=== PATIENT | male | born 1980 | race Caucasian/White ===

== ENCOUNTER → 2017-03-20 | Emergency (ER) | payer OTHER ==
[~2017-03-20] VITALS: Ht 193 cm; Wt 106.6 kg
[~2017-03-20] MED LIST: AMOXICILLIN500 MG PO; BACTRIM DS TAB1 EACH PO; CYCLOBENZAPRINE10 MG PO; DIABETA2.5 MG PO; FLEXERIL10 MG PO; GLYBURIDE2.5 MG PO; IBUPROFEN800 MG PO; KEFLEX500 MG PO; LANTUS100 UNITS/ SUB-Q; LISINOPRIL40 MG PO; LOVASTATIN20 MG PO; METFORMIN HCL1000 MG PO; METHOCARBAMOL500 MG PO; MOBIC7.5 MG PO; NAPROXEN500 M1 PO; NORCO 10-325 T1 EACH PO; NORCO 5-325 TA1 EACH PO; NORCO 7.5-3251 EACH PO; NOVOLIN 70100 UNITS/ SUB-Q; NOVOLOG100 UNIT/2 SUB-Q; PENICILLIN V P500 MG PO; PERCOCET 10-321 EACH PO; TRAMADOL HCL50 MG PO; ULTRAM50 MG PO; ZOFRAN ODT4 MG PO
== END ==
LOC: ED 10:52
PROC: 0H9FXZZ Drainage of Right Hand Skin, External Approach (ICD-10-PCS; principal; 2017-03-20)
DX: L02.512 Cutaneous abscess of left hand (principal); E11.65 Type 2 diabetes mellitus with hyperglycemia; I10 Essential (primary) hypertension; E78.00 Pure hypercholesterolemia, unspecified; F17.200 Nicotine dependence, unspecified, uncomplicated; Z79.899 Other long term (current) drug therapy; Z79.84 Long term (current) use of oral hypoglycemic drugs
CPT/HCPCS: 10060; 99283

== ENCOUNTER 2020-12-12 22:27 | Emergency (ER) | payer OTHER ==
[~2020-12-12] VITALS: Ht 193 cm; Wt 106.6 kg
--- OUTSIDE RECORDS SUMMARY | 2020-12-12 22:34 | XMS ---
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 Zia has no Care Guidelines for this patient. [place] VISIT COUNT (12 MO.) 1 MILI Joya TOTAL 1 NOTE: Visits indicate total known visits. ED/C VISIT TRACKING (12 MO.) 12/12/2020 22:28 MILI Morales [place] TYPE: Emergency COMPLAINT: - LT THUMB AND SKIN PROBLEM INPATIENT VISIT TRACKING (12 MO.) No inpatient visits to display in this time frame [email or web address]
[2020-12-13] MEDS ORDERED: CYMBALTA60 MG PO (00:10)
[2020-12-13] MEDS ORDERED: AMITRIPTYLINE100 MG PO (00:10)
[2020-12-13] MEDS ORDERED: DOXYCYCLINE HY100 MG PO (00:34)
== END 2020-12-13 00:54 | disposition home or self-care (01) ==
LOC: ED 22:27
DX: S60.322A Blister (nonthermal) of left thumb, initial encounter (principal); L08.9 Local infection of the skin and subcutaneous tissue, unspecified; X58.XXXA Exposure to other specified factors, initial encounter; E11.9 Type 2 diabetes mellitus without complications; I10 Essential (primary) hypertension; E78.00 Pure hypercholesterolemia, unspecified; F17.200 Nicotine dependence, unspecified, uncomplicated; Z79.4 Long term (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; Z79.899 Other long term (current) drug therapy
CPT/HCPCS: 99282

== ENCOUNTER 2021-05-04 15:19 | Emergency (ER) | payer OTHER ==
[~2021-05-04] VITALS: Ht 193 cm; Wt 106.6 kg
[~2021-05-04 15:19] MED LIST changes: +AMITRIPTYLINE100 MG PO; +CYMBALTA60 MG PO; +DOXYCYCLINE HY100 MG PO
--- OUTSIDE RECORDS SUMMARY | 2021-05-04 15:22 | XMS ---
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 Zia has no Care Guidelines for this patient. [place] VISIT COUNT (12 MO.) 2 MILI Joya TOTAL 2 NOTE: Visits indicate total known visits. 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 - Type 2 diabetes mellitus without complications - Nicotine dependence, unspecified, uncomplicated - Exposure to other specified factors, initial encounter - Pure hypercholesterolemia, unspecified - Blister (nonthermal) of left thumb, initial encounter - Blister (nonthermal) of left thumb, initial encounter - Local infection of the skin and subcutaneous tissue, unspecified - Rash and other nonspecific skin eruption - Essential (primary) hypertension - [facility] (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 INPATIENT VISIT TRACKING (12 MO.) No inpatient visits to display in this time frame [id number]
== END 2021-05-04 17:53 | disposition home or self-care (01) ==
LOC: ED 15:19
DX: K62.89 Other specified diseases of anus and rectum (principal); E11.9 Type 2 diabetes mellitus without complications; I10 Essential (primary) hypertension; F17.200 Nicotine dependence, unspecified, uncomplicated; Z79.4 Long term (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; Z79.899 Other long term (current) drug therapy
CPT/HCPCS: 72192; 99284-25; A9270

== ENCOUNTER 2021-06-17 18:14 | Inpatient (IN) | payer OTHER ==
[~2021-06-17] VITALS: Ht 193 cm; Wt 103.2 kg
[2021-06-17] MEDS ORDERED: LANTUS100 UNITS/ SUB-Q (19:34)
--- NOTE | 2021-06-17 21:04 | EKG ---
[facility] [address] [place] [address] Signed Sinus tachycardia Rightward axis Low voltage QRS Borderline ECG No previous ECGs available Confirmed by DIANDRA CORDOBA DO ([id number]) on 06/17/2021 9:04:30 PM Electronically Signed By: DIANDRA CORDOBA DO 06/17/212103 PATIENT NAME: JASMINA SANON Electrocardiogram DATE OF : 76 PHYSICIAN: DIANDRA CORDOBA DO REPORT #: [id number] REPORT IS CONFIDENTIAL AND NOT TO BE RELEASED WITHOUT AUTHORIZATION
--- NOTE | 2021-06-18 00:35 | NUR ---
PT ARRIVED TO UNIT WITH GIRLFRIEND, PT MOVED FROM ED STRETCHER TO CCU BED, ASSESSMENT COMPLETED, SECOND IV STARTED, MEDS REVIEWED AND GIVEN PER JUL, DURING HISTORY AND ASSESSMENT PT WAS VERY QUIET AND HARD TO HEAR, KEPT FALLING ASLEEP, UNABLE TO HOLD CONVERSATION, GIRLFRIEND STATES THIS IS NORMAL FOR PT WHEN HES TIRED, VITAL SIGNS OBTAINED, ORDERS REVIEWED, LABS REVIEWED, IN CCU FOR HOUSE CONVIENCE, TREATING MED/SURG STATUS
--- OUTSIDE RECORDS SUMMARY | 2021-06-18 02:56 | XMS ---
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 EJena VISIT COUNT (12 MO.) 3 MILI Joya TOTAL 3 NOTE: Visits indicate total known visits. 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
--- NOTE | 2021-06-18 07:30 | NUR ---
REPORT RECIEVED, CARE OF PATIENT ASSUMED AT THIS TIME. ABX AND IV FLUIDS INFUSING (SEE EMAR). PT ASLEEP, BREATHING EVEN AND UNLABORED. PT DENIES NEEDS AT THIS TIME.
--- NOTE | 2021-06-18 07:55 | NUR ---
DR MERRITT IN TO DRESS FOOT WOUND AT THIS TIME. PT GAVE VERBAL CONSENT GIVEN TO PHOTOGRAPH WOUND. PLAN FOR PT TO GO TO MRI AT 1300 TODAY.
--- NOTE | 2021-06-18 08:10 | NUR ---
Attempted to see pt, he is sleeping soundly and does not awaken. Per RN he slept through a dressing change with the Dr. Will return later.
--- NOTE | 2021-06-18 09:19 | NUR ---
ASSESSMENT COMPLETED. PT EXTREMELY DROWSY, AWAKENS TO TOUCH AND ANSWERS QUESTIONS APPROPRAITELY BUT FALLS BACK ASLEEP DURING ASSESSMENT. LUNGS SOUND CLEAR, PT DENIES PAIN AT THIS TIME. IV FLUIDS INFUSING. PLAN OF CARE FOR DAY ESTABLILSHED. CALL LIGHT WITHIN REACH WILL CONTINUE TO MONITOR.
--- NOTE | 2021-06-18 09:50 | NUR ---
PT WOKE TO TAKE ORAL MEDICATIONS. ATTEMPT TO STAND TO VOID, UNABLE TO PUT PRESSURE ON LEFT LEG. PT ALSO UNALBE TO VOID. NOW BACK IN BED, ASSISTED WITH REPOSITIONING IN BED. CALL LIGHT WITHIN REACH. IV FLUIDS INFUSING. WILL CONTINUE TO MONITOR.
--- NOTE | 2021-06-18 11:13 | NUR ---
PT SLEEPING, DID NOT WAKE TO MY VOICE. WILL CHECK BACK AGAIN
--- NOTE | 2021-06-18 11:15 | NUR ---
THIS FILBERT GROWER IN ROOM TO ASSIST PATIENT WITH VOID FOR URINE SAMPLE. PATIENT RESTING VERY SOUNDLY WITH BLANKET OVER HIS HEAD. OPENS EYES BRIEFLY AND IS BACK TO SLEEP BEFORE HE CAN ANSWER.
--- NOTE | 2021-06-18 11:38 | NUR ---
REPORT GIVEN TO ROBE ON THE MEDICAL FLOOR. PTS TRANSFERED TO THE FLOOR VIA BED, ALL BELONGINGS TRANSPORTED WITH PT.
--- NOTE | 2021-06-18 11:50 | NUR ---
PT ARRIVED TO FLOOR AT THIS TIME. PT VERY DROWSY BUT DOES AROUSE TO TOUCH AND VOICE.
--- NOTE | 2021-06-18 12:50 | NUR ---
THIS RN TO GIVE MEDS. PT DENIES PAIN. ABLE TO WAKE UP AND TAKE PILLS WNL. LLE ELEVATED ON PILLOW. PT STILL DROWSY WITH NO CHANGE
--- NOTE | 2021-06-18 14:10 | NUR ---
PT APPEARS TO BE RESTING BUT ABLE TO WAKE AND SIGN HIS MRI PAPER
--- NOTE | 2021-06-18 14:42 | NUR ---
VS AND I&O'S TAKEN AND DOCUMENTED. PT SLEEPING PRETTY HARD, DIDN'T WANT TO BE WOKEN UP FOR VITALS. PT STATES HE HAS NOT VOIDED AND DOESN'T FEEL LIKE HE HAS TO GO AT THIS TIME. INFORMED PT TO CALL SOON HE FEELS THE URGE TO VOID. PT UNDERSTANDS. CALL LIGHT IN REACH.
--- NOTE | 2021-06-18 15:04 | NUR ---
1500-PATIENT TO MRI VIA WHEELCHAIR. BEDDING CHANGED.
--- NOTE | 2021-06-18 16:10 | NUR ---
PT BACK FROM MRI. PT STILL VERY DROWSY BUT ABLE TO WAKE TO ANSWER QUESTIONS. PT ABLE TO VOID AT THIS TIME. UA SENT TO LAB
--- NOTE | 2021-06-18 17:30 | NUR ---
THIS RN IN PTS ROOM WITH . OPENED UP 5 SMALL INCISIONS ON PTS LEFT FOOT AND ABLE TO MOVE WHITE PURULENT DRAINAGE OUT
--- NOTE | 2021-06-18 19:15 | NUR ---
report from lyudmila pt eyes closed, resp rate regular - call light in reach.
--- NOTE | 2021-06-18 22:59 | NUR ---
VS AND I&O'S COMPLETE. pt YET TO VOID, URINAL AT BEDSIDE. pt AGREES TO TRY AND VOID, HR TACHY-107 AND TEMP RESULT OF 99.7. PRIMARY RN KENDRA AWARE OF VS AND NEED TO VOID.
--- NOTE | 2021-06-19 00:20 | NUR ---
in pt room for IV alarm - pt resp rate even with audible snoring. IV fusing abx. call light in reach.
--- NOTE | 2021-06-19 02:44 | NUR ---
PT WOKEN UP BY RN AND ASKED TO USE URINAL. VOID 750 YELLOW CLEAR URINE.
--- NOTE | 2021-06-19 05:35 | NUR ---
RN AND LAB IN FOR VITALS AND BLOOD DRAW.
--- NOTE | 2021-06-19 06:00 | NUR ---
DR MERRITT IN WITH THIS RN FOR DRESG CHANGE OF LEFT FOOT, JESUS. DR AWARE OF DUSKY SECOND TO GREAT TOE, AND NOW GREAT TOE WELL. DRESSING REMOVED BY AND FLUSHED OPEN AREAS WITH TEA COLORED DILUTED IODINE WATER - OPEN AREAS PACKED WITH SMALL GAUZE AFTER BLUNT END OF QTIP USED TO OPEN AREA AND DRAIN OUT FLUIDS. FLUSHING THE WOUNDS WITH SYRINGE OF DILUTED AREA FIRST. WRAPPED WITH ABD KERLEX THEN COBAN. PT TOLLERATED WELL- SLEEPY BUT AWAKENS AND REPOSITIONS WITH DIRECTION.
--- NOTE | 2021-06-19 10:55 | NUR ---
Patient resting in bed, eyes closed, respirations even and non labored. Patient has no distress. LLE elevated, dressing is CDI. IV site patent, fluids infusing per provider order.
--- NOTE | 2021-06-19 12:30 | NUR ---
Attempted to see pt x 3. I was not successful getting pt to stay awake to ask questions. Pt snoring loudly and falls asleep immediately.
--- NOTE | 2021-06-19 14:25 | NUR ---
Patient resting in bed, eyes closed, respirations even and non labored. Patient has no distress. LLE elevated. Patient has no needs. Personal supplies and call light within reach.
[2021-06-19] MEDS ORDERED: DOXYCYCLINE MO100 M1 PO (15:01)
[2021-06-19] MEDS ORDERED: AMITRIPTYLINE150 MG PO (15:02)
[2021-06-19] MEDS ORDERED: GABAPENTIN300 MG PO (15:02)
[2021-06-19] MEDS ORDERED: HUMALOG KW200 UNIT/1 SUB-Q (15:03)
--- NOTE | 2021-06-19 15:05 | NUR ---
MED REC COMPLETE
--- NOTE | 2021-06-19 16:01 | NUR ---
EVERTIME I GO IN AND CHECK ON PATIENT OR DO HIS VITALS. PATIENT IS SLEEPING.
--- NOTE | 2021-06-19 17:13 | NUR ---
LEFT FOOT DRESSING CHANGED PER PROVIDER ORDER. WOUND AREA TO LEFT FOOT CLEANED WITH BETADINE DILUTE SOLUTION, EXPRESSED PURULENT DRAINAGE FROM I&D LOACATIONS. INJECTED DILUTE BETADINE INTO I&D LOCATIONS WELL, ALLOWED FOR DRAINAGE TO CLEAR. MOIST PACKING PLACED TO I&D SITES X2. 4X4 GAUZE, KERLIX, ABD THEN COBAN PLACED. PATIENT TOLERATED DRESSING CHANGE VERY WELL. NOTABLE DUSKY SECOND AND GREAT TOE-PROVIDER AWARE PER REPORT.
--- NOTE | 2021-06-19 21:30 | NUR ---
VS, I&Os, GLUC CHECK (SEE EMAR) COMPLETE, ICE WATER FILLED
--- NOTE | 2021-06-20 01:21 | NUR ---
RESTING, NO C/O ADVERSE REACTION TO IV ABX, L FOOT ELEVATED IN PILLOWS, DRESSING IN PLACE, CALL LIGHT AND FLUDIS AT HANDS REACH
--- NOTE | 2021-06-20 02:42 | NUR ---
resting, eyes closed, no distress, coop with assessment. dressing to L foot intact, encouraged to elevate as much as possible. laying on his stomach, leg in dependent position, stated ok, denies c/o pain at this time. calm, coop. unable to assess degree of understanding as he just nods and states "mmmmm" cont to reinforce poc and care of L foot dressing
--- NOTE | 2021-06-20 06:15 | NUR ---
Pt on room air, has slept all this shift, awakens easily with light touch or verbal cue. IVF infusing w/o problems, no c/o adverse reaction to IV abx. Decreaed redness and edema L foot, dressing in place, toes spale, edematoues, discolored. elevated in pillows. Was medicated with Tylenol, effective. CIWA restults 4 and 2. cont to assess for s/sx meth withdrawal. Tolerating liquids well, no emesis this shift. Voiding large amounts of urine. unable to assess degree of understandingn when teaching as he only answers "mmmmmm". cont to reinforce teaching, s/sx hypo/hyperglycemia, L foot dressing care. L foot elevated
--- NOTE | 2021-06-20 09:05 | NUR ---
INTO PATIENT ROOM, MITALI HAMILTON AND STUDENT AT BEDSIDE. PATIENT IN BED, APPEARS TO BE ATTEMPTING TO OPEN EYES AND WAKE UP. ATTEMPTED TO COMPLETE CASE MANAGEMENT ASSESSMENT. PATIENT ONLY ABLE TO ANSWER A FEW QUESTIONS BEFORE RETURNING TO SLEEP. PER MITALI HAMILTON PATIENT HAS REQUIRED STERNAL RUB TO WAKE. PATIENT STATES HE IS CURRENTLY HOMELESS AND COUCH SURFING. DWAINE CONFIRMS THAT HE HAS NO MAILING ADDRESS. CONFIRMED [facility] [phone] TO BE A GOOD CONTACT. AT THIS TIME PATIENT FALLS BACK TO SLEEP DISPITE THIS RN ASKING QUESTIONS AND OTHER STAFF TALKING AT THE BEDSIDE. THIS RN AND MITALI HAMILTON OUT OF ROOM TO DISCUSS CONCERNS REGARDING SUSPICIONS OF ONGOING DRUG USE WHILE INPATIENT. MITALI HAMILTON TO DISCUSS CONCERNS WITH ASSISTANT PRESS OPERATOR.
--- NOTE | 2021-06-20 09:10 | NUR ---
MED REC COMPLETE
--- NOTE | 2021-06-20 10:20 | NUR ---
Patient resting with eyes closed, wakes to verbal stimuli but then shorly after returns back to sleep. Patient is alert to all accept date, notably drowsy. Speech is clear, pt answering questions when asked. Patient reports he is legally blind so he wears sunglasses frequently. Patient reports he is tired today but overall feels a bit better as compared to yesterday. Patient's vital signs are stable. IV site patent. Patient consumed 75% of breakfast. Dr. Moulton in with patient this morning for left foot dressing change. Left foot is elevated on a pillow. Dressing remains CDI to left foot.
--- NOTE | 2021-06-20 11:05 | NUR ---
PT ASLEEP, WILL CHECK BACK
--- NOTE | 2021-06-20 11:42 | NUR ---
Patient voided 900ml clear yellow urine. Patient reports he would like to go home today. Encouraged patient to speak with Dr. Tan when he comes to see him today regarding plan of care for hospital stay. Explained to patient that Dr. Moulton stated this morning that pt is in need of iv antibiotics for several days for his infection. Will monitor for plan of care updates from provider.
--- NOTE | 2021-06-20 16:06 | NUR ---
Patient resting in bed, respirations even and non labored. Patient has no distress. IV sites are patent. LLE elevated. Personal supplies and call light within reach.
--- NOTE | 2021-06-20 17:32 | NUR ---
Held dinner insulin for blood sugar of 71. Patient awake eating dinner at this time.
--- NOTE | 2021-06-20 17:35 | NUR ---
1700 insulin held due to blood sugar of 75. Patient awake eating dinner.
--- NOTE | 2021-06-21 02:36 | NUR ---
RESTING, EYES CLOSED, NO DISTRESS, ON CONTACT ISOLATION PRECAUTIONS. L FOOT ELEVATED IN PILLOWS, DRESSING CDI
--- NOTE | 2021-06-21 06:15 | NUR ---
Pt on MRSA Contact Isolation Precautions. On room air, more alert and oriented than yesterday, receptive to teaching r/t care of L foot. L foot dressing changed last night. decreased erythema and edema of L foot. has kept it elevated with pillows. Was medicated with Tylenol and Oxycodone prior to dressing changes. effective. tolerating fluids and diet. CBG was 222 received 5 units ss insulin and scheduled Semglee Insulin. Cooperative with procedures.
--- NOTE | 2021-06-21 08:30 | NUR ---
Dr. Moulton in for left foot dressing change.
--- NOTE | 2021-06-21 08:56 | NUR ---
Oxycodone 10mg po and tylenol 650mg po admin for left foot dressing change.
--- NOTE | 2021-06-21 11:06 | NUR ---
Patient more alert today, no distress. LLE elevated at this time. Decreased arythema to left leg/foot. Left foot dressing is CDI. No current needs. Personal supplies and call light within reach.
--- NOTE | 2021-06-21 14:00 | NUR ---
REPORT RECEIVED FROM RN AND PT CARE RESUMED. PT. IS DROWSY BUT AROUSES EASILY AND ORIENTED TO ALL. RAC IV IS LEAKING AND CATH ALMOST COMPLETELY REMOVED. REMOVED BY THIS RN WITH CATH INTACT. PT. DENIES PAIN. LT. FOOT DRESSING IS CDI AND REDDNESS WITHIN OUTLINE MARGINS. DISCUSSED SAFETY, POC, AND IV CARE. LEFT RESTING WITH CALL LIGHT IN REACH.
--- NOTE | 2021-06-21 19:35 | NUR ---
REPORT RECEIVED FROM DAY SHIFT RN. PT LYING IN BED RESTING WITH EYES CLOSED. RESPIRATIONS EVEN. WHITE BOARD UPDATED. CALL LIGHT IN REACH.
--- NOTE | 2021-06-21 21:10 | NUR ---
PT ALERT AND ORIENTED SITTING UP IN BED VISITING WITH FAMILY IN ROOM. PRN FOR PAIN ADMINISTERED IN ANTICIPATION OF DRESSING CHANGE. NO FURTHER NEEDS AT THIS TIME. CALL LIGHT IN REACH.
--- NOTE | 2021-06-21 22:15 | NUR ---
EVENING ASSESSMENT COMPLETE. SCHEDULED MEDS ADMINSITERED PER EMAR. DRESSING CHANGE TO LEFT FOOT DONE PER MD ORDER. MODERATE AMOUNT PURULENT DRAINAGE EXPRESSED. PT CHOLO WELL. LLE ELVATED ON PILLOW. PT REPORTS PAIN IS TOLERABLE. DENIES NAUSEA. IV ABX INFUSING WNL. PT DENIES PAIN WITH INFUSION. DENIES QUESTIONS OR CONCERNS. CALL LIGHT IN REACH.
--- NOTE | 2021-06-22 00:48 | NUR ---
PT RESTING IN BED. EYES CLOSED. RESPIRATIONS EVEN. IV ABX INFUSING WNL.
--- NOTE | 2021-06-22 02:34 | NUR ---
IV PUMP ALARMING. IV ABX COMPLETE. PT RESTING ON RIGHT SIDE. AWAKENS EASILY. DENIES NEEDS. CALL LIGHT IN REACH.
--- NOTE | 2021-06-22 05:21 | NUR ---
PT RESTING IN BED. EYES CLOSED. RESPIRATIONS EVEN. CALL LIGHT IN REACH.
--- NOTE | 2021-06-22 06:40 | NUR ---
DR. MERRITT AT BEDSIDE TO CHANGE DRESSING TO LEFT FOOT. PT CHOLO WELL. PRN FOR PAIN ADMINISTERED PER EMAR. VS AND I&O COMPLETE. PT DENIES FURTHER NEEDS.
--- NOTE | 2021-06-22 09:00 | NUR ---
REPORT RECEIVED FROM NIGHT RN AND PT. CARE RESUMED. PT. IS DROWSY BUT EASILY AWAKENS AND ORIENTED TO ALL. HE AMBULATED TO THE CHAIR WITH SBA AND BROUGHT A WALKER PER REQUEST. IV WNL AND FLUSHES WELL. LEFT FOOT DRESSING C.D.I. AND +1 EDEMA PRESENT AND REDDNESS WITHIN MARGINS. DISCUSSED POC, MEDS AND ENCOURAGED AMBULATION. LEFT RESTING WITH CALL LIGHT IN REACH.
--- NOTE | 2021-06-22 10:37 | NUR ---
IV VANCO INFUSING. PT. EDUCATED ON S/SX OF INFILTRATION.
--- NOTE | 2021-06-22 11:15 | NUR ---
ROUNDING ON PT. IV SITE WNL AND NO SIGNS OF INFILTRATION. VANCO INFUSING.
--- NOTE | 2021-06-22 14:38 | NUR ---
ROUNDING ON PT. HE IS UP IN THE CHAIR SLEEPING WITH EYES CLOSED. RESPIRATIONS EVEN AND UNLABORED.
--- NOTE | 2021-06-22 16:18 | NUR ---
HELPED PATIENT WALK TO THE CHAIR WHILE USING WALKER. CHANGED BED LINENS. HE BRUSHED HIS TEETH AND WASHED HIS FACE.
--- NOTE | 2021-06-22 19:40 | NUR ---
REPORT RECEIVED FROM DAY SHIFT RN. PT LYING IN BED RESTING WITH EYES CLOSED. WHITE BOARD UPDATED. CALL LIGHT IN REACH.
--- NOTE | 2021-06-22 21:45 | NUR ---
EVENING ASSESSMENT COMPLETE. SCHEDULED MEDS ADMINISTERED PER EMAR. PRN FOR PAIN ADMINISTERED IN ANTICIPATION OF LLE DRESSING CHANGE. LLE CELLULITIS OUTLINE. REDNESS RECEDING. LLE ELEVATED ON PILLOWS. PT DENIES NAUSEA. VOID QS. FRESH WATER PROVIDED. TEMP NOTED TO BE ELEVATED. PT C/O BEING HOT. THERMOSTAT TURNED DOWN.
--- NOTE | 2021-06-22 23:15 | NUR ---
DRESSING CHANGE TO LLE COMPLETE PER MD ORDERS. MODERATE AMOUNT BLOODY PURULENT DRAINAGE EXPRESSED FROM WOUND. PT CHOLO WELL. IV ABX INFUSING WNL. LOW SUGAR SNACK PROVIDED PER REQUEST. NO FURTHER NEEDS AT THIS TIME. CALL LIGHT IN REACH.
--- NOTE | 2021-06-23 01:37 | NUR ---
PT RESTING IN BED. EYES CLOSED. RESPIRATIONS EVEN. LLE ELEVATED ON PILLOWS.
--- NOTE | 2021-06-23 05:42 | NUR ---
VS AND I&O COMPLETE. PRN FOR PAIN ADMINISTERED PRIOR TO LLE DRESSING CHANGE BY MD. LLE ELEVATED ON PILLOW. NO FURTHER NEEDS AT THIS TIME. CALL LIGHT IN REACH.
--- NOTE | 2021-06-23 06:46 | NUR ---
DR. MERRITT TO ROOM FOR MORNING DRESSING CHANGE AND DISCUSS PLAN OF CARE. PT CHOLO WELL.
--- NOTE | 2021-06-23 07:30 | NUR ---
PATIENT AWOKE WHEN DOING SHIFT REPORT ROUNDS. PATIENT SAYS HIS PAIN IS ,"OK". PATIENT REQUIRED NO OTHER CARE NEEDS AT THIS TIME AND CALL LIGHT IS IN REACH.
--- NOTE | 2021-06-23 09:17 | NUR ---
PATIENT ATE 100% OF HIS BREAKFAST AND IS HAVING 7/10 PAIN IN HIS LEFT FOOT. 10MG PO OXYCODONE GIVEN AND PATIENT DENIES ANY OTHER CARE NEEDS. CALL LIGHT IS IN REACH.
--- NOTE | 2021-06-23 09:47 | NUR ---
PT ASLEEP IN BED WITH EYES CLOSED. CALL LIGHT WITHIN REACH. NO FURTHER NEEDS AT THIS TIME.
--- NOTE | 2021-06-23 10:08 | NUR ---
IV VANCO INFUSING FOR 2 HOURS. PATIENT IS SLEEPING SOUNDLY.
--- NOTE | 2021-06-23 11:21 | NUR ---
WENT TO CHECK ON PATIENT'S PAIN AND PATIENT IS RESTING QUIETLY SUPINE, EYES ARE CLOSED, RESPIRATIONS ARE REGULAR AND EVEN, AND CALL LIGHT IS IN REACH. PATIENT HAS NO NOTED CARE NEEDS AT THIS TIME.
--- NOTE | 2021-06-23 12:14 | NUR ---
THIS RN IN TO SEE PATIENT. PATIENT DENIES ANY PAIN AT THIS TIME. FSBS WAS COVERED. LUNCH TRAY DELIVERED AND PATIENT SITTING UP TO EAT. PATIENT DENIES ANY OTHER CARE NEEDS AT THIS TIME. CALL LIGHT IS IN REACH.
--- NOTE | 2021-06-23 12:54 | NUR ---
THIS RN REFILLED PATIENT'S ICE WATER AND TOOK AWAY HIS LUNCH TRAY. PATIENT ATE 90% OF LUNCH. URINAL EMPTIED AND PATIENT DENIES PAIN AND ANY OTHER CARE NEEDS AT THIS TIME CALL LIGHT IS IN REACH.
--- NOTE | 2021-06-23 14:28 | NUR ---
PATIENT IN BED RESTING AT THIS TIME. VITALS AND I&O'S CHARTED. CALL LIGHT IN REACH. NO FURTHER NEEDS AT THIS TIME. PATIENT WANTS TO GET UP AND WALK AROUND WHEN VISITOR GETS HERE.
--- NOTE | 2021-06-23 15:10 | NUR ---
PATIENT JUST FINISHED WORKING WITH PT AND LEFT FOOT PAIN 02/16. SCHEDULED AND PRN PO PAIN MEDS GIVEN. PATIENT ALSO SUPPLIED WITH 1 DIABETIC JELLO AND SOME CRACKERS HE ASKED FOR. PATIENT DENIED ANY OTHER PAIN MEDS AT THIS TIME AND CALL LIGHT IS IN REACH. PATIENT HAS CAP REFILL ,3 SEANDS ON ALL LEFT TOES AND PATIENT CAN WIGGLE HIS TOES, BUT HAS NO FEELING IN HIS BIG AND 2ND TOE AT THIS TIME.
--- NOTE | 2021-06-23 17:13 | NUR ---
PATIENT'S GCHZ=[id number]. DISCUSSED THIS WITH AND SHE GAVE ME A VERBAL ORDER TO HOLD THE 5UNIT INSULIN DOSE WITH MEALS. INFORMED THE PATIENT THAT WE WERE NOT GIVING ANY INSULIN WITH DINNER AND HE AGREED WITH THIS DECISION. PATIENT IS AT HIS COMFORT LEVEL AT THIS TIME AND DID NOT NEED ANYMORE PAIN MEDICATION AT THIS TIME. DINNER SET UP FOR PATIENT AND PATIENT HAS A FRIEND IN THE ROOM VISITING. PATIENT HAS NO OTHER CARE NEEDS AT THIS TIME AND CALL LIGHT IS IN REACH.
--- NOTE | 2021-06-23 18:37 | NUR ---
PATIENT IN BED RESTING AT THIS TIME. VITALS AND I&O'S CHARTED. VISITOR IN ROOM. CALL LIGHT IN REACH. NO FURTHER NEEDS AT THIS TIME.
--- NOTE | 2021-06-23 19:39 | NUR ---
REPORT RECEIVED FROM DAY SHIFT RN. PT LYING IN BED WITH EYES CLOSED. RESPIRATIONS EVEN. WHITE BOARD UPDATED. CALL LIGHT IN REACH.
--- NOTE | 2021-06-23 21:45 | NUR ---
EVENING ASSESSMENT COMPLETE. SCHEDULED MEDS ADMINISTERED PER EMAR. PRN FOR PAIN GIVEN PRIOR TO LLE DRESSING CHANGE. PT DENIES NAUSEA. LLE CELLULITIS OUTLINED. REDNESS RECEDING. LLE ELEVATED ON PILLOW WITH RED DRAINAGE ON DRESSING. EVENING SNACK PROVIDED. PT DENIES FURTHER NEEDS AT THIS TIME. CALL LIGHT IN REACH.
--- NOTE | 2021-06-23 23:30 | NUR ---
IV IN RIGHT FOREARM DC'D WNL DUE TO REDNESS AT SITE. TIP INTACT. NEW IV STARTED IN RIGHT AC BY RN SAW STRAIGHTENER. IV ABX INFUSING WNL. PT DENIES PAIN WITH INFUSION. LINENS CHANGED.
--- NOTE | 2021-06-23 23:52 | NUR ---
HELPED PRIMARY RN ROMERO CHANGED BED LINEN.
--- NOTE | 2021-06-24 05:20 | NUR ---
VS AND I&O COMPLETE. PRN FOR PAIN ADMINISTERED BEFORE DRESSING CHANGE THIS AM BY MD. PT DENIES NEEDS.
--- NOTE | 2021-06-24 06:26 | NUR ---
MD IN ROOM FOR LLE DRESSING CHANGE AND UPDATE PLAN OF CARE. PT RECEPTIVE. VERBAL ORDERS RECEIVED FOR LLE POST OP BOOT.
--- NOTE | 2021-06-24 07:30 | NUR ---
PATIENT RESTING QUIETLY IN BED. RRESPIRATIONS ARE REGULAR AND EVEN AND EYES ARE CLOSED. PATIENT HAS NO CURRENT CARE NEEDS. CALL LIGHT IS IN REACH.
--- NOTE | 2021-06-24 08:19 | NUR ---
PT RESTING IN BED WITH EYES CLOSED. PT IS SLOW TO RESPOND AND FALLING ASLEEP FREQUENTLY DURING BLOOD SUGAR CHECK. WHITE BOARD UDPATED. CALL LIGHT WITHIN REACH. GIRLFRIEND AT BEDSIDE. NO FURTHER NEEDS AT THIS TIME.
[2021-06-24] MEDS ORDERED: LINEZOLID600 MG PO (09:06)
--- NOTE | 2021-06-24 10:15 | NUR ---
IN TO SEE PATIENT AND PATIENT HAVING 6/10 LEFT FOOT PAIN. PO OXYCODONE GIVEN. PATIENT ALSWO GETTING HIS FLU SHOT PRIOR TO DC. PATIENT IS WILLING AND READY TO GO HOME AND HIS RIDE IS PRESENT IN THE ROOM. AWAITING PHARMACIST TO TALK WITH PATIENT.
--- NOTE | 2021-06-24 10:30 | NUR ---
Notified, pt is wanting to dc and needs a walker. Texted Behzad from [facility], [place] and he is in town today and has a walker with him. Faxed face sheet, Rx, note, and dc summary to [facility].
--- NOTE | 2021-06-24 11:09 | NUR ---
PATIENT GIVEN HIS FLU VACCINE AND INFO SHEET. ALL DISCHARGE AND F/U INSTRUCTIONS GIVEN PATIENT ASKED ABOUT PAIN MEDS AND WAS CALLED AND HE SAID OTC MEDS FOR NOW AND WILL DISCUSS WITH PATIENT IN THE OFFICE TOMORROW. PATIENT IS READY FOR DC.
--- NOTE | 2021-06-24 11:30 | NUR ---
THIS RN PLACED A SOCK OVER PATIENT'S TOES AND PUT HIS SURGERY SHOE ON HIS LEFT FOOT. CAP REFILL TO ALL LEFT TOES <3 SECONDS AND PATIENT CAN MOVE ALL HIS TOES. IV DC'D INTACT. VS DU=961, RESPS=18, B/P=94/67, 985 O2 SAT ON RA. INFORMED OF THESE VS BY THIS RN AND APPROVED PATIENT'S DC. PATIENT TAKEN OUT TO PRIVATE CAR BY SHEET METAL SUPERINTENDENT AND STUDENT NURSE.
--- NOTE | 2021-06-24 14:00 | NUR ---
Received a call from Liset at [facility]. States she cannot accept gait instability for payment for a walker. UPdated pt has a diabetic wound and she states this is a code they can use. Code given and they will auth walker.
== END 2021-06-24 11:30 | disposition home or self-care (01) | DRG 853 ==
LOC: ED 18:14 → CCU 22:22 → MS 06-18 11:50
PROVIDERS: ADMIT Student in an Organized Health Care Education/Training Program; ATTEND Student in an Organized Health Care Education/Training Program
PROC: 3E03329 Introduction of Other Anti-infective into Peripheral Vein, Percutaneous Approach (ICD-10-PCS; 2021-06-17)
PROC: 0L9W0ZZ Drainage of Left Foot Tendon, Open Approach (ICD-10-PCS; principal; 2021-06-18)
DX: A41.02 Sepsis due to Methicillin resistant Staphylococcus aureus (principal); G93.41 Metabolic encephalopathy; L03.116 Cellulitis of left lower limb; I10 Essential (primary) hypertension; E11.621 Type 2 diabetes mellitus with foot ulcer; L97.529 Non-pressure chronic ulcer of other part of left foot with unspecified severity; Z20.822 Contact with and (suspected) exposure to COVID-19; E03.9 Hypothyroidism, unspecified; F17.200 Nicotine dependence, unspecified, uncomplicated; Z98.890 Other specified postprocedural states; Z79.4 Long term (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; Z79.899 Other long term (current) drug therapy; F39 Unspecified mood [affective] disorder
CPT/HCPCS: 36415; 71045; 73630; 73723; 80048; 80053; 80202; 81001; 82803; 83605; 83735; 85025; 85651; 86140; 87040; 90686; 93005; 93010; 93971; 96374; 96375; 97162; 99285-25; A9270; A9577; C9803; J0692; J1650; J1815; J3370; J7030; J7060; J7121; U0003

== ENCOUNTER 2021-09-01 16:32 | Emergency (ER) | payer OTHER ==
[~2021-09-01] VITALS: Ht 195.6 cm; Wt 103.0 kg
[~2021-09-01 16:32] MED LIST changes: +AMITRIPTYLINE150 MG PO; +DOXYCYCLINE MO100 M1 PO; +GABAPENTIN300 MG PO; +HUMALOG KW200 UNIT/1 SUB-Q; +LINEZOLID600 MG PO
[2021-09-01] MEDS ORDERED: BACTRIM DS TAB1 EACH PO (17:03)
[2021-09-01] MEDS ORDERED: CYCLOBENZAPRINE10 MG PO (18:36)
[2021-09-01] MEDS ORDERED: MOBIC15 MG PO (18:36)
== END 2021-09-01 18:55 | disposition home or self-care (01) ==
LOC: ED 16:32
DX: M51.36 Other intervertebral disc degeneration, lumbar region (principal); E11.9 Type 2 diabetes mellitus without complications; I10 Essential (primary) hypertension; E78.00 Pure hypercholesterolemia, unspecified; E03.9 Hypothyroidism, unspecified; F17.200 Nicotine dependence, unspecified, uncomplicated; Z79.899 Other long term (current) drug therapy; Z79.4 Long term (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
CPT/HCPCS: 72100; 96372; 99283-25; J1885

== ENCOUNTER 2021-09-19 17:20 | Emergency (ER) | payer OTHER ==
[~2021-09-19] VITALS: Ht 195.6 cm; Wt 99.8 kg
[~2021-09-19 17:20] MED LIST changes: +MOBIC15 MG PO
--- OUTSIDE RECORDS SUMMARY | 2021-09-19 17:22 | XMS ---
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 Waste Hand Events No recent Security Events currently on file CRITERIA MET - [facility] - 2 Visits in 30 Days CARE PROVIDERS [facility] 05/06/2021-Current PHONE: [phone] Zia has no Care Guidelines for this patient. [place] VISIT COUNT (12 MO.) 6 [facility] TOTAL 6 NOTE: Visits indicate total known visits. ED/C VISIT TRACKING (12 MO.) 09/19/2021 17:21 [facility] [place] TYPE: Emergency COMPLAINT: - BACK PAIN 09/19/2021 12:45 [facility] [place] TYPE: Emergency COMPLAINT: - BACK PAIN 09/01/2021 16:32 [facility] [place] TYPE: Emergency COMPLAINT: - BACK PAIN DIAGNOSES: - Hypothyroidism, unspecified - vermin 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 (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 - Essential (primary) hypertension - Nicotine dependence, unspecified, uncomplicated - Low back pain, unspecified - Other long distance operator (current) drug therapy - Other intervertebral disc degeneration, lumbar region - Pure hypercholesterolemia, unspecified - Type 2 diabetes mellitus without complications 06/17/2021 18:14 [facility] [place] TYPE: Emergency COMPLAINT: - LT LEG SWELLING/NON INJURY 05/04/2021 15:20 [facility] [place] TYPE: Emergency COMPLAINT: - FORGIN BODY DIAGNOSES: - vermin 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 (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 - Essential (primary) hypertension - Other usp (current) drug therapy - Type 2 diabetes mellitus without complications - Other specified diseases of anus and rectum - Nicotine dependence, unspecified, uncomplicated 12/12/2020 22:28 [facility] [place] TYPE: Emergency COMPLAINT: - LT THUMB AND SKIN PROBLEM DIAGNOSES: - Other usp (current) drug therapy - Type 2 diabetes [...] skin eruption - Essential (primary) hypertension - vermin 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 (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 INPATIENT VISIT TRACKING (12 MO.) 06/17/2021 22:[address] [facility] [place] TYPE: Medical Surgical COMPLAINT: - LEFT FOOT ULCER, CELLULITIS DIAGNOSES: - Other usp (current) drug therapy - Essential (primary) hypertension - Other specified postprocedural states - Unspecified mood [affective] disorder - Type 2 diabetes mellitus with foot ulcer - Cellulitis of left lower limb - Sepsis due to Methicillin resistant Staphylococcus aureus - Cellulitis of left lower limb - Sepsis due to Methicillin resistant Staphylococcus aureus - Sepsis, unspecified organism - Essential (primary) hypertension - Nicotine dependence, unspecified, uncomplicated - Metabolic encephalopathy - Type 2 diabetes mellitus with foot ulcer - Non-pressure chronic ulcer of other part of left foot with unspecified severity - Hypothyroidism, unspecified - Metabolic encephalopathy - assisted (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 - Nicotine dependence, unspecified, uncomplicated - Other long distance operator (current) drug therapy - Other specified postprocedural states - Hypothyroidism, unspecified - Non-pressure chronic ulcer of other part of left foot with unspecified severity - vermin 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 (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 - Unspecified mood [affective] disorder [email or web address]
[2021-09-19] MEDS ORDERED: SULFAMETHOXAZO1 EAC1 PO (18:39)
[2021-09-19] MEDS ORDERED: CYCLOBENZAPRINE10 MG PO (22:37)
== END 2021-09-19 23:03 | disposition home or self-care (01) ==
LOC: ED 17:20
DX: M54.50 Low back pain, unspecified (principal); E11.65 Type 2 diabetes mellitus with hyperglycemia; E11.621 Type 2 diabetes mellitus with foot ulcer; L97.529 Non-pressure chronic ulcer of other part of left foot with unspecified severity; E11.9 Type 2 diabetes mellitus without complications; I10 Essential (primary) hypertension; E78.00 Pure hypercholesterolemia, unspecified; E03.9 Hypothyroidism, unspecified; F17.200 Nicotine dependence, unspecified, uncomplicated; Z79.4 Long term (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; Z79.899 Other long term (current) drug therapy
CPT/HCPCS: 80053; 81001; 82010; 82800; 85025; 96361; 96374; 99285-25; A9270; J1815; J7030

== ENCOUNTER 2022-07-21 15:03 | Emergency (ER) | payer OTHER ==
[~2022-07-21] VITALS: Ht 195.6 cm; Wt 90.7 kg
[~2022-07-21 15:03] MED LIST changes: +SULFAMETHOXAZO1 EAC1 PO
--- OUTSIDE RECORDS SUMMARY | 2022-07-21 15:07 | XMS ---
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 Precision Lens Polisher Events 1 event(s) in the past 18 months Most recent security events: Elopement at [facility] 09/19/2021 12:45 - Patient eloped before treatment completed. - Patient with suicidal and/or homicidal ideations eloped. - Patient eloped with IV in place. Details: PATIENT LWBS CRITERIA MET - [facility] - Has Care Guidelines CARE PROVIDERS -, Chris- Dentist: Vessel Scrapper Helper [facility] PHONE: [phone] -, Kassy- Dentist: Vessel Scrapper Helper [facility] PHONE: [phone] BRAYDON VILLATORO [facility] 05/06/2021-Current PHONE: [phone] Dell Estevez Plow And Boring Machine Tender/Environmental Research Scientist 07/07/2022-Current PHONE: [phone] Guidelines Source: [facility] Guidelines Date: 03/17/2022 Care Recommendation: PATIENT RECENTLY DISCHARGED FROM [facility]- DIFFICULT PLACEMENT. PATIENT WAS NOT COOPERATIVE WITH DISCHARGE PLANS. CAN GO TO [facility] IF NEEDED FOR HOUSING RESOURCE CHW CAN PROVIDE A SLEEPING BAG AND A TENT IF NEEDED PATIENT NEEDS TO FOLLOW UP WITH PCP FROM [facility] WILL BE CONTACTED FOR HOUSING NEEDS IF PATIENT DOES NOT MEET ADMISSION CRITERIA PLEASE HAVE PATIENT CONTACT [facility] AND OR IF PATIENT IS WILLING TO ACCEPT A\T\amp;D SERVICES PLEASE REFER TO COPES. [place] VISIT COUNT (12 MO.) 1 [facility] 1 [facility] 1 [facility] 5 [facility] TOTAL 8 NOTE: Visits indicate total known visits. ED/UCC VISIT TRACKING (12 MO.) 07/21/2022 15:04 [facility] [place] TYPE: Emergency COMPLAINT: - RT HIP PAIN 03/29/2022 20:[facility] DIAGNOSES: - Urinary tract infection, site not specified - Non-pressure chronic ulcer of other part of right foot limited to breakdown of skin - Non-pressure chronic ulcer of other part of left foot with unspecified severity - Blister (nonthermal), right lower leg, initial encounter - Type 2 diabetes mellitus with hyperglycemia - Infection and inflammatory reaction due to indwelling urethral catheter, initial encounter - Hematuria - Blood in urine poss inf bilateral feet - Paraplegia, unspecified - Chest Pressure 03/19/2022 02:32 [facility] [place] TYPE: Emergency DIAGNOSES: - Gross hematuria - Neuromuscular dysfunction of bladder, unspecified - Paraplegia, unspecified - infection 10/05/2021 12:12 [facility] TYPE: Emergency DIAGNOSES: 36230. inability to walk, weakness 21754. Numbness 10/04/2021 23:32 [facility] [place] TYPE: Emergency COMPLAINT: - LEG PAIN DIAGNOSES: - Essential (primary) hypertension - Nicotine dependence, unspecified, uncomplicated - Other extermination supervisor (current) drug therapy - Type 2 diabetes mellitus with hyperglycemia - Osteomyelitis, unspecified - MCC (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 - Hyperglycemia, unspecified - Acute kidney failure, unspecified - Type 2 diabetes mellitus without complications - Paraplegia, unspecified - Contact with and (suspected) exposure to COVID-19 - Hypothyroidism, unspecified - Pure hypercholesterolemia, unspecified 09/19/2021 17:21 [facility] [place] TYPE: Emergency COMPLAINT: - BACK PAIN/NO INJ DIAGNOSES: - Other extermination supervisor (current) drug therapy - Pure hypercholesterolemia, unspecified - Hypothyroidism, unspecified - Type 2 diabetes mellitus with hyperglycemia - Essential (primary) hypertension - Type 2 diabetes mellitus without complications - Non-pressure chronic ulcer of other part of left foot with unspecified severity - Low back pain, unspecified - Nicotine dependence, unspecified, uncomplicated - Type 2 diabetes mellitus with foot ulcer - MCC (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 09/19/2021 12:[address] [facility] [place] TYPE: Emergency COMPLAINT: - BACK PAIN 09/01/2021 16:32 [facility] [place] TYPE: Emergency COMPLAINT: - BACK PAIN DIAGNOSES: - Low back pain, unspecified - Essential (primary) hypertension - Hypothyroidism, unspecified - Pure hypercholesterolemia, unspecified - Other extermination supervisor (current) drug therapy - Nicotine dependence, unspecified, uncomplicated - joint terminal attack controller (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 - Type 2 diabetes mellitus without complications - Other intervertebral disc degeneration, lumbar region INPATIENT VISIT TRACKING (12 MO.) 10/05/2021 12:12 [facility] TYPE: Internal Medicine DIAGNOSES: 83097. Numbness 93164. Extradural and subdural abscess, unspecified 35998. Paraplegia, unspecified 48534. Osteomyelitis of vertebra, lumbar region 00399. Acute kidney failure, unspecified 55790. Neuromuscular dysfunction of bladder, unspecified 77046. Osteomyelitis, unspecified [email or web address]
[2022-07-21] MEDS ORDERED: NAPROSYN500 MG PO (18:01)
[2022-07-21] MEDS ORDERED: LIDODERM1 EACH TOP (18:01)
== END 2022-07-21 18:34 | disposition home or self-care (01) ==
LOC: ED 15:03
DX: S70.01XA Contusion of right hip, initial encounter (principal); W05.0XXA Fall from non-moving wheelchair, initial encounter; E11.9 Type 2 diabetes mellitus without complications; I10 Essential (primary) hypertension; E03.9 Hypothyroidism, unspecified; F17.200 Nicotine dependence, unspecified, uncomplicated; Z79.899 Other long term (current) drug therapy; Z79.4 Long term (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
CPT/HCPCS: 73502; 96372; 99283-25; A9270-GY; J1885

== ENCOUNTER 2022-08-02 20:37 | Emergency (ER) | payer OTHER ==
[~2022-08-02] VITALS: Ht 195.6 cm; Wt 95.7 kg
[~2022-08-02 20:37] MED LIST changes: +LIDODERM1 EACH TOP; +NAPROSYN500 MG PO
--- OUTSIDE RECORDS SUMMARY | 2022-08-02 20:40 | XMS ---
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 Tape Sewing Machine Operator Events 1 event(s) in the past 18 months Most recent security events: Elopement at [facility] 09/19/2021 12:45 - Patient eloped before treatment completed. - Patient with suicidal and/or homicidal ideations eloped. - Patient eloped with IV in place. Details: PATIENT LWBS CRITERIA MET - [facility] - 2 Visits in 30 Days - [facility] - Has Care Guidelines - [facility] CARE PROVIDERS -Chris- Dentist: [employer] [facility] PHONE: [phone] -Kassy- Dentist: [employer] [facility] PHONE: [phone] BRAYDON VILLATORO [facility] 05/06/2021-Current PHONE: [phone] Dell Estevez Film Critic/Network Security Administrator 07/07/2022-Current PHONE: [phone] Guidelines Source: [facility] Guidelines Date: 03/17/2022 Care Recommendation: PATIENT RECENTLY DISCHARGED FROM [facility]- DIFFICULT PLACEMENT. PATIENT WAS [...] COPES. [place] VISIT COUNT (12 MO.) 1 [facility] 1 [facility] [address] [facility] TOTAL 9 NOTE: Visits indicate total known visits. ED/UCC VISIT TRACKING (12 MO.) 08/02/2022 20:38 [facility] TYPE: Emergency COMPLAINT: - FALL 07/21/2022 15:04 [facility] TYPE: Emergency COMPLAINT: - RT HIP PAIN DIAGNOSES: - Nicotine dependence, unspecified, uncomplicated - Other chcf (current) drug therapy - Contusion of right hip, initial encounter - Essential (primary) hypertension - Type 2 diabetes mellitus without complications - half-way (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 - Hypothyroidism, unspecified - Fall from non-moving wheelchair, initial encounter 03/29/2022 20:[address] [facility] TYPE: Emergency DIAGNOSES: - Blood in urine poss inf bilateral feet - Paraplegia, unspecified - Chest Pressure - Urinary tract infection, site not specified [...] indwelling urethral catheter, initial encounter - Hematuria 03/19/2022 02:32 [facility] [place] TYPE: Emergency DIAGNOSES: - infection - Gross hematuria - Neuromuscular dysfunction of bladder, unspecified - Paraplegia, unspecified 10/05/2021 12:12 [facility] TYPE: Emergency DIAGNOSES: 44256. inability to walk, weakness 93816. Numbness 10/04/2021 23:32 [facility] [place] TYPE: Emergency COMPLAINT: - LEG PAIN DIAGNOSES: - Paraplegia, unspecified - Contact with and (suspected) exposure to COVID-19 - Hypothyroidism, unspecified - Pure hypercholesterolemia, unspecified - Essential (primary) hypertension - Nicotine dependence, unspecified, uncomplicated - Other oil heaterman (current) drug therapy - Type 2 diabetes mellitus with hyperglycemia - Osteomyelitis, unspecified - half-way (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 - Hyperglycemia, unspecified - Acute kidney failure, unspecified - Type 2 diabetes mellitus without complications 09/19/2021 17:21 [facility] [place] TYPE: Emergency COMPLAINT: - BACK PAIN/NO INJ DIAGNOSES: - Low back pain, unspecified - Nicotine dependence, unspecified, uncomplicated - Type 2 diabetes mellitus with foot ulcer - half-way (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 - Other chcf (current) drug therapy - Pure hypercholesterolemia, unspecified - Hypothyroidism, unspecified - Type 2 diabetes mellitus with hyperglycemia - Essential (primary) hypertension - Type 2 diabetes mellitus without complications - Non-pressure chronic ulcer of other part of left foot with unspecified severity 09/19/2021 12:45 [facility] [place] TYPE: Emergency COMPLAINT: - BACK PAIN 09/01/2021 16:32 [facility] [place] TYPE: Emergency COMPLAINT: - BACK PAIN DIAGNOSES: - half-way (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 - Type 2 diabetes mellitus without complications - Other intervertebral disc degeneration, lumbar region - Low back pain, unspecified - Essential (primary) hypertension - Hypothyroidism, unspecified - Pure hypercholesterolemia, unspecified - Other chcf (current) drug therapy - Nicotine dependence, unspecified, uncomplicated INPATIENT VISIT TRACKING (12 MO.) 10/05/2021 12:12 [facility] TYPE: Internal Medicine DIAGNOSES: 20599. Numbness 23097. Osteomyelitis, unspecified 55454. Extradural and subdural abscess, unspecified 74315. Paraplegia, unspecified 43509. Osteomyelitis of vertebra, lumbar region 10550. Acute kidney failure, unspecified 16323. Neuromuscular dysfunction of bladder, unspecified [email or web address]
[2022-08-02] MEDS ORDERED: QUETIAPINE FUMA50 MG PO (20:50)
[2022-08-02] MEDS ORDERED: LEVOTHYROXINE175 MCG PO (20:51)
[2022-08-02] MEDS ORDERED: FERRETTS325 MG (20:51)
[2022-08-02] MEDS ORDERED: HYDROXYZINE HCL25 MG PO (20:51)
[2022-08-02] MEDS ORDERED: ELIQUIS5 MG PO (20:51)
[2022-08-02] MEDS ORDERED: LOVASTATIN40 MG PO (20:52)
[2022-08-02] MEDS ORDERED: METFORMIN HCL1000 MG PO (20:52)
[2022-08-02] MEDS ORDERED: DULOXETINE HCL30 MG PO (20:52)
== END 2022-08-02 23:11 | disposition home or self-care (01) ==
LOC: ED 20:37
DX: S90.32XA Contusion of left foot, initial encounter (principal); M79.651 Pain in right thigh; M79.652 Pain in left thigh; M25.551 Pain in right hip; M25.552 Pain in left hip; E11.9 Type 2 diabetes mellitus without complications; I10 Essential (primary) hypertension; E03.9 Hypothyroidism, unspecified; F17.200 Nicotine dependence, unspecified, uncomplicated; Z79.899 Other long term (current) drug therapy; Z79.4 Long term (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; W05.0XXA Fall from non-moving wheelchair, initial encounter
CPT/HCPCS: 36415; 73522; 73552; 73630; 80053; 85025; 96374; 99284-25; J1885; J7121

== ENCOUNTER 2022-09-26 22:24 | Emergency (ER) | payer OTHER ==
[~2022-09-26] VITALS: Ht 195.6 cm; Wt 95.7 kg
[~2022-09-26 22:24] MED LIST changes: +DULOXETINE HCL30 MG PO; +ELIQUIS5 MG PO; +FERRETTS325 MG; +HYDROXYZINE HCL25 MG PO; +LEVOTHYROXINE175 MCG PO; +LOVASTATIN40 MG PO; +QUETIAPINE FUMA50 MG PO
--- OUTSIDE RECORDS SUMMARY | 2022-09-26 22:26 | XMS ---
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 Route Sales Associate Events 1 event(s) in the past 18 months Most recent security events: Elopement at [facility] 09/19/2021 12:45 - Patient eloped before treatment completed. - Patient with suicidal and/or homicidal ideations eloped. - Patient eloped with IV in place. Details: PATIENT LWBS CRITERIA MET - [facility] - Has Care Guidelines CARE PROVIDERS -, Chris- Dentist: Desizing Machine Offbearer [facility] PHONE: [phone] -, Kassy- Dentist: Desizing Machine Offbearer [facility] PHONE: [phone] BRAYDON VILLATORO [facility] 05/06/2021-Current PHONE: [phone] Darleen Goins Desk Director/Piercing Artist 07/08/2022-Current PHONE: [phone] Guidelines Source: [facility] Guidelines Date: 03/17/2022 Care Recommendation: PATIENT RECENTLY DISCHARGED FROM [facility]- DIFFICULT PLACEMENT. PATIENT WAS NOT COOPERATIVE WITH [...] COPES. [facility] ([facility] MO.) [facility] 1 [facility] and [facility] 2 [facility] 4 [facility] TOTAL 8 NOTE: Visits indicate total known visits. ED/UCC VISIT TRACKING (12 MO.) 09/26/2022 22:25 [facility] TYPE: Emergency COMPLAINT: - SWELLING, POSS UTI 08/15/2022 02:43 [facility] TYPE: Emergency DIAGNOSES: - Infection and inflammatory reaction due to indwelling urethral catheter, initial encounter - Periapical abscess without sinus - Urinary tract infection, site not specified - poss absess 08/02/2022 20:38 [facility] TYPE: Emergency COMPLAINT: - FALL DIAGNOSES: - Contusion of left foot, initial encounter - Encounter for examination and observation following other accident - Essential (primary) hypertension - Fall from non-moving wheelchair, initial encounter - Hypothyroidism, unspecified - group home (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 - Nicotine dependence, unspecified, uncomplicated - Other half-way (current) drug therapy - Pain in left hip - Pain in left thigh - Pain in right hip - Pain in right thigh - Type 2 diabetes mellitus without complications 07/21/2022 15:04 [facility] TYPE: Emergency COMPLAINT: - RT HIP PAIN DIAGNOSES: - Contusion of right hip, initial encounter - Essential (primary) hypertension - Fall from non-moving wheelchair, initial encounter - Hypothyroidism, unspecified - long term (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 - Nicotine dependence, unspecified, uncomplicated - Other half-way (current) drug therapy - Type 2 diabetes mellitus without complications [facility]29[facility]2022 [facility] DIAGNOSES: - Blister (nonthermal), right lower leg, initial encounter - Infection and inflammatory reaction due to indwelling urethral catheter, initial encounter - Non-pressure chronic ulcer of other part of left foot with unspecified severity - Non-pressure chronic ulcer of other part of right foot limited to breakdown of skin - Paraplegia, unspecified - Type 2 diabetes mellitus with hyperglycemia - Urinary tract infection, site not specified - Blood in urine poss inf bilateral feet - Chest Pressure - Hematuria 03/19/2022 02:32 [facility] [place] TYPE: Emergency DIAGNOSES: - Gross hematuria - Neuromuscular dysfunction of bladder, unspecified - Paraplegia, unspecified - infection 10/05/2021 12:12 [facility] TYPE: Emergency DIAGNOSES: 22571. inability to walk, weakness 57041. Numbness 10/04/2021 23:32 [facility] [place] TYPE: Emergency COMPLAINT: - LEG PAIN DIAGNOSES: - Acute kidney failure, unspecified - Contact with and (suspected) exposure to COVID-19 - Essential (primary) hypertension - Hyperglycemia, unspecified - Hypothyroidism, unspecified - group home (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 - Nicotine dependence, unspecified, uncomplicated - Osteomyelitis, unspecified - Other intermodal owner operator truck driver (current) drug therapy - Paraplegia, unspecified - Pure hypercholesterolemia, unspecified - Type 2 diabetes mellitus with hyperglycemia - Type 2 diabetes mellitus without complications INPATIENT VISIT TRACKING (12 MO.) 10/05/2021 12:12 [facility] TYPE: Internal Medicine DIAGNOSES: 40868. Numbness 34965. Acute kidney failure, unspecified 74680. Extradural and subdural abscess, unspecified 13521. Neuromuscular dysfunction of bladder, unspecified 05767. Osteomyelitis of vertebra, lumbar region 78308. Osteomyelitis, unspecified 72266. Paraplegia, unspecified [email or web address]
[2022-09-27] MEDS ORDERED: BACLOFEN10 MG PO (00:24)
[2022-09-27] MEDS ORDERED: NYSTATIN15 GM TOP (01:50)
[2022-09-27] MEDS ORDERED: CEPHALEXIN500 M1 PO (01:50)
[2022-09-27 02:28] VITALS: BP 150/101
== END 2022-09-27 02:28 | disposition home or self-care (01) ==
LOC: ED 22:24
DX: N39.0 Urinary tract infection, site not specified (principal); B37.2 Candidiasis of skin and nail; B37.49 Other urogenital candidiasis; L89.159 Pressure ulcer of sacral region, unspecified stage; N31.9 Neuromuscular dysfunction of bladder, unspecified; G82.20 Paraplegia, unspecified; E11.9 Type 2 diabetes mellitus without complications; I10 Essential (primary) hypertension; F17.200 Nicotine dependence, unspecified, uncomplicated; Z79.899 Other long term (current) drug therapy; Z79.890 Hormone replacement therapy; Z79.4 Long term (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
CPT/HCPCS: 36415; 51702; 80053; 81001; 85025; 99283-25; A9270

== ENCOUNTER 2022-10-08 12:41 | Emergency (ER) | payer OTHER ==
[~2022-10-08] VITALS: Ht 195.6 cm; Wt 95.7 kg
[~2022-10-08 12:41] MED LIST changes: +BACLOFEN10 MG PO; +CEPHALEXIN500 M1 PO; +NYSTATIN15 GM TOP
--- OUTSIDE RECORDS SUMMARY | 2022-10-08 12:44 | XMS ---
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 Supervisor Cigarette Making Department Events 1 event(s) in the past 18 months Most recent security events: Elopement at [facility] 09/19/2021 12:45 - Patient eloped before treatment completed. - Patient with suicidal and/or homicidal ideations eloped. - Patient eloped with IV in place. Details: PATIENT LWBS CRITERIA MET - 6 ED Visits in 6 Months - [facility] - 2 Visits in 30 Days - [facility] - Has Care Guidelines CARE PROVIDERS -Chris- Dentist: Home Health Clinical Liaison [facility] PHONE: [phone] -Kassy- Dentist: Home Health Clinical Liaison [facility] PHONE: [phone] BRAYDON VILLATORO [facility] 05/06/2021-Current PHONE: [phone] Darleen Gions Flat Breakdown Processor/Stair Builder 07/08/2022-Current PHONE: [phone] Guidelines Source: [facility] Guidelines Date: 03/17/2022 Care Recommendation: PATIENT RECENTLY DISCHARGED FROM [facility]- DIFFICULT PLACEMENT. PATIENT WAS NOT [...] COPES. Corea VISIT COUNT (12 MO.) 1 [facility] 2 [facility] 5 [facility] TOTAL 8 NOTE: Visits indicate total known visits. ED/UCC VISIT TRACKING (12 MO.) 10/08/2022 12:41 [facility] [place] TYPE: Emergency COMPLAINT: - CATHETER LEAKING, WOUND CARE 10/02/2022 06:28 [facility] [place] TYPE: Emergency COMPLAINT: - CATHETER PROBLEM 09/26/2022 22:25 [facility] [place] TYPE: Emergency COMPLAINT: - SWELLING, POSS UTI DIAGNOSES: - Candidiasis of skin and nail - Essential (primary) hypertension - Hormone replacement therapy - USP (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 - Neuromuscular dysfunction of bladder, unspecified - Nicotine dependence, unspecified, uncomplicated - Other termite control representative (current) drug therapy - Other urogenital candidiasis - Paraplegia, unspecified - Pressure ulcer of sacral region, unspecified stage - Type 2 diabetes mellitus without complications - Unspecified urinary incontinence - Urinary tract infection, site not specified [facility]22 [facility] DIAGNOSES: - Infection and [...] encounter - Hypothyroidism, unspecified - long term care pharmacist (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 - Nicotine dependence, unspecified, uncomplicated - Other longterm (current) drug therapy - Pain in left hip - Pain in left thigh - Pain in right hip - Pain in right thigh - Type 2 diabetes mellitus without complications 07/21/2022 15:04 [facility] [place] TYPE: Emergency COMPLAINT: - RT HIP PAIN DIAGNOSES: - Contusion of right hip, initial encounter - Essential (primary) hypertension - Fall from non-moving wheelchair, initial encounter - Hypothyroidism, unspecified - USP (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 - Nicotine dependence, unspecified, uncomplicated - Other termite control representative (current) drug therapy - Type 2 diabetes mellitus without complications 03/29/2022 20:21 [facility] DIAGNOSES: - Blister (nonthermal), [...] - Chest Pressure - Hematuria 03/19/2022 02:32 [facility] [place] TYPE: Emergency DIAGNOSES: - Gross hematuria - Neuromuscular dysfunction of bladder, unspecified - Paraplegia, unspecified - infection INPATIENT VISIT TRACKING (12 MO.) No inpatient visits to display in this time frame [email or web address]
[2022-10-08 15:23] VITALS: BP 152/108
== END 2022-10-08 15:24 | disposition home or self-care (01) ==
LOC: ED 12:41
DX: L89.319 Pressure ulcer of right buttock, unspecified stage (principal); L89.329 Pressure ulcer of left buttock, unspecified stage; E11.9 Type 2 diabetes mellitus without complications; I10 Essential (primary) hypertension; F17.200 Nicotine dependence, unspecified, uncomplicated; Z79.899 Other long term (current) drug therapy; Z79.890 Hormone replacement therapy; Z79.4 Long term (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
CPT/HCPCS: 99283

== ENCOUNTER 2023-01-29 22:05 | Emergency (ER) | payer OTHER ==
[~2023-01-29] VITALS: Ht 195.6 cm; Wt 95.3 kg
[~2023-01-29 22:05] MED LIST changes: +AMOX TR-K CLV1 EAC1 PO; +ATORVASTATIN CA10 MG PO; +BACLOFEN5 MG PO; +CEFTRIAXONE2 G1 IV; +CETIRIZINE HCL10 MG PO; +DIFLUCAN200 MG PO; +DULOXETINE HCL60 MG PO; +ENOXAPARIN40 MG/0.4 SUB-Q; +FLUCONAZOLE100 MG PO; +HYDROCODON-ACE1 EAC8 PO; +HYSEPT TOP; +IBUPROFEN400 MG PO; +INSULIN GL100 UNIT/2 SUB-Q; +INSULIN LI100 UNIT/2 SUB-Q; +LEVOFLOXACIN750 MG PO; +LEVOTHYROXINE200 MCG PO; +METRONIDAZ500 MG/100 IV; +OXYCODONE HCL5 MG PO; +PERIOGARD473 ML MM; +PREGABALIN200 MG PO; +QUETIAPINE FUMA50 M1 PO; +SULFAMETHOXAZO1 EACH PO
--- OUTSIDE RECORDS SUMMARY | 2023-01-29 22:09 | XMS ---
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 Special Education Director Events 1 event(s) in the past 18 months Most recent security events: Elopement at [facility] 09/19/2021 12:45 - Patient eloped before treatment completed. - Patient with suicidal and/or homicidal ideations eloped. - Patient eloped with IV in place. Details: PATIENT LWBS CRITERIA MET - 6 ED Visits in 6 Months - [facility] - 2 Visits in 30 Days - [facility] - Has Care Guidelines CARE PROVIDERS Darleen Goins Technology Applications Engineer/Law Enforcement Instructor 01/08/2023-Current PHONE: [phone] -Chris- Dentist: Cellars Supervisor [facility] Dental [facility] PHONE: [phone] -Kassy- Dentist: Cellars Supervisor [facility] Dental [facility] PHONE: [phone] BRAYDON VILLATORO [facility] Current PHONE: [phone] Guidelines Source: [facility] Guidelines Date: 03/17/2022 Care Recommendation: PATIENT RECENTLY DISCHARGED FROM [facility]- DIFFICULT PLACEMENT. PATIENT WAS NOT [...] TO COPES. Corea VISIT COUNT (12 MO.) 9 [facility] 2 [facility] Violet Ortez (Cristin mAaral) 1 [facility] TOTAL 12 NOTE: Visits indicate total known visits. ED/UCC VISIT TRACKING (12 MO.) 01/29/2023 22:06 [facility] [place] TYPE: Emergency COMPLAINT: - CATH ISSUE 01/27/2023 19:09 [facility]II[facility] [place] TYPE: Emergency COMPLAINT: - WOUND CHECK 10/29/2022 13:49 MILI [place] [place] TYPE: Emergency COMPLAINT: - WOUND CARE 10/16/2022 16:33 [facility] [place] TYPE: Emergency COMPLAINT: - DENTAL PAIN DIAGNOSES: - Essential (primary) hypertension - Hormone replacement therapy - Hypothyroidism, unspecified - Jaw pain - MCFP (current) use of anticoagulants - roasterman (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 - Nicotine dependence, unspecified, uncomplicated - Other longterm (current) drug therapy - Periapical abscess without sinus - Type 2 diabetes mellitus without complications 10/08/2022 12:41 [facility] [place] TYPE: Emergency COMPLAINT: - CATHETER LEAKING, WOUND CARE DIAGNOSES: - Essential (primary) hypertension - Hormone replacement therapy - MCFP (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 - Nicotine dependence, unspecified, uncomplicated - Other longterm (current) drug therapy - Pressure ulcer of left buttock, unspecified stage - Pressure ulcer of right buttock, unspecified stage - Type 2 diabetes mellitus without complications 10/02/2022 06:28 [facility] [place] TYPE: Emergency COMPLAINT: - CATHETER PROBLEM 09/26/2022 22:25 MILI [facility] [place] TYPE: Emergency COMPLAINT: - SWELLING, POSS UTI DIAGNOSES: - Candidiasis of skin and nail - Essential (primary) hypertension - Hormone replacement therapy - roasterman (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 - Neuromuscular dysfunction of bladder, unspecified - Nicotine dependence, unspecified, uncomplicated - Other roasterman (current) drug therapy - Other urogenital candidiasis - Paraplegia, unspecified - Pressure ulcer of sacral region, unspecified stage - Type 2 diabetes mellitus without complications - Unspecified urinary incontinence - Urinary tract infection, site not specified 08/15/2022 02:43 [facility] TYPE: Emergency DIAGNOSES: - Infection and inflammatory reaction due to indwelling urethral catheter, initial encounter - Periapical abscess without sinus - Urinary tract infection, site not specified - poss absess 08/02/2022 20:38 [facility] [place] TYPE: Emergency COMPLAINT: - FALL DIAGNOSES: - Contusion of left foot, initial encounter - Encounter for examination and observation following other accident - Essential (primary) hypertension - Fall from non-moving wheelchair, initial encounter - Hypothyroidism, unspecified - MCFP (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 - Nicotine dependence, unspecified, uncomplicated - Other longterm (current) drug therapy - Pain in left hip - Pain in left thigh - Pain in right hip - Pain in right thigh - Type 2 diabetes mellitus without complications 07/21/2022 15:04 [facility] [place] TYPE: Emergency COMPLAINT: - RT HIP PAIN DIAGNOSES: - Contusion of right hip, initial encounter - Essential (primary) hypertension - Fall from non-moving wheelchair, initial encounter - Hypothyroidism, unspecified - MCFP (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 - Nicotine dependence, unspecified, uncomplicated - Other roasterman (current) drug therapy - Type 2 diabetes mellitus without complications 03/29/2022 20:21 [facility] Cristin HILLIARD (Cristin Amaral) TYPE: Emergency DIAGNOSES: - Blister (nonthermal), right [...] - Chest Pressure - Hematuria 03/19/2022 02:32 [facility] [place] TYPE: Emergency DIAGNOSES: - Gross hematuria - Neuromuscular dysfunction of bladder, unspecified - Paraplegia, unspecified - infection INPATIENT VISIT TRACKING (12 MO.) 01/27/2023 19:10 [facility]I [facility] [place] TYPE: Observation COMPLAINT: - HYPERGLYCEMIA 11/03/2022 15:56 Alex uGzman [place] TYPE: Medical Surgical DIAGNOSES: - Encounter for attention to colostomy - Neuromuscular dysfunction of bladder, unspecified - Paraplegia, unspecified - Pressure ulcer of sacral region, stage 4 - Decubiti buttock,low back 10/29/2022 18:18 [facility] [place] TYPE: Medical Surgical COMPLAINT: - STAGE IV DECUBITUS ULCER W/ INFECTION/CELLULITIS DIAGNOSES: - Acquired absence of other left toe(s) - Acquired absence of other left toe(s) - Acute kidney failure, unspecified - Acute kidney failure, unspecified - Anemia, unspecified - Anemia, unspecified - Body mass index [BMI] 26.0-26.9, adult - Body mass index [BMI] 26.0-26.9, adult - Cannabis use, unspecified, uncomplicated - Cannabis use, unspecified, uncomplicated - Cellulitis of back [any part except buttock] - Cellulitis of back [any part except buttock] - Cutaneous abscess of perineum - Cutaneous abscess of perineum - Dependence on wheelchair - Dependence on wheelchair - Enthesopathy, unspecified - Enthesopathy, unspecified - Essential (primary) hypertension - Essential (primary) hypertension - Hormone replacement therapy - Hormone replacement therapy - Hypothyroidism, unspecified - Hypothyroidism, unspecified - Interstitial emphysema - Interstitial emphysema - Klebsiella pneumoniae [K. pneumoniae] as the cause of diseases classified elsewhere - Klebsiella pneumoniae [K. pneumoniae] as the cause of diseases classified elsewhere - roasterman (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 - roasterman (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 - Nicotine dependence, cigarettes, uncomplicated - Nicotine dependence, cigarettes, uncomplicated - Other chronic osteomyelitis, left ankle and foot - Other chronic osteomyelitis, left ankle and foot - Other constipation - Other constipation - Other disorders of plasma-protein metabolism, not elsewhere classified - Other disorders of plasma-protein metabolism, not elsewhere classified - Other roasterman (current) drug therapy - Other roasterman (current) drug therapy - Other nonrheumatic aortic valve disorders - Other nonrheumatic aortic valve disorders - Other specified postprocedural states - Other specified postprocedural states - Other stimulant use, unspecified, uncomplicated - Other stimulant use, unspecified, uncomplicated - Other streptococcus as the cause of diseases classified elsewhere - Other streptococcus as the cause of diseases classified elsewhere - Paraplegia, incomplete - Paraplegia, unspecified - Paraplegia, unspecified - Personal history of (healed) traumatic fracture - Personal history of (healed) traumatic fracture - Personal history of Methicillin resistant Staphylococcus aureus infection - Personal history of Methicillin resistant Staphylococcus aureus infection - Pressure ulcer of other site, unspecified stage - Pressure ulcer of other site, unspecified stage - Pressure ulcer of sacral region, stage 4 - Pressure ulcer of sacral region, stage 4 - Pressure ulcer of unspecified part of back, stage 4 - Pure hypercholesterolemia, unspecified - Pure hypercholesterolemia, unspecified - Type 2 diabetes mellitus with other specified complication - Type 2 diabetes mellitus with other specified complication - Type 2 diabetes mellitus without complications - Unspecified Escherichia coli [E. coli] as the cause of diseases classified elsewhere - Unspecified Escherichia coli [E. coli] as the cause of diseases classified elsewhere - Unspecified protein-calorie malnutrition - Unspecified severe protein-calorie malnutrition - Unspecified severe protein-calorie malnutrition - Unspecified visual loss - Unspecified visual loss - Urinary tract infection, site not specified - Urinary tract infection, site not specified [id number]
[2023-01-29 22:52] VITALS: BP 169/98
== END 2023-01-29 22:53 | disposition home or self-care (01) ==
LOC: ED 22:05
DX: E86.0 Dehydration (principal); G82.20 Paraplegia, unspecified; E11.9 Type 2 diabetes mellitus without complications; I10 Essential (primary) hypertension; F17.200 Nicotine dependence, unspecified, uncomplicated; Z79.4 Long term (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; Z79.899 Other long term (current) drug therapy; Z79.890 Hormone replacement therapy
CPT/HCPCS: 51798; 99283-25

== ENCOUNTER 2024-01-20 10:42 | Emergency (ER) | payer OTHER ==
[~2024-01-20] VITALS: Ht 195.6 cm; Wt 91.7 kg
[~2024-01-20 10:42] MED LIST changes: +AMITRIPTYLINE H50 MG PO; +ATORVASTATIN CA20 MG PO; +GABAPENTIN600 MG PO; +LEVOTHYROXINE125 MCG PO; +LEVOTHYROXINE50 MCG PO; +QUETIAPINE FUM100 MG PO; +VICTOZA 2-0.6 MG/0.1 SUB-Q
--- OUTSIDE RECORDS SUMMARY | 2024-01-20 10:49 | XMS ---
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 Head Chopper Events No recent Security Events currently on file CRITERIA MET - [facility] - 2 Visits in 30 Days CARE PROVIDERS Darleen Goins Hospitality Director/Train Starter 01/09/2024-Current PHONE: [phone] Franc Wood Community Health Worker 06/08/2023-Current PHONE: [phone] -Emiliano Dental+ Dentist: Technical Producer [facility] PHONE: [phone] -Chris- Dentist: Technical Producer [facility] Dental [facility] PHONE: [phone] -, Kassy- Dentist: Technical Producer [facility] Dental [facility] PHONE: [phone] [facility] Current PHONE: [phone] [facility] Clinic/Center: [facility] Current \F\ [facility]ILY [facility] PHONE: [phone] Guidelines Source: [facility] Guidelines Date: 03/17/2022 Care Recommendation: PATIENT RECENTLY DISCHARGED FROM [facility]- DIFFICULT PLACEMENT. PATIENT WAS NOT COOPERATIVE WITH [...] TO COPES. Corea VISIT COUNT (12 MO.) 7 MILI [place] [id number] Alex Schneider TOTAL 13 NOTE: Visits indicate total known visits. ED/UCC VISIT TRACKING (12 MO.) 01/20/2024 10:43 [facility] [place] TYPE: Emergency COMPLAINT: - HIGH BLOOD SUGAR 01/17/2024 12:11 [facility] [place] TYPE: Emergency DIAGNOSES: - Unspecified dislocation of right acromioclavicular joint, initial encounter - Unspecified sprain of right shoulder joint, initial encounter - r shoulder injury fall 10/28/2023 13:16 [facility] [place] TYPE: Emergency COMPLAINT: - URINE PROBLEM 10/17/2023 11:49 [facility] [place] TYPE: Emergency COMPLAINT: - CATHETER BAG DAMAGE 08/01/2023 08:21 [facility] [place] TYPE: Emergency COMPLAINT: - HEAD PAIN DIAGNOSES: - Acquired absence of other right toe(s) - Colostomy status - Erythematous condition, unspecified - Essential (primary) hypertension - Exposure to other specified factors, initial encounter - Homelessness unspecified - Hypothyroidism, unspecified - Impacted cerumen, right ear - retirement (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 - Nicotine dependence, unspecified, uncomplicated - Other half-way (current) drug therapy - Patient's other noncompliance with medication regimen for other reason - Pressure ulcer of sacral region, unspecified stage - Pure hypercholesterolemia, unspecified - Tachycardia, unspecified - Type 2 diabetes mellitus with hyperglycemia - Type 2 diabetes mellitus with other skin ulcer - Unspecified open wound, right foot, initial encounter - Weakness 07/08/2023 09:[address] [facility] [place] TYPE: Emergency COMPLAINT: - ABD PAIN DIAGNOSES: - Essential (primary) hypertension - Hypothyroidism, unspecified - retirement (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 - Nicotine dependence, unspecified, uncomplicated - Osteomyelitis of vertebra, lumbar region - Osteomyelitis, unspecified - Other half-way (current) drug therapy - Other psychoactive substance abuse, uncomplicated - Pressure ulcer of sacral region, stage 4 - Pressure ulcer of sacral region, stage 4 - Type 2 diabetes mellitus without complications 06/04/2023 12:55 [facility] [place] TYPE: Emergency DIAGNOSES: - Unspecified sprain of right foot, initial encounter - RIGHT FOOT INJURY 05/21/2023 14:38 [facility] [employer] [place] TYPE: Emergency DIAGNOSES: - Other psychoactive substance abuse, uncomplicated - Type 2 diabetes mellitus with hyperglycemia - POSS SEPSIS 05/10/2023 14:17 [employer] [place] TYPE: Emergency COMPLAINT: - CATHETER ISSUE DIAGNOSES: - CATHETER ISSUE 03/06/2023 03:02 Alex Guzman [place] TYPE: Emergency DIAGNOSES: - Foreign body in urethra, initial encounter - FOREIGN OBJECT IN PENIS 03/05/2023 21:46 [employer] [place] TYPE: Emergency DIAGNOSES: - Foreign body in urethra, initial encounter - Blockage 01/29/2023 22:06 [facility] [place] TYPE: Emergency COMPLAINT: - CATH ISSUE DIAGNOSES: - Dehydration - Essential (primary) hypertension - Feeling of incomplete bladder emptying - Hormone replacement therapy - terminal press operator (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 - Nicotine dependence, unspecified, uncomplicated - Other half-way (current) drug therapy - Paraplegia, unspecified - Type 2 diabetes mellitus without complications 01/27/2023 19:09 [facility] [place] TYPE: Emergency COMPLAINT: - WOUND CHECK INPATIENT VISIT TRACKING (12 MO.) 10/28/2023 13:17 [facility] [place] TYPE: Observation COMPLAINT: - HYPERGLYCEMIA DIAGNOSES: - Bacteremia - Elevated white blood cell count, unspecified - Essential (primary) hypertension - Hyperglycemia, unspecified - Hypo-osmolality and hyponatremia - Hypothyroidism, unspecified - terminal press operator (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 - Obesity, unspecified - Other terminal press operator (current) drug therapy - Pure hypercholesterolemia, unspecified - Tubulo-interstitial nephritis, not specified as acute or chronic - Type 2 diabetes mellitus with hyperglycemia 01/27/2023 19:[address] [facility] [place] TYPE: Observation COMPLAINT: - HYPERGLYCEMIA DIAGNOSES: - Anxiety disorder, unspecified - Contact with and (suspected) exposure to COVID-19 - Essential (primary) hypertension - Hormone replacement therapy - Hypothyroidism, unspecified - terminal press operator (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 - Nicotine dependence, cigarettes, uncomplicated - Other half-way (current) drug therapy - Other psychoactive substance abuse, uncomplicated - Pressure ulcer of sacral region, stage 4 - Type 2 diabetes mellitus without complications [email or web address]
[2024-01-20] MEDS ORDERED: TRULICITY1.5 MG/0.5 SUB-Q (11:02)
[2024-01-20] MEDS ORDERED: CETIRIZINE HCL10 MG PO (11:02)
[2024-01-20] MEDS ORDERED: DOXYCYCLINE HY100 M3 PO (11:02)
[2024-01-20 11:15] LABS: BASOPHILS 1.2 % (0-2); EOSINOPHILS 2.8 % (0-6); HEMATOCRIT 42.3 % (35.0-50.0); HEMOGLOBIN 14.1 g/dL (12.0-18.0); LYMPHOCYTES 19.2 % (24-44); MCH 27.7 (27-36); MCHC 33.3 g/dl (30-36); MCV 83.2 fl (81-99); MONOCYTES 6.7 % (0-12); NEUTROPHILS 70.1 % (39-80); PLATELET COUNT 298 K/uL (140-440); RBC 5.08 M/ul (4.3-5.7)
[2024-01-20] MEDS ORDERED: SODIUM CHLORIDE 0.9% 1,000 ML IV ONE (11:15)
[2024-01-20] MEDS ORDERED: INSULIN GLARGINE-YFGN 100 UNIT/ML ML SUB-Q ONE (11:15)
[2024-01-20] MEDS ORDERED: Insulin Regular, Human 100 UNIT/ML ML SUB-Q ONE ×2 (11:15→12:45)
[2024-01-20 14:00] VITALS: BP 151/115
== END 2024-01-20 14:00 | disposition home or self-care (01) ==
LOC: ED 10:42
PROVIDERS: Emergency Medicine
DX: E11.65 Type 2 diabetes mellitus with hyperglycemia (principal); I10 Essential (primary) hypertension; E78.00 Pure hypercholesterolemia, unspecified; E03.9 Hypothyroidism, unspecified; F17.200 Nicotine dependence, unspecified, uncomplicated; Z79.84 Long term (current) use of oral hypoglycemic drugs; Z79.4 Long term (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
CPT/HCPCS: 36415; 85025; 96360; 99283-25; A9270; J1815; J7030

== ENCOUNTER 2024-04-20 00:39 | Emergency (ER) | payer OTHER ==
[~2024-04-20] VITALS: Ht 195.6 cm; Wt 91.6 kg
[~2024-04-20 00:39] MED LIST changes: +DOXYCYCLINE HY100 M3 PO; +TRULICITY1.5 MG/0.5 SUB-Q
--- OUTSIDE RECORDS SUMMARY | 2024-04-20 00:46 | XMS ---
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 Charge Entry Clerk Events No recent Security Events currently on file CRITERIA MET - 6 ED Visits in 6 Months - [facility] - 2 Visits in 30 Days CARE PROVIDERS Darleen Goins Volunteer Firefighter/Rn Recovery 02/08/2024-Current PHONE: [phone] Franc Wood Community Health Worker 06/08/2023-Current PHONE: [phone] -, Emiliano Dental+ Dentist: Bank Accountant [facility] PHONE: [phone] -Chris- Dentist: Bank Accountant Current [facility] Dental [facility] PHONE: [phone] -Kassy- Dentist: Bank Accountant [facility] PHONE: [phone] RODNEY KIM Oil Field Tester Current PHONE: [phone] [facility]: [facility] FAMILY PHONE: [phone] BRAYDON VILLATORO [facility] Current PHONE: [phone] Guidelines Source: [facility] Guidelines Date: 03/17/2022 Care Recommendation: PATIENT RECENTLY DISCHARGED FROM [facility]- DIFFICULT PLACEMENT. PATIENT WAS [...] TO COPES. Corea VISIT COUNT (12 MO.) 8 [facility] TOTAL 13 NOTE: Visits indicate total known visits. ED/UCC VISIT TRACKING (12 MO.) 04/20/2024 00:40 [facility] [place] TYPE: Emergency COMPLAINT: - GENITAL PROBLEM 04/11/2024 05:42 [facility] [place] TYPE: Emergency COMPLAINT: - CATHETER PROBLEM 04/03/2024 13:42 [facility] [place] TYPE: Emergency COMPLAINT: - CATHETER PROBLEM 02/28/2024 12:28 [facility] [place] TYPE: Emergency DIAGNOSES: - Other injury of unspecified body region, initial encounter - WOUND CHECK 01/20/2024 10:43 MILI [facility] [place] TYPE: Emergency COMPLAINT: - HIGH BLOOD SUGAR DIAGNOSES: - Essential (primary) hypertension - Hypothyroidism, unspecified - detention (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 - parts counterman (current) use of oral hypoglycemic drugs - Nicotine dependence, unspecified, uncomplicated - Pure hypercholesterolemia, unspecified - Type 2 diabetes mellitus with hyperglycemia 01/17/2024 12:11 [facility] [place] TYPE: Emergency DIAGNOSES: - Unspecified dislocation [...] unspecified - Impacted cerumen, right ear - parts counterman (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 - Nicotine dependence, unspecified, uncomplicated - Other shelter (current) drug therapy - Patient's other noncompliance with medication regimen for other reason - Pressure ulcer of sacral region, unspecified stage - Pure hypercholesterolemia, unspecified - Tachycardia, unspecified - Type 2 diabetes mellitus with hyperglycemia - Type 2 diabetes mellitus with other skin ulcer - Unspecified open wound, right foot, initial encounter - Weakness 07/08/2023 09:33 [facility] [place] TYPE: Emergency COMPLAINT: - ABD PAIN DIAGNOSES: - Essential (primary) hypertension - Hypothyroidism, unspecified - detention (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 - Nicotine dependence, unspecified, uncomplicated - Osteomyelitis of vertebra, lumbar region - Osteomyelitis, unspecified - Other oysterman (current) drug therapy - Other psychoactive substance abuse, uncomplicated - Pressure ulcer of sacral region, stage 4 - Pressure ulcer of sacral region, stage 4 - Type 2 diabetes mellitus without complications 06/04/2023 12:55 [facility] [place] TYPE: Emergency DIAGNOSES: - Unspecified sprain of right foot, initial encounter - RIGHT FOOT INJURY 05/21/2023 14:38 [facility] [place] TYPE: Emergency DIAGNOSES: - Other psychoactive substance abuse, uncomplicated - Type 2 diabetes mellitus with hyperglycemia - POSS SEPSIS 05/10/2023 14:17 [facility] [place] TYPE: Emergency COMPLAINT: - CATHETER ISSUE DIAGNOSES: - CATHETER ISSUE INPATIENT VISIT TRACKING (12 MO.) 10/28/2023 13:17 [facility] [place] TYPE: Observation COMPLAINT: - HYPERGLYCEMIA DIAGNOSES: - Bacteremia - Elevated white blood cell count, unspecified - Essential (primary) hypertension - Hyperglycemia, unspecified - Hypo-osmolality and hyponatremia - Hypothyroidism, unspecified - detention (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 - Obesity, unspecified - Other oysterman (current) drug therapy - Pure hypercholesterolemia, unspecified - Tubulo-interstitial nephritis, 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
[2024-04-20] MEDS ORDERED: CETIRIZINE HCL10 MG (00:49)
[2024-04-20 00:55] LABS: BASOPHILS 0.9 % (0-2); EOSINOPHILS 0.7 % (0-6); HEMATOCRIT 35.8 % (35.0-50.0); HEMOGLOBIN 12.3 g/dL (12.0-18.0); LYMPHOCYTES 3.8 % (24-44); MCH 28.4 (27-36); MCHC 34.4 g/dl (30-36); MCV 82.6 fl (81-99); MONOCYTES 2.5 % (0-12); NEUTROPHILS 92.1 % (39-80); PLATELET COUNT 263 K/uL (140-440); RBC 4.34 M/ul (4.3-5.7); RDW 14.5 (10.5-15.0)
[2024-04-20] MEDS ORDERED: LORazepam 2 MG/ML VIAL IV ONE (01:00)
[2024-04-20] MEDS ORDERED: MORPHINE SULFATE 4 MG/ML VIAL IV ONE (01:00)
[2024-04-20 01:04] LABS: BILIRUBIN, URINE NEGATIVE (negative); BLOOD/HGB, URINE LARGE (Negative); KETONE, URINE NEGATIVE (Negative); LEUK ESTERASE, URINE NEGATIVE (negative); NITRITE, URINE POSITIVE (negative); PH, URINE 5.5 (5-7)
[2024-04-20 01:10] LABS: ALBUMIN 2.2 g/dL (3.4-5.0); ALBUMIN/GLOBULIN RATIO 0.48 (1.1-2.4); ANION GAP 9.2 (7-21); BILIRUBIN, TOTAL 0.3 ng/dL (0.2-1.0); BUN/CREATININE RATIO 12.58 (6.0-28.6); CALCIUM 8.3 mg/dL (8.5-10.1); CREATININE, SERUM 1.51 mg/dL (0.70-1.30); MAGNESIUM 1.3 mg/dL (1.8-2.4); POTASSIUM 4.2 mmol/L (3.5-5.1); PROTEIN, TOTAL 6.8 g/dL (6.4-8.2)
[2024-04-20 01:16] LABS: RED BLOOD CELLS, URINE >50 /hpf (0-5)
[2024-04-20 01:17] LABS: BACTERIA, URINE 2+ /hpf (negative); CASTS, URINE NONE SEEN \\lpf; COLLECTION TYPE, URINE CLEAN CATCH; CRYSTALS, URINE NONE SEEN (0-1+); EPITHELIAL CELLS, URINE SQUAMOUS 1+ /lpf (0-1+); REFLEX CULTURE, URINE Yes (No)
[2024-04-20 01:26] LABS: AMPHETAMINES, URINE POSITIVE (NEGATIVE); BARBITURATES, URINE NEGATIVE (NEGATIVE); BENZODIAZEPINE, URINE NEGATIVE (NEGATIVE); BUPRENORPHINE, URINE NEGATIVE (NEGATIVE); CANNABINOID, URINE POSITIVE (NEGATIVE); COCAINE, URINE NEGATIVE (NEGATIVE); ECSTASY, URINE POSITIVE (NEGATIVE); FENTANYL, URINE NEGATIVE (NEGATIVE); METHADONE, URINE NEGATIVE (NEGATIVE); OPIATES, URINE NEGATIVE (NEGATIVE); OXYCODONE, URINE NEGATIVE (NEGATIVE); PHENCYCLIDINE, URINE NEGATIVE (NEGATIVE)
[2024-04-20] MEDS ORDERED: MAGNESIUM SULFATE 50 ML IV ONE (01:26)
[2024-04-20 01:29] LABS: PH, VENOUS 7.454 (7.31-7.41)
[2024-04-20] MEDS ORDERED: SODIUM CHLORIDE 0.9% 500 ML IV PRN (01:30)
[2024-04-20] MEDS ORDERED: MAGNESIUM SULFATE 2 GM/50 ML BAG IV ONE (01:30)
[2024-04-20] MEDS ORDERED: Insulin Regular, Human 100 UNIT/ML ML IV ONE (01:30)
[2024-04-20] MEDS ORDERED: IBUPROFEN 600 MG TAB PO ONE (01:45)
[2024-04-20] MEDS ORDERED: CEFTRIAXONE/SODIUM CHLORIDE 2 GM/100 ML PIGGYBACK IV ONE (01:45)
[2024-04-20] MEDS ORDERED: ACETAMINOPHEN 500 MG TAB PO ONE (01:45)
[2024-04-20 01:54] LABS: INR 0.86 (0.80-1.30)
[2024-04-20 02:38] LABS: INFLUENZA B NAA NEGATIVE (NEGATIVE); RESPIRATORY SYNCYTIAL VIR NAA NEGATIVE (NEGATIVE)
[2024-04-20] MEDS ORDERED: SODIUM CHLORIDE 0.9% 1,000 ML IV SCH (04:30)
[2024-04-20] MEDS ORDERED: MORPHINE SULFATE 4 MG/ML VIAL IV PRN (04:30)
[2024-04-20] MEDS ORDERED: ACETAMINOPHEN 325 MG TAB PO PRN (04:30)
[2024-04-20] MEDS ORDERED: ondansetron HCL 4 MG/2 ML VIAL IV PRN (04:30)
[2024-04-20] MEDS ORDERED: AZITHROMYCIN/DEXTROSE 500 MG/250 ML PIGGYBACK IV ONE (04:30)
[2024-04-20] MEDS ORDERED: HYDROmorphone HCL 1 MG/ML SYR IV PRN (04:30)
[2024-04-20] MEDS ORDERED: NALOXONE HCL 0.4 MG SYR ONE (04:52)
[2024-04-20] MEDS ORDERED: NALOXONE HCL 0.4 MG SYR IV ONE ×2 (05:15)
[2024-04-20] MEDS ORDERED: NOREPINEPHRINE BITARTRATE 250 ML IV ONE (05:27)
[2024-04-20 05:39] LABS: PH, VENOUS 7.396 (7.31-7.41)
[2024-04-20] MEDS ORDERED: NOREPINEPHRINE BITARTRATE 250 ML IV SCH (05:45)
[2024-04-20] MEDS ORDERED: NALOXONE HCL 2 MG/2 ML SYR IV ONE (06:00)
[2024-04-20] MEDS ORDERED: ALBUTEROL SULFATE 0.083% 3 ML VIAL INH PRN (06:15)
[2024-04-20] MEDS ORDERED: propofoL 100 ML IV ONE (06:23)
[2024-04-20] MEDS ORDERED: ROCURONIUM BROMIDE 50 MG/5 ML SYR IV ONE (06:30)
[2024-04-20] MEDS ORDERED: ETOMIDATE 40 MG/20 ML VIAL IV ONE (06:30)
[2024-04-20] MEDS ORDERED: propofoL 100 ML IV SCH (06:30)
[2024-04-20] MEDS ORDERED: Insulin Regular, Human 100 UNIT/ML ML SUB-Q SCH (07:00)
[2024-04-20 07:38] LABS: BASE EXCESS, BLOOD GAS 1.7 mmol/L (-2-2); HCO3, BLOOD GAS 25.4 mmol/L (22-26); O2 SATURATION, BLOOD GAS 92.9 % (95.0-100.0); PCO2, BLOOD GAS 35.1 mmHg (35-45); PH, BLOOD GAS 7.47 (7.35-7.45); PO2, BLOOD GAS 60 mmHg (80-100); TOTAL CO2, BLOOD GAS 26.5
[2024-04-20 07:39] LABS: OXYGEN RECEIVED, BLOOD GAS 28%
[2024-04-20] MEDS ORDERED: ALBUTEROL/IPRATROPIUM 3 ML NEB INH SCH (08:00)
[2024-04-20] MEDS ORDERED: BUDESONIDE 0.5 MG/2 ML VIAL INH SCH (08:00)
[2024-04-20] MEDS ORDERED: DEXTROSE 50% 50 ML SYR IV PRN ×2 (08:30)
[2024-04-20] MEDS ORDERED: GLUCAGON,HUMAN RECOMBINANT 1 MG/ML VIAL SUB-Q PRN (08:30)
[2024-04-20] MEDS ORDERED: IBLOOD GLUCOSE TEST STRIP 1 EA TEST XX PRN (08:30)
[2024-04-20] MEDS ORDERED: DEXTROSE 5% 1,000 ML IV PRN (08:30)
[2024-04-20] MEDS ORDERED: AZITHROMYCIN 500 MG in DEXTROSE 5% 250 ML IV SCH (09:00)
[2024-04-20] MEDS ORDERED: CEFTRIAXONE/SODIUM CHLORIDE 2 GM/100 ML PIGGYBACK IV SCH (09:00)
[2024-04-20 10:36] VITALS: BP 107/81
--- OUTSIDE RECORDS SUMMARY | 2024-04-20 10:52 | XMS ---
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 Knapsack Sprayer Events No recent Security Events currently on file CRITERIA MET - [facility] - 2 Visits in 30 Days CARE PROVIDERS Darleen Goins Network Systems Administrator/Hotel Dining Room Cashier 02/08/2024-Current PHONE: [phone] Franc Wood Community Health Worker 06/08/2023-Current PHONE: [phone] -Emil[facility] Dental+ Dentist: Nurseryperson [facility] PHONE: [phone] -Alexsandra- Dentist: Nurseryperson [facility] PHONE: [phone] -, Kassy- Dentist: Nurseryperson [facility] PHONE: [phone] RODNEY KIM Physician Specialty Manufacturing Supervisor Current PHONE: [phone] [facility]: [facility] FAMILY PHONE: [phone] [facility] Current PHONE: [phone] Guidelines Source: [facility] Guidelines Date: 03/17/2022 Care Recommendation: PATIENT RECENTLY DISCHARGED FROM [facility]- DIFFICULT PLACEMENT. PATIENT WAS NOT COOPERATIVE WITH [...] VISIT COUNT (12 MO.) 8 MILI Lei [facility] TOTAL 13 NOTE: Visits indicate total known visits. ED/UCC VISIT TRACKING (12 MO.) 04/20/2024 00:40 [facility] [place] TYPE: Emergency COMPLAINT: - SEPSIS,PYELONEPHRITIS,PNEUMONIA,UNCONTROLLED DIABE 04/11/2024 05:42 [facility] [place] TYPE: Emergency COMPLAINT: - CATHETER PROBLEM 04/03/2024 13:42 [facility] [place] TYPE: Emergency COMPLAINT: - CATHETER PROBLEM 02/28/2024 12:28 [facility] [place] TYPE: Emergency DIAGNOSES: - Other injury of unspecified body region, initial encounter - WOUND CHECK 01/20/2024 10:43 [facility] [place] [place] TYPE: Emergency COMPLAINT: - HIGH BLOOD SUGAR DIAGNOSES: - Essential (primary) hypertension - Hypothyroidism, unspecified - senior care (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 - superintendent marine oil terminal (current) use of oral hypoglycemic drugs - Nicotine dependence, unspecified, uncomplicated - Pure hypercholesterolemia, unspecified - Type 2 diabetes mellitus with hyperglycemia 01/17/2024 12:11 [facility] [place] TYPE: Emergency DIAGNOSES: - Unspecified dislocation of right acromioclavicular joint, initial encounter - Unspecified sprain of right shoulder joint, initial encounter - r shoulder injury fall 10/28/2023 13:16 [facility] [place] TYPE: Emergency COMPLAINT: - URINE PROBLEM 10/17/2023 11:49 [facility] [place] TYPE: Emergency COMPLAINT: - CATHETER BAG DAMAGE 08/01/2023 08:21 [facility] [place] TYPE: Emergency COMPLAINT: - HEAD PAIN DIAGNOSES: - Acquired absence of other right toe(s) - Colostomy status - Erythematous condition, unspecified - Essential (primary) hypertension - Exposure to other specified factors, initial encounter - Homelessness unspecified - Hypothyroidism, unspecified - Impacted cerumen, right ear - superintendent marine oil terminal (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 - Nicotine dependence, unspecified, uncomplicated - Other jail (current) drug therapy - Patient's other noncompliance with medication regimen for other reason - Pressure ulcer of sacral region, unspecified stage - Pure hypercholesterolemia, unspecified - Tachycardia, unspecified - Type 2 diabetes mellitus with hyperglycemia - Type 2 diabetes mellitus with other skin ulcer - Unspecified open wound, right foot, initial encounter - Weakness 07/08/2023 09:[address] [facility] [place] TYPE: Emergency COMPLAINT: - ABD PAIN DIAGNOSES: - Essential (primary) hypertension - Hypothyroidism, unspecified - superintendent marine oil terminal (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 - Nicotine dependence, unspecified, uncomplicated - Osteomyelitis of vertebra, lumbar region - Osteomyelitis, unspecified - Other long term care pharmacist (current) drug therapy - Other psychoactive substance abuse, uncomplicated - Pressure ulcer of sacral region, stage 4 - Pressure ulcer of sacral region, stage 4 - Type 2 diabetes mellitus without complications 06/04/2023 12:55 [facility] [place] TYPE: Emergency DIAGNOSES: - Unspecified sprain of right foot, initial encounter - RIGHT FOOT INJURY 05/21/2023 14:38 [facility] [place] TYPE: Emergency DIAGNOSES: - Other psychoactive substance abuse, uncomplicated - Type 2 diabetes mellitus with hyperglycemia - POSS SEPSIS 05/10/2023 14:17 [facility] TYPE: Emergency COMPLAINT: - CATHETER ISSUE DIAGNOSES: - CATHETER ISSUE INPATIENT VISIT TRACKING (12 MO.) 04/20/2024 04:23 [facility] [place] TYPE: Critical Care COMPLAINT: - SEPSIS,PYELONEPHRITIS,PNEUMONIA,UNCONTROLLED DIABE 10/28/2023 13:[address] 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
--- NOTE | 2024-04-21 15:30 | EKG ---
[facility] [address] [place] [address] Signed Sinus tachycardia Rightward axis Inferior infarct , age undetermined Abnormal ECG When compared with ECG of 29-OCT-2023 23:55, Inferior infarct is now present Nonspecific T wave abnormality now evident in Inferior leads Confirmed by Stephanie Jerez MD () on 04/21/2024 3:30:11 PM Electronically Signed By: STEPHANIE JEREZ MD 04/21/24 1530 PATIENT NAME: JASMINA SANON Electrocardiogram DATE OF : 76 PHYSICIAN: STEPHANIE JEREZ MD REPORT #: [id number] REPORT IS CONFIDENTIAL AND NOT TO BE RELEASED WITHOUT AUTHORIZATION
== END 2024-04-20 10:38 | disposition short-term general hospital (02) ==
LOC: ED 00:39 → CCU 04:23 → ED 10:38
PROVIDERS: Family Medicine
DX: A41.9 Sepsis, unspecified organism (principal); J18.9 Pneumonia, unspecified organism; N17.9 Acute kidney failure, unspecified; L89.159 Pressure ulcer of sacral region, unspecified stage; E83.42 Hypomagnesemia; G82.22 Paraplegia, incomplete; N12 Tubulo-interstitial nephritis, not specified as acute or chronic; M62.82 Rhabdomyolysis; E11.65 Type 2 diabetes mellitus with hyperglycemia; I10 Essential (primary) hypertension; E03.9 Hypothyroidism, unspecified; F17.200 Nicotine dependence, unspecified, uncomplicated; Z88.8 Allergy status to other drugs, medicaments and biological substances; Z79.4 Long term (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; Z79.84 Long term (current) use of oral hypoglycemic drugs; Z79.890 Hormone replacement therapy; Z79.899 Other long term (current) drug therapy
CPT/HCPCS: 31500; 36415; 36556; 36600; 51702; 70450; 71045; 74177; 76870; 80053; 80307; 81001; 82553; 82803; 83605; 83735; 83880; 85025; 85610; 87040; 87077; 87088; 87186; 87502; 93005; 93010; 96368; 99285-25; A9270; J0456; J0696; J1815; J2060; J2270; J2310; J2704; J3475; J3490; J7030; J7040; Q9967; U0002

== ENCOUNTER 2024-05-05 08:23 | Emergency (ER) | payer OTHER ==
[~2024-05-05] VITALS: Ht 195.6 cm
[~2024-05-05 08:23] MED LIST changes: +CETIRIZINE HCL10 MG
--- OUTSIDE RECORDS SUMMARY | 2024-05-05 08:26 | XMS ---
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 Medical Delivery Driver Events No recent Security Events currently on file CRITERIA MET - 6 ED Visits in 6 Months - [facility] - 2 Visits in 30 Days CARE PROVIDERS Darleen Goins Parking Lot Supervisor/Silk Printer 02/08/2024-Current PHONE: [phone] Franc Wood Community Health Worker 06/08/2023-Current PHONE: [phone] -, Em[facility] Dental+ Dentist: Deputy Sheriff Generalist/Bailiff [facility] PHONE: [phone] -Chris- Dentist: Deputy Sheriff Generalist/Bailiff [facility] PHONE: [phone] -Kassy- Dentist: Deputy Sheriff Generalist/Bailiff [facility] PHONE: [phone] RODNEY KIM Pipe Fitter Apprentice Current PHONE: [phone] [facility]/Center: [facility] FAMILY PHONE: [phone] BRAYDON VILLATORO [facility] Current PHONE: [phone] Guidelines Source: [facility] Guidelines Date: 03/17/2022 Care Recommendation: PATIENT RECENTLY DISCHARGED FROM [facility]- DIFFICULT PLACEMENT. PATIENT WAS NOT COOPERATIVE WITH [...] COPES. [facility] VISIT COUNT (12 MO.) 9 MILI Lei [facility] TOTAL 14 NOTE: Visits indicate total known visits. ED/UCC VISIT TRACKING (12 MO.) 05/05/2024 08:23 [facility] [place] TYPE: Emergency COMPLAINT: - CATHETER ISSUE 04/20/2024 00:40 [facility] [place] TYPE: Emergency COMPLAINT: - SEPSIS,PYELONEPHRITIS,PNEUMONIA,UNCONTROLLED DIABE DIAGNOSES: - Acute kidney failure, unspecified - Allergy status to other drugs, medicaments and biological substances - Essential (primary) hypertension - Hormone replacement therapy - Hypomagnesemia - Hypothyroidism, unspecified - [facility] (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 - superintendent terminal (current) use of oral hypoglycemic drugs - Lower abdominal pain, unspecified - Nicotine dependence, unspecified, uncomplicated - Other longterm (current) drug therapy - Paraplegia, incomplete - Pneumonia, unspecified organism - Pressure ulcer of sacral region, unspecified stage - Rhabdomyolysis - Sepsis, unspecified organism - Tubulo-interstitial nephritis, not specified as acute or chronic - Type 2 diabetes mellitus with hyperglycemia 04/11/2024 05:42 [facility] [place] TYPE: Emergency COMPLAINT: - CATHETER PROBLEM 04/03/2024 13:42 [facility] [place] TYPE: Emergency COMPLAINT: - CATHETER PROBLEM 02/28/2024 12:28 [facility] [place] TYPE: Emergency DIAGNOSES: - Other injury of unspecified body region, initial encounter - WOUND CHECK 01/20/2024 10:43 [facility]I [place] [place] TYPE: Emergency COMPLAINT: - HIGH BLOOD SUGAR DIAGNOSES: - Essential (primary) hypertension - Hypothyroidism, unspecified - [facility] (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 - superintendent terminal (current) use of oral hypoglycemic drugs - Nicotine dependence, unspecified, uncomplicated - Pure hypercholesterolemia, unspecified - Type 2 diabetes mellitus with hyperglycemia 01/17/2024 12:11 [facility] [place] TYPE: Emergency DIAGNOSES: - [...] unspecified - Impacted cerumen, right ear - [facility]FP (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 - Nicotine dependence, unspecified, uncomplicated - Other door attendant (current) drug therapy - Patient's other noncompliance with medication regimen for other reason - Pressure ulcer of sacral region, unspecified stage - Pure hypercholesterolemia, unspecified - Tachycardia, unspecified - Type 2 diabetes mellitus with hyperglycemia - Type 2 diabetes mellitus with other skin ulcer - Unspecified open wound, right foot, initial encounter - Weakness 07/08/2023 09:33 [facility] [place] TYPE: Emergency COMPLAINT: - ABD PAIN DIAGNOSES: - Essential (primary) hypertension - Hypothyroidism, unspecified - [facility]FP (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 - Nicotine dependence, unspecified, uncomplicated - Osteomyelitis of vertebra, lumbar region - Osteomyelitis, unspecified - Other door attendant (current) drug therapy - Other psychoactive substance abuse, uncomplicated - Pressure ulcer of sacral region, stage 4 - Pressure ulcer of sacral region, stage 4 - Type 2 diabetes mellitus without complications 06/04/2023 12:55 [facility] [place] TYPE: Emergency DIAGNOSES: - Unspecified sprain of right foot, initial encounter - RIGHT FOOT INJURY 05/21/2023 14:38 [facility] [place] TYPE: Emergency DIAGNOSES: - Other psychoactive substance abuse, uncomplicated - Type 2 diabetes mellitus with hyperglycemia - POSS SEPSIS 05/10/2023 14:17 [facility] [place] TYPE: Emergency COMPLAINT: - CATHETER ISSUE DIAGNOSES: - CATHETER ISSUE INPATIENT VISIT TRACKING (12 MO.) 04/20/2024 11:54 [facility] TYPE: Internal Medicine DIAGNOSES: - Acute kidney failure, unspecified - Acute respiratory failure with hypoxia - Adjustment disorder with mixed anxiety and depressed mood - Artificial opening status, unspecified - Bacteremia - Cellulitis of right lower limb - Local infection of the skin and subcutaneous tissue, unspecified - Neuromuscular dysfunction of bladder, unspecified - Non-pressure chronic ulcer of other part of right foot with unspecified severity - Other psychoactive substance use, unspecified, in remission - Paraplegia, unspecified - Personal history of nicotine dependence - Personal history of other diseases of the musculoskeletal system and connective tissue - Presence of other specified devices - Pressure ulcer of sacral region, stage 4 - Pressure ulcer of unspecified site, stage 4 - Pressure ulcer of unspecified site, unspecified stage - Sepsis, unspecified organism - Severe sepsis with septic shock - Type 2 diabetes mellitus with foot ulcer - Septic Shock 04/20/2024 04:23 [facility] [place] TYPE: Critical Care COMPLAINT: - SEPSIS,PYELONEPHRITIS,PNEUMONIA,UNCONTROLLED DIABE 10/28/2023 13:17 [facility] [place] TYPE: Observation COMPLAINT: - HYPERGLYCEMIA DIAGNOSES: - Bacteremia - Elevated white blood cell count, unspecified - Essential (primary) hypertension - Hyperglycemia, unspecified - Hypo-osmolality and hyponatremia - Hypothyroidism, unspecified - [facility]FP (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 - Obesity, unspecified - Other door attendant (current) drug therapy - Pure hypercholesterolemia, unspecified - Tubulo-interstitial nephritis, not specified as acute or chronic - Type 2 diabetes mellitus with hyperglycemia [id number]
[2024-05-05] MEDS ORDERED: LIDOCAINE 2% VISCOUS 6 ML SYR TOP ONE (08:30)
[2024-05-05 09:57] VITALS: BP 150/78
[2024-05-05] MEDS ORDERED: DULOXETINE HCL30 MG PO (10:11)
[2024-05-05] MEDS ORDERED: LEVOTHYROXINE125 MCG PO (10:11)
[2024-05-05] MEDS ORDERED: TRULICITY3 MG/0.5 M SQ (10:11)
== END 2024-05-05 09:50 | disposition home or self-care (01) ==
LOC: ED 08:23
DX: T83.091A Other mechanical complication of indwelling urethral catheter, initial encounter (principal); R10.2 Pelvic and perineal pain; E11.9 Type 2 diabetes mellitus without complications; I10 Essential (primary) hypertension; E78.00 Pure hypercholesterolemia, unspecified; E03.9 Hypothyroidism, unspecified; H54.7 Unspecified visual loss; F17.200 Nicotine dependence, unspecified, uncomplicated; Z88.8 Allergy status to other drugs, medicaments and biological substances; Z79.4 Long term (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; Z79.899 Other long term (current) drug therapy
CPT/HCPCS: 51702; 99284-25

== ENCOUNTER 2024-05-14 14:51 | Emergency (ER) | payer OTHER ==
[~2024-05-14] VITALS: Ht 195.6 cm; Wt 86.6 kg
[~2024-05-14 14:51] MED LIST changes: +TRULICITY3 MG/0.5 M SQ
--- OUTSIDE RECORDS SUMMARY | 2024-05-14 14:57 | XMS ---
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 Colors Custodian Events No recent Security Events currently on file CRITERIA MET - 6 ED Visits in 6 Months - [facility] - 2 Visits in 30 Days CARE PROVIDERS Darleen Goins Retail Buyer/Product Test Engineer 02/08/2024-Current PHONE: [phone] Franc Wood Community Health Worker 06/08/2023-Current PHONE: [phone] -, [facility]+ Dentist: Chocolate Temperer [facility] PHONE: [phone] -Chris- Dentist: Chocolate Temperer Current [facility] PHONE: [phone] -Kassy- Dentist: Chocolate Temperer [facility] PHONE: [phone] RODNEY KIM Leader Writer Current PHONE: [phone] [facility]/Center: [facility] FAMILY PHONE: [phone] BRAYDON VILLATORO [facility] Current PHONE: [phone] Guidelines Source: [facility] Guidelines Date: 03/17/2022 Care Recommendation: PATIENT RECENTLY DISCHARGED FROM [facility]- DIFFICULT PLACEMENT. PATIENT WAS NOT COOPERATIVE [...] TO COPES. [facility] VISIT COUNT (12 MO.) 10 MILI Murillo [facility] TOTAL 14 NOTE: Visits indicate total known visits. ED/UCC VISIT TRACKING (12 MO.) 05/14/2024 14:51 [facility]I [facility] [place] TYPE: Emergency COMPLAINT: - CATH PROBLEM 05/05/2024 08:23 [facility] [place] TYPE: Emergency COMPLAINT: - CATHETER ISSUE DIAGNOSES: - Allergy status to other drugs, medicaments and biological substances - Essential (primary) hypertension - Hypothyroidism, unspecified - group home (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 - Nicotine dependence, unspecified, uncomplicated - Other alf (current) drug therapy - Other mechanical complication of indwelling urethral catheter, initial encounter - Pelvic and perineal pain - Pure hypercholesterolemia, unspecified - Type 2 diabetes mellitus without complications - Unspecified visual loss 04/20/2024 00:[address] [facility] [place] TYPE: Emergency COMPLAINT: - SEPSIS,PYELONEPHRITIS,PNEUMONIA,UNCONTROLLED DIABE DIAGNOSES: - Acute kidney failure, unspecified - Allergy status to other drugs, medicaments and biological substances - Essential (primary) hypertension - Hormone replacement therapy - Hypomagnesemia - Hypothyroidism, unspecified - parts counterman (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 - parts counterman (current) use of oral hypoglycemic drugs - Lower abdominal pain, unspecified - Nicotine dependence, unspecified, uncomplicated - Other alf (current) drug therapy - Paraplegia, incomplete - [...] Emergency COMPLAINT: - CATHETER PROBLEM 02/28/2024 12:28 [facility] [place] TYPE: Emergency DIAGNOSES: - Other injury of unspecified body region, initial encounter - WOUND CHECK 01/20/2024 10:43 MILI Morales [place] TYPE: Emergency COMPLAINT: - HIGH BLOOD SUGAR DIAGNOSES: - Essential (primary) hypertension - Hypothyroidism, unspecified - group home (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 - group home (current) use of oral hypoglycemic drugs - Nicotine dependence, unspecified, uncomplicated - Pure hypercholesterolemia, unspecified - Type 2 diabetes mellitus with hyperglycemia 01/17/2024 12:11 [facility] [place] TYPE: Emergency DIAGNOSES: - [...] - Nicotine dependence, unspecified, uncomplicated - Other alf (current) drug therapy - Patient's other noncompliance [...] Essential (primary) hypertension - Hypothyroidism, unspecified - parts counterman (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 - Nicotine dependence, unspecified, uncomplicated - Osteomyelitis of vertebra, lumbar region - Osteomyelitis, unspecified - Other alf (current) drug therapy - Other psychoactive substance abuse, uncomplicated - Pressure ulcer of sacral region, stage 4 - Pressure ulcer of sacral region, stage 4 - Type 2 diabetes mellitus without complications 06/04/2023 12:55 [facility] [place] TYPE: Emergency DIAGNOSES: - Unspecified sprain of right foot, initial encounter - RIGHT FOOT INJURY 05/21/2023 14:38 [facility] [place] TYPE: Emergency DIAGNOSES: - Other psychoactive substance abuse, uncomplicated - Type 2 diabetes mellitus with hyperglycemia - POSS SEPSIS INPATIENT VISIT TRACKING (12 MO.) 04/20/2024 11:54 [facility] TYPE: Internal Medicine DIAGNOSES: - Acute kidney [...] Hypo-osmolality and hyponatremia - Hypothyroidism, unspecified - group home (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 - Obesity, unspecified - Other equipment operator intermodal yard (current) drug therapy - Pure hypercholesterolemia, unspecified - Tubulo-interstitial nephritis, not specified as acute or chronic - Type 2 diabetes mellitus with hyperglycemia [email or web address]
[2024-05-14] MEDS ORDERED: LIDOCAINE 2% VISCOUS 6 ML SYR TOP ONE (15:30)
[2024-05-14 16:54] VITALS: BP 144/104
== END 2024-05-14 16:57 | disposition home or self-care (01) ==
LOC: ED 14:51
DX: T83.021A Displacement of indwelling urethral catheter, initial encounter (principal); E11.9 Type 2 diabetes mellitus without complications; I10 Essential (primary) hypertension; F17.200 Nicotine dependence, unspecified, uncomplicated; Z88.8 Allergy status to other drugs, medicaments and biological substances; Z79.84 Long term (current) use of oral hypoglycemic drugs; Z79.890 Hormone replacement therapy; Z79.4 Long term (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; Z79.899 Other long term (current) drug therapy; Y73.8 Miscellaneous gastroenterology and urology devices associated with adverse incidents, not elsewhere classified
CPT/HCPCS: 51702; 99283-25

== ENCOUNTER 2024-05-22 21:33 | Emergency (ER) | payer OTHER ==
[~2024-05-22] VITALS: Ht 195.6 cm; Wt 104.8 kg
--- OUTSIDE RECORDS SUMMARY | 2024-05-22 21:35 | XMS ---
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 Shoe Treer Events No recent Security Events currently on file CRITERIA MET - 6 ED Visits in 6 Months - [facility] - 2 Visits in 30 Days CARE PROVIDERS Darleen Goins Roll Winder/Grocery Bagger 05/10/2024-Current PHONE: [phone] Franc Wood Community Health Worker 06/08/2023-Current PHONE: [phone] -, [facility]+ Dentist: Operations Advisor [facility] PHONE: [phone] -Chris- Dentist: Operations Advisor Current [facility] PHONE: [phone] -Kassy- Dentist: Operations Advisor [facility] PHONE: [phone] RODNEY KIM Refining Equipment Operator Current PHONE: [phone] [facility]/Center: [facility] FAMILY PHONE: [phone] BRAYDON VILLATORO [facility] Current PHONE: [phone] Guidelines Source: [facility] Guidelines Date: 03/17/2022 Care Recommendation: PATIENT RECENTLY DISCHARGED FROM [facility]- DIFFICULT PLACEMENT. PATIENT WAS NOT COOPERATIVE WITH [...] TO COPES. [facility] VISIT COUNT (12 MO.) 11 MILI Murillo [facility] TOTAL 15 NOTE: Visits indicate total known visits. ED/UCC VISIT TRACKING (12 MO.) 05/22/2024 21:33 [facility] [place] TYPE: Emergency COMPLAINT: - CATH ISSUE 05/15/2024 02:13 [facility] [place] TYPE: Emergency DIAGNOSES: - Breakdown (mechanical) of indwelling urethral catheter, initial encounter - Hyperglycemia, unspecified - Other stimulant abuse, uncomplicated - Unspecified open wound, unspecified lower leg, subsequent encounter - BOWEL OBSTRUCTION 05/14/2024 14:51 [facility]I [facility] [place] TYPE: Emergency COMPLAINT: - CATH PROBLEM DIAGNOSES: - Allergy status to other drugs, medicaments and biological substances - Displacement of indwelling urethral catheter, initial encounter - Essential (primary) hypertension - Hormone replacement therapy - Leakage of indwelling urethral catheter, initial encounter - ferry terminal agent (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 - FPC (current) use of oral hypoglycemic drugs - Miscellaneous gastroenterology and urology devices associated with adverse incidents, not elsewhere classified - Nicotine dependence, unspecified, uncomplicated - Other long-term (current) drug therapy - Type 2 diabetes mellitus without complications 05/05/2024 08:23 [facility] [place] TYPE: Emergency COMPLAINT: - CATHETER ISSUE DIAGNOSES: - Allergy status to other drugs, medicaments and biological substances - Essential (primary) hypertension - Hypothyroidism, unspecified - FPC (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 - Nicotine dependence, unspecified, uncomplicated - Other manager long term care (current) drug therapy - Other mechanical complication of indwelling urethral catheter, initial encounter - Pelvic and perineal pain - Pure hypercholesterolemia, unspecified - Type 2 diabetes mellitus without complications - Unspecified visual loss 04/20/2024 00:40 [facility] [place] TYPE: Emergency COMPLAINT: - SEPSIS,PYELONEPHRITIS,PNEUMONIA,UNCONTROLLED DIABE DIAGNOSES: - Acute kidney failure, unspecified - Allergy status to other drugs, medicaments and biological substances - Essential (primary) hypertension - Hormone replacement therapy - Hypomagnesemia - Hypothyroidism, unspecified - FPC (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 - FPC (current) use of oral hypoglycemic drugs - Lower abdominal pain, unspecified - Nicotine dependence, unspecified, uncomplicated - Other long-term (current) drug therapy - Paraplegia, incomplete - [...] Emergency COMPLAINT: - CATHETER PROBLEM 02/28/2024 12:28 [facility] [place] TYPE: Emergency DIAGNOSES: - Other injury of unspecified body region, initial encounter - WOUND CHECK 01/20/2024 10:43 MILI [facility]ales [place] TYPE: Emergency COMPLAINT: - HIGH BLOOD SUGAR DIAGNOSES: - Essential (primary) hypertension - Hypothyroidism, unspecified - FPC (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 - FPC (current) use of oral hypoglycemic drugs - Nicotine dependence, unspecified, uncomplicated - Pure hypercholesterolemia, unspecified - Type 2 diabetes mellitus with hyperglycemia 01/17/2024 12:11 [facility] [place] TYPE: Emergency DIAGNOSES: - Unspecified dislocation [...] unspecified - Impacted cerumen, right ear - ferry terminal agent (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 - Nicotine dependence, unspecified, uncomplicated - Other manager long term care (current) drug therapy - Patient's other noncompliance [...] Essential (primary) hypertension - Hypothyroidism, unspecified - FPC (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 - Nicotine dependence, unspecified, uncomplicated - Osteomyelitis of vertebra, lumbar region - Osteomyelitis, unspecified - Other long-term (current) drug therapy - Other psychoactive substance abuse, uncomplicated - Pressure ulcer of sacral region, stage 4 - Pressure ulcer of sacral region, stage 4 - Type 2 diabetes mellitus without complications 06/04/2023 12:55 [facility] [place] TYPE: Emergency DIAGNOSES: - Unspecified sprain of right foot, initial encounter - RIGHT FOOT INJURY INPATIENT VISIT TRACKING (12 MO.) 04/20/2024 11:54 [facility] TYPE: Internal Medicine DIAGNOSES: - Acute kidney [...] Hypo-osmolality and hyponatremia - Hypothyroidism, unspecified - FPC (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 - Obesity, unspecified - Other long-term (current) drug therapy - Pure hypercholesterolemia, unspecified - Tubulo-interstitial nephritis, not specified as acute or chronic - Type 2 diabetes mellitus with hyperglycemia [email or web address]
[2024-05-22 22:15] VITALS: BP 143/105
== END 2024-05-22 22:15 | disposition home or self-care (01) ==
LOC: ED 21:33
DX: T83.091A Other mechanical complication of indwelling urethral catheter, initial encounter (principal); E11.9 Type 2 diabetes mellitus without complications; I10 Essential (primary) hypertension; E78.00 Pure hypercholesterolemia, unspecified; E03.9 Hypothyroidism, unspecified; H54.7 Unspecified visual loss; F17.200 Nicotine dependence, unspecified, uncomplicated; Z88.8 Allergy status to other drugs, medicaments and biological substances; Z79.84 Long term (current) use of oral hypoglycemic drugs; Z79.4 Long term (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; Z79.890 Hormone replacement therapy; Z79.899 Other long term (current) drug therapy
CPT/HCPCS: 51798; 99283-25

== ENCOUNTER 2024-05-23 06:51 | Emergency (ER) | payer OTHER ==
[~2024-05-23] VITALS: Ht 195.6 cm; Wt 104.8 kg
--- OUTSIDE RECORDS SUMMARY | 2024-05-23 06:57 | XMS ---
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 Market Stall Vendor Events No recent Security Events currently on file CRITERIA MET - 6 ED Visits in 6 Months - [facility] - 2 Visits in 30 Days CARE PROVIDERS Darleen Goins Terrazzo Tile Setter/Machine Pecan Gatherer 05/10/2024-Current PHONE: [phone] Franc Wood Community Health Worker 06/08/2023-Current PHONE: [phone] -, [facility] Dentist: Bundle Packer [facility] PHONE: [phone] -Chris- Dentist: Bundle Packer Current [facility] Dental [facility] PHONE: [phone] -Kassy- Dentist: Bundle Packer [facility] PHONE: [phone] RODNEY KIM Inhalation Therapy Teacher Current PHONE: [phone] [facility]/Center: [facility] FAMILY PHONE: [phone] BRAYDON VILLATORO [facility] Current PHONE: [phone] Guidelines Source: [facility] Guidelines Date: 03/17/2022 Care Recommendation: PATIENT RECENTLY DISCHARGED FROM [facility]- DIFFICULT PLACEMENT. PATIENT WAS NOT COOPERATIVE WITH [...] TO COPES. [facility] VISIT COUNT (12 MO.) 12 MIL[facility] Mur[facility] TOTAL 16 NOTE: Visits indicate total known visits. ED/UCC VISIT TRACKING (12 MO.) 05/23/2024 06:51 [facility] [place] TYPE: Emergency COMPLAINT: - CATHETER PROBLEM 05/22/2024 21:33 [facility] [place] TYPE: Emergency COMPLAINT: - CATH ISSUE 05/15/2024 02:13 [facility] [place] TYPE: Emergency DIAGNOSES: - Breakdown [...] of indwelling urethral catheter, initial encounter - CHCF (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 - CHCF (current) use of oral hypoglycemic drugs - Miscellaneous gastroenterology and urology devices associated with adverse incidents, not elsewhere classified - Nicotine dependence, unspecified, uncomplicated - Other custodial (current) drug therapy - Type 2 diabetes mellitus without complications 05/05/2024 08:23 [facility] [place] TYPE: Emergency COMPLAINT: - CATHETER ISSUE DIAGNOSES: - Allergy status to other drugs, medicaments and biological substances - Essential (primary) hypertension - Hypothyroidism, unspecified - CHCF (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 - Nicotine dependence, unspecified, uncomplicated - Other terminal manager (current) drug therapy - Other mechanical complication [...] therapy - Hypomagnesemia - Hypothyroidism, unspecified - oysterman (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 - oysterman (current) use of oral hypoglycemic drugs - Lower abdominal pain, unspecified - Nicotine dependence, unspecified, uncomplicated - Other custodial (current) drug therapy - Paraplegia, incomplete - [...] Emergency COMPLAINT: - CATHETER PROBLEM 02/28/2024 12:28 [facility] [place] TYPE: Emergency DIAGNOSES: - Other injury of unspecified body region, initial encounter - WOUND CHECK 01/20/2024 10:43 [facility] [place] TYPE: Emergency COMPLAINT: - HIGH BLOOD SUGAR DIAGNOSES: - Essential (primary) hypertension - Hypothyroidism, unspecified - oysterman (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 - CHCF (current) use of oral hypoglycemic drugs - Nicotine dependence, unspecified, uncomplicated - Pure hypercholesterolemia, unspecified - Type 2 diabetes mellitus with hyperglycemia 01/17/2024 12:11 [facility] [place] TYPE: Emergency DIAGNOSES: - Unspecified [...] unspecified - Impacted cerumen, right ear - CHCF (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 - Nicotine dependence, unspecified, uncomplicated - Other custodial (current) drug therapy - Patient's other noncompliance [...] Essential (primary) hypertension - Hypothyroidism, unspecified - oysterman (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 - Nicotine dependence, unspecified, uncomplicated - Osteomyelitis of vertebra, lumbar region - Osteomyelitis, unspecified - Other custodial (current) drug therapy - Other psychoactive substance abuse, uncomplicated - Pressure ulcer of sacral region, stage 4 - Pressure ulcer of sacral region, stage 4 - Type 2 diabetes mellitus without complications 06/04/2023 12:55 [facility] [place] TYPE: Emergency DIAGNOSES: - Unspecified sprain of right foot, initial encounter - RIGHT FOOT INJURY INPATIENT VISIT TRACKING (12 MO.) 04/20/2024 11:54 [facility] TYPE: Internal Medicine DIAGNOSES: - [...] Hypo-osmolality and hyponatremia - Hypothyroidism, unspecified - oysterman (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 - Obesity, unspecified - Other custodial (current) drug therapy - Pure hypercholesterolemia, unspecified - Tubulo-interstitial nephritis, not specified as acute or chronic - Type 2 diabetes mellitus with hyperglycemia [email or web address]
[2024-05-23] MEDS ORDERED: LIDOCAINE 2% VISCOUS 6 ML SYR TOP ONE (07:30)
[2024-05-23 07:48] VITALS: BP 134/93
== END 2024-05-23 08:05 | disposition home or self-care (01) ==
LOC: ED 06:51
DX: T83.091A Other mechanical complication of indwelling urethral catheter, initial encounter (principal); Y84.6 Urinary catheterization as the cause of abnormal reaction of the patient, or of later complication, without mention of misadventure at the time of the procedure; E11.9 Type 2 diabetes mellitus without complications; I10 Essential (primary) hypertension; E03.9 Hypothyroidism, unspecified; F17.200 Nicotine dependence, unspecified, uncomplicated; Z88.8 Allergy status to other drugs, medicaments and biological substances; Z79.4 Long term (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; Z79.84 Long term (current) use of oral hypoglycemic drugs; Z79.890 Hormone replacement therapy; Z79.899 Other long term (current) drug therapy
CPT/HCPCS: 51702; 99283-25

== ENCOUNTER 2024-07-18 09:13 | Inpatient (IN) | payer OTHER ==
[~2024-07-18] VITALS: Ht 195.6 cm; Wt 97.8 kg
[~2024-07-18 09:13] MED LIST changes: -TRULICITY3 MG/0.5 M SQ; +TRULICITY3 MG/0.5 M SUB-Q
--- OUTSIDE RECORDS SUMMARY | 2024-07-18 09:20 | XMS ---
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 Mate Events No recent Security Events currently on file CRITERIA MET - 6 ED Visits in 6 Months - [facility] - 2 Visits in 30 Days - [facility] - 3 Facilities in 90 Days CARE PROVIDERS Darleen Goins De Icer Element Winder/Supervisor [employer]ty [employer] Caluking 05/10/2024-Current PHONE: [phone] Franc Wood Community Health Worker 06/08/2023-Current PHONE: [phone] -, [facility] Dentist: Clinical Data Assistant Guido Perez PHONE: [phone] -Chris- Dentist: Clinical Data Assistant Current [facility] PHONE: [phone] -, Kassy- Dentist: Clinical Data Assistant [facility] PHONE: [phone] RODNEY KIM Physician Log Skidder Current PHONE: [phone] [facility]/Center: [facility] FAMILY PHONE: [phone] BRAYDON VILLATORO [facility] Current PHONE: [phone] Guidelines Source: [facility] Guidelines Date: [...] TO COPES. [place] VISIT COUNT (12 MO.) 13 [facility] [address] (Cristin Amaral) TOTAL 17 NOTE: Visits indicate total known visits. ED/UCC VISIT TRACKING (12 MO.) 07/18/2024 09:14 [facility] [place] TYPE: Emergency COMPLAINT: - WOUND CHECK [facility] DIAGNOSES: - Unspecified complication of genitourinary prosthetic device, implant and graft, initial encounter - cath issues - Urinary Catheter Check 2024 11:32 [facility] [place] TYPE: Emergency COMPLAINT: - URINE PROBLEM 05/23/2024 06:51 [facility] TYPE: Emergency COMPLAINT: - CATHETER PROBLEM DIAGNOSES: - Allergy status to other drugs, medicaments and biological substances - Essential (primary) hypertension - Hormone replacement therapy - Hypothyroidism, unspecified - longterm (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 - longterm (current) use of oral hypoglycemic drugs - Nicotine dependence, unspecified, uncomplicated - Other long-term (current) drug therapy - Other mechanical complication of indwelling urethral catheter, initial encounter - Type 2 diabetes mellitus without complications - Urinary catheterization as the cause of abnormal reaction of the patient, or of later complication, without mention of misadventure at the time of the procedure 05/22/2024 21:33 [facility] [place] TYPE: Emergency COMPLAINT: - CATH ISSUE DIAGNOSES: - Allergy status to other drugs, medicaments and biological substances - Essential (primary) hypertension - Hormone replacement therapy - Hypothyroidism, unspecified - longterm (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 - longterm (current) use of oral hypoglycemic drugs - Nicotine dependence, unspecified, uncomplicated - Other long-term (current) drug therapy - Other mechanical complication of indwelling urethral catheter, initial encounter - Pure hypercholesterolemia, unspecified - Type 2 diabetes mellitus without complications - Unspecified visual loss 05/15/2024 02:13 [facility] [place] TYPE: Emergency DIAGNOSES: - Breakdown [...] of indwelling urethral catheter, initial encounter - longterm (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 - terminal supervisor (current) use of oral hypoglycemic drugs - [...] Essential (primary) hypertension - Hypothyroidism, unspecified - terminal supervisor (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 - Nicotine dependence, unspecified, uncomplicated - Other long-term (current) drug therapy - Other mechanical complication [...] therapy - Hypomagnesemia - Hypothyroidism, unspecified - terminal supervisor (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 - longterm (current) use of oral hypoglycemic drugs - Lower abdominal pain, unspecified - Nicotine dependence, unspecified, uncomplicated - Other long chain beamer (current) drug therapy - Paraplegia, incomplete - [...] Emergency COMPLAINT: - CATHETER PROBLEM 02/28/2024 12:28 [facility] [place] TYPE: Emergency DIAGNOSES: - Other injury of unspecified body region, initial encounter - WOUND CHECK 01/20/2024 10:43 [facility] [place] TYPE: Emergency COMPLAINT: - HIGH BLOOD SUGAR DIAGNOSES: - Essential (primary) hypertension - Hypothyroidism, unspecified - longterm (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 - terminal supervisor (current) use of oral hypoglycemic drugs - Nicotine dependence, unspecified, uncomplicated - Pure hypercholesterolemia, unspecified - Type 2 diabetes mellitus with hyperglycemia 01/17/2024 12:11 [facility] [place] TYPE: Emergency DIAGNOSES: - Unspecified [...] unspecified - Impacted cerumen, right ear - longterm (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 - Nicotine dependence, unspecified, uncomplicated - Other long-term (current) drug therapy - Patient's other noncompliance with medication regimen for other reason - Pressure ulcer of sacral region, unspecified stage - Pure hypercholesterolemia, unspecified - Tachycardia, unspecified - Type 2 diabetes mellitus with hyperglycemia - Type 2 diabetes mellitus with other skin ulcer - Unspecified open wound, right foot, initial encounter - Weakness INPATIENT VISIT TRACKING (12 MO.) 04/20/2024 11:54 [facility] TYPE: Internal Medicine DIAGNOSES: - Acute [...] Hypo-osmolality and hyponatremia - Hypothyroidism, unspecified - longterm (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 - Obesity, unspecified - Other long-term (current) drug therapy - Pure hypercholesterolemia, unspecified - Tubulo-interstitial nephritis, not specified as acute or chronic - Type 2 diabetes mellitus with hyperglycemia [email or web address]
[2024-07-18 11:15] LABS: BASOPHILS 1.5 % (0-2); EOSINOPHILS 1.9 % (0-6); HEMATOCRIT 40.8 % (35.0-50.0); HEMOGLOBIN 13.8 g/dL (12.0-18.0); LYMPHOCYTES 12.3 % (24-44); MCH 27.9 (27-36); MCHC 33.8 g/dl (30-36); MCV 82.6 fl (81-99); NEUTROPHILS 81.3 % (39-80); PLATELET COUNT 323 K/uL (140-440); RBC 4.94 M/ul (4.3-5.7)
[2024-07-18 11:35] LABS: ALBUMIN 2.3 g/dL (3.4-5.0); ALBUMIN/GLOBULIN RATIO 0.43 (1.1-2.4); BILIRUBIN, TOTAL 0.2 mg/dL (0.2-1.0); BUN/CREATININE RATIO 17.64 (6.0-28.6); CREATININE, SERUM 1.36 mg/dL (0.70-1.30); PROTEIN, TOTAL 7.6 g/dL (6.4-8.2)
[2024-07-18] MEDS ORDERED: SODIUM CHLORIDE 0.9% 1,000 ML IV PRN (12:00)
[2024-07-18] MEDS ORDERED: Insulin Regular, Human 100 UNIT/ML ML IV ONE ×2 (12:00→14:15)
[2024-07-18 12:08] LABS: LACTIC ACID, BLOOD 0.9 mmol/L (0.4-2.0)
[2024-07-18] MEDS ORDERED: VANCOMYCIN HCL 2,500 MG in DEXTROSE 5% 500 ML IV ONE (12:30)
[2024-07-18] MEDS ORDERED: CEFAZOLIN SODIUM 2 GM/20 ML SYR IV ONE (12:30)
[2024-07-18] MEDS ORDERED: HYDROCODONE/APAP 10/325 1 TAB PO ONE (14:15)
[2024-07-18] MEDS ORDERED: IBLOOD GLUCOSE TEST STRIP 1 EA TEST XX PRN (16:15)
[2024-07-18] MEDS ORDERED: SODIUM CHLORIDE 0.9% 1,000 ML IV SCH (16:15)
[2024-07-18] MEDS ORDERED: ACETAMINOPHEN 325 MG TAB PO PRN (16:15)
[2024-07-18] MEDS ORDERED: ondansetron HCL 4 MG/2 ML VIAL IV PRN (16:15)
[2024-07-18] MEDS ORDERED: DEXTROSE 5% 1,000 ML IV PRN (16:15)
[2024-07-18] MEDS ORDERED: DEXTROSE 50% 50 ML SYR IV PRN ×2 (16:15)
[2024-07-18] MEDS ORDERED: GLUCAGON,HUMAN RECOMBINANT 1 MG/ML VIAL SUB-Q PRN (16:15)
[2024-07-18] MEDS ORDERED: IBLOOD GLUCOSE TEST STRIP 1 EA TEST VI SCH (17:00)
[2024-07-18] MEDS ORDERED: INSULIN LISPRO 100 UNIT/ML ML SUB-Q SCH (17:00)
[2024-07-18 17:46] VITALS: BP 123/91
[2024-07-18 18:00] VITALS: BP 129/96
[2024-07-18] MEDS ORDERED: NICOTINE 14 MG/24 HR 1 EA TDSY TD SCH (18:14)
[2024-07-18] MEDS ORDERED: LIDOCAINE 2% VISCOUS 6 ML SYR TOP ONE (18:45)
--- NOTE | 2024-07-18 20:03 | NUR ---
PATIENT ADMITTED TO CCU AROUND 1730 FOR HYPERGLYCEMIA AND WOUNDS ON LOWER LEGS. PT VERY HUNGRY ON ADMISSION AND CBG 328- GIVEN 9 UNITS. PATIENT LABILE WITH HIS EMOTIONS. LOWER LEGS HAVE VARIOUS STAGES OF WOUNDS. OSMAN CATH UPON ADMISSION HAS SEDIMENT AND GOOD AMOUNT OF URINE OUTPUT. THE ER HAD PLACED A LEG BAG IN LIEU OF HIS LEAKING OSMAN BAG THAT HE ARRIVED TO ER WITH. PER DR. JEREZ, NEW OSMAN TO BE PLACED AND UA TO BE OBTAINED. THIS WAS DONE WITH A 14FR CATHETER. PURUELENT DRAINAGE NOTED FROM END OF OLD OSMAN CATH. AWAITING WOUND CONSULT. PT HAS WOUNDS ON BOTH LEGS. PICTURES ARE IN CHART FROM ER BUT MORE PICTURES TO BE TAKEN. OSTOMY APPLIANCE COVERING PREEXISTING OSTOMY FROM UNKNOWN AMOUTN OF TIME. RECORDS OBTAINED FROM [place]. PT ORIENTED TO ROOM. REPORT GIVEN TO PROCESS MAINTENANCE TECHNICIAN RNs.
--- NOTE | 2024-07-18 20:04 | NUR ---
RECEIVED REPORT FROM DAY SHIFT RN. PATIENT IS RESTING IN BED. PATIENT DENIES ANY NEEDS. CALL LIGHT IN REACH.
[2024-07-18] MEDS ORDERED: THIAMINE HCL 100 MG,FOLIC ACID 1 MG,MULTIVITAMINS 10 ML in SODIUM CHLORIDE 0.9% 1,000 ML IV ONE (20:45)
[2024-07-18] MEDS ORDERED: LORazepam 1 MG TAB PO PRN (20:45)
[2024-07-18] MEDS ORDERED: LORazepam 2 MG/ML VIAL IV/IM PRN (20:45)
[2024-07-18] MEDS ORDERED: INSULIN GLARGINE-YFGN 100 UNIT/ML ML SUB-Q SCH (21:00)
[2024-07-18] MEDS ORDERED: CEFEPIME HCL 2 GM in DEXTROSE 5% 100 ML IV SCH (21:00)
[2024-07-18] MEDS ORDERED: NICOTINE 21 MG/24 HR 1 EA TDSY TD SCH (21:00)
--- NOTE | 2024-07-18 21:00 | NUR ---
PATIENT IS RESTING IN BED. PATIENTS BS CHECKED AND BS WNL AND NO SS GIVEN PER ORDER. PATIENT EDUCATED ON WOUND CARE. PATIENT SIGNED PHOTO CONSENT. PATIENT IS CRYING AND REPORTS "I AM JUST WORRIED ABOUT MY KIDS". PATIENT REASSURED HE IS SAFE AND HE NEEDS TO FOCUS ON GETTING BETTER. PATIENT DENIES ANY FURTHER NEEDS. CALL LIGHT IN REACH.
[2024-07-18] MEDS ORDERED: MORPHINE SULFATE 4 MG/ML VIAL IV PRN (21:30)
[2024-07-18] MEDS ORDERED: FOLIC ACID 1 MG/0.2 ML ML ONE (21:41)
--- NOTE | 2024-07-18 21:49 | NUR ---
PATIENT IS THRASHING ASOUND IN BED. PATIENT IS HOLLERING AND CRYING. PATIENT IS HOLLERING "MY KIDS". PATIENT APPEARS TO BE HALLUCINATING. CIWA NOTED TO BE 21, PRN MEDICATION GIVEN PER ORDER. BED ALARM PLACED ON FOR SAFETY. IV INFUSING PER ORDER.
[2024-07-18 22:00] VITALS: BP 121/54
[2024-07-18] MEDS ORDERED: metroNIDAZOLE/SODIUM CHLORIDE 500 MG/100 ML PIGGYBACK IV SCH (22:00)
--- NOTE | 2024-07-18 22:10 | NUR ---
UA SENT PER ORDER FROM NEW CATHETER PLACEMENT.
--- NOTE | 2024-07-18 22:24 | NUR ---
PATIENT APPEARS TO BE SETTLING IN BED. PATIENTS IV INFUSING PER ORDER. PATIENT DENIES ANY NEEDS. UA SENT PER ORDER. NAD NOTED. CALL LIGHT IN REACH. BED ALARM ON FOR SAFETY.
[2024-07-18 22:26] LABS: BILIRUBIN, URINE NEGATIVE (negative); BLOOD/HGB, URINE MODERATE (Negative); KETONE, URINE NEGATIVE (Negative); LEUK ESTERASE, URINE NEGATIVE (negative); NITRITE, URINE NEGATIVE (negative)
--- NOTE | 2024-07-18 22:30 | NUR ---
PATIENT PREMEDICATION FOR PAIN BEFORE WOUND CARE COMPLETED.
[2024-07-18 22:54] LABS: RED BLOOD CELLS, URINE 0-1 /hpf (0-5); WHITE BLOOD CELLS, URINE >50 /HPF (0-5)
[2024-07-18 22:55] LABS: BACTERIA, URINE RARE /hpf (negative); CASTS, URINE NONE SEEN \\lpf; COLLECTION TYPE, URINE CLEAN CATCH; CRYSTALS, URINE NONE SEEN (0-1+); EPITHELIAL CELLS, URINE SQUAMOUS 1+ /lpf (0-1+); REFLEX CULTURE, URINE Yes (No)
[2024-07-19] VITALS (11 sets, daily range): BP systolic 91–117; BP diastolic 56–89
--- NOTE | 2024-07-19 00:30 | NUR ---
BACK/BUTTOCKS #1 SUPERIOR SACRUM 7CM FISTULA TOWARDS 6 OCLOCK. NO EXUDATE, UNABLE TO VISUALIZE INSIDE, RED PERIWOUND. CLEANED WITH WOUND CLEANSER AND SACRUM FOAM COVERING APPLIED. #2 INFERIOR SACRUM FISTULA 3.9CM TOWARDS 12 OCLOCK. THIS WOUND CONNECTS TO #1. NO EXUDATE, UNABLE TO VISUALIZE INSIDE. WHITE, MACERATED PERIWOUND. CLEANED WITH WOUND CLEANSER AND SACRUM FOAM COVERING APPLIED. #3 RIGHT BUTTOCKS ULCER 1.4CM X 1.4CM. SMALL, SS DRAINAGE, FIRMLY ADHERED YELLOW SLOUGH. PREIWOUND RED WITH VIABLE EDGES. CLEANED WITH WOUND CLEANSER, COVERED WITH ALLGENATE AG AND PINK FOAM DRESSING. RIGHT LOWER EXTREMITY #1 RLE LATERAL, 1CM X 1CM ULCER. NO EXUDATE, FIRMLY ADHERED YELLOW SLOUGH. EDGES RED AND VIABLE. CLEANED WITH WOUND CLEANSER, APPLIED IODOSORB PASTE AND COVERED WITH PINK FOAM DRESSING. #2 RLE LATERAL 1CM X 0.5CM ULCER. SMALL, PURULENT DRAINAGE. GRANULATING BASE WITH MACERARED EDGES. PERIWOUND RED. CLEANED WITH WOUND CLEANSER, APPLIED IODOSORB PASTE AND COVERED WITH PINK FOAM DRESSING. #3 RLE LATERAL ULCER 0.5CM X 0.5CM. SCANT SEROUS DRAINAGE, BASE HAS STABLE ESCHAR, PERIWOUND RED. CLEANED WITH WOUND CLEANSER, APPLIED IODOSORB PASTE AND COVERED WITH PINK FOAM DRESSING. #4 RLE LATERAL ULCER. SCANT SEROUS DRAINAGE, FIRMLY ADHERED YELLOW ESCHAR ON BASE, PERWOUND RED. CLEANED WITH WOUND CLEANSER, APPLIED IODOSORB PASTE AND COVERED WITH PINK FOAM DRESSING. #5 RLE LATERAL ANKLE 2.9CM X3CM ULCER. SMALL SS DRIANAGE, BASE IS STABLE ESCHAR. EDGES INDURATED AND RED. CLEANED WITH WOUND CLEANSER, APPLIED IODOSORB PASTE AND COVERED WITH PINK FOAM DRESSING. #6 RLE LATERAL FOOT 1.2CM X 1.2CM DEEP TISSUE INJURY, NO EXUDATE, BLANCHABLE, DARK PURPLE. RED PERIWOUND. CLEANED WITH WOUND CLEANSER, COVERED WITH PINK FOAM DRESSING. #7 RIGHT DORSAL FOOT 0.9CM X 0.9CM ULCER THAT HAS A FISTULA RUNNING FROM 7 OCLOCK TO A 1.2CM X 0.2CM ULCER WITH SMALL, PURULENT DRAINAGE. BASE IS SMOOTH AND RED, EDGES ARE WHITE AND MACERATED. CLEANED WITH WOUND CLEANSER, ALLGENATE AG APPLIED, CAVILON AND COVERED WITH PINK FOAM DRESSING. #8 RIGHT LATER/PLANTAR AREA HAS AN UNSTAGEABLE ULCER. NO EXUDATE, STABLE ESCHAR. RED PERIWOUND. CLEANED WITH WOUND CLEANSER, APPLIED IODOSORB PASTE AND COVERED WITH PINK FOAM DRESSING. #9 DISTAL/PLANTAR RIGHT FOOT 5TH DIGIT 0.9CM X 1.2CM X 0.9CM ULCER AND FISSURE. SMALL SS DISCHARGE. STABLE ESCHAR IN THE MIDDLE WITH RED BASE ON PLANTAR SIDE. PERIWOUND RED. CLEANED WITH WOUND CLEANSER, APPLIED IODOSORB PASTE AND COVERED WITH PINK FOAM DRESSING. #10 RIGHT ANTERIOR LEG ULCER 14.2CM X 6.5CM . MOERATE PURULENT DRAINAGE. RED COBBLESTONE GRANULATION WITH FIRMLY ADHERED YELLOW SLOUGH AT 9 OCLOCK TO 3 OCLOCK AND 5 OCLOCK TO 6 OCLOCK. ALEXA WOUND RED, MACERATED. CLEANED WITH WOUND CLEANSER, CAVILON, ALLGENATE AG AND COVERED WITH PINK FOAM DRESSING. #11 RIGHT ANTERIOR LEG 1CM X 0.9CM ULCER. NO EXUDATE, RED BASE AND RED PERIWOUND. CLEANED WITH WOUND CLEANSER, APPLIED IODOSORB PASTE AND COVERED WITH PINK FOAM DRESSING. #12 RIGHT ANTERIOR KNEE 0.8CM X 1CM ULCER WITH NO EXUDATE, STABLE ESCHAR, PERIWOUND RED. OPEN TO AIR. #13 RIGHT ANTERIOR LEG 1.4CM X 1.4CM ULCER. NO EXUDATE, BASE IS RED AND HEALING, PERIWOUND RED. OPEN TO AIR. LEFT LOWER LEG #1 LEFT SUPERIOR LOWER LEG ULCER. 0.4CM X 1CM. NO EXUDATE. BASE IS PINK, STABLE ESCHAR AT THE 6 OCLOCK TO 9 OCLOCK REGION. OPEN TO AIR. #2 INFERIOR LOWER LEG ULCER. 2.8CM X 1.4CM WITH NO EXUDATE, FIRMLY ADHERED YELLOW SLOUGH ON BASE, PERIWOUND RED. CLEANED WITH WOUND CLEANSER, APPLIED IODOSORB PASTE AND COVERED WITH PINK FOAM DRESSING. #3 LEFT LOWER LATERAL LEG ULCER 0.8CM X 0.8CM . NO EXUDATE, BASE IS PINK, HEALING, PERIWOUND RED. OPEN TO AIR. #4 LEFT MEDIAL ANKLE ULCER. 5.0CM X3.5CM WITH SMALL, PURULENT DRAINAGE, DARK RED BASE. INDURATED EDGES, RED, MACERATED. CLEANED WITH WOUND CLEANSER, ALLGENATE AG, CAVILON AND COVERED WITH PINK FOAM DRESSING. #5 LEFT MEDIAL FOOT 1.4CM X 0.9CM LACERATION. SMALL SS DRAINAGE. RED BASE, RED PERIWOUND. CLEANED WITH WOUND CLEANSER, COVERED WITH PINK FOAM DRESSING. #6 LEFT FOOT 5TH DIGIT 0.8CM X 0.8CM ULCER. NO EXUDATE, BASE IS STABLE ESCHAR, EDGES ARE PALE. CLEANED WITH WOUND CLEANSER, APPLIED IODOSORB PASTE AND COVERED WITH PINK FOAM DRESSING. #7 LEFT DORSAL FOOT FISSURE 2.1CM X 0.4CM X 0.4CM. SMALL SSS DRAINAGE. BASE RED, PERIWOUND RED. CLEANED WITH WOUND CLEANSER, APPLIED IODOSORB PASTE AND COVERED WITH PINK FOAM DRESSING. RIGHT LOWER LEG AND LEFT FOOT WRAPPED WITH KERLIX AND GUICHO WRAP TO SECURE BANDAGES. KEEP WOUNDS CLEAN AND DRY. CHANGE DRESSING PRN OR EVERY 3 DAYS. USE PILLOWS AND POSITION CHANGES TO RELIEVE PRESSURE ON WOUNDS PRN.
--- NOTE | 2024-07-19 00:32 | NUR ---
THIS RN AND RESEARCH QUALITY ASSURANCE SPECIALIST COMPLETED 3HRS OF WOUND CARE CLEANING, WOUND STAGING, PICS TAKEN AND WOUND CARE DRESSINGS APPLIED-SEE WOUND CARE ASSESMENT. PATIENTS OSTOMY APPEARS TO BE PROLAPSED, RED AND IRRITATED. PATIENTS OSTOMY CLEANED AND NEW APPLIANCES PUT INTO USE. BED BATH COMPLETED FROM HEAD TO TOE. ATTEND PLACED ON PATIENT. OSMAN CARE COMPLETED. OSMAN EMPTIED. PATIENT TOLERATED ACTIVTY WELL. WARM BLANKET PROVIDED. PATIENT DENIES ANY FURTHER NEEDS. CALL LIGHT IV INFUSING PER ORDER. BED ALARM ON FOR SAFETY.
[2024-07-19] MEDS ORDERED: CEFEPIME HCL 2 GM VIAL ONE (00:37)
[2024-07-19] MEDS ORDERED: CEFEPIME HCL 2 GM in DEXTROSE 5% 100 ML IV SCH (01:00)
--- NOTE | 2024-07-19 02:41 | NUR ---
PATIENT IS RESTING IN BED ON RIGHT SIDE WITH EYES CLOSED, RR 18. NAD NOTED. IV INFUSING PER ORDER. CALL LIGHT IN REACH. BED ALARM ON FOR SAFETY.
--- NOTE | 2024-07-19 04:57 | NUR ---
PATIENT REPOSITIONED IN BED. PATIENTS OSMAN EMPTIED. INTAKE AND OUTPUT RECORDED. PATIENT DENIES ANY PAIN. PATIENT DENIES ANY NEEDS. CALL LIGHT IN REACH. IV INFUSING PER ORDER. BED ALARM ON FOR SAFETY.
--- NOTE | 2024-07-19 05:17 | NUR ---
LAB IN ROOM. PATIENT DROWSY. LAB ASSISTED WITH BLOOD DRAW. NO NEEDS NOTED. CALL LIGHT IN REACH. BED ALARM ON FOR SAFETY. IV INFUSING PER ORDER.
[2024-07-19 05:28] LABS: BASOPHILS 1.7 % (0-2); EOSINOPHILS 4.8 % (0-6); HEMATOCRIT 35.6 % (35.0-50.0); HEMOGLOBIN 12.1 g/dL (12.0-18.0); LYMPHOCYTES 32.6 % (24-44); MCH 27.3 (27-36); MCHC 34.1 g/dl (30-36); MCV 80.2 fl (81-99); NEUTROPHILS 51.9 % (39-80); PLATELET COUNT 312 K/uL (140-440); RBC 4.44 M/ul (4.3-5.7); RDW 14.8 (10.5-15.0)
[2024-07-19 05:49] LABS: ALBUMIN 1.9 g/dL (3.4-5.0); ALBUMIN/GLOBULIN RATIO 0.42 (1.1-2.4); ANION GAP 11.8 (7-21); BILIRUBIN, TOTAL 0.2 mg/dL (0.2-1.0); BUN/CREATININE RATIO 15.92 (6.0-28.6); CALCIUM 8.2 mg/dL (8.5-10.1); CREATININE, SERUM 1.13 mg/dL (0.70-1.30); MAGNESIUM 1.6 mg/dL (1.8-2.4); POTASSIUM 3.8 mmol/L (3.5-5.1); PROTEIN, TOTAL 6.4 g/dL (6.4-8.2)
[2024-07-19 05:51] LABS: TSH, 3RD GENERATION 195.289 uIU/mL (0.358-3.740)
--- NOTE | 2024-07-19 06:05 | NUR ---
PATIENT IS RESTING IN BED WITH EYES CLOSED, RR16. NAD NOTED. IV ABX INFUSING PER ORDER. CALL LIGHT IN REACH. BED ALARM ON FOR SAFETY.
--- NOTE | 2024-07-19 06:17 | NUR ---
CULTURE OF RIGHT DORSAL FOOT WOUND #7 SENT TO LAB.
--- NOTE | 2024-07-19 06:48 | NUR ---
PATIENT ASSISTED TO REPOSITION IN BED. NO NEEDS NOTED. CALL LIGHT IN REACH. IV INFUSING PER ORDER. BED ALARM ON FOR SAFETY.
--- NOTE | 2024-07-19 07:45 | NUR ---
assumed care from manufacturing shift supervisor, dr miles here in dept. aware of vitals, pt eyes closed on right side resting in bed, hr 88. room air sats 97%. call light in reach.
[2024-07-19] MEDS ORDERED: CEFEPIME HCL 1 GM in SODIUM CHLORIDE 0.9% 100 ML IV SCH (08:00)
[2024-07-19] MEDS ORDERED: CEFEPIME HCL 1 GM VIAL ONE ×5 (08:03→20:34)
--- NOTE | 2024-07-19 08:35 | NUR ---
CORRECT MEDICATION CHECKED AT BEDSIDE WITH MAR AND 2ND RN YINA LIU. PT AWAKE FOR MEAL - DECLINES SILVERWARE EATING WITH HIS HANDS, VERY MESSY - RESTLESS, CO BACK PAIN WITH HOB UP FOR ASPIRATION RISK. BS 98 WNL. PT MOANS AND GROANS - KNOWS HE IS AT [facility], UNKNOWN THE DAY. STATES 2000. EDUCATED ON IV AND IMPORTANCE OF NOT PULLING IT OUT. IV ABX FUSING. STATES WE CAN LET HIS BROTHER KNOW HE IS HERE. ELIZABETH SANON . PT STATES HE DOES NOT WALK USES HIS WHEEL CHAIR. BED ALARM ON. CALL LIGHT IN REACH - LED WOUNDS AND LEFT ARM WOUNDS (TOTAL 23+) ARE COVERED TO ALYVEN AND CDI.
--- NOTE | 2024-07-19 08:47 | NUR ---
ostomy site is protruding out into bag- color is red and viable looking, with dark green liquid stool in bag. 4-5 inches of stoma protruding into bag - see picture in chart.
[2024-07-19] MEDS ORDERED: DAPTOmycin 500 MG/10 ML VIAL IV SCH (09:00)
[2024-07-19] MEDS ORDERED: ENOXAPARIN SODIUM 40 MG/0.4 ML SYR SUB-Q SCH (09:00)
--- NOTE | 2024-07-19 10:59 | NUR ---
UR CLINICAL REVIEW: [place] [facility] [place] DM AND WOUND MANAGEMENT GRG ODS [facility] INPT 07/18/24 ORDER MATCHES REG CLINICALS FAXED TO [facility] FOR REVIEW DISCHARGE DISPO PENDING FURTHER EVAL AND TREATMENT 07/21/24
--- NOTE | 2024-07-19 11:15 | NUR ---
VISITED DURING SPIRITUAL CARE ROUNDS. PT APPEARED TO BE SLEEPING. DID NOT DISTURB. PROVIDED PRAYER.
--- NOTE | 2024-07-19 11:35 | NUR ---
pt restless and not following commands, pulls off gown and pulled off ekg lines. re directed pt and removed gown for pt safety. bed alarm on and call light in reach.
[2024-07-19] MEDS ORDERED: PHARMACY RENAL DOSE ADJUSTMENT 1 DOSE MISC PO SCH (12:00)
--- NOTE | 2024-07-19 12:29 | NUR ---
MED REC COMPLETE
[2024-07-19] MEDS ORDERED: LEVOTHYROXINE SODIUM 125 MCG TAB PO SCH (13:00)
[2024-07-19] MEDS ORDERED: MAGNESIUM SULFATE 2 GM/50 ML BAG IV ONE ×2 (14:45→20:15)
--- NOTE | 2024-07-19 15:00 | NUR ---
Attempted to see pt x 2. He refuses to take the blankets off of his head. Will attempt to see pt tomorrow.
--- NOTE | 2024-07-19 15:43 | NUR ---
opened the colostomy to exit air, sm amt of liq. stool noted. 2nd iv placed, pt restless and uncooperative with cares, declines eating - took oral po med with water after much encouragement, covers up head with blanket and trys to get away from stimuli, says leave me alone. when asked if he wants to eat he says no leave me alone, bed alarm on and visible to rn.
--- NOTE | 2024-07-19 17:15 | NUR ---
dr chawla and dr miles here to plan care, pt is not cooperative, pulls blankets over his head and does not participate. pt tollerated wound assessment by dr chawla with no participation. bs 158 does not want to wake up for meal offer, dc data recovery planner mara here to see pt and drs at this time as well.
--- NOTE | 2024-07-19 18:20 | NUR ---
cassandra galvan girlfriend was here to sign papers she said. she noted that he is homeless and can not live with him due to his crimminal record. pt does not want to wake up and talk to her he awakens looks and pulls his covers over his head, branch to gravity, call light in reach. declines offer again for food or drink.
--- NOTE | 2024-07-19 19:30 | NUR ---
SHIFT REPORT RECEIVED. PATIENT RESTING IN BED. EYES CLOSED. VS STABLE. CALL LIGHT IN REACH.
--- NOTE | 2024-07-19 20:30 | NUR ---
PATIENT CALLING OUT TO STAFF IN HALLWAY. PATIENT REQUEST FOOD. SANDWICH BOX X2 PROVIDED. PATIENT'S SPEECH IS UNCLEAR AND SOMEWHAT SLURRED. PATIENT IS RESTLESS IN THE BED. ASSISTED TO REPOSITION AND UNTANGLE LINES.
--- NOTE | 2024-07-19 21:15 | NUR ---
PATIENT ATE BOTH SANDWICHES. PATIENT MORE ALERT NOT BUT ANXIOUS AND REPORTS A SEVERE HEADACHE AND BACK PAIN. PRN ATIVAN AND MORPHINE PROVIDED. PATIENT VS STABLE. IV SITES WNL X2. IV ABX AND FLUIDS INFUSING PER ORDER. PATIENT HAS MANY WOUNDS WHICH ARE COVERED WITH DRESSINGS. OSMAN IN PLACE; OSMAN CARE DONE. COLOSTOMY NOTED; STOMA IS SWOLLEN AND RED/PINK. PATIENT ASSISTED TO POSITION FOR COMFORT. WARM BLANKET PROVIDED. LIGHTS DIMMED. CALL LIGHT IN REACH.
--- NOTE | 2024-07-19 22:12 | NUR ---
PATIENT APPEARS RESTFUL. EYES CLOSED. VS STABLE. IV ABX AND MAG FINISHED. IV SL; WITE WNL.
[2024-07-20] VITALS: BP 121/85
--- NOTE | 2024-07-20 00:15 | NUR ---
PATIENT RESTFUL IN BED; EYES CLOSED. VS STABLE. TOLERATING ROOM AIR. SPOTCHECK Sp02; PATIENT CONTINUES TO REMOVE FINGER PROBE WHILE SLEEPING. LUNG SOUNDS ARE CLEAR. OUTPUT QS; OSMAN DRAINING FREELY. IV FLUIDS PER ORDER; SITE WNL. VS STABLE. ALLOWED PATIENT TO REST. CALL LIGHT IN REACH.
[2024-07-20] MEDS ORDERED: CEFEPIME HCL 1 GM VIAL ONE ×4 (02:36→21:16)
[2024-07-20 04:00] VITALS: BP 101/74
--- NOTE | 2024-07-20 04:27 | NUR ---
PATIENT CALLING OUT FOR STAFF. REPORTS SEVERE PAIN IN HIS FEET. PRN PAIN MEDS PROVIDED. PATIENT ASSISTED TO REPOSITION. PILLOWS USED TO PAD THE BEDRAILS; PATIENT LIKES TO LAY HIS KNEES AGAINST THEM. PATIENT IS ALERT BUT DOES NOT FOLLOW COMMANDS EASILY. UNSURE IF THIS IS DUE TO ILLNESS OR BEHAVIOR REASONS. PATIENT COVERS HIS HEAD WITH BLANKETS AND CONTINUES TO REST IN BED. REMINDED PATIENT TO USE CALL LIGHT. BED ALARM ACTIVE.
--- NOTE | 2024-07-20 05:30 | NUR ---
MORNING LABS DRAWN. PATIENT ALERTS EASILY BUT REMAINS EYES CLOSED; WITH HEAD COVERED WITH BLANKET. PATIENT IS IRRITABLE AND DEMANDING FOOD. DISCUSSED DIET ORDER AND ASSURED PATIENT BREAKFAST WOULD BE HERE AROUND 8AM. PATIENT DENIED OFFER OF DIET APPROPRIATE SNACKS FROM THE NUTRITION ROOM.
[2024-07-20 05:35] LABS: BASOPHILS 0.4 % (0-2); EOSINOPHILS 3.6 % (0-6); HEMATOCRIT 35.3 % (35.0-50.0); HEMOGLOBIN 11.9 g/dL (12.0-18.0); LYMPHOCYTES 33.7 % (24-44); MCH 27.3 (27-36); MCHC 33.8 g/dl (30-36); MCV 80.9 fl (81-99); MONOCYTES 7.4 % (0-12); NEUTROPHILS 54.9 % (39-80); PLATELET COUNT 276 K/uL (140-440); RBC 4.36 M/ul (4.3-5.7); RDW 15.3 (10.5-15.0)
[2024-07-20 05:50] LABS: ALBUMIN 1.6 g/dL (3.4-5.0); ALBUMIN/GLOBULIN RATIO 0.4 (1.1-2.4); ANION GAP 9.6 (7-21); BILIRUBIN, TOTAL 0.2 mg/dL (0.2-1.0); BUN/CREATININE RATIO 15.88 (6.0-28.6); CALCIUM 7.6 mg/dL (8.5-10.1); CREATININE, SERUM 1.07 mg/dL (0.70-1.30); MAGNESIUM 2.1 mg/dL (1.8-2.4); POTASSIUM 3.6 mmol/L (3.5-5.1); PROTEIN, TOTAL 5.6 g/dL (6.4-8.2)
--- NOTE | 2024-07-20 06:00 | NUR ---
PATIENT YELLING OUT AND IS AGITATED BECAUSE HE CANNOT HAVE BREAKFAST AT THIS TIME. DISCUSSED KITCHEN HOURS AND MEAL TIMES WITH PATIENT; PATIENT REMAINS UPSET. PRN ATIVAN PROVIDED FOR CIWA >8
--- NOTE | 2024-07-20 08:11 | NUR ---
assumed care, pt in bed, eyes closed, restless pulling his monitor lines off. attempted to redirect, call light in reach.
[2024-07-20 08:15] VITALS: BP 111/82
--- NOTE | 2024-07-20 09:07 | NUR ---
PT ATE 100% OF MEAL THEN GIVEN A PROTEIN MAX ENSURE. PT DRANK ALL. PT RESTLESS, DIATICIAN DARVIN HERE. PT NOW NON PARTICIPATING AND PULLS BLANKET OVER HEAD. WHEN ASKED HOW HE FEELS TODAY HE SAYS "LIKE TRASH, MENTALLY AND PHYSICALLY." PO TYLENOL GIVEN FOR DISCOMFORT OF LEGS. WOUNDS COVERED, OSMAN TO GRAVITY AND OSTOMY WNL WITH EXCEPTION OF STOMA THAT IS RED IN COLOR AND PROTURDING INTO OSTOMY BAG 4-[address] JOHNSON TO CONSULT. PHOTO IN CHART. PT DENIES OTHER NEEDS, RESTLESS, ROLLS AROUND IN BED MUMBLING, SWEATING, AND PULLING FOOD FROM TRAY AND EATING WITH HANDS. ATTEMPTED TO CLEAN PT AND HE STATES "LEAVE ME ALONE". BED ALARM ON AND CALL LIGHT IN REACH. PT PULLS OFF SAT MONITOR HR 89.
[2024-07-20] MEDS ORDERED: THIAMINE HCL 100 MG,FOLIC ACID 1 MG,MULTIVITAMINS 10 ML in SODIUM CHLORIDE 0.9% 1,000 ML IV ONE (10:00)
[2024-07-20 12:12] VITALS: BP 114/89
--- NOTE | 2024-07-20 14:59 | NUR ---
OSTOMY BURPED OF LG AMT OF AIR, NO STOOL NOTED, PT ENC. TO WAKE AND EAT, DENIES, AND PULLS COVERS OVER HEAD, IV ABX FUSING VIA PUMP. SITE WNL. CALL LIGHT IN REACH AND BED ALARM ON. WATER AT BEDSIDE, PT SNORES AND RESP REGULAR. OCCASIONALLY RESTLESS IN BED.
--- NOTE | 2024-07-20 15:00 | NUR ---
Attempted to speak with Art for the second day in a row. Pt does not open eyes and does not respond to most questions. He does ask I call his girlfriend, Chloe. 1600 I was able to reach Chloe. She states he was staying in the [facility], but was evicted for noncompliance. Pt cannot stay with her as he has a felony conviction. He's been living on [address]. She states he has continued to see the wound clinic in [facility] Wednesday through Jun. He missed his appt on the . He uses [email or web address] transport through [facility] to get to his wound appts. She states he would like to go to an [facility] for his drug use. He also does not have a phone. I will contact [facility] tomorrow to check if there are any medical/rehab programs he would qualify for. Chloe also would like him to go to placement. We discussed in the past he has left AMA, this may make it hard for placement. Chloe will be in to visit him later today.
--- NOTE | 2024-07-20 15:02 | NUR ---
ORAL CARE DONE, REMOVED OPA AND CLEANED MOUTH - MOISTENED AND REPLACED OPA - PT HAD ANXIETY AND WIDE EYES WHEN OPA WAS OUT - TOUNGE SUCKING BACK IN MOUTH AND LIP IN NOISEY AND PT PANICY - RE ASSURED AND REPLACED.
--- NOTE | 2024-07-20 15:08 | NUR ---
PT CRYING, MUMBLING UNABLE TO UNDERSTAND. RESTLESS AND ROLLING AROUND IN BED. UNABLE TO CALM AND FOLLOW DIRECTIONS. PO ATIVAN GIVEN.
--- NOTE | 2024-07-20 16:22 | NUR ---
Received diabetes education consult. Discussed with nursing who recommended [facility] diabetes education at this time due to patient's current state. Will attempt to complete consult next week.
[2024-07-20 16:43] VITALS: BP 111/81
--- NOTE | 2024-07-20 16:51 | NUR ---
pt restless, linen changed, attends changed- steven care, pt bs 200 3 units insulin then given 30 g protein suleman. ensure and turkey sand and apple sauce. pt agreeable to go to rehab after talking about his brother calling, also confused. thinks bety mcnamara is president, says its 2020 year, knows he is in hospital, states he would live with brother if he had to. reports he has lived with his siter niall in [place].
--- NOTE | 2024-07-20 16:59 | NUR ---
Called Leslye at [facility]. 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
--- NOTE | 2024-07-20 17:49 | NUR ---
pt resting in bed with covers over his head, cassandra his girlfriend is here and goes in to speak to him to encourage ipr and snf. pt is quiet and non cooperative at first then starts to talk.
--- NOTE | 2024-07-20 19:03 | NUR ---
RN IN TO ROOM TO AGAIN ASK PT IF HE WOULD LIKE TO EAT HIS FOOD, AND HE WIGGLES AROUND IN BED AND PULLS COVER OVER HEAD. IV ABX COMPLETE AND IV FLUIDS AT 125 VIA PUMP. OSMAN TO GRAVITY AND CALL LIGHT IN REACH.
--- NOTE | 2024-07-20 19:04 | NUR ---
DR MORRIS HERE IN DEPT AWARE OF VITALS AND PT STATUS, NO CHANGES. AWARE OF WAIT FOR SX CONSULT OF OSTOMY.
[2024-07-20 20:11] LABS: THYROXINE 0.68 ug/dL (4.50-11.70)
[2024-07-20 20:27] LABS: TRIIODOTHYRONINE,FREE FREE T3 <0.4 pg/mL (2.5-4.3)
--- NOTE | 2024-07-20 22:10 | NUR ---
PATIENT RESTING IN BED. BODY WRAPPED IN BLANKET. PATIENT IS IRRITABLE WHEN STAFF ATTEMPTS TO PROVIDE CARE. DOES ALLOW BLOOD SUGAR CHECK AND INSULIN AFTER SIGNIFICANT ENCOURAGEMENT. REFUSES TO UNCOVER FOR FULL ASSESSMENT AND VITAL SIGNS. ATIVAN GIVEN FOR CIWA >8.
[2024-07-20 22:52] VITALS: BP 102/74
--- NOTE | 2024-07-20 22:53 | NUR ---
2 staff assist to uncover patient. straighten branch out and do branch care. partial assessment. vs obtained. patient agitated and fighting staff in all cares. cries and yells; "i just want to sleep". patient ripped IV tubing apart; which was replaced and site re-enforced with extra tape. patient then provided warm blanket and covered again per request. lights dimmed in room.
[2024-07-21] MEDS ORDERED: CEFEPIME HCL 1 GM VIAL ONE ×4 (03:36→21:07)
--- NOTE | 2024-07-21 03:51 | NUR ---
PATIENT ASSISTED TO REPOSITION. PATIENT PROVIDED A SNACK PER REQUEST. PATIENT MORE APPROPRIATE AND FOLLOWS INSTRUCTIONS.
[2024-07-21 05:30] LABS: BASOPHILS 0.2 % (0-2); EOSINOPHILS 4.8 % (0-6); HEMATOCRIT 34.6 % (35.0-50.0); HEMOGLOBIN 11.5 g/dL (12.0-18.0); LYMPHOCYTES 31.7 % (24-44); MCH 27.4 (27-36); MCHC 33.3 g/dl (30-36); MCV 82.2 fl (81-99); MONOCYTES 7.7 % (0-12); NEUTROPHILS 55.6 % (39-80); PLATELET COUNT 243 K/uL (140-440); RBC 4.21 M/ul (4.3-5.7); RDW 15.5 (10.5-15.0)
[2024-07-21 05:49] LABS: ALBUMIN 1.6 g/dL (3.4-5.0); ALBUMIN/GLOBULIN RATIO 0.39 (1.1-2.4); ANION GAP 11.6 (7-21); BILIRUBIN, TOTAL 0.2 mg/dL (0.2-1.0); BUN/CREATININE RATIO 16.66 (6.0-28.6); CALCIUM 7.8 mg/dL (8.5-10.1); CREATININE, SERUM 0.96 mg/dL (0.70-1.30); POTASSIUM 3.6 mmol/L (3.5-5.1); PROTEIN, TOTAL 5.7 g/dL (6.4-8.2)
[2024-07-21 06:48] VITALS: BP 111/81
--- NOTE | 2024-07-21 06:52 | NUR ---
PATIENT PULLED IV SITE. DIFFICULT TO CLEAN PATIENT AND APPLY DRESSING DUE TO PATIENT'S REFUSAL AND FAILURE TO FOLLOW DIRECTIONS. PATIENT REFUSES TO PARTAKE IN ALL CARES; INCLUDING FIGHTING NURSES TO EVEN TAKE BP. VS WERE OBTAINED WITH GREAT DIFFICULTY AND ARE STABLE. PATIENT DOES NOT ANSWER QUESTIONS. LAYS IN POSITION AND STRONGLY REFUSES TO ALLOW THE BLANKET TO BE REMOVED OR HIS ARMS TO BE MOVED. PATIENT IS IRRITABLE.
[2024-07-21 07:59] VITALS: BP 108/79
--- NOTE | 2024-07-21 09:00 | NUR ---
PT SO FAR THIS MORNING HAS NOT BEEN VERY COOPERATIVE WITH SHIFT ASSESSMENT. CIWA CURRENTLY 0. ALL LOBES ARE CLEAR. ABD SOUNDS PRESENT BUT STILL NO OUTPUT NOTED. THERE IS ABOUT 10CM OF INTENSTINE HANGING IN THE BAG. COLON IS PINK IN COLOR. PT IS EATTING AND DRINKING FINE. URINE OUTPUT WDL. PT IS ABLE TO MOVE HIS LEGS SOME. MANY DRESSINGS IN PLACE. V/S WDL SO FAR TODAY. PT HOWEVER STATED THAT HE IS IN A BAD MOOD TODAY.
--- NOTE | 2024-07-21 10:50 | NUR ---
UR CONCURRENT/CLINICAL REVIEW: [facility] [place] FOR DM AND WOUND MANAGEMENT GRG, VARIANCE FOR GL DAY 3 FOR DIABETES AND STAGE 3 FOR WOUND ENTERED. PATIENT REMAINS WITH NEED FOR IV FLUIDS AND ANTIBIOTICS. SURGICAL CONSULT PENDING POTENTIAL FURTHER INTERVENTIONS NEEDED FOR WOUND AND OSTOMY. [facility] INPT 07/18/24 ORDER MATCHES REG AUTH THRU 07/20/24. CLINICALS SENT FOR EXTENDED AUTH DISCHARGE DISPO PENDING FURTHER EVAL AND TREATMENT 07/24/24
--- NOTE | 2024-07-21 11:00 | NUR ---
PT IN BED SLEEPING. RESPIRATIONS OBSERVED. PT ATE ALL HIS BREAKFAST. EARLIER PT PULLED TAIL OF HIS IV. NO BLEEDING NOTED FROM IT. MINIMAL AMOUNT OF IV FLUIDS GOT ON LINNENS. IV ITSELF HAD TO BE ADJUSTED TO MAKE IT PATENT AGAIN. EARLIER HIS COLON POTRUDED ABOUT 10CM IN TO HIS COLOSTMY BACK. ABOUT 15MIN LATER, IT WAS ABOUT 4CM OUT. STILL NO OUTPUT HOWEVER. PT DENIES ABD PAIN.
--- NOTE | 2024-07-21 11:52 | NUR ---
VISITED DURING SPIRITUAL CARE ROUNDS. PT APPEARED TO BE SLEEPING. DID NOT DISTURB. PROVIDED PRAYER.
--- NOTE | 2024-07-21 12:12 | NUR ---
PT REMAINES SLEEPING THUS FAR AND NOT VERY COOPERATIVE WHEN ASKED TO DO ANYTHING. X-RAY TECH CALLED FOR KUB.
[2024-07-21 13:00] VITALS: BP 122/85
--- NOTE | 2024-07-21 13:10 | NUR ---
Attempted to speak with Art. He does not open his eyes. Updated I spoke with Chloe LAZAR last night. She would like him to go to [facility] for wound care. He will consider this. He declines any type of drug rehab or treatment. I will contact [facility] to check if the cont. to have their mens unit in [place] and if he could see the [place] wound clinic if he was there.
--- NOTE | 2024-07-21 14:00 | NUR ---
PT ATE 90% OF HIS LUNCH AND THEN WENT BACK TO SLEEP. PT STILL UNCOOPERATIVE OVERALL. DIFFICULTY TAKING V/S.
--- NOTE | 2024-07-21 15:00 | NUR ---
Called and spoke with [facility]oun[facility] ackerman. She states they only take 65 and older. I called Kamryn she asks for his chart. She would need to get approval as they usually don't take pts under 55. I will fax his chart.
--- NOTE | 2024-07-21 15:27 | NUR ---
PT JUST HAD A VERY LARGE FORMED/SOFT BOWEL MOVEMENT. PT DID RECEIVED A BATH AND A LINNEN CHANGE WAS DONE WELL. PT WAS SOMEWHAT COOPERATIVE WITH ALL OF IT. NO NEW CONCERNS NOTED AT THIS TIME.
--- NOTE | 2024-07-21 16:00 | NUR ---
PT IS BACK TO SLEEPING AT THIS TIME. NO NEW CONCERNS NOTED.
[2024-07-21] MEDS ORDERED: DULOXETINE HCL 60 MG CAP PO SCH (16:52)
[2024-07-21 17:48] VITALS: BP 104/74
--- NOTE | 2024-07-21 18:00 | NUR ---
PT DID EAT SOME OF HIS DINNER. PT DID NOT LIKE THE RICE. KITCHEN TO BRING SOME FRIES. OVERALL URINE OUTPUT IS EXCELLENT. PT STILL FOR THE MOST PART DOES NOT WANT TO INTERACT AND WANTS TO BE LEFT ALONE. V/S WDL THIS SHIFT. PT ENCOURAGED TO INCREASE PO LIQUIDS. OSTOMOY KEEPS PUTTING OUT STOOL NOW. THERE IS STILL ABOUT 4CM OF INTESTINE THAT IS HANGING IN TO THE BACK. MD RIGGINS TO SEE PT IN REGARDS TO THAT AND ABOUT SOME OF THE WOUNDS. WOUND DRESSING CHANGE WILL BE DONE AFTER ALEX IS SEEING PT.
--- NOTE | 2024-07-21 19:35 | NUR ---
REPORT RECEIVED FROM ALFONSO CESAR. PATIENT HAD BEEN MEDICATED WITH ATIVAN. RESTING IN BED WITH EYES CLOSED AT THIS TIME. RESPIRATIONS APPEAR EVEN AND UNLABORED. CALL LIGHT IN REACH.
[2024-07-21 19:54] VITALS: BP 104/83
--- NOTE | 2024-07-21 20:28 | NUR ---
PATIENT IS EMOTIONALLY LABILE. VERY TEARFUL AND STATING "I AM NOT A BAD PERSON". OSTOMY BAG FULL OF LOOSE STOOL. APPLIANCE NOTED TO HAVE DRIED STOOL ON THE OUTSIDE, NO LEAK NOTED BUT APPLIANCE CHANGED. TOLERATED WELL. STOMA IS BEEFY RED, HOWEVER, STOMA PROTRUDES OUT APPROXIMATELY 10CM. PATIENT HAS PULLED ANOTHER IV. PILAR RN IN ROOM ATTEMPTING TO START NEW US IV. FRIEND MONSE IN ROOM VISITING.
[2024-07-21] MEDS ORDERED: GABAPENTIN 300 MG CAP PO SCH (21:00)
--- NOTE | 2024-07-21 21:13 | NUR ---
DR. JOHNSON IN TO SEE PATIENT TO ASSESS WOUNDS AND STOMA. MONSE, WHO ENDORSES THAT SHE IS THE PATIENT'S SIGNIFICANT OTHER, ASKS QUESTIONS AND ANSWERED BY DR. JOHNSON. PATIENT ENDORSES ANXIETY. WILL CONTINUE TO ASSESS CIWA AND MEDICATED WITH PRN ATIVAN NEEDED. THIS RN NOTIFIED PATIENT THAT I WILL BE BACK TO DRESS HIS WOUNDS.
--- NOTE | 2024-07-21 23:11 | NUR ---
DRESSING CHANGES COMPLETED PER WOUND CARE ORDERS. PATIENT ANXIOUS, RESTLESS AND UNABLE TO LIE STILL. MEDICATED WITH IV ATIVAN AND PATIENT WAS ABLE TO REST DURING DRESSING CHANGE. OVERALL TOLERATED WELL ONCE ABLE TO SETTLE. PATIENT DEMANDS SNACK BOX AND ONE GIVEN. EDUCATION PROVIDED ON PARTICIPATING IN CARES; NEEDS CONTINUED REINFORCEMENT. IV ABX INFUSING. CALL LIGHT IN REACH.
[2024-07-22] VITALS (8 sets, daily range): BP systolic 107–122; BP diastolic 60–84
--- NOTE | 2024-07-22 00:07 | NUR ---
LOLITA USED TO MOVE PATIENT FOR LINEN CHANGE. COMPLETE LINEN CHANGE DONE. PATIENT TOLERATED WELL. IV ABX INFUSING WITHOUT DIFFICULTY. PATIENT RESTING WITH EYES CLOSED.
--- NOTE | 2024-07-22 01:30 | NUR ---
PATIENT RESTING WITH EYES CLOSED. RESPIRATIONS APPEAR EVEN AND UNLABORED. CALL LIGHT IN REACH.
[2024-07-22] MEDS ORDERED: CEFEPIME HCL 1 GM VIAL ONE ×2 (01:52→08:08)
--- NOTE | 2024-07-22 02:18 | NUR ---
PATIENT ALLOWS FOR VITAL SIGNS BUT DOES NOT ALLOW FOR ASSESSMENT. THIS RN ABLE TO FLUSH IV TO LEFT FA BUT PATIENT NOT DOES ALLOW FOR IV ASSESSMENT ON LEFT FA. WHEN ASKED TO PARTICIPATE IN CARES, PATIENT STATES "YOU'RE A MOTHER FUCKER". HE THEN CLOSED HIS EYES AND CROSSED ARMS OVER HIS CHEST. IV ABX HUNG BUT ALARMED MULTIPLE TIMES FOR OCCLUSION ON PATIENT SIDE. IV FLUSHED AGAIN WITH + BLOOD RETURN. HOWEVER, PATIENT WAS FOUND TWICE TO BE GRIPPING THE IV TUBING. AGAIN ASKED PATIENT TO PARTICIPATE IN CARES AND RELEASE THE IV TUBING. PATIENT STATED " YOU'RE MEAN". EDUCATION PROVIDED ON PLAN OF CARE AND THE NURSING ROLE. EXPLAINED TO PATIENT THAT I AM ATTEMPTING TO CARE FOR HIM. AGAIN ATTEMPTED TO RE-ASSESS PATIENT AND COMPLETE A CIWA ASSESSMENT. PATIENT STATED "LEAVE ME ALONE".
--- NOTE | 2024-07-22 02:48 | NUR ---
PATIENT CONTINUES TO CROSS ARMS AND PINCH IV TUBING. FLUSHED IV, DURING THIS TIME PATIENT PULLED AWAY. THIS RN REQUESTED THAT HE STOP AND HOLD STILL. PATIENT STATED "YOU STOP". HOWEVER, I WAS ABLE TO FLUSH AND BLOOD RETURN NOTED. REPOSITIONED TUBING AGAIN AND REQUESTED PATIENT ATTEMPT TO LEAVE TUBING ALONE. IV ABX INFUSING ALBIET WITH MULTIPLE INTERUPTIONS FROM OCCLUSIONS FROM PATIENT SIDE FOR BEHAVIORS NOTED ABOVE.
--- NOTE | 2024-07-22 04:03 | NUR ---
PATIENT RESTING QUIETLY WITH EYES CLOSED AT THIS TIME. CALL LIGHT IN REACH.
--- NOTE | 2024-07-22 05:17 | NUR ---
PATIENT WAKES TO NAME WHEN LAB IN ROOM. PATIENT YELLED AT PHLEBOTIMIST STATING "YOU'RE A LIAR. YOU AREN'T HERE TO DRAW MY BLOOD." THIS RN EXPLAINED TO PATIENT THAT THE DOCTOR ORDERED LAB TESTS FOR THIS MORNING. PATIENT THEN CALLED THIS RN A LIAR. HE DID HOWEVER ALLOW FOR BLOOD TO BE DRAWN, THEN WHEN BACK TO RESTING WITH EYES CLOSED.
[2024-07-22 05:26] LABS: BASOPHILS 1.8 % (0-2); EOSINOPHILS 4.3 % (0-6); HEMATOCRIT 33.6 % (35.0-50.0); HEMOGLOBIN 11.3 g/dL (12.0-18.0); LYMPHOCYTES 22.8 % (24-44); MCH 27.3 (27-36); MCHC 33.5 g/dl (30-36); MCV 81.6 fl (81-99); MONOCYTES 7.7 % (0-12); NEUTROPHILS 63.4 % (39-80); PLATELET COUNT 212 K/uL (140-440); RBC 4.12 M/ul (4.3-5.7); RDW 15.6 (10.5-15.0)
[2024-07-22 05:39] LABS: MAGNESIUM 1.7 mg/dL (1.8-2.4); PHOSPHORUS, INORGANIC 2.9 mg/dL (2.5-4.9)
[2024-07-22 05:41] LABS: ALBUMIN 1.7 g/dL (3.4-5.0); ALBUMIN/GLOBULIN RATIO 0.4 (1.1-2.4); ANION GAP 12.1 (7-21); BILIRUBIN, TOTAL 0.1 mg/dL (0.2-1.0); BUN/CREATININE RATIO 21.97 (6.0-28.6); CREATININE, SERUM 0.91 mg/dL (0.70-1.30); POTASSIUM 4.1 mmol/L (3.5-5.1); PROTEIN, TOTAL 5.9 g/dL (6.4-8.2)
--- NOTE | 2024-07-22 06:16 | NUR ---
PATIENT ALLOWS FOR VITAL SIGNS BUT WILL NOT OPEN EYES, ANSWER QUESTIONS OR PARTICIPATE IN RE-ASSESSMENT INCLUDING CIWA; ONLY GROANS AND PULLS ARM AWAY THIS RN REMOVED BP CUFF. IV TO LEFT FOREARM NOTED TO BE PULLED OUT. FRESH WATER PROVIDED. IV FLAGYL HUNG AND INFUSING. CALL LIGHT IN REACH.
[2024-07-22] MEDS ORDERED: MAGNESIUM OXIDE 400 MG TABLET PO ONE (07:45)
--- NOTE | 2024-07-22 08:31 | NUR ---
IN PATIENT'S ROOM FOR AM ASSESSMENT, VITALS, BREAKFAST AND GLUCOSE AND SYRUP WEIGHER. PT IS WITHDRAWN AND NOT VERY TALKATIVE, HAVING TO ASK QUESTIONS MULTIPLE TIMES TO GET AN ANSWER FROM HIM. PT ASKING FOR CURTAINS TO BE CLOSED. AGREED TO CLOSE THEM FOR PART OF THE DAY. PATIENT GIVEN PO PILLS BUT PATIENT IS REFUSING IV ANTIBIOTICS AT THIS TIME. PT BECOMES HOSTILE AND POINTS FINGER AT THIS RN AND STATES, "I SAID NO! DON'T YOU DARE GIVE ME ANTIBIOTICS. THEY NEVER WORK. EVERY TIME I TAKE THEM I DEVELOP RESISTANCE." EXPLAINED TO PATIENT THAT HE HAS BEEN RECEIVING THESE ANTIBIOTICS FOR SEVERAL DAYS NOW, BUT IF HE WOULD LIKE TO REFUSE THEM, THAT IS OF COURSE HIS CHOICE. WILL UPDATE MD ON PT'S REFUSAL OF ANTIBIOTICS. DR. MORRIS IN TO SEE PATIENT BRIEFLY BEFORE THIS INTERACTION. PATIENT C/O "PINCHED NERVE IN UPPER BACK" AND STATES HE DOUBTS HE WILL BE ABLE TO FALL BACK ASLEEP BECAUSE OF IT. OFFERED TO PROVIDE LIDOCAINE PATCH FOR THAT AREA IF MD APPROVES. PT AGREEABLE. WARM BLANKET PROVIDED AND CALL LIGHT WITHIN REACH.
[2024-07-22] MEDS ORDERED: LIDOCAINE HCL 4% 1 EACH PATCH TD SCH (11:00)
--- NOTE | 2024-07-22 11:04 | NUR ---
CHECKED ON PATIENT AND NOTED STOOL ON BLANKETS AND ON PATIENT'S ARMS. PT'S COLOSTOMY BAG HAD DETACHED AND STOOL WAS SCATTERED ON PATIENT AND ON LINEN. PT DENIED REALIZING THIS HAD OCCURED. WARM SOAPY WASH CLOTH USED TO CLEAN PATIENT UP. NEW DRAW SHEET PLACED UNDER PATIENT AFTER NEW COLOSTOMY BAG WAS APPLIED. PT TOLERATED FAIR AND DID ROLL FROM SIDE TO SIDE WHEN ASKED, BUT OVERALL REMAINS WITHDRAWN AND NOT VERY CONVERSIVE. PT STILL REFUSING ANY ANTIBIOTICS AT THIS TIME. LIDOCAINE PATCH PLACED BETWEEN SHOULDERS PER PATIENT'S C/O PAIN FROM A "PINCHED NERVE" AREA. WILL CONTINUE TO MONITOR.
--- NOTE | 2024-07-22 11:56 | NUR ---
CBG 223 AND 3 UNITS OF SS INSULIN GIVEN PER EMAR. PT REMAINS DROWSY, LAYING ON LEFT SIDE AT THIS TIME. LUNCH TRAY PROVIDED. PT DENIES FURTHER NEEDS BUT OVERALL WITHDRAWN AND NOT CONVERSIVE WITH STAFF.
--- NOTE | 2024-07-22 13:22 | NUR ---
PATIENT TRANSFERRED TO ROOM 122 ON MED/SURG. BEDSIDE REPORT GIVEN TO ALFONSO HE. DR. JOHNSON IN TO SEE PATIENT AND ASSESS STOMA. STOMA IS LESS PROTRUDING OUT TODAY THAN IT WAS YESTERDAY PER DR. JOHNSON AND NO FURTHER INTERVENTIONS ORDERED AT THIS TIME. ALL PERSONAL BELONGINGS TAKEN WITH PATIENT TO NEW ROOM EXCEPT HIS ELECTRIC WHEELCHAIR WHICH IS LOW ON BATTERY AND INOPERABLE AT THIS TIME. WORKING TO TRY AND SEE HOW TO MOVE WHEELCHAIR SAFELY TO NEW ROOM.
--- NOTE | 2024-07-22 13:33 | NUR ---
REPORT RECEIVED FROM [facility]. PATIENT TRANSFERED TO MED SURG UNIT ROOM 122 VIA BED. PATIENT DISENGAGED WITH THIS RN AND NOT COMMUNICATING AT THIS TIME. OSMAN CATHERTER IN PLACE DRAINING YELLOW URINE. PATIENT RESTING IN BED WITH CALL LIGHT WITHIN REACH.
--- NOTE | 2024-07-22 14:28 | NUR ---
PATIENT RESTING IN BED LAYING ON RIGHT SIDE. DOES NOT COMMUNICTAE WITH NURSE WHEN ASKING IF HE HAS ANY NEEDS. PATIENT DOES NOT APPEAR TO BE IN ANY DISTRESS. CALL LIGHT WITHIN REACH.
--- NOTE | 2024-07-22 15:26 | NUR ---
SCHEDULED MEDICATIONS ADMINSTERED. PATIENT DENEIS ANY PAIN OR DISCOMFORT AT THIS TIME. OSMAN DRAINING YELLOW URINE. COLOSTOMY BAG REMAINS INTACT. PATIENT WITH NO FURTHER NEEDS. CALL LIGHT WITHIN REACH.
[2024-07-22] MEDS ORDERED: ondansetron HCL 4 MG/2 ML VIAL ONE (16:41)
[2024-07-22] MEDS ORDERED: DEXAMETHASONE SOD PHOS 4 MG/ML VIAL ONE (16:41)
[2024-07-22] MEDS ORDERED: MIDAZOLAM HCL 2 MG/2 ML VIAL ONE (16:41)
[2024-07-22] MEDS ORDERED: SUGAMMADEX SODIUM 200 MG/2 ML ML ONE (16:41)
[2024-07-22] MEDS ORDERED: FAMOTIDINE 20 MG/ 2 ML VIAL ONE (16:41)
[2024-07-22] MEDS ORDERED: ROCURONIUM BROMIDE 50 MG/5 ML SYR ONE (16:41)
[2024-07-22] MEDS ORDERED: LACTATED RINGER'S 0 ML IV ONE (16:41)
[2024-07-22] MEDS ORDERED: METOCLOPRAMIDE HCL 10 MG/2 ML SDV ONE (16:41)
[2024-07-22] MEDS ORDERED: SUCCINYLCHOLINE IN 0.9% NACL 200 MG/10 ML SYRINGE ONE (16:41)
[2024-07-22] MEDS ORDERED: KETOROLAC TROMETHAMINE 30 MG/ML VIAL ONE (16:41)
[2024-07-22] MEDS ORDERED: LIDOCAINE HCL 4% 5 ML AMP ONE (16:41)
[2024-07-22] MEDS ORDERED: propofoL 200 MG/20 ML VIAL ONE (16:41)
[2024-07-22] MEDS ORDERED: fentaNYL citrate 100 MCG/2 ML VIAL ONE (16:41)
--- NOTE | 2024-07-22 17:33 | NUR ---
PATIENT REPORTS HAVING A HEADACHE, AND SEEING " THINGS" IN HIS ROOM. CIWA >8 PRN ADMINSTERED PER ORDERS. PATIENT EATING DINNER IN BED AT THIS TIME. CALL LIGHT WITHN REACH BED ALARM ON.
--- NOTE | 2024-07-22 18:21 | NUR ---
PATIENT IN BED AT THIS TIME. REAL ESTATE LISTING CONSULTANT CHARTED VITALS AND I&O'S. CALL LIGHT WITHIN REACH, NO FURTHER NEEDS AT THIS TIME.
--- NOTE | 2024-07-22 19:40 | NUR ---
RECIEVED REPORT. PT IN BED EATING CEREAL. REPORTS FEELING "LIKE CRAP", WHEN ASKED TO ELABORATE HE REPORTS FEELING MILDLY NAUSEATED. ASKS FOR A SNACK OR A SANDWICH. STATES HE DRINKS 2 ENSURES A DAY, AND HAS NOT SINCE HIS HOSPITAL ADMISSION. CALL LIGHT IN REACH
--- NOTE | 2024-07-22 20:45 | NUR ---
ASSESSMENT AND EVENING MEDS PERFORMED. GAVE PATIENT SUGAR FREE JELLO AND STRING CHEESE IN LIEU OF REQUESTED SANDWICH GIVEN CARB RESTRICTION AND CURRENT BG OF 227, PT AGREES WITH PLAN. CIWA PERFORMED, SCORING 2 CURRENTLY WITH MILD ANXIETY. CALL LIGHT IN REACH
[2024-07-22] MEDS ORDERED: LIDOCAINE PATCH REMOVAL 1 EA TD SCH (21:00)
[2024-07-22] MEDS ORDERED: LINEZOLID 600 MG TAB PO SCH (21:00)
[2024-07-22] MEDS ORDERED: INSULIN GLARGINE-YFGN 100 UNIT/ML ML SUB-Q SCH (21:00)
--- NOTE | 2024-07-22 22:08 | NUR ---
Pt resting, call light in reach
[2024-07-23] VITALS (9 sets, daily range): BP systolic 101–112; BP diastolic 69–80
--- NOTE | 2024-07-23 00:03 | NUR ---
Pt resting with eyes closed, rise and fall of chest observed. Call light in reach, bed alarm active
--- NOTE | 2024-07-23 01:03 | NUR ---
Responded to call light, pt reports feeling restless and sweaty with inablity to sleep. Performed CIWA again, scoring 10. Also c/o soreness of legs and scrotum. Given Ativan and Tylenol. Repositioned and given warm blankets. Call light in reach, bed alarm active.
--- NOTE | 2024-07-23 03:40 | NUR ---
PT RESTING IN BED WITH EYES CLOSED, RISE AND FALL OF CHEST OBSERVED, CALL LIGHT IN REACH
--- NOTE | 2024-07-23 04:46 | NUR ---
Pt resting with eyes closed, rise and fall of chest observed. call lgt in reach
[2024-07-23 05:15] LABS: BASOPHILS 0.6 % (0-2); HEMATOCRIT 31.6 % (35.0-50.0); HEMOGLOBIN 10.8 g/dL (12.0-18.0); LYMPHOCYTES 33.3 % (24-44); MCH 28.1 (27-36); MCHC 34.2 g/dl (30-36); MONOCYTES 8.6 % (0-12); NEUTROPHILS 53.5 % (39-80); PLATELET COUNT 214 K/uL (140-440); RBC 3.85 M/ul (4.3-5.7); RDW 15.4 (10.5-15.0)
[2024-07-23 05:41] LABS: ALBUMIN 1.7 g/dL (3.4-5.0); ALBUMIN/GLOBULIN RATIO 0.4 (1.1-2.4); ANION GAP 8.5 (7-21); BILIRUBIN, TOTAL 0.1 mg/dL (0.2-1.0); BUN/CREATININE RATIO 15.74 (6.0-28.6); CALCIUM 7.9 mg/dL (8.5-10.1); CREATININE, SERUM 1.27 mg/dL (0.70-1.30); POTASSIUM 4.5 mmol/L (3.5-5.1); PROTEIN, TOTAL 5.9 g/dL (6.4-8.2)
[2024-07-23] MEDS ORDERED: levoFLOXacin 750 MG TAB PO SCH (06:00)
--- NOTE | 2024-07-23 06:12 | NUR ---
VITALS AND MORNING MEDS. HELPED PT READJUST IN BED. CALL LIGHT IN REACH
--- NOTE | 2024-07-23 07:15 | NUR ---
REPORT RECEIVED FROM PSYCHIC READER RN. PATIENT RESTING IN BED WITH EYES CLOSED. RESPIRATIONS EVEN AND UNLABORED. COLOSTOMY REMAINS INTACT, OSMAN CATHERTER DRAINING YELLOW URINE. CALL LIGHT WITHIN REACH.
--- NOTE | 2024-07-23 08:35 | NUR ---
IN TO ROUND ON PATIENT. DENEIS ANY NEEDS AT THIS TIME. CALL LIGHT WITHIN REACH.
[2024-07-23] MEDS ORDERED: CIPROFLOXACIN 500 MG TAB PO SCH (09:00)
--- NOTE | 2024-07-23 09:15 | NUR ---
PATIENT LAYING IN BED ON HIS LEFT SIDE. PATIENT WITH A FLAT AFFECT. HE COMMUNICATES WELL WHEN ASKED DIRECT QUESTIONS. DENIES ANY HEADACHES, NAUSEA, OR ANXIETY AT THIS TIME. AM MEDICATIONS ADMINSTERED. IV SITE REMAINS PATENT WNL. DRESSINGS TO BLLE CDI. COLOSTOMY REMAINS INTACT. OSMAN CATHERTER DRAINAING YELLOW URINE. RN OFFERED TO ASSIST PATIENT REPOSITION IN BED. PATIENT STATED, " NO I AM COMFORTABLE RIGHT NOW." VITALS OBTAINED. EN SET UP BREAKFAST FOR PATIENT. NO FURTHER NEEDS AT THIS TIME. CALL LIGHT WITHIN REACH.
--- NOTE | 2024-07-23 10:32 | NUR ---
PATIENT IN BED RESTING WITH EYES CLOSED AT THIS TIME. I&O'S DONE AND CHARTED. CALL LIGHT IN REACH. NO FURTHER NEEDS AT THIS TIME.
--- NOTE | 2024-07-23 11:40 | NUR ---
ROUNDING ON PATIENT. DENIES ANY NEEDS. CALL LIGHT WITHIN REACH.
[2024-07-23] MEDS ORDERED: INSULIN LISPRO 100 UNIT/ML ML SUB-Q SCH (12:00)
--- NOTE | 2024-07-23 12:40 | NUR ---
PATIENT SITTING UP IN BED EATING LUNCH. PATIENT MORE INTERACTIVE WITH STAFF AT THIS TIME. INSULIN ADMINSTERED. DISCUSSED HOLDING SCHEDUELD INSULIN WITH MEAL DUE TO SS INSULIN AMOUNT AND PATIENT NOT CONSUMING ENTIRE MEAL. PATIENT WITH NO FURTHER NEEDS AT THIS TIME. CALL LIGHT WITHIN REACH.
--- NOTE | 2024-07-23 13:12 | NUR ---
PATIENT REPOSITIONED IN BED. BED LINNENS CHANGED. ALL DRESSINGS REMAINS CDI. OSMAN CATHERTER CARE PROVIDED. PATIENT WITH NO FURTHER NEEDS. CALL LIGHT WITHIN REACH.
--- NOTE | 2024-07-23 15:22 | NUR ---
REPORT RECEIVED FROM PRIMARY RN. PT RESTING IN BED SOBBING STATES HE'S AFRAID AND THAT THE DOCTOR ASKED IF HE WAS OKAY WITH A FOOT AMPUTATION. LISTENED TO PT FOR QUITE SOMETIME. DISCUSSED MRI TOMORROW TO GET A BETTER LOOK AT EXTREMITY. COLOSTOMY EMPTIED PT GIVEN A SNACK PER REQUEST. WEEPING HAS STOPPED, PT ENCOURAGED TO CALL FOR ANY NEEDS
--- NOTE | 2024-07-23 16:30 | NUR ---
PT RESTING EYES CLOSED
--- NOTE | 2024-07-23 19:29 | NUR ---
Received report. Pt resting in bed, withdrawn affect. No needs at this time, call light in reach
--- NOTE | 2024-07-23 20:04 | NUR ---
NURSE CALLED. PT WAS REQUESTING PASTORAL CARE. PT WAS TOLD HE MIGHT NEED TO HAVE FOOT APUTATED. PT WAS WATCHING TV WHEN I CAME IN THE ROOM. PT VOICED HACING SUICIDAL THOUGHTS. PT SHARED BEING SCARED AND ASWHAMED ABOUT CURRENT LIVING SITUATION, DRUG USE. PT TALKED ABOUT HIS PAST AND CURRENT SITUATION. TALKED WITH PT UNTIL PT EXPRESSED FEELING CALMER. PRAYED WITH PT.
--- NOTE | 2024-07-23 20:45 | NUR ---
ASSESSMENT AND EVENING MEDS. PT EXPRESSES FEELING HOPELESS AND DEPRESSED. STATES HE "WANTS TO LAY DOWN AND PULL THE TRIGGER. I HAVE SO MUCH PAIN AND IT KEEPS PILING ON. THEY WANT TO CHOP MY LEG OFF" REFERRING TO THE POTENTIAL NEED FOR AMPUTATION OF HIS R LEG. ASKED FURTHER ABOUT FEELINGS OF SUICIDALITY, PT CONFIRMS HE HAS SUICIDAL IDEATION, BUT HE "KNOWS IT IS WRONG, SO [HE'S] NOT GONNA DO IT." AFFIRMED PT'S FEELINGS ABOUT HIS LOSS OF INDEPENDENCE AND POTENTIAL CHANGE IN MOBILITY. ASKED PT WHAT HE LOOKS FORWARD TO. HE REPORTS "IT'S MY SON'S BIRTHDAY TODAY. I JUST WANT TO BE A DAD." HE SHARES FURTHER ABOUT HIS 3 CHILDREN. ASKED HOW HE MANAGES DEPRESSION IN THE PAST, PT STATES "DO YOU HAVE ANY PICKLED EGGS? I USUALLY EAT SOME WHEN I'M FEELING DOWN AND IT HELPS". VALIDATED PT'S FEELINGS OF GRIEF FOR HIS LOSS OF INDEPENDENCE AND LIFE CHANGES. ENCOURAGED PT TO LOOK TOWARDS HIS NEXT CALL WITH HIS CHILDREN. PT AGREES HE IS LOOKING FORWARD TO SPEAKING WITH THEM IN A FEW DAYS. CALL LIGHT IN REACH, BED ALARM ACTIVE
--- NOTE | 2024-07-23 21:02 | NUR ---
PATIENT PROVIDED WARM BLANKET PER REQUEST.
--- NOTE | 2024-07-23 21:47 | NUR ---
PT OSTOMY BAG DETACHED. CLEANED PT AND CHANGED LINENS WITH 2 NURSE ASSIST. PT WEEPY, REPORTS FEELING LOSS OF CONTROL AND MOURNS INDEPENDENCE. REPOSITIONED PT WITH PILLOW UNDER L HIP, CALL LIGHT IN REACH
[2024-07-23] MEDS ORDERED: MELATONIN 3 MG TAB PO PRN (23:00)
[2024-07-23] MEDS ORDERED: TRAZODONE HCL 50 MG TAB PO PRN (23:00)
--- NOTE | 2024-07-23 23:19 | NUR ---
PT REQUEST MELATONIN FOR SLEEP. CONTACTED [facility] FOR MELATONIN 3MG AND TRAZADONE 50MG PRN INSOMNIA. CALL LIGHT IN REACH
--- NOTE | 2024-07-23 23:50 | NUR ---
BROUGHT MELATONIN TO PT AFTER APPROVED BY PHARMACY. PT APPEARS ASLEEP, DOES NOT RESPOND TO NAME CALLED. OBSERVED RISE AND FALL OF CHEST, CALL LIGHT IN REACH
[2024-07-24] VITALS (7 sets, daily range): BP systolic 69–123; BP diastolic 63–90
--- NOTE | 2024-07-24 01:23 | NUR ---
PT RESTING WITH EYES CLOSED, RISE ADN FALL OF CHEST NOTED, CALL LIGHT IN REACH
--- NOTE | 2024-07-24 04:36 | NUR ---
PT C/O 11/16 PAIN AND INSOMNIA. ALSO C/O AUDITORY HALLUCINATIONS AND NAUSEA, CIWA 9. GIVEN TYLENOL, ATIVAN, AND APPLIED HEAT TO PAIN ON BACK. RE-DRESSED L BUTTOCK WOUND, PREVIOUS DRESSING FELL OFF. REPOSITIONED WITH PILLOWS. CALL LIGHT IN REACH
[2024-07-24 05:27] LABS: BASOPHILS 1.5 % (0-2); EOSINOPHILS 4.2 % (0-6); HEMATOCRIT 32.1 % (35.0-50.0); HEMOGLOBIN 10.7 g/dL (12.0-18.0); LYMPHOCYTES 32.6 % (24-44); MCH 27.7 (27-36); MCHC 33.2 g/dl (30-36); MCV 83.5 fl (81-99); MONOCYTES 7.9 % (0-12); NEUTROPHILS 53.8 % (39-80); PLATELET COUNT 245 K/uL (140-440); RBC 3.85 M/ul (4.3-5.7); RDW 15.6 (10.5-15.0)
[2024-07-24 05:41] LABS: ANION GAP 7.5 (7-21); BUN/CREATININE RATIO 21.55 (6.0-28.6); CALCIUM 8.1 mg/dL (8.5-10.1); CREATININE, SERUM 1.16 mg/dL (0.70-1.30); POTASSIUM 4.5 mmol/L (3.5-5.1)
--- NOTE | 2024-07-24 07:21 | NUR ---
VERBAL REPORT RECEIVED FROM ALFONSO PRIETO. PT RESTS IN BED WITH EYES CLOSED, RESP EVEN AND UNLABORED.
--- NOTE | 2024-07-24 10:00 | NUR ---
PT RESTS IN BED, EATS 100% OF BREAKFAST, TOLERATES THIS WELL. RECEPTIVE TO ALL CARES AND MEDICATION THIS AM. PT WORKS WITH PHYSICAL THERAPY, TRANSFERS SELF TO RECLINER WITH ASSIST, TOLERATES THIS WELL. OSMAN IN PLACE DRAINS CLEAR YELLOW URINE TO GRAVITY, COLOSTOMY BACK INTACT, STOMA PRODUCES STOOL. VARIOUS DRESSINGS TO BLE AND OVER SACRUM INTACT. CALL LIGHT IN REACH, NO REQUESTS AT THIS TIME.
--- NOTE | 2024-07-24 11:10 | NUR ---
Linens have been changed, Patient sitting in recliner, no request at this time
--- NOTE | 2024-07-24 12:01 | NUR ---
PT RETURNS FROM IMAGING [facility]IA [employer], TRANSFERS SELF BACK TO BED. CALL LIGHT IN REACH, RAILS UP X4. NO REQUESTS AT THIS TIME.
--- NOTE | 2024-07-24 13:45 | NUR ---
Spoke with Art, he is more opening to a discussion today. He states he is open to placement in or near [place] where he could see the wound clinic more frequently. I will check with the [facility] and [facility] to see if anyone will have a bed open. Pts so, Chloe, called. She suggested I call his sister as he has been able to stay with her in the past. The brother has also said he could stay with him, but no drugs are allowed. Art refuses to stop taking meth at this point.
--- NOTE | 2024-07-24 15:37 | NUR ---
Rounding on patient. Patient is still sleeping. He has not eaten any lunch, he has been prompted a few times for dinner, and declines. No request from patient. Call light has been placed within reach
--- NOTE | 2024-07-24 16:04 | NUR ---
Called [facility] as chart was faxed last week on Wed. Spoke with Annette and she did not receive the chart. Chart faxed again. Called and spoke with Sarah at [facility] in [place]. She requests the chart to be sent. They have to get special auth for someone under a certain age limit, but she states they do take pts in their 40s. I also called [facility] and they do not have any beds open. I called pts sister as Chloe had stated there was a possibility he could move in with her. Alesia states Art did drugs in her home and he cannot move in with her again. I will cont. to check for placement in facilities.
--- NOTE | 2024-07-24 19:13 | NUR ---
REPORT RECEIVED, PT ALERT IN ROOM. PT STATES HIS DINNER TRAY WAS TAKEN AWAY BEFORE HE WAS ABLE TO EAT IT. AGREES FOR A SANDWICH AND SNACKS FROM FLOOR KITCHEN. NO OTHER NEEDS ID'D, CALL LIGHT IN REACH
--- NOTE | 2024-07-24 19:55 | NUR ---
PT REQUESTED MEAL BOX. FLORAL CLERK CHECKED CBG AND GAVE PT THE BOX PLUS A DIET SPRITE.
--- NOTE | 2024-07-24 22:45 | NUR ---
ASSESSMENT, EVENING MEDS GIVEN SLIGHTLY LATE D/T NURSE AVAILABLITY. ALSO GIVEN SLEEPING MEDS ON REQUEST. TYLENOL AND HEAT GIVEN FOR BACK PAIN TO GOOD EFFECT. ASSISTED WITH REPOSITION, CALL LIGHT IN REACH
--- NOTE | 2024-07-24 23:47 | NUR ---
PT RESTING IN BED WITH EYES CLOSED. RISE AND FALL OF CHEST NOTED. CALL LIGHT IN REACH
--- NOTE | 2024-07-25 02:14 | NUR ---
PT RESTING IN BED WITH EYES CLOSED, OBSERVED RISE AND FALL OF CHEST. CALL LIGHT IN REACH
--- NOTE | 2024-07-25 03:45 | NUR ---
PT RESTING WITH EYES CLOSED, RISE AND FALL OF CHEST NOTED, CALL LIGHT IN REACH
[2024-07-25 05:19] VITALS: BP 100/61
[2024-07-25 05:27] LABS: BASOPHILS 1.1 % (0-2); EOSINOPHILS 4.9 % (0-6); HEMATOCRIT 34.7 % (35.0-50.0); HEMOGLOBIN 11.6 g/dL (12.0-18.0); MCH 27.6 (27-36); MCHC 33.5 g/dl (30-36); MCV 82.5 fl (81-99); MONOCYTES 10.1 % (0-12); NEUTROPHILS 44.9 % (39-80); PLATELET COUNT 241 K/uL (140-440); RBC 4.21 M/ul (4.3-5.7); RDW 15.6 (10.5-15.0)
[2024-07-25 05:56] LABS: ALBUMIN 1.8 g/dL (3.4-5.0); ALBUMIN/GLOBULIN RATIO 0.41 (1.1-2.4); ALT (SGPT) 87 U/L (14-59); ANION GAP 8.6 (7-21); AST (SGOT) 319 U/L (15-37); BILIRUBIN, TOTAL 0.2 mg/dL (0.2-1.0); BUN/CREATININE RATIO 26.73 (6.0-28.6); CALCIUM 8.5 mg/dL (8.5-10.1); CARBON DIOXIDE 31 mmol/L (21-32); CHLORIDE 102 mmol/L (98-107); CREATININE, SERUM 1.01 mg/dL (0.70-1.30); GLOMERULAR FILTRATION RATE,EST 93 mL/min (>60); MAGNESIUM 1.6 mg/dL (1.8-2.4); PHOSPHORUS, INORGANIC 3.7 mg/dL (2.5-4.9); POTASSIUM 4.6 mmol/L (3.5-5.1); PROTEIN, TOTAL 6.2 g/dL (6.4-8.2); UREA NITROGEN 27 mg/dL (7-18)
[2024-07-25 05:58] LABS: ALKALINE PHOSPHATASE > 1000 U/L (46-116)
--- NOTE | 2024-07-25 06:50 | NUR ---
ENTERED ROOM TO GIVE AM LEVOTHYROXINE. PT ROUSED WITH GENTLE SHAKING THOUGH EYES REMAIN CLOSED. PT REPLIES "NOT RIGHT NOW" WHEN OFFERED MORNING MEDS. CALL LIGHT IN REACH ON BED
--- NOTE | 2024-07-25 07:03 | NUR ---
VERBAL REPORT RECEIVED FROM ALFONSO PRIETO. PT RESTS IN BED WITH EYES CLOSED, RESP EVEN AND UNLABORED.
[2024-07-25] MEDS ORDERED: MAGNESIUM OXIDE 400 MG TABLET PO ONE (08:00)
--- NOTE | 2024-07-25 08:20 | NUR ---
Hourly rounding patient appears to be really tired. No request at this time. Call light has been placed within reach
[2024-07-25 09:33] VITALS: BP 111/83
[2024-07-25] MEDS ORDERED: levoFLOXacin 500 MG TAB PO SCH (10:00)
--- NOTE | 2024-07-25 11:01 | NUR ---
Attempted to see Art. He is sleeping iwth his head covered and does not respond to questions. I called [facility] and they will not accept this pt as she looked him up on the internet and he at some point was on the most wanted list. She states they cannot accept him as he also has a felony in his past. Left a message for Sarah at [facility] to check if she can accept this pt.
--- NOTE | 2024-07-25 11:23 | NUR ---
VISITED DURING SPIRITUAL CARE. PT APPEARED TO BE SLEEPING. DID NOT DISTURB. PROVIDED PRAYER.
--- NOTE | 2024-07-25 12:57 | NUR ---
Hourly rounding. Patient is sleeping in the bed. Patient appears to be tired. Patient has to be prompted for all meals. No request from patient at this time. Call light has been placed within reach.
[2024-07-25 13:00] VITALS: BP 113/83
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
--- NOTE | 2024-07-25 13:42 | NUR ---
ATTEMPT TO CALL DAVE AT [facility], MESSAGE LEFT REQUESTING A CALLBACK REGARDING REFERRAL FOR PLACEMENT.
--- NOTE | 2024-07-25 14:48 | NUR ---
HOURLY ROUNDING. PATIENT FINISHED HIS LUNCH TRAY. LUNCH TRAY HAS BEEN PUT AWAY. NO REQUEST FROM PATIENT.PATIENT APPEARS EMOTION D/T PLACEMENT BEING IN [place]. NURSE HAS BEEN NOTIFIED. NO REQUEST FROM PATIENT AT THIS TIME
--- NOTE | 2024-07-25 15:05 | NUR ---
Spoke with Ghislaine from [facility] that does admission for our SNF and one in [place]. She states they do not take pts with any felonies. She recommends I call [facility] in [place] as they do accept these pts at times. Message left at [facility] admissions asking for a return call. .
--- NOTE | 2024-07-25 15:11 | NUR ---
Called Leticia Call from [facility] and left a message asking if they have any suggestions to send Art. Stated my concern he will have to be discharged to the street. Asked for a return call.
[2024-07-25 15:57] LABS: AMPHETAMINES, URINE NEGATIVE (NEGATIVE); BARBITURATES, URINE NEGATIVE (NEGATIVE); BENZODIAZEPINE, URINE NEGATIVE (NEGATIVE); BUPRENORPHINE, URINE NEGATIVE (NEGATIVE); CANNABINOID, URINE POSITIVE (NEGATIVE); COCAINE, URINE NEGATIVE (NEGATIVE); ECSTASY, URINE NEGATIVE (NEGATIVE); FENTANYL, URINE NEGATIVE (NEGATIVE); METHADONE, URINE NEGATIVE (NEGATIVE); OPIATES, URINE POSITIVE (NEGATIVE); OXYCODONE, URINE NEGATIVE (NEGATIVE); PHENCYCLIDINE, URINE NEGATIVE (NEGATIVE)
--- NOTE | 2024-07-25 17:36 | NUR ---
PATIENT GIVEN 5UNITS OF SCHEDULED MEALTIME INSULIN AFTER EATING 100% OF DINNER.
[2024-07-25 17:48] VITALS: BP 114/85
--- NOTE | 2024-07-25 17:51 | NUR ---
PATIENT IN BED AT THIS TIME. INCOME TAX ADJUSTER CHARTED VITALS AND I&O'S. CALL LIGHT WITHIN REACH, NO FURTHER NEEDS AT THIS TIME.
--- NOTE | 2024-07-25 18:01 | NUR ---
PT RESTS IN BED WITH BLANKETS OVER HIS HEAD. RESP EVEN AND UNLABORED.
--- NOTE | 2024-07-25 19:36 | NUR ---
RECEIVED REPORT FROM ALFONSO CISSE. PT RESTING ON LEFT SIDE. DENIES NEEDS OR CONCERNS.
[2024-07-25 21:29] VITALS: BP 114/78
--- NOTE | 2024-07-25 21:30 | NUR ---
V/S AND I&O'S COMPLETED. PATIENT GIVEN WASH CLOTH TO WASH HIS FACE AND HANDS. BED LINEN CHANGED. OSMAN AND OSTOMY CARE COMPLETED. GARBAGE AND USED BLANKET PULP MAKER AND PUT TO LAUNDRY AND GARBAGE BIN. BED RAIL WIPE USING SANICLOTH. NIGHT SNACK PROVIDED.
--- NOTE | 2024-07-25 22:11 | NUR ---
PT AWAKE, PLEASANT AND COOPERATIVE. REPORTS CHRONIC LOWER BACK PAIN 5/10-PT HAS LIDOCAINE PATCH IN PLACE. PT IS UMKEMPT AND DIRTY, BEDDING SOILED. HYGIENE PROVIDED BY RN & AIR CONDITIONING UNIT TESTER[place] [facility] [place]. LEFT ABD COLOSTOMY IN PLACE-OSTOMY SITE RED AND SWOLLEN, PROTRUDING. COLOSTOMY BURPED AND FORMED BM EMPTIED. PT IS IMCOMPLETE PARA-NO SENSATION BELOW HIPS AND VERY MINIMAL MOVEMENT. OSMAN IN PLACE-UO CLEAR AND YELLOW. PT HAS MULTIPLE SCABS TO BODY. BLE W/ MULTIPLE FOAM DRSGS CDI AND LOWER LEGS WRAPPED W/ GUICHO WRAPS. BG REQUIRED SLIDING SCALE AND ROUTINE LANTUS. SNACK AND COFFEE PROVIDED.
--- NOTE | 2024-07-25 23:00 | NUR ---
PT SLEEPING SOUNDLY. APPEARS COMFORTABLE.
[2024-07-26] VITALS (10 sets, daily range): BP systolic 104–118; BP diastolic 70–80
--- NOTE | 2024-07-26 00:41 | NUR ---
PT SLEEPING SOUNDLY-APPEARS COMFORTABLE.
--- NOTE | 2024-07-26 03:20 | NUR ---
PT SLEEPING SOUNDLY. APPEARS COMFORTABLE.
[2024-07-26 05:43] LABS: BASOPHILS 0.2 % (0-2); EOSINOPHILS 6.3 % (0-6); HEMATOCRIT 36.7 % (35.0-50.0); HEMOGLOBIN 12.3 g/dL (12.0-18.0); LYMPHOCYTES 35.8 % (24-44); MCH 27.9 (27-36); MCHC 33.5 g/dl (30-36); MCV 83.3 fl (81-99); MONOCYTES 7.7 % (0-12); PLATELET COUNT 258 K/uL (140-440); RBC 4.41 M/ul (4.3-5.7); RDW 15.7 (10.5-15.0)
[2024-07-26 06:02] LABS: ALBUMIN 1.9 g/dL (3.4-5.0); ALBUMIN/GLOBULIN RATIO 0.42 (1.1-2.4); ANION GAP 10.1 (7-21); BILIRUBIN, TOTAL 0.2 mg/dL (0.2-1.0); BUN/CREATININE RATIO 23.52 (6.0-28.6); CALCIUM 8.6 mg/dL (8.5-10.1); CREATININE, SERUM 1.19 mg/dL (0.70-1.30); MAGNESIUM 1.6 mg/dL (1.8-2.4); POTASSIUM 5.1 mmol/L (3.5-5.1); PROTEIN, TOTAL 6.4 g/dL (6.4-8.2)
--- NOTE | 2024-07-26 06:17 | NUR ---
SLEEPING SOUNDLY ON RIGHT SIDE. DRSGS TO COCCYX, BUTTOCKS AND BLE CDI.
--- NOTE | 2024-07-26 07:22 | NUR ---
MORNING REPORT RECIEVED FROM ALFONSO STAHL. PT LAYING IN BED WITH EYES CLOSED CHEST RISE EQUAL BILAT. PT HAS SLEPT WELL ALL NIGHT AND HAS CALL LIGHT IN REACH.
--- NOTE | 2024-07-26 09:06 | NUR ---
PATIENT DOES NOT HAVE CHARGING CORD TO MOTORIZED WHEELCHAIR. ATTEMPTED TO CALL SIGNIFICANT OTHER (MONSE) NO ANSWER AND PATIENT SAID SHE WON'T WAKE UP TO ANSWER THE PHONE. MESSAGE LEFT WITH FACILITIES TO SEE IF WE CAN CHARGE HIS CHAIR BEFORE TOMORROW. INTERNET MARKETING CONSULTANT NOTIFIED.
--- NOTE | 2024-07-26 09:06 | NUR ---
PT LAYING IN BED, PT STATES " HE DID NOT SLEEP WELL LAST NIGHT AND WANTED TO SLEEP MORE THIS MORNING". PT FINISHED 100% OF HIS BREAKFAST AND RECIEVED ADDITIONAL INSULIN (SEE EMAR). PT HAS NO PAIN AT THIS TIME CALL LIGHT IN REACH.
--- NOTE | 2024-07-26 09:59 | NUR ---
SPOKE OVER THE PHONE TO SAQIB CARRERA WITH THE [employer]PT OF [employer]. DEBI ASKED QUESTIONS COCNERNING THE PT CURRENT STATE AND POC. DEBI INFORMED THAT THE PT MAYBE DISCHARGED TOMORROW PENDING HOSPITALIST PLANS. DEBI HAS NO FURTHER QUESTIONS.
--- NOTE | 2024-07-26 10:01 | NUR ---
VISITED DURING SPIRITUAL CARE ROUNDS. PT APPEARED TO BE SLEEPING. DID NOT DISTURB. PROVIDED PRAYER.
--- NOTE | 2024-07-26 10:08 | NUR ---
PATIENT IN BED AT THIS TIME. THIS LAUNDRY TECH CHARTED VITALS AND I&O'S. CALL LIGHT WITHIN REACH, NO FURTHER NEEDS AT THIS TIME.
--- NOTE | 2024-07-26 10:14 | NUR ---
Chart faxed to Claudia Iqbal requesting SNF placement. Updated by weigher and charger, pt electric wc battery is . They have not been able to contact Chloe is SO. Let them know she does not answer the phone or awaken until afternoon. I will call to check if she has the cord to charge the battery after lunch.
--- NOTE | 2024-07-26 10:30 | NUR ---
Called and spoke Makayla Crocker from [facility] as I did not receive a return call from Leticia Vincent from [facility]. Makayla is a transplant case manager. She suggests I send the chart and a request to Leticia for [facility]. They can assist Art to get into an Adult Foster Care that takes pts with felonies and drug use.
--- NOTE | 2024-07-26 10:44 | NUR ---
PT LAYING IN BED WITH EYES CLOSED CHEST RISE EQUAL BILAT. PT HAS CALL LIGHT IN REACH.
[2024-07-26 12:32] LABS: HIV 1,2 COMBO ANTIGEN/ANTIBODY Negative (Negative)
--- NOTE | 2024-07-26 13:11 | NUR ---
PT LAYING IN BED, ALERT AND ORIENTED. PT HAS NO PAIN AT THIS TIME AND ATE 100% OF HIS LUNCH. PT HAS NO CURRENT CONCERNS CALL LIGHT IN REACH.
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
[2024-07-26 13:51] LABS: HEPATITIS A ANTIBODY, IGM Negative (Negative); HEPATITIS B CORE ANTIBODY, IGM Negative (Negative); HEPATITIS B SURFACE ANTIGEN Negative (Negative); HEPATITIS C AB CIA INTERP Negative (Negative); HEPATITIS C ANTIBODY CIA INDEX 0.61 IV (())
[2024-07-26] MEDS ORDERED: MORPHINE SULFATE 4 MG/ML VIAL IV PRN (14:15)
--- NOTE | 2024-07-26 14:54 | NUR ---
LATE ENTRY: UR CONCURRENT REVIW: [facility]-PER [facility] DOES NOTE MEET GL DAY 3 DUE TO DISCHARGE PLACEMENT NEEDS, VIARANCE COMPLETED ODS EOCCO INPT 07/18/24 UPDATED CLINICALS FAXED TO [facility] FOR REVIEW LIKELY DISCHARGE IN 24-48 HRS PENDING LFTS AND PLACMENT 07/28/24
--- NOTE | 2024-07-26 14:55 | NUR ---
PT LAYING IN BED, PT TOLERATED DRESSING CHANGE WELL, PT HAS NO PAIN AT THIS TIME AND HAS FRIEND IN ROOM AT BED SIDE, PT HAS NO CONCERNS AT THIS TIME CALL LIGHT IN REACH.
--- NOTE | 2024-07-26 15:05 | NUR ---
Received a call from [place] at [facility]. They are declining this pt for now and the future.
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
--- NOTE | 2024-07-26 15:52 | NUR ---
PT LAYING IN BED, PT HAS NO PAIN AT THIS TIME. CASE MANAGMENT YONY STATED " [facility] IS COMING TODAY TO SPEAK WITH PT". PT IS AGREEABLE AND HAS NO CONCERNS AT THIS TIME.
--- NOTE | 2024-07-26 16:36 | NUR ---
[facility] CAME IN TO SPEAK WITH PT. PT STATES HE HAS A MEETING AT [facility] TOMORROW ONCE DISCHARGED, YONY WITH CM WAS ALSO IN ROOM AND WILL BE COMMUNICATING THIS WITH THE MD. PT HAS NO CONCERNS AT THIS TIME.
--- NOTE | 2024-07-26 16:44 | NUR ---
Spoke with Art. He plans on visiting [facility] after he spoke with a Peer today. He would like to an IP rehab that provides medical care. This most likely would be in [place]. I called Dr. Fu he plans on dc tomorrow around noon. I called the van and they have an opening at 11:30. I scheduled and gave them the address Betty from [facility] provided [address]
--- NOTE | 2024-07-26 18:22 | NUR ---
PT LAYING IN BED, PT BED CHANGED. PT HAS NO PAIN AT THIS TIME. PT HAS CALL LIGHT IN REACH AND NO FURTHER CONCERNS AT THIS TIME.
--- NOTE | 2024-07-26 19:15 | NUR ---
REPORT RECEIVED FROM JUHI HAMILTON. BOARD UPDATED. pt RESTING IN THE BED. SECOND RN SKIN ASSESSMENT DONE. pt DENIES ANY OTHER NEEDS AT THIS TIME. CALL LIGHT WITHIN REACH.
--- NOTE | 2024-07-26 20:30 | NUR ---
ASSESSMENT AND VITAL SIGNS DONE. pt BANDAGES IN PLACE. NEW ALYVEN PLACED ON pt SACRAL WOUND. WATER REFRESHED. BG CHECKED. WITH A RESULTS OF 276. SS INSULIN AND LONG ACTING INSULIN ADMINISTERD. SCHEDULED AND PRN MEDS ADMINISTERED. pt DENIES ANY OTHER NEEDS AT THIS TIME. CALL LIGHT WITHIN REACH.
--- NOTE | 2024-07-26 23:00 | NUR ---
pt CALLED FOR SOMETHING TO HELP HIM SLEEP. PRN MEDS ADMINISTERED. pt DENIES ANY OTHER NEEDS AT THIS TIME. CALL LIGHT WITHIN REACH.
--- NOTE | 2024-07-27 04:43 | NUR ---
pt RESTING IN THE BED WITH EYES CLOSED. RR EVEN AND UNLABORED. CALL LIGHT WITHIN REACH.
[2024-07-27 05:32] LABS: BASOPHILS 1.9 % (0-2); EOSINOPHILS 6.9 % (0-6); HEMATOCRIT 35.4 % (35.0-50.0); HEMOGLOBIN 11.7 g/dL (12.0-18.0); LYMPHOCYTES 36.7 % (24-44); MCH 27.4 (27-36); MCHC 33.1 g/dl (30-36); MCV 82.9 fl (81-99); MONOCYTES 8.5 % (0-12); PLATELET COUNT 250 K/uL (140-440); RBC 4.28 M/ul (4.3-5.7); RDW 15.7 (10.5-15.0)
[2024-07-27 05:57] LABS: ALBUMIN/GLOBULIN RATIO 0.45 (1.1-2.4); ANION GAP 10.4 (7-21); BILIRUBIN, TOTAL 0.2 mg/dL (0.2-1.0); BUN/CREATININE RATIO 27.58 (6.0-28.6); CALCIUM 8.9 mg/dL (8.5-10.1); CREATININE, SERUM 1.16 mg/dL (0.70-1.30); MAGNESIUM 1.7 mg/dL (1.8-2.4); POTASSIUM 4.4 mmol/L (3.5-5.1); PROTEIN, TOTAL 6.4 g/dL (6.4-8.2)
[2024-07-27 06:22] VITALS: BP 105/71
--- NOTE | 2024-07-27 07:25 | NUR ---
REPORT RECEIVED FROM TRANSPORT AIRCREWMAN RN. PATIENT RESTING IN BED. DRESSING OBSERVED WITH NIGHT NURSE AT THIS TIME. ALL DRESSINGS CDI. PATIENT DENIES ANY NEEDS AT THIS TIME. CALL LIGHT WITHIN REACH.
--- NOTE | 2024-07-27 08:02 | CONS ---
[facility] [address], [place] [address] Signed DATE OF CONSULTATION: 07/21/2024 TIME: 9:30 p.m. CONSULTING PHYSICIAN: Dr. Johnson. PROBLEM: Prolapsing colostomy and multiple wounds bilateral lower extremities. HISTORY: This 44-year-old white man has a complex medical history. Highlights of his issues include paraplegia with bilateral lower extremity various ulcerative wounds, likely most related to pressure ulceration. 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 The patient has had variable interventions and various providers including those in the [facility] (Plastic Surgery), who recommended against elaborate operative treatment of local wound care and evaluation and treatment by Dr. Josh Jc at least two years ago regarding sacral wound debridement. Additionally, has seen Dr. Ofelia Moulton, silver designer for lower extremity wounds in 2023 and most recently consulted in the hospital. Complicating his situation is recent homelessness over the past two months. He has a girlfriend, who attends to him now, but was unable to have him live with her due to him being a prior felon. He presented to the emergency room on July 18, 2024, with hyperglycemia and apparently neglected diabetes. He was at that time considered homeless, wheelchair-bound, and diabetic. His blood sugar at that time was 752. He was considered to have possible infected lower extremity wounds and a chronic sacral wound and was begun on Ancef and vancomycin by the emergency room physician as well as treatment with insulin and IV fluids. At presentation, the patient was indifferent to his caretakers and essentially refused to answer any questions. He was noted to be a two ozyo-evx-wzh smoker and had lapsed in his drinking of alcohol having been drinking alcohol immediately prior to arrival to the emergency room. He was noted to have methamphetamine ingestion six days prior to present evaluation. MEDICATIONS: At the time of admission include gabapentin, duloxetine, cetirizine, metformin, Electronically Signed By: BRITTNEY JOHNSON MD 07/27/24 0802 PATIENT NAME: JASMINA SANON CONSULTATION DATE OF : 76 REPORT #: [id number] PHYSICIAN: BRITTNEY JOHNSON MD PCP: ZULEIMA ROMERO MD REPORT IS CONFIDENTIAL AND NOT TO BE RELEASED WITHOUT AUTHORIZATION [facility] [address], [place] [address] Signed Trulicity, Synthroid, atorvastatin, and insulin. PRESENTATION LABORATORY STUDIES: Showed a low sodium of 124, creatinine of 1.36. Liver enzymes that were normal. C-reactive protein that was only 1.78. White count 10.5, hematocrit 40.8, and platelets of 323,000. Lactic acid was 0.9. Concern was maintained regarding lower extremity wounds as well as elsewhere, most of which are chronic and recurring. He was treated with broad-spectrum antibiotic coverage, which is maintained to this day. Specifically, he is on daptomycin, cefepime, and Flagyl. He is getting nicotine patch and Ativan for possible alcohol withdrawal syndrome and NicoDerm as well. REVIEW OF SYSTEMS: The patient denies actual abdominal or extremity pain at this time. He is more communicative tonight than he generally is according to nurses. He denies shortness of breath or chest pain. He is insensate below the waist, it appears. PHYSICAL EXAMINATION: GENERAL: A cooperative white man with rea with pale skin. He is accompanied by his "girlfriend." CHEST: Shows normal respiratory excursion. HEART: Pulses regular. ABDOMEN: Examined showing no sign of tenderness, but he does have an edematous prolapsed presumed colostomy. Function of the colostomy is noted. EXTREMITIES: Lower extremity bandages were removed showing superficial probable decubiti type lesions, none of which are infected, currently none of which have cellulitis. There was, on the left lower extremity, a probable decubitus rather than stasis ulceration given its location (lateral). Examination of the sacrum shows chronically inflamed and partially open areas, for which digital examination shows a space near the sacrum proper. NEUROLOGIC: Confirms his inability to move lower extremities. ASSESSMENT: 1. The patient has complex problems. Current issues include the prolapsed colostomy. It is edematous and I manipulated, it was some benefit. The prolapsed ostomy is problematic and can be far worse including ulceration, ischemia, and so forth. Right now it is functioning. Methods at reduction include osmotic ones (sugar application), manual manipulation of the mucosa of the ostomy, and other means of reduction. There is no sign of ischemia, necrosis, or dysfunction right now, but that he may ultimately require revision of his ostomy. I am not entirely sure the particulars of its placement, but I suspect it is an end colostomy, there is no dual lumen to suggest a double-barrel (loop) colostomy. 2. Lower extremity wounds. None of them are cellulitic at this time. All of them are Electronically Signed By: BRITTNEY JOHNSON MD 07/27/24 0802 PATIENT NAME: JASMINA SANON CONSULTATION DATE OF : 76 REPORT #: [id number] PHYSICIAN: BRITTNEY JOHNSON MD PCP: ZULEIMA ROMERO MD REPORT IS CONFIDENTIAL AND NOT TO BE RELEASED WITHOUT AUTHORIZATION [facility] [address], [place] [address] Signed due to concentrated neglect of his own health with his underlying paraplegia, homelessness, and ongoing substance abuse including alcohol, cigarettes, and methamphetamine. Local wound care measures have been initiated, which do appear to be beneficial at this time. There is no indication that I see at all for amputation in any way, which has been discussed in the past apparently. 3. Sacral wound. Elaborate closure methods would be unlikely successful. He has chronic plastic-like skin covering right now. There is some note made by his girlfriend that the plan of the plastic surgeon in [facility] was for certain local wound care on a more routine basis than was able to be provided by home health services in [place]. Recent CT scan showed no evidence of osteomyelitis, so he is at increased risk for it. Whether or not the wound could be contracted using a wound VAC device, it is uncertain, but he has essentially no realistic compliance as regard to avoiding pressure on the sacrum or even accommodating methods to do so (pressure cushion for wheelchair, etc.). I will have to consider further options might be available to him; however, his apparent noncompliance in regard to the sacral decubitus is insurmountable in relation to any intervention that might be undertaken. If he has no true inclination to compliance for offloading of pressure on the sacrum and compliance with other general medicines of hygiene. 4. I will review this further with the hospitalist tomorrow. There is nothing acutely needed tonight and we will review further options of management for reduction of his prolapsing ostomy. Brittney Johnson MD JM/MODL /[id number] cc: Dr. Racquel Jc MD DrElena Copies: JOSH JC MD ~ Electronically Signed By: BRITTNEY JOHNSON MD 07/27/24 0802 PATIENT NAME: JASMINA SANON CONSULTATION DATE OF : 76 REPORT #: [id number] PHYSICIAN: BRITTNEY JOHNSON MD PCP: ZULEIMA ROMERO MD REPORT IS CONFIDENTIAL AND NOT TO BE RELEASED WITHOUT AUTHORIZATION
--- NOTE | 2024-07-27 08:16 | NUR ---
PATIENT REQUESTED COFFEE. BLOOD SUGAR CHECKED AND REPORTED TO ALFONSO HE.
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
[2024-07-27] MEDS ORDERED: LEVOFLOXACIN750 MG PO (09:03)
[2024-07-27] MEDS ORDERED: LINEZOLID600 MG PO (09:04)
[2024-07-27] MEDS ORDERED: INSULIN GL100 UNIT/2 SUB-Q (09:08)
[2024-07-27 09:10] VITALS: BP 95/58
[2024-07-27 09:12] VITALS: BP 95/58
[2024-07-27] MEDS ORDERED: LEVOTHYROXINE88 MCG PO (09:13)
--- NOTE | 2024-07-27 09:13 | NUR ---
PATIENT RESTING IN BED LAYING ON HIS LEFT SIDE. INSULIN ADMINSTERED PER ORDERS FOR EATING 50% OF MEAL OR GREATER. VSS. DENIES ANY FURTHER NEEDS. CALL LIGHT WITHIN REACH.
--- NOTE | 2024-07-27 09:30 | NUR ---
Attempted to see Art. He is sleeping and does not awaken to voice.
[2024-07-27 10:56] VITALS: BP 113/72
--- NOTE | 2024-07-27 11:00 | NUR ---
Notified by staff pts clothing is soiled. Went to the ER and obained a sweat shirt, carhart pants, underwear, and socks for Art. Discussed he plan to dc to [facility] today per van. He cont. to be in agreement with this. He also cont. to want to go to a medical IPR for A&D. Reminded him he has appt at the wound clinic next week and transportation set up. Pt is aware.
[2024-07-27 11:12] LABS: VITAMIN D 25 OH 10 ng/mL (30-80)
--- NOTE | 2024-07-27 11:52 | NUR ---
PATIENT DISCHARGED VIA POWER WHEELCHAIR. ALL PERSONAL BELONGINGS REVIEWED. EDUCATION AND DISCHARGE INSTRUCTIONS REVIEWED WITH PATIENT. IV SITE REMOVED WNL. VSS.
--- NOTE | 2024-07-27 13:00 | NUR ---
Received a [facility]. They take pt with drug addiction and felonies. I spoke with the acoustical tile patternmaker and updated the pt has discharged, but I will send the infor onto [facility]. I then received a call from Anjali Vincent from [employer]. She had a meeting with [facility] and Art was discussed. She relayed that this pt has been placed and attempted placement several times with him leaving shortly after placement or leaving AMA before placement could be completed. I let her know I am aware of this. I stated my concern pt is now homeless and has multiple wounds that are not healing. She stated they did discuss if he is in agreement [facility] could send out a balst email for placement throughout [place]. I let her know he has discharged to [facility] and today was in agreement for A&D rehab. I also emailed [facility] the info for [facility] in [place] if he want placement.
[2024-07-27 19:41] LABS: MITOCHONDRIAL (M2) AB,IGG 9.1 Units (0.0-24.9)
[2024-07-28 00:19] LABS: PARATHYROID HORMONE,INTACT 39 pg/mL (15-65)
[2024-07-28 02:11] LABS: THYROXINE FREE 0.3 ng/dL (0.9-1.7)
[2024-07-28 07:49] LABS: MYELOPEROXIDASE (MPO) AB,IGG 0 AU/mL (0-19); SERINE PROTEINASE 3 PR3 AB,IGG 1 AU/mL (0-19)
== END 2024-07-27 11:45 | disposition home or self-care (01) | DRG 603 ==
LOC: ED 09:13 → CCU 16:28 → MS 07-22 13:12
PROVIDERS: Emergency Medicine; Student in an Organized Health Care Education/Training Program; ADMIT Family Medicine; ATTEND Family Medicine
DX: L03.115 Cellulitis of right lower limb (principal); Z59.00 Homelessness unspecified; K94.09 Other complications of colostomy; N39.0 Urinary tract infection, site not specified; M86.9 Osteomyelitis, unspecified; Z66 Do not resuscitate; L03.116 Cellulitis of left lower limb; E11.65 Type 2 diabetes mellitus with hyperglycemia; E03.9 Hypothyroidism, unspecified; E78.00 Pure hypercholesterolemia, unspecified; F17.210 Nicotine dependence, cigarettes, uncomplicated; L89.152 Pressure ulcer of sacral region, stage 2; L89.322 Pressure ulcer of left buttock, stage 2; L89.312 Pressure ulcer of right buttock, stage 2; Z96.0 Presence of urogenital implants; E11.69 Type 2 diabetes mellitus with other specified complication; B96.1 Klebsiella pneumoniae [K. pneumoniae] as the cause of diseases classified elsewhere; B96.5 Pseudomonas (aeruginosa) (mallei) (pseudomallei) as the cause of diseases classified elsewhere; B95.62 Methicillin resistant Staphylococcus aureus infection as the cause of diseases classified elsewhere; F10.10 Alcohol abuse, uncomplicated; F15.10 Other stimulant abuse, uncomplicated; E78.5 Hyperlipidemia, unspecified; R16.0 Hepatomegaly, not elsewhere classified; E83.42 Hypomagnesemia; Z89.022 Acquired absence of left finger(s); Z89.422 Acquired absence of other left toe(s); Z98.890 Other specified postprocedural states; Z88.8 Allergy status to other drugs, medicaments and biological substances; Z79.84 Long term (current) use of oral hypoglycemic drugs; Z87.81 Personal history of (healed) traumatic fracture; Z79.899 Other long term (current) drug therapy; Z79.4 Long term (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; Z99.3 Dependence on wheelchair
CPT/HCPCS: 36415; 72193; 73620; 73721; 74018; 76705; 80048; 80053; 80074; 80307; 81001; 82306; 82947; 82977; 83036; 83605; 83735; 83970; 84100; 84436; 84439; 84443; 84481; 85025; 85651; 86140; 86255; 87070; 87075; 87077; 87088; 87186; 87205; 96366; 97161; 97165; 99284-25; A9270; A9270-GY; J0330; J0690; J0692; J0878; J1100; J1650; J1815; J1885; J2060; J2250; J2270; J2405; J2704; J2765; J3010; J3370; J3411; J3475; J3490; J7030; J7060; J7121; Q9967

== ENCOUNTER 2024-08-01 03:49 | Emergency (ER) | payer OTHER ==
[~2024-08-01] VITALS: Ht 195.6 cm; Wt 96.0 kg
[~2024-08-01 03:49] MED LIST changes: +LEVOTHYROXINE88 MCG PO
--- OUTSIDE RECORDS SUMMARY | 2024-08-01 03:55 | XMS ---
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 Child Support Officer Events No recent Security Events currently on file CRITERIA MET - 6 ED Visits in 6 Months - [facility] - 2 Visits in 30 Days - [facility] - 3 Facilities in 90 Days CARE PROVIDERS Darleen Goins Rubber Flap Tuber Machine Operator/Take Out Waiter/Waitress 05/10/2024-Current PHONE: [phone] Franc Wood Community Health Worker 06/08/2023-Current PHONE: [phone] -, [facility] Dentist: Veneer Taping Machine Offbearer Guido Perez PHONE: [phone] -Chris- Dentist: Veneer Taping Machine Offbearer Current [facility] PHONE: [phone] -, Kassy- Dentist: Veneer Taping Machine Offbearer [facility] PHONE: [phone] RODNEY KIM Physician Electric Train Driver Current PHONE: [phone] [facility]: [facility] FAMILY PHONE: [phone] BRAYDON VILLATORO [facility] Current PHONE: [phone] Guidelines Source: [facility] Guidelines [...] COPES. [facility] VISIT COUNT (12 MO.) 13 [facility] [address] ([place]in Amaral) TOTAL 17 NOTE: Visits indicate total known visits. ED/UCC VISIT TRACKING (12 MO.) 08/01/2024 03:49 [facility] [place] TYPE: Emergency COMPLAINT: - WOUND CHECK 07/18/2024 09:14 [facility] [place] TYPE: Emergency COMPLAINT: - WOUND CHECK [facility] [facility]: Emergency DIAGNOSES: - Unspecified complication of genitourinary prosthetic device, implant and graft, initial encounter - cath issues - Urinary Catheter Check 2024 11:32 [facility] [place] TYPE: Emergency COMPLAINT: - URINE PROBLEM 05/23/2024 06:51 [facility] [place] TYPE: Emergency COMPLAINT: - CATHETER PROBLEM DIAGNOSES: - Allergy status to other drugs, medicaments and biological substances - Essential (primary) hypertension - Hormone replacement therapy - Hypothyroidism, unspecified - termite 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 (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 - termite 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 (current) use of oral hypoglycemic drugs - Nicotine dependence, unspecified, uncomplicated - Other terminal makeup operator (current) drug therapy - Other mechanical complication [...] Hormone replacement therapy - Hypothyroidism, unspecified - termite 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 (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 - termite 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 (current) use of oral hypoglycemic drugs - Nicotine dependence, unspecified, uncomplicated - Other penitentiary (current) drug therapy - Other mechanical complication of indwelling urethral catheter, initial encounter - Pure hypercholesterolemia, unspecified - Type 2 diabetes mellitus without complications - Unspecified visual loss 05/15/2024 02:13 [facility] [place] TYPE: Emergency DIAGNOSES: - Breakdown (mechanical) [...] of indwelling urethral catheter, initial encounter - half-way (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 - termite 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 (current) use of oral hypoglycemic drugs - Miscellaneous gastroenterology and urology devices associated with adverse incidents, not elsewhere classified - Nicotine dependence, unspecified, uncomplicated - Other penitentiary (current) drug therapy - Type 2 diabetes mellitus without complications 05/05/2024 08:23 [facility] [place] TYPE: Emergency COMPLAINT: - CATHETER ISSUE DIAGNOSES: - Allergy status to other drugs, medicaments and biological substances - Essential (primary) hypertension - Hypothyroidism, unspecified - half-way (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 - Nicotine dependence, unspecified, uncomplicated - Other penitentiary (current) drug therapy - Other mechanical complication [...] therapy - Hypomagnesemia - Hypothyroidism, unspecified - termite 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 (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 - termite 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 (current) use of oral hypoglycemic drugs - Lower abdominal pain, unspecified - Nicotine dependence, unspecified, uncomplicated - Other terminal makeup operator (current) drug therapy - Paraplegia, incomplete - [...] Emergency COMPLAINT: - CATHETER PROBLEM 02/28/2024 12:28 [facility] [place] TYPE: Emergency DIAGNOSES: - Other injury of unspecified body region, initial encounter - WOUND CHECK 01/20/2024 10:43 [facility] [place] TYPE: Emergency COMPLAINT: - HIGH BLOOD SUGAR DIAGNOSES: - Essential (primary) hypertension - Hypothyroidism, unspecified - half-way (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 - termite 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 (current) use of oral hypoglycemic drugs - Nicotine dependence, unspecified, uncomplicated - Pure hypercholesterolemia, unspecified - Type 2 diabetes mellitus with hyperglycemia 01/17/2024 12:11 [facility] [place] TYPE: Emergency DIAGNOSES: - Unspecified dislocation of right acromioclavicular joint, initial encounter - Unspecified sprain of right shoulder joint, initial encounter - r shoulder injury fall 10/28/2023 13:16 [facility] [place] TYPE: Emergency COMPLAINT: - URINE PROBLEM 10/17/2023 11:49 [facility] [place] TYPE: Emergency COMPLAINT: - CATHETER BAG DAMAGE INPATIENT VISIT TRACKING (12 MO.) 07/18/2024 16:28 [facility] [place] TYPE: Medical Surgical COMPLAINT: - HYPERGLYCEMIA,CELLULITIS DIAGNOSES: - Acquired absence of left finger(s) - Acquired absence of other left toe(s) - Alcohol abuse, uncomplicated - Allergy status to other drugs, medicaments and biological substances - Cellulitis of left lower limb - Cellulitis of right lower limb - Dependence on wheelchair - Do not resuscitate - Hepatomegaly, not elsewhere classified - Homelessness unspecified - Hyperlipidemia, unspecified - Hypomagnesemia - Hypothyroidism, unspecified - Klebsiella pneumoniae [K. pneumoniae] as the cause of diseases classified elsewhere - termite 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 (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 - termite 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 (current) use of oral hypoglycemic drugs - Methicillin resistant Staphylococcus aureus infection as the cause of diseases classified elsewhere - Nicotine dependence, cigarettes, uncomplicated - Osteomyelitis, unspecified - Other complications of colostomy - Other terminal makeup operator (current) drug therapy - Other specified postprocedural states - Other stimulant abuse, uncomplicated - Personal history of (healed) traumatic fracture - Presence of urogenital implants - Pressure ulcer of left buttock, stage 2 - Pressure ulcer of right buttock, stage 2 - Pressure ulcer of sacral region, stage 2 - Pseudomonas (aeruginosa) (mallei) (pseudomallei) as the cause of diseases classified elsewhere - Pure hypercholesterolemia, unspecified - Type 2 diabetes mellitus with hyperglycemia - Type 2 diabetes mellitus with other specified complication - Urinary tract infection, site not specified 04/20/2024 11:54 [facility] TYPE: Internal Medicine DIAGNOSES: - [...] Hypo-osmolality and hyponatremia - Hypothyroidism, unspecified - termite 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 (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 - Obesity, unspecified - Other penitentiary (current) drug therapy - Pure hypercholesterolemia, unspecified - Tubulo-interstitial nephritis, not specified as acute or chronic - Type 2 diabetes mellitus with hyperglycemia [email or web address]
[2024-08-01 04:29] LABS: BASOPHILS 1.5 % (0-2); EOSINOPHILS 3.2 % (0-6); HEMATOCRIT 37.3 % (35.0-50.0); HEMOGLOBIN 12.2 g/dL (12.0-18.0); LYMPHOCYTES 15.1 % (24-44); MCH 28.1 (27-36); MCHC 32.6 g/dl (30-36); MONOCYTES 6.7 % (0-12); NEUTROPHILS 73.5 % (39-80); PLATELET COUNT 239 K/uL (140-440); RBC 4.34 M/ul (4.3-5.7); RDW 16.1 (10.5-15.0)
[2024-08-01 04:48] LABS: ALBUMIN 2.5 g/dL (3.4-5.0); ALBUMIN/GLOBULIN RATIO 0.51 (1.1-2.4); ANION GAP 15.8 (7-21); BILIRUBIN, TOTAL 0.2 mg/dL (0.2-1.0); BUN/CREATININE RATIO 15.49 (6.0-28.6); CALCIUM 8.7 mg/dL (8.5-10.1); CREATININE, SERUM 1.42 mg/dL (0.70-1.30); POTASSIUM 3.8 mmol/L (3.5-5.1); PROTEIN, TOTAL 7.4 g/dL (6.4-8.2)
[2024-08-01] MEDS ORDERED: Insulin Regular, Human 100 UNIT/ML ML IV ONE (05:00)
[2024-08-01] MEDS ORDERED: SODIUM CHLORIDE 0.9% 1,000 ML IV SCH (05:15)
[2024-08-01] MEDS ORDERED: INSULIN GLARGINE-YFGN 100 UNIT/ML ML SUB-Q ONE (06:00)
[2024-08-01] MEDS ORDERED: LEVOTHYROXINE SODIUM 175 MCG TAB PO SCH (07:25)
[2024-08-01] MEDS ORDERED: ACETAMINOPHEN 500 MG TAB PO PRN (07:30)
[2024-08-01] MEDS ORDERED: TRIMETHOPRIM/SULFAMETHOXAZOLE 1 EA TAB PO SCH (09:00)
[2024-08-01] MEDS ORDERED: metFORMIN HCL 500 MG TAB PO SCH (09:00)
[2024-08-01] MEDS ORDERED: levoFLOXacin 750 MG TAB PO SCH (09:00)
[2024-08-01] MEDS ORDERED: LINEZOLID 600 MG TAB PO SCH (09:00)
[2024-08-01] MEDS ORDERED: GABAPENTIN 300 MG CAP PO SCH (09:00)
[2024-08-01] MEDS ORDERED: Insulin Regular, Human 100 UNIT/ML ML SUB-Q ONE ×2 (10:30→14:00)
[2024-08-01 20:15] VITALS: BP 125/97
== END 2024-08-01 20:30 | disposition home or self-care (01) ==
LOC: ED 03:49
PROVIDERS: Emergency Medicine
DX: E11.65 Type 2 diabetes mellitus with hyperglycemia (principal); I10 Essential (primary) hypertension; E78.00 Pure hypercholesterolemia, unspecified; E03.9 Hypothyroidism, unspecified; F17.200 Nicotine dependence, unspecified, uncomplicated; Z91.199 Patient's noncompliance with other medical treatment and regimen due to unspecified reason; Z79.84 Long term (current) use of oral hypoglycemic drugs; Z79.899 Other long term (current) drug therapy; Z88.8 Allergy status to other drugs, medicaments and biological substances
CPT/HCPCS: 36415; 73630; 80053; 82010; 82800; 84484; 85025; 96374; 99284; A9270; J1815; J7030

== ENCOUNTER 2024-08-03 14:25 | Emergency (ER) | payer OTHER ==
[~2024-08-03] VITALS: Ht 195.6 cm; Wt 97.7 kg
--- OUTSIDE RECORDS SUMMARY | 2024-08-03 14:32 | XMS ---
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 Veterinary Livestock Inspector Events No recent Security Events currently on file CRITERIA MET - 6 ED Visits in 6 Months - [facility] - 2 Visits in 30 Days - [facility] - 3 Facilities in 90 Days CARE PROVIDERS Darleen Goins Getterer/Liquor Inspector 05/10/2024-Current PHONE: [phone] Franc Wood Community Health Worker 06/08/2023-Current PHONE: [phone] -, [facility] Dentist: Senior Solutions Workflow Consultant Guido Perez PHONE: [phone] -Chris- Dentist: Senior Solutions Workflow Consultant Current [facility] PHONE: [phone] -, Kassy- Dentist: Senior Solutions Workflow Consultant [facility] PHONE: [phone] RODNEY KIM Physician Railway Equipment Operator Current PHONE: [phone] [facility]Center: [facility] FAMILY PHONE: [phone] BRAYDON VILLATORO [facility] Current PHONE: [phone] Guidelines Source: [facility] Guidelines Date: 03/17/2022 Care Recommendation: PATIENT RECENTLY [...] TO COPES. [facility] VISIT COUNT (12 MO.) [address] ([place]ristin Amaral) TOTAL 18 NOTE: Visits indicate total known visits. ED/UCC VISIT TRACKING (12 MO.) 08/03/2024 14:26 [facility] [place] TYPE: Emergency COMPLAINT: - ABD PAIN 08/01/2024 03:49 [facility] [place] TYPE: Emergency COMPLAINT: - WOUND CHECK DIAGNOSES: - Allergy status to other drugs, medicaments and biological substances - Essential (primary) hypertension - Hypothyroidism, unspecified - penitentiary (current) use of oral hypoglycemic drugs - Nicotine dependence, unspecified, uncomplicated - Other m[facility]p (current) drug therapy - Pain in left hand - Patient's noncompliance with other medical treatment and regimen due to unspecified reason - Pure hypercholesterolemia, unspecified - Type 2 diabetes mellitus with hyperglycemia 07/18/2024 09:14 [facility] [place] TYPE: Emergency COMPLAINT: - WOUND CHECK 06/23/2024 19:[address] [facility] [place] ([place]ristin Amaral) TYPE: Emergency DIAGNOSES: - [...] Hormone replacement therapy - Hypothyroidism, unspecified - adjunct faculty for medical terminology (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 - adjunct faculty for medical terminology (current) use of oral hypoglycemic drugs - Nicotine dependence, unspecified, uncomplicated - Other m[facility]p (current) drug therapy - Other mechanical complication [...] Hormone replacement therapy - Hypothyroidism, unspecified - penitentiary (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 - penitentiary (current) use of oral hypoglycemic drugs - Nicotine dependence, unspecified, uncomplicated - Other m[facility]p (current) drug therapy - Other mechanical complication of indwelling urethral catheter, initial encounter - Pure hypercholesterolemia, unspecified - Type 2 diabetes mellitus without complications - Unspecified visual loss 05/15/2024 02:13 [facility] [place] TYPE: Emergency DIAGNOSES: - Breakdown (mechanical) [...] of indwelling urethral catheter, initial encounter - adjunct faculty for medical terminology (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 - penitentiary (current) use of oral hypoglycemic drugs - Miscellaneous gastroenterology and urology devices associated with adverse incidents, not elsewhere classified - Nicotine dependence, unspecified, uncomplicated - Other m[facility]p (current) drug therapy - Type 2 diabetes mellitus without complications 05/05/2024 08:23 [facility] [place] TYPE: Emergency COMPLAINT: - CATHETER ISSUE DIAGNOSES: - Allergy status to other drugs, medicaments and biological substances - Essential (primary) hypertension - Hypothyroidism, unspecified - adjunct faculty for medical terminology (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 - Nicotine dependence, unspecified, uncomplicated - Other oysterman (current) drug therapy - Other mechanical complication [...] therapy - Hypomagnesemia - Hypothyroidism, unspecified - adjunct faculty for medical terminology (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 - adjunct faculty for medical terminology (current) use of oral hypoglycemic drugs - Lower abdominal pain, unspecified - Nicotine dependence, unspecified, uncomplicated - Other m[facility]p (current) drug therapy - Paraplegia, incomplete - [...] Emergency COMPLAINT: - CATHETER PROBLEM 02/28/2024 12:28 [facility] DIAGNOSES: - Other injury of unspecified body region, initial encounter - WOUND CHECK 01/20/2024 10:43 [facility] [place] TYPE: Emergency COMPLAINT: - HIGH BLOOD SUGAR DIAGNOSES: - Essential (primary) hypertension - Hypothyroidism, unspecified - adjunct faculty for medical terminology (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 - penitentiary (current) use of oral hypoglycemic drugs - Nicotine dependence, unspecified, uncomplicated - Pure hypercholesterolemia, unspecified - Type 2 diabetes mellitus with hyperglycemia 01/17/2024 12:11 [facility] [place] TYPE: Emergency DIAGNOSES: - Unspecified dislocation [...] the cause of diseases classified elsewhere - penitentiary (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 - penitentiary (current) use of oral hypoglycemic drugs - Methicillin resistant Staphylococcus aureus infection as the cause of diseases classified elsewhere - Nicotine dependence, cigarettes, uncomplicated - Osteomyelitis, unspecified - Other complications of colostomy - Other mcfp (current) drug therapy - Other specified postprocedural [...] tract infection, site not specified 04/20/2024 11:54 [facility] TYPE: Internal Medicine DIAGNOSES: - Acute [...] COMPLAINT: - SEPSIS,PYELONEPHRITIS,PNEUMONIA,UNCONTROLLED DIABE 10/28/2023 13:17 [facility] [place] TYPE: Observation COMPLAINT: - HYPERGLYCEMIA DIAGNOSES: - Bacteremia - Elevated white blood cell count, unspecified - Essential (primary) hypertension - Hyperglycemia, unspecified - Hypo-osmolality and hyponatremia - Hypothyroidism, unspecified - adjunct faculty for medical terminology (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 - Obesity, unspecified - Other mcfp (current) drug therapy - Pure hypercholesterolemia, unspecified - Tubulo-interstitial nephritis, not specified as acute or chronic - Type 2 diabetes mellitus with hyperglycemia [email or web address]
[2024-08-03 18:32] VITALS: BP 135/80
== END 2024-08-03 17:45 | disposition home or self-care (01) ==
LOC: ED 14:25
DX: Z43.3 Encounter for attention to colostomy (principal); G82.20 Paraplegia, unspecified; E11.9 Type 2 diabetes mellitus without complications; I10 Essential (primary) hypertension; E78.00 Pure hypercholesterolemia, unspecified; E03.9 Hypothyroidism, unspecified; H54.7 Unspecified visual loss; F17.200 Nicotine dependence, unspecified, uncomplicated; Z96.0 Presence of urogenital implants; Z59.00 Homelessness unspecified; Z55.6 Problems related to health literacy; Z88.8 Allergy status to other drugs, medicaments and biological substances; Z79.4 Long term (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; Z79.890 Hormone replacement therapy; Z79.899 Other long term (current) drug therapy
CPT/HCPCS: 99283

== ENCOUNTER 2024-08-05 05:33 | Emergency (ER) | payer OTHER ==
[~2024-08-05] VITALS: Ht 195.6 cm; Wt 93.2 kg
--- OUTSIDE RECORDS SUMMARY | 2024-08-05 05:40 | XMS ---
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 Veterinary Bacteriologist Events No recent Security Events currently on file CRITERIA MET - 6 ED Visits in 6 Months - [facility] - 2 Visits in 30 Days - [facility] - 3 Facilities in 90 Days CARE PROVIDERS Darleen Goins Paintings Conservator/Stage Set Designer 05/10/2024-Current PHONE: [phone] Franc Wood Community Health Worker 06/08/2023-Current PHONE: [phone] -, [facility] Dentist: Bench Grinder Guido Perez PHONE: [phone] -Chris- Dentist: Bench Grinder Current [facility] PHONE: [phone] -, Kassy- Dentist: Bench Grinder [facility] PHONE: [phone] RODNEY KIM Physician Clinical Biochemical Geneticist Current PHONE: [phone] [facility]/Center: [facility] FAMILY PHONE: [phone] [address] [facility] Current PHONE: [phone] Guidelines Source: [facility] Guidelines Date: 03/17/2022 Care Recommendation: PATIENT [...] TO COPES. [facility]a VISIT COUNT (12 MO.) 15 [facility] [address] (Cristin Amaral) TOTAL 19 NOTE: Visits indicate total known visits. ED/UCC VISIT TRACKING (12 MO.) 08/05/2024 05:34 [facility] [place] TYPE: Emergency COMPLAINT: - MEDICAL 08/03/2024 14:26 [facility] [place] TYPE: Emergency COMPLAINT: - ABD PAIN 08/01/2024 03:49 [facility] [place] TYPE: Emergency COMPLAINT: - WOUND CHECK DIAGNOSES: - Allergy status to other drugs, medicaments and biological substances - Essential (primary) hypertension - Hypothyroidism, unspecified - detention (current) use of oral hypoglycemic drugs - Nicotine dependence, unspecified, uncomplicated - Other intermediate (current) drug therapy - Pain in left hand - Patient's noncompliance with other medical treatment and regimen due to unspecified reason - Pure hypercholesterolemia, unspecified - Type 2 diabetes mellitus with hyperglycemia 07/18/2024 09:14 [facility] [place] TYPE: Emergency COMPLAINT: - WOUND CHECK 06/23/2024 19:17 [facility] [place] (Cristin Amaral) TYPE: Emergency DIAGNOSES: - Unspecified complication of genitourinary prosthetic device, implant and graft, initial encounter - cath issues - Urinary Catheter Check 2024 11:32 [facility] TYPE: Emergency COMPLAINT: - URINE PROBLEM 05/23/2024 06:51 [facility] [place] TYPE: Emergency COMPLAINT: - CATHETER PROBLEM DIAGNOSES: - Allergy status to other drugs, medicaments and biological substances - Essential (primary) hypertension - Hormone replacement therapy - Hypothyroidism, unspecified - terminal operations supervisor (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 - terminal operations supervisor (current) use of oral hypoglycemic drugs - Nicotine dependence, unspecified, uncomplicated - Other intermediate (current) drug therapy - Other mechanical complication [...] replacement therapy - Hypothyroidism, unspecified - terminal operations supervisor (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 - terminal operations supervisor (current) use of oral hypoglycemic drugs - Nicotine dependence, unspecified, uncomplicated - Other salvage determiner (current) drug therapy - Other mechanical complication of indwelling urethral catheter, initial encounter - Pure hypercholesterolemia, unspecified - Type 2 diabetes mellitus without complications - Unspecified visual loss 05/15/2024 02:13 [facility] [place] TYPE: Emergency DIAGNOSES: - Breakdown [...] of indwelling urethral catheter, initial encounter - terminal operations supervisor (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 - terminal operations supervisor (current) use of oral hypoglycemic drugs - Miscellaneous gastroenterology and urology devices associated with adverse incidents, not elsewhere classified - Nicotine dependence, unspecified, uncomplicated - Other salvage determiner (current) drug therapy - Type 2 diabetes mellitus without complications 05/05/2024 08:23 [facility] [place] TYPE: Emergency COMPLAINT: - CATHETER ISSUE DIAGNOSES: - Allergy status to other drugs, medicaments and biological substances - Essential (primary) hypertension - Hypothyroidism, unspecified - terminal operations supervisor (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 - Nicotine dependence, unspecified, uncomplicated - Other salvage determiner (current) drug therapy - Other mechanical complication [...] - Hypomagnesemia - Hypothyroidism, unspecified - terminal operations supervisor (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 - terminal operations supervisor (current) use of oral hypoglycemic drugs - Lower abdominal pain, unspecified - Nicotine dependence, unspecified, uncomplicated - Other salvage determiner (current) drug therapy - Paraplegia, incomplete - [...] Emergency COMPLAINT: - CATHETER PROBLEM 02/28/2024 12:28 [facility] [place] TYPE: Emergency DIAGNOSES: - Other injury of unspecified body region, initial encounter - WOUND CHECK 01/20/2024 10:43 [facility] [place] TYPE: Emergency COMPLAINT: - HIGH BLOOD SUGAR DIAGNOSES: - Essential (primary) hypertension - Hypothyroidism, unspecified - terminal operations supervisor (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 - detention (current) use of oral hypoglycemic drugs - Nicotine dependence, unspecified, uncomplicated - Pure hypercholesterolemia, unspecified - Type 2 diabetes mellitus with hyperglycemia 01/17/2024 12:11 [facility] [place] TYPE: Emergency DIAGNOSES: - Unspecified [...] the cause of diseases classified elsewhere - detention (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 - terminal operations supervisor (current) use of oral hypoglycemic drugs - Methicillin resistant Staphylococcus aureus infection as the cause of diseases classified elsewhere - Nicotine dependence, cigarettes, uncomplicated - Osteomyelitis, unspecified - Other complications of colostomy - Other salvage determiner (current) drug therapy - Other specified postprocedural [...] tract infection, site not specified 04/20/2024 11:54 [facility] TYPE: Internal Medicine DIAGNOSES: - [...] and hyponatremia - Hypothyroidism, unspecified - terminal operations supervisor (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 - Obesity, unspecified - Other salvage determiner (current) drug therapy - Pure hypercholesterolemia, unspecified - Tubulo-interstitial nephritis, not specified as acute or chronic - Type 2 diabetes mellitus with hyperglycemia [email or web address]
[2024-08-05] MEDS ORDERED: ondansetron HCL 4 MG/2 ML VIAL IV ONE (06:30)
[2024-08-05] MEDS ORDERED: FAMOTIDINE 20 MG/ 2 ML VIAL IV ONE (06:30)
[2024-08-05 07:51] VITALS: BP 111/78
== END 2024-08-05 07:51 | disposition home or self-care (01) ==
LOC: ED 05:33
DX: K94.09 Other complications of colostomy (principal); L89.159 Pressure ulcer of sacral region, unspecified stage; L89.619 Pressure ulcer of right heel, unspecified stage; L89.899 Pressure ulcer of other site, unspecified stage; G82.20 Paraplegia, unspecified; E11.9 Type 2 diabetes mellitus without complications; I10 Essential (primary) hypertension; E78.00 Pure hypercholesterolemia, unspecified; E03.9 Hypothyroidism, unspecified; H54.7 Unspecified visual loss; F17.200 Nicotine dependence, unspecified, uncomplicated; Z88.8 Allergy status to other drugs, medicaments and biological substances; Z59.00 Homelessness unspecified; Z79.4 Long term (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; Z79.890 Hormone replacement therapy; Z79.899 Other long term (current) drug therapy
CPT/HCPCS: 80053; 80307; 83605; 83690; 85025; 87040; 99284; G0480

== ENCOUNTER 2024-08-06 08:49 | Emergency (ER) | payer OTHER ==
[~2024-08-06] VITALS: Ht 195.6 cm; Wt 100.0 kg
--- OUTSIDE RECORDS SUMMARY | 2024-08-06 08:56 | XMS ---
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 Vessel Welder Events No recent Security Events currently on file CRITERIA MET - 6 ED Visits in 6 Months - [facility] - 2 Visits in 30 Days - [facility] - 3 Facilities in 90 Days CARE PROVIDERS Darleen Goins Shredded Filler Cutter Operator/Bow Repairer Custom 05/10/2024-Current PHONE: [phone] Franc Wood Community Health Worker 06/08/2023-Current PHONE: [phone] -, [facility] Dentist: Shift Supervisor Rn Guido Perez PHONE: [phone] -Chris- Dentist: Shift Supervisor Rn Current [facility] PHONE: [phone] -, Kassy- Dentist: Shift Supervisor Rn [facility] PHONE: [phone] RODNEY KIM Physician Rehab Care Assistant Current PHONE: [phone] [facility]: [facility] FAMILY PHONE: [phone] BRAYDON VILLATORO [facility] Current PHONE: [phone] Guidelines Source: [employer] [facility] [employer] [...] TO COPES. Corea VISIT COUNT (12 MO.) 16 [facility] 3 [facility] [address] [facility] (Cristin Amaral) TOTAL 20 NOTE: Visits indicate total known visits. ED/UCC VISIT TRACKING (12 MO.) 08/06/2024 08:[address] [facility] [place] TYPE: Emergency COMPLAINT: - ABD PAIN 08/05/2024 05:34 [facility] [place] TYPE: Emergency COMPLAINT: - MEDICAL 08/03/2024 14:26 [facility] [place] TYPE: Emergency COMPLAINT: - ABD PAIN 08/01/2024 03:49 [facility] [place] TYPE: Emergency COMPLAINT: - WOUND CHECK DIAGNOSES: - Allergy status to other drugs, medicaments and biological substances - Essential (primary) hypertension - Hypothyroidism, unspecified - terminologist (current) use of oral hypoglycemic drugs - Nicotine dependence, unspecified, uncomplicated - Other terminologist (current) drug therapy - Pain in left hand - Patient's noncompliance with other medical treatment and regimen due to unspecified reason - Pure hypercholesterolemia, unspecified - Type 2 diabetes mellitus with hyperglycemia 07/18/2024 09:14 [facility] [place] TYPE: Emergency COMPLAINT: - WOUND CHECK 06/23/2024 19:17 [facility] (Cristin Amaral) TYPE: Emergency DIAGNOSES: [...] Hormone replacement therapy - Hypothyroidism, unspecified - terminologist (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 - residential (current) use of oral hypoglycemic drugs - Nicotine dependence, unspecified, uncomplicated - Other terminologist (current) drug therapy - Other mechanical complication [...] Hormone replacement therapy - Hypothyroidism, unspecified - residential (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 - terminologist (current) use of oral hypoglycemic drugs - Nicotine dependence, unspecified, uncomplicated - Other terminologist (current) drug therapy - Other mechanical complication of indwelling urethral catheter, initial encounter - Pure hypercholesterolemia, unspecified - Type 2 diabetes mellitus without complications - Unspecified visual loss 05/15/2024 02:13 [facility] [place] TYPE: [...] of indwelling urethral catheter, initial encounter - residential (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 - terminologist (current) use of oral hypoglycemic drugs - Miscellaneous gastroenterology and urology devices associated with adverse incidents, not elsewhere classified - Nicotine dependence, unspecified, uncomplicated - Other terminologist (current) drug therapy - Type 2 diabetes mellitus without complications 05/05/2024 08:23 [facility] [place] TYPE: Emergency COMPLAINT: - CATHETER ISSUE DIAGNOSES: - Allergy status to other drugs, medicaments and biological substances - Essential (primary) hypertension - Hypothyroidism, unspecified - residential (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 - Nicotine dependence, unspecified, uncomplicated - Other terminologist (current) drug therapy - Other mechanical complication [...] therapy - Hypomagnesemia - Hypothyroidism, unspecified - terminologist (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 - residential (current) use of oral hypoglycemic drugs - Lower abdominal pain, unspecified - Nicotine dependence, unspecified, uncomplicated - Other detention (current) drug therapy - Paraplegia, incomplete - [...] Emergency COMPLAINT: - CATHETER PROBLEM 02/28/2024 12:28 [facility] [place] TYPE: Emergency DIAGNOSES: - Other injury of unspecified body region, initial encounter - WOUND CHECK 01/20/2024 10:43 [facility] [place] TYPE: Emergency COMPLAINT: - HIGH BLOOD SUGAR DIAGNOSES: - Essential (primary) hypertension - Hypothyroidism, unspecified - residential (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 - residential (current) use of oral hypoglycemic drugs - Nicotine dependence, unspecified, uncomplicated - Pure hypercholesterolemia, unspecified - Type 2 diabetes mellitus with hyperglycemia 01/17/2024 12:11 [facility] [place] TYPE: Emergency DIAGNOSES: - Unspecified dislocation of right acromioclavicular joint, initial encounter - Unspecified sprain of right shoulder joint, initial encounter - r shoulder injury fall 10/28/2023 13:16 [facility] [place] TYPE: Emergency COMPLAINT: - URINE PROBLEM 10/17/2023 11:49 [facility] [place] TYPE: Emergency COMPLAINT: - CATHETER BAG DAMAGE INPATIENT VISIT TRACKING (12 MO.) 07/18/2024 16:[address] [facility] [place] TYPE: Medical Surgical COMPLAINT: - HYPERGLYCEMIA,CELLULITIS [...] the cause of diseases classified elsewhere - terminologist (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 - residential (current) use of oral hypoglycemic drugs - Methicillin resistant Staphylococcus aureus infection as the cause of diseases classified elsewhere - Nicotine dependence, cigarettes, uncomplicated - Osteomyelitis, unspecified - Other complications of colostomy - Other detention (current) drug therapy - Other specified postprocedural [...] tract infection, site not specified 04/20/2024 11:54 [facility] TYPE: Internal Medicine DIAGNOSES: - [...] Hypo-osmolality and hyponatremia - Hypothyroidism, unspecified - terminologist (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 - Obesity, unspecified - Other terminologist (current) drug therapy - Pure hypercholesterolemia, unspecified - Tubulo-interstitial nephritis, not specified as acute or chronic - Type 2 diabetes mellitus with hyperglycemia [id number]
[2024-08-06] MEDS ORDERED: HALOPERIDOL LACTATE 5 MG/ML VIAL ONE (09:13)
[2024-08-06] MEDS ORDERED: diphenhydrAMINE HCL 50 MG/ML VIAL ONE (09:14)
[2024-08-06] MEDS ORDERED: LORazepam 2 MG/ML VIAL ONE (09:14)
[2024-08-06] MEDS ORDERED: CEFTRIAXONE SODIUM 2 GM in SODIUM CHLORIDE 0.9% 100 ML IV ONE (09:45)
[2024-08-06] MEDS ORDERED: MIDAZOLAM HCL 2 MG/2 ML VIAL IM ONE (09:45)
[2024-08-06] MEDS ORDERED: SODIUM CHLORIDE 0.9% 1,000 ML IV PRN (09:45)
[2024-08-06] MEDS ORDERED: LORazepam 2 MG/ML VIAL IM ONE (10:15)
[2024-08-06] MEDS ORDERED: HALOPERIDOL LACTATE 5 MG/ML VIAL IM ONE (10:15)
[2024-08-06] MEDS ORDERED: diphenhydrAMINE HCL 50 MG/ML VIAL IM ONE (10:15)
[2024-08-06] MEDS ORDERED: CEFTRIAXONE SODIUM 2 GM VIAL ONE (10:16)
[2024-08-06 10:31] LABS: BASOPHILS 1.1 % (0-2); LYMPHOCYTES 20.9 % (24-44); MCH 27.1 (27-36); MCHC 33.5 g/dl (30-36); MCV 81.1 fl (81-99); PLATELET COUNT 161 K/uL (140-440); RBC 4.44 M/ul (4.3-5.7); RDW 15.9 (10.5-15.0)
[2024-08-06 10:50] LABS: ALBUMIN 2.5 g/dL (3.4-5.0); ALBUMIN/GLOBULIN RATIO 0.52 (1.1-2.4); ANION GAP 9.7 (7-21); BILIRUBIN, TOTAL 0.4 mg/dL (0.2-1.0); BUN/CREATININE RATIO 26.31 (6.0-28.6); CALCIUM 9.1 mg/dL (8.5-10.1); CREATININE, SERUM 1.14 mg/dL (0.70-1.30); POTASSIUM 3.7 mmol/L (3.5-5.1); PROTEIN, TOTAL 7.3 g/dL (6.4-8.2)
[2024-08-06 11:04] LABS: LACTIC ACID, BLOOD 1.7 mmol/L (0.4-2.0)
[2024-08-06 11:09] LABS: INR 0.93 (0.80-1.30); PARTIAL THROMBOPLASTIN TIME 32.4 Sec (22.9-41.3); PROTIME 12.3 Sec (11.2-14.2)
[2024-08-06 11:52] LABS: BILIRUBIN, URINE NEGATIVE (negative); BLOOD/HGB, URINE LARGE (Negative); KETONE, URINE NEGATIVE (Negative); LEUK ESTERASE, URINE NEGATIVE (negative); NITRITE, URINE NEGATIVE (negative)
[2024-08-06 11:58] LABS: BACTERIA, URINE RARE /hpf (negative); CASTS, URINE NONE SEEN \\lpf; COLLECTION TYPE, URINE CLEAN CATCH; CRYSTALS, URINE NONE SEEN (0-1+); RED BLOOD CELLS, URINE 21-40 /hpf (0-5); REFLEX CULTURE, URINE Yes (No)
[2024-08-06] MEDS ORDERED: Insulin Regular, Human 100 UNIT/ML ML IV ONE ×2 (12:15→15:15)
[2024-08-06 12:22] LABS: CORONAVIRUS COVID-19 AG NEGATIVE (NEGATIVE); INFLUENZA A AG NEGATIVE (NEGATIVE); INFLUENZA B AG NEGATIVE (NEGATIVE)
[2024-08-06 21:31] LABS: ACETAMINOPHEN 0 ug/mL (10-30); ALCOHOL, MEDICAL <3 ng/dL (<3); SALICYLATE 1.2 mg/dL (2.8-20.0)
[2024-08-06 21:56] LABS: AMPHETAMINES, URINE POSITIVE (NEGATIVE); BARBITURATES, URINE NEGATIVE (NEGATIVE); BENZODIAZEPINE, URINE NEGATIVE (NEGATIVE); BUPRENORPHINE, URINE NEGATIVE (NEGATIVE); COCAINE, URINE POSITIVE (NEGATIVE); ECSTASY, URINE POSITIVE (NEGATIVE); FENTANYL, URINE NEGATIVE (NEGATIVE); OPIATES, URINE NEGATIVE (NEGATIVE)
[2024-08-06 21:57] LABS: METHADONE, URINE NEGATIVE (NEGATIVE); OXYCODONE, URINE NEGATIVE (NEGATIVE); PHENCYCLIDINE, URINE NEGATIVE (NEGATIVE)
[2024-08-06 21:58] LABS: CANNABINOID, URINE POSITIVE (NEGATIVE)
[2024-08-07 18:38] VITALS: BP 115/85
== END 2024-08-07 18:40 | disposition home or self-care (01) ==
LOC: ED 08:49
PROVIDERS: Emergency Medicine
DX: T14.91XA Suicide attempt, initial encounter (principal); G82.20 Paraplegia, unspecified; L89.159 Pressure ulcer of sacral region, unspecified stage; L97.921 Non-pressure chronic ulcer of unspecified part of left lower leg limited to breakdown of skin; L97.911 Non-pressure chronic ulcer of unspecified part of right lower leg limited to breakdown of skin; F19.10 Other psychoactive substance abuse, uncomplicated; E11.9 Type 2 diabetes mellitus without complications; I10 Essential (primary) hypertension; E78.00 Pure hypercholesterolemia, unspecified; F17.200 Nicotine dependence, unspecified, uncomplicated; X83.8XXA Intentional self-harm by other specified means, initial encounter; Z93.1 Gastrostomy status; Z96.0 Presence of urogenital implants; Z79.4 Long term (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; Z79.899 Other long term (current) drug therapy; Z88.8 Allergy status to other drugs, medicaments and biological substances
CPT/HCPCS: 36415; 51702; 71045; 80053; 80307; 81001; 82800; 83036; 83605; 85025; 85610; 85730; 87040; 87088; 99285-25; G0480; J0696; J1200; J1630; J1815; J2060; J2250

== ENCOUNTER 2024-08-13 06:50 | Emergency (ER) | payer OTHER ==
[~2024-08-13] VITALS: Ht 195.6 cm; Wt 95.0 kg
--- OUTSIDE RECORDS SUMMARY | 2024-08-13 06:57 | XMS ---
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 Media Relations Intern Events No recent Security Events currently on file CRITERIA MET - 6 ED Visits in 6 Months - [facility] - 2 Visits in 30 Days - [facility] - 3 Facilities in 90 Days CARE PROVIDERS Darleen Goins Supervisor Wet Pour/Mover Helper 05/10/2024-Current PHONE: [phone] Franc Wood Community Health Worker 06/08/2023-Current PHONE: [phone] -, [facility] Dentist: Senior Ui Developer Guido Perez PHONE: [phone] -Chris- Dentist: Senior Ui Developer Current [facility] PHONE: [phone] -, Kassy- Dentist: Senior Ui Developer [facility] PHONE: [phone] RODNEY KIM Physician Lithographic Stripper Current PHONE: [phone] [facility]: [facility] FAMILY PHONE: [phone] BRAYDON VILLATORO [facility] Current PHONE: [phone] Guidelines Source: [facility] Guidelines Date: 03/17/2022 Care Recommendation: PATIENT [...] TO COPES. [place]a VISIT COUNT (12 MO.) [address] 1 [facility] (rCistin Amaral) TOTAL 21 NOTE: Visits indicate total known visits. 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 to breakdown of skin - Non-pressure chronic ulcer of unspecified part of right lower leg limited to breakdown of skin - Other intermediate (current) drug therapy - Other psychoactive substance abuse, uncomplicated - Paraplegia, unspecified - Presence of urogenital implants - Pressure ulcer of sacral region, unspecified stage - Pure hypercholesterolemia, unspecified - Suicidal ideations - Suicide attempt, initial encounter - Type 2 diabetes mellitus without complications 08/05/2024 05:34 [facility] [place] TYPE: Emergency COMPLAINT: - MEDICAL DIAGNOSES: - Allergy status to other drugs, medicaments and biological substances - Essential (primary) hypertension - Homelessness unspecified - Hormone replacement therapy - Hypothyroidism, unspecified - match up person (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 - Nicotine dependence, unspecified, uncomplicated - Other complications of colostomy - Other complications of colostomy - Other intermediate (current) drug therapy - Pain due to other internal prosthetic devices, implants and grafts, initial encounter - Paraplegia, unspecified - Pressure ulcer of other site, unspecified stage - Pressure ulcer of right heel, unspecified stage - Pressure ulcer of sacral region, unspecified stage - Pure hypercholesterolemia, unspecified - Type 2 diabetes mellitus without complications - Unspecified visual loss 08/03/2024 14:26 [facility] [place] TYPE: Emergency COMPLAINT: - ABD PAIN DIAGNOSES: - Allergy status to other drugs, medicaments and biological substances - Encounter for attention to colostomy - Essential (primary) hypertension - Homelessness unspecified - Hormone replacement therapy - Hypothyroidism, unspecified - care home (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 - Nicotine dependence, unspecified, uncomplicated - Other soaking room operator (current) drug therapy - Paraplegia, unspecified - Presence of urogenital implants - Problems related to health literacy - Pure hypercholesterolemia, unspecified - Type 2 diabetes mellitus without complications - Unspecified visual loss 08/01/2024 03:49 [facility] [place] TYPE: Emergency COMPLAINT: - WOUND CHECK DIAGNOSES: - Allergy status to other drugs, medicaments and biological substances - Essential (primary) hypertension - Hypothyroidism, unspecified - care home (current) use of oral hypoglycemic drugs - Nicotine dependence, unspecified, uncomplicated - Other intermediate (current) drug therapy - Pain in left hand - Patient's noncompliance with other medical treatment and regimen due to unspecified reason - Pure hypercholesterolemia, unspecified - Type 2 diabetes mellitus with hyperglycemia 07/18/2024 09:14 [facility] [place] TYPE: Emergency COMPLAINT: - WOUND CHECK 06/23/2024 19:17 [facility] (Cristin Amraal) TYPE: Emergency DIAGNOSES: - Unspecified complication of [...] Hormone replacement therapy - Hypothyroidism, unspecified - match up person (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 - care home (current) use of oral hypoglycemic drugs - Nicotine dependence, unspecified, uncomplicated - Other soaking room operator (current) drug therapy - Other mechanical [...] Hormone replacement therapy - Hypothyroidism, unspecified - match up person (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 - match up person (current) use of oral hypoglycemic drugs - Nicotine dependence, unspecified, uncomplicated - Other soaking room operator (current) drug therapy - Other mechanical complication of indwelling urethral catheter, initial encounter - Pure hypercholesterolemia, unspecified - Type 2 diabetes mellitus without complications - Unspecified visual loss 05/15/2024 02:13 [facility] [place] TYPE: Emergency DIAGNOSES: - Breakdown [...] of indwelling urethral catheter, initial encounter - match up person (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 - match up person (current) use of oral hypoglycemic drugs - Miscellaneous gastroenterology and urology devices associated with adverse incidents, not elsewhere classified - Nicotine dependence, unspecified, uncomplicated - Other soaking room operator (current) drug therapy - Type 2 diabetes mellitus without complications 05/05/2024 08:23 [facility] [place] TYPE: Emergency COMPLAINT: - CATHETER ISSUE DIAGNOSES: - Allergy status to other drugs, medicaments and biological substances - Essential (primary) hypertension - Hypothyroidism, unspecified - care home (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 - Nicotine dependence, unspecified, uncomplicated - Other soaking room operator (current) drug therapy - Other mechanical [...] therapy - Hypomagnesemia - Hypothyroidism, unspecified - care home (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 - care home (current) use of oral hypoglycemic drugs - Lower abdominal pain, unspecified - Nicotine dependence, unspecified, uncomplicated - Other intermediate (current) drug therapy - Paraplegia, incomplete - [...] Emergency COMPLAINT: - CATHETER PROBLEM 02/28/2024 12:28 [facility] [place] TYPE: Emergency DIAGNOSES: - Other injury of unspecified body region, initial encounter - WOUND CHECK 01/20/2024 10:43 [facility] [place] TYPE: Emergency COMPLAINT: - HIGH BLOOD SUGAR DIAGNOSES: - Essential (primary) hypertension - Hypothyroidism, unspecified - match up person (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 - care home (current) use of oral hypoglycemic drugs - Nicotine dependence, unspecified, uncomplicated - Pure hypercholesterolemia, unspecified - Type 2 diabetes mellitus with hyperglycemia 01/17/2024 12:11 [facility] [place] TYPE: Emergency DIAGNOSES: - Unspecified dislocation of right acromioclavicular joint, initial encounter - Unspecified sprain of right shoulder joint, initial encounter - r shoulder injury fall 10/28/2023 13:16 [facility] [place] TYPE: Emergency COMPLAINT: - URINE PROBLEM Plus 1 More Visit INPATIENT VISIT TRACKING (12 MO.) 07/18/2024 16:28 [...] the cause of diseases classified elsewhere - match up person (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 - care home (current) use of oral hypoglycemic drugs - Methicillin resistant Staphylococcus aureus infection as the cause of diseases classified elsewhere - Nicotine dependence, cigarettes, uncomplicated - Osteomyelitis, unspecified - Other complications of colostomy - Other intermediate (current) drug therapy - Other specified postprocedural [...] tract infection, site not specified 04/20/2024 11:54 [facility] TYPE: Internal Medicine DIAGNOSES: - [...] Hypo-osmolality and hyponatremia - Hypothyroidism, unspecified - match up person (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 - Obesity, unspecified - Other intermediate (current) drug therapy - Pure hypercholesterolemia, unspecified - Tubulo-interstitial nephritis, not specified as acute or chronic - Type 2 diabetes mellitus with hyperglycemia [email or web address]
[2024-08-13] MEDS ORDERED: IBLOOD GLUCOSE TEST STRIP 1 EA TEST VI ONE (07:00)
[2024-08-13] MEDS ORDERED: SODIUM CHLORIDE 0.9% 2,000 ML IV PRN (07:15)
[2024-08-13 07:17] LABS: BASOPHILS 0.5 % (0-2); EOSINOPHILS 1.8 % (0-6); HEMATOCRIT 34.8 % (35.0-50.0); HEMOGLOBIN 11.7 g/dL (12.0-18.0); LYMPHOCYTES 29.3 % (24-44); MCH 27.1 (27-36); MCHC 33.7 g/dl (30-36); MCV 80.5 fl (81-99); MONOCYTES 5.3 % (0-12); NEUTROPHILS 63.1 % (39-80); PLATELET COUNT 161 K/uL (140-440); RBC 4.32 M/ul (4.3-5.7); RDW 15.8 (10.5-15.0)
[2024-08-13] MEDS ORDERED: ETOMIDATE 40 MG/20 ML VIAL IV ONE (07:30)
[2024-08-13] MEDS ORDERED: ATROPINE SULFATE 1 MG/10 ML SYR IV ONE (07:30)
[2024-08-13] MEDS ORDERED: ROCURONIUM BROMIDE 50 MG/5 ML SYR IV ONE (07:30)
[2024-08-13 07:40] LABS: ALBUMIN 2.1 g/dL (3.4-5.0); ALBUMIN/GLOBULIN RATIO 0.45 (1.1-2.4); ALCOHOL, MEDICAL <3 ng/dL (<3); ALKALINE PHOSPHATASE 432 U/L (46-116); ALT (SGPT) 50 U/L (14-59); ANION GAP 11.3 (7-21); AST (SGOT) 41 U/L (15-37); BILIRUBIN, TOTAL 0.3 mg/dL (0.2-1.0); BUN/CREATININE RATIO 21.49 (6.0-28.6); CALCIUM 8.7 mg/dL (8.5-10.1); CARBON DIOXIDE 30 mmol/L (21-32); CHLORIDE 98 mmol/L (98-107); CREATININE, SERUM 1.07 mg/dL (0.70-1.30); GLOMERULAR FILTRATION RATE,EST 87 mL/min (>60); POTASSIUM 4.3 mmol/L (3.5-5.1); PROTEIN, TOTAL 6.8 g/dL (6.4-8.2); UREA NITROGEN 23 mg/dL (7-18)
[2024-08-13] MEDS ORDERED: FENTANYL CITRATE-0.9 % NACL/PF 100 ML IV ONE (07:40)
[2024-08-13 07:42] LABS: LACTIC ACID, BLOOD 2.1 mmol/L (0.4-2.0)
[2024-08-13] MEDS ORDERED: CEFEPIME HCL 2 GM in DEXTROSE 5% 100 ML IV ONE (08:00)
[2024-08-13] MEDS ORDERED: FENTANYL CITRATE-0.9 % NACL/PF 100 ML IV SCH (08:00)
[2024-08-13] MEDS ORDERED: SODIUM CHLORIDE 0.9% 1,000 ML IV ONE (08:00)
[2024-08-13 08:03] LABS: PH, VENOUS 7.481 (7.31-7.41)
[2024-08-13 08:39] LABS: BILIRUBIN, URINE NEGATIVE (negative); BLOOD/HGB, URINE MODERATE (Negative); KETONE, URINE TRACE (Negative); LEUK ESTERASE, URINE NEGATIVE (negative); NITRITE, URINE NEGATIVE (negative); PH, URINE 6.5 (5-7)
[2024-08-13 08:58] LABS: EPITHELIAL CELLS, URINE SQUAMOUS 1+ /lpf (0-1+)
[2024-08-13 08:59] LABS: BACTERIA, URINE RARE /hpf (negative); CASTS, URINE NONE SEEN \\lpf; COLLECTION TYPE, URINE CLEAN CATCH; CRYSTALS, URINE NONE SEEN (0-1+); REFLEX CULTURE, URINE Yes (No)
[2024-08-13] MEDS ORDERED: DAPTOmycin 500 MG/10 ML VIAL IV SCH (09:00)
[2024-08-13 09:02] LABS: AMPHETAMINES, URINE POSITIVE (NEGATIVE); BARBITURATES, URINE NEGATIVE (NEGATIVE); BENZODIAZEPINE, URINE NEGATIVE (NEGATIVE); BUPRENORPHINE, URINE NEGATIVE (NEGATIVE); CANNABINOID, URINE POSITIVE (NEGATIVE); COCAINE, URINE NEGATIVE (NEGATIVE); ECSTASY, URINE NEGATIVE (NEGATIVE); FENTANYL, URINE NEGATIVE (NEGATIVE); METHADONE, URINE NEGATIVE (NEGATIVE); OPIATES, URINE NEGATIVE (NEGATIVE); OXYCODONE, URINE NEGATIVE (NEGATIVE); PHENCYCLIDINE, URINE NEGATIVE (NEGATIVE)
[2024-08-13] MEDS ORDERED: propofoL 200 MG/20 ML VIAL IV ONE (10:45)
[2024-08-13] MEDS ORDERED: propofoL 100 ML IV SCH (10:45)
[2024-08-13 12:32] VITALS: BP 100/75
== END 2024-08-13 12:20 | disposition short-term general hospital (02) ==
LOC: ED 06:50
PROVIDERS: Emergency Medicine
DX: T68.XXXA Hypothermia, initial encounter (principal); J18.9 Pneumonia, unspecified organism; E11.9 Type 2 diabetes mellitus without complications; I10 Essential (primary) hypertension; F17.200 Nicotine dependence, unspecified, uncomplicated; Z88.8 Allergy status to other drugs, medicaments and biological substances; Z79.4 Long term (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; Z79.890 Hormone replacement therapy; Z79.899 Other long term (current) drug therapy; Z59.00 Homelessness unspecified; Z99.3 Dependence on wheelchair
CPT/HCPCS: 31500; 36415; 70450; 71045; 80053; 80307; 81001; 82803; 83605; 84443; 84484; 85025; 87040; 87088; 94799; 99291; G0480; J0461; J0692; J0878; J2704; J3010; J3490; J7030

== ENCOUNTER 2024-10-15 09:41 | Emergency (ER) | payer OTHER ==
[~2024-10-15] VITALS: Ht 195.6 cm; Wt 96.9 kg
[~2024-10-15 09:41] MED LIST changes: +HUMALOG100 UNIT/2 SUB-Q; +SEMGLEE (Y100 UNIT/2 SUB-Q; +SENNA8.6 MG PO; +TRAZODONE HCL50 MG PO
--- OUTSIDE RECORDS SUMMARY | 2024-10-15 09:44 | XMS ---
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 Meeting Specialist Events No recent Security Events currently on file CRITERIA MET - 6 ED Visits in 6 Months - [facility] - 2 Visits in 30 Days CARE PROVIDERS Franc Wood Community Health Worker 06/08/2023-Current PHONE: [phone] -Emiliano [facility]+ Dentist: Maintenance Director Current [place] PHONE: [phone] -Chris- Dentist: Maintenance Director [facility] PHONE: [phone] -Kassy- Dentist: Maintenance Director Current [facility] PHONE: [phone] RODNEY KIM Physician [employer] Current PHONE: [phone] [facility] Current FAMILY PHONE: [phone] [facility] Current PHONE: [phone] Darleen Goins Nursing Program Director/Can Line Operator Current PHONE: [phone] Guidelines Source: [facility] Guidelines Date: 03/17/2022 Care Recommendation: PATIENT [...] TO COPES. Corea VISIT COUNT (12 MO.) [facility] [address] [place], [place] [address]Elena (Cristin Amaral) TOTAL 29 NOTE: Visits indicate total known visits. 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 failure 09/25/2024 17:44 [facility] Gu[facility] [place] TYPE: Emergency COMPLAINT: - Needs new bag DIAGNOSES: - Needs new bag 09/24/2024 21:05 [facility] Guz[facility] [place] TYPE: Emergency DIAGNOSES: - Encounter for fitting and adjustment of urinary device - Personal history of other specified conditions - Catheter issue 09/23/2024 20:04 [facility] [place] TYPE: Emergency DIAGNOSES: - Abrasion, left foot, initial encounter - Other specified problems related to psychosocial circumstances - CODE WHITE 09/22/2024 17:05 [facility] [place] TYPE: Emergency DIAGNOSES: - Elevated blood-pressure reading, without diagnosis of hypertension - Other specified counseling - Paraplegia, unspecified - nedds colostomy bag 09/09/2024 19:18 [facility] [place] TYPE: Emergency DIAGNOSES: - detention (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 - Non-pressure chronic ulcer of other part of right foot with necrosis of bone - Other specified diabetes mellitus without complications - Paraplegia, unspecified - Pressure ulcer of unspecified site, unspecified stage - Type 2 diabetes mellitus with foot ulcer - wound check 08/13/2024 06:51 [facility] [place] TYPE: Emergency COMPLAINT: - ALTERED MENTAL STATUS DIAGNOSES: - Allergy status to other drugs, medicaments and biological substances - Altered mental status, unspecified - Dependence on wheelchair - Essential (primary) hypertension - Homelessness unspecified - Hormone replacement therapy - Hypothermia, initial encounter - detention (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 - Nicotine dependence, unspecified, uncomplicated - Other meterman (current) drug therapy - Pneumonia, unspecified organism - Type 2 diabetes mellitus without complications 08/06/2024 08:50 [facility] [place] TYPE: Emergency COMPLAINT: - ABD PAIN DIAGNOSES: - Allergy status to other drugs, medicaments and biological substances - Essential (primary) hypertension - Gastrostomy status - Intentional self-harm by other specified means, initial encounter - 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 - Nicotine dependence, unspecified, uncomplicated - Non-pressure chronic ulcer of unspecified part of left lower leg limited to breakdown of skin - Non-pressure chronic ulcer of unspecified part of right lower leg limited to breakdown of skin - Other meterman (current) drug therapy - Other psychoactive substance [...] Hormone replacement therapy - Hypothyroidism, unspecified - 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 - Nicotine dependence, unspecified, uncomplicated - Other complications of colostomy - Other complications of colostomy - Other fdc (current) drug therapy - Pain due to [...] Hormone replacement therapy - Hypothyroidism, unspecified - 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 - Nicotine dependence, unspecified, uncomplicated - Other meterman (current) drug therapy - Paraplegia, unspecified - Presence of urogenital implants - Problems related to health literacy - Pure hypercholesterolemia, unspecified - Type 2 diabetes mellitus without complications - Unspecified visual loss 08/01/2024 03:49 [facility] [place] TYPE: Emergency COMPLAINT: - WOUND CHECK DIAGNOSES: - Allergy status to other drugs, medicaments and biological substances - Essential (primary) hypertension - Hypothyroidism, unspecified - local company intermodal truck driver (current) use of oral hypoglycemic drugs - Nicotine dependence, unspecified, uncomplicated - Other meterman (current) drug therapy - Pain in left hand - Patient's noncompliance with other medical treatment and regimen due to unspecified reason - Pure hypercholesterolemia, unspecified - Type 2 diabetes mellitus with hyperglycemia 07/18/2024 09:14 [facility] [place] TYPE: Emergency COMPLAINT: - WOUND CHECK 06/23/2024 19:17 [facility] Violet HILLIARD (Cristin Amaral) TYPE: Emergency DIAGNOSES: [...] Hormone replacement therapy - Hypothyroidism, unspecified - detention (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 - detention (current) use of oral hypoglycemic drugs - Nicotine dependence, unspecified, uncomplicated - Other meterman (current) drug therapy - Other mechanical complication [...] Hormone replacement therapy - Hypothyroidism, unspecified - 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 - detention (current) use of oral hypoglycemic drugs - Nicotine dependence, unspecified, uncomplicated - Other meterman (current) drug therapy - Other mechanical complication of indwelling urethral catheter, initial encounter - Pure hypercholesterolemia, unspecified - Type 2 diabetes mellitus without complications - Unspecified visual loss 05/15/2024 02:13 [facility] [place] TYPE: Emergency DIAGNOSES: - Breakdown [...] of indwelling urethral catheter, initial encounter - detention (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 - local company intermodal truck driver (current) use of oral hypoglycemic drugs - Miscellaneous gastroenterology and urology devices associated with adverse incidents, not elsewhere classified - Nicotine dependence, unspecified, uncomplicated - Other fdc (current) drug therapy - Type 2 diabetes mellitus without complications Plus 9 More Visits INPATIENT VISIT TRACKING (12 MO.) 10/04/2024 04:[address] [facility] Elena [place] TYPE: Medical Surgical COMPLAINT: - OSTEOMYELITIS DIAGNOSES: - Acquired absence of other left toe(s) - Acquired absence of other left toe(s) - Acquired absence of other right toe(s) - Acquired absence of other right toe(s) - Acute kidney failure, unspecified - Acute kidney failure, unspecified - Allergy status to other drugs, medicaments and biological substances - Allergy status to other drugs, medicaments and biological substances - Cannabis use, unspecified, uncomplicated - Cannabis use, unspecified, uncomplicated - Colostomy status - Colostomy status - Cystitis, unspecified without hematuria - Cystitis, unspecified without hematuria - Do not resuscitate - Do not resuscitate - Enthesopathy, unspecified - Enthesopathy, unspecified - Essential (primary) hypertension - Essential (primary) hypertension - Homelessness unspecified - Homelessness unspecified - Hormone replacement therapy - Hormone replacement therapy - Hypo-osmolality and hyponatremia - Hypo-osmolality and hyponatremia - Hypothyroidism, unspecified - Hypothyroidism, unspecified - Infection and inflammatory reaction due to indwelling urethral catheter, initial encounter - Infection and inflammatory reaction due to indwelling urethral catheter, initial encounter - Localized enlarged lymph nodes - Localized enlarged lymph nodes - detention (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 - 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 - Nicotine dependence, cigarettes, uncomplicated - Nicotine dependence, cigarettes, uncomplicated - Osteomyelitis, unspecified - Other chronic pain - Other chronic pain - Other fdc (current) drug therapy - Other meterman (current) drug therapy - Other osteomyelitis, other site - Other osteomyelitis, other site - Other specified disorders of bladder - Other specified disorders of bladder - Other specified postprocedural states - Other specified postprocedural states - Other stimulant abuse, uncomplicated - Other stimulant abuse, uncomplicated - Paraplegia, unspecified - Paraplegia, unspecified - Polyneuropathy, unspecified - Pressure ulcer of left heel, unspecified stage - Pressure ulcer of left heel, unspecified stage - Pressure ulcer of right heel, unspecified stage - Pressure ulcer of right heel, unspecified stage - Pressure ulcer of sacral region, unspecified stage - Pressure ulcer of sacral region, unspecified stage - Pure hypercholesterolemia, unspecified - Pure hypercholesterolemia, unspecified - Spinal stenosis, lumbar region without neurogenic claudication - Spinal stenosis, lumbar region without neurogenic claudication - Type 2 diabetes mellitus with diabetic polyneuropathy - Type 2 diabetes mellitus with diabetic polyneuropathy - Type 2 diabetes mellitus with hyperglycemia - Type 2 diabetes mellitus with hyperglycemia - Type 2 diabetes mellitus with other specified complication - Unspecified visual loss - Unspecified visual loss 08/13/2024 13:06 [facility] TYPE: Internal Medicine DIAGNOSES: - Metabolic encephalopathy - Hypothermia 07/18/2024 16:28 [facility] [place] TYPE: Medical [...] the cause of diseases classified elsewhere - 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 - detention (current) use of oral hypoglycemic drugs - Methicillin resistant Staphylococcus aureus infection as the cause of diseases classified elsewhere - Nicotine dependence, cigarettes, uncomplicated - Osteomyelitis, unspecified - Other complications of colostomy - Other fdc (current) drug therapy - Other specified postprocedural [...] tract infection, site not specified 04/20/2024 11:54 [facility] TYPE: Internal Medicine DIAGNOSES: - [...] Hypo-osmolality and hyponatremia - Hypothyroidism, unspecified - 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
--- NOTE | 2024-10-15 13:30 | NUR ---
WOUND CARE CONSULTED FOR MULTIPLE BLE WOUNDS AND OSTOMY CARE. HISTORY OF PRESENT ILLNESS: PT IS A 44 YEAR OLD MALE BROUGHT TO THE ED TODAY BY EMS WITH PRIMARY COMPLAINT OF HIS COLOSTOMY BLOWN OUT. PT FOUND TO HAVE MAGGOTS IN BLE WOUNDS UPON ASSESSMENT AND WOUND CARE WAS CONSULTED. PAST MEDICAL HISTORY: UNCONTROLLED DM, CHRONIC OSMAN CATHETER, CHRONIC WOUNDS, PARAPLEGIA, HTN, METHAMPHETAMINE USE, TABACCO USE, COLOSTOMY, HYPOTHYROIDISM, MODERATE BLINDNESS, NEUROPATHY, AND HOMELESSNESS. HISTORY COLLECTED FROM CHART. SECOND RIGHT TOE AMPUTATION AND FIFTH LEFT TOE AMPUTATION. ALLERGIES: LIRAGLUTIDE AND DULAGLUTIDE. UPON ASSESSMENT NOTED NO OSTOMY APPLIANCE IN PLACE. PATIENT COVERED IN DRY STOOL. PATIENT CLEANSED OF STOOL AND NEW GOWN DONNED. OSTOMY ASSESSMENT Ostomy type: end colostomy Location: LLQ. Size: 44 mm x 46 mm Shape: oval Stoma mucosa color: pink Stoma edema: Yes Protrusion: above skin Lumen/os location: Center Peristomal skin condition Color: Red Moisture: Dry Skin Integrity: Intact Skin Lesions: None Stoma Function Effluent: Yes Color: Brown Consistency: loose Volume: medium Gas: Yes Mucocutaneous junction Junction of skin/stoma: Intact Appliance: 1-piece Cut-to-fit Open-tail Interlocking/Velcro Gas vent Appliance size: 64MM [place] [id number] Peristomal skin cleansed with: Plain water and patted dry. Skin preparation: Skin barrier film Cavilon applied and allowed to dry. Skin barrier(s) used: None PROCEDURE NOTE: ALEXA-STOMAL SKIN CLEANSED WITH PLAIN WATER AND PATTED DRY. REDNESS NOTED IN ALEXA-STOMAL SKIN, NO BREAKDOWN NOTED. CAVILON SKIN BARRIER FILM APPLIED AND ALLOWED TO DRY FOLLOWED BY HOLISTER 1-PEICE CUT-TO-FIT APPLIANCE. SEAL OBTAINED. PT TOLERATED WELL. PHOTO IN PAPER CHART. PT HAS MULTIPLE WOUNDS OVER THE BLE AND FEET. PT HAD A RECENT ADMISSION TO [facility], WAS DISCHARGED ON 10/06/24. KNOWN HISTORY OF CHRONIC LOWER EXTREMITY WOUNDS COMPLICATED BY METHAMPHETAMINE USE, NON-COMPLIANCE AND HOMELESSNESS. PT ALSO REPORTS TRAUMATIC INJURY TO TOES WHEN USING HIS WHEELCHAIR WHICH HE STATES HE DOES NOT NOTICE DUE TO HIS NEUROPATHY. PT REFERRED TO OUT PATIENT WOUND CARE UPON DISCHARGE ON 10/06/24, PT WOULD LIKE TO CONTINUE TO PURSUE THIS. ASSISTED LIVING CARE MANAGER TO BLE IS LESS THAN 3 SECONDS. SKIN IS WARM AND PINK. LIMITED MOVEMENT AND SENSATION IN BLE AT BASELINE RELATED TO NEUROPATHY AND PARAPELGIA. 2+ EDEMA TO BLE. WOUND ASSESSMENT: LEFT FOOT, MULTIPLE ULCERS OF SUSPECTED MIXED ETIOLOGY OF DIABETIC NEUROPATHY, VENOUS INSUFFICIENCY AND PERIPHERAL INSUFFICIENCY. CLASSIFICATION: FULL THICKNESS SIZE: VARIOUS SIZES. WOUND BASE: PLANTAR FOOT WOUND IS 80% DESICCATED WITH 20% PINK MOIST TISSUE THAT EXTENDS UP TO THE HALLUX. DRY STABLE ESCHAR NOTED OVER THE TIPS OF EACH REMAINING TOE ON RIGHT FOOT. EDGES: INDISTINCT AND IRREGULAR. EXUDATE: Serosanguineous ALEXA WOUND SKIN: INTACT PINK DRY WARM. WOUND ASSESSMENT: LEFT LATERAL MALLEOLUS AND LEFT LATERAL LOW LEG, ULCERS OF SUSPECTED MIXED ETIOLOGY OF DIABETIC NEUROPATHY, VENOUS INSUFFICIENCY AND PERIPHERAL INSUFFICIENCY. CLASSIFICATION: FULL THICKNESS SIZE: VARIOUS WOUND BASE: 100% PINK, MOIST, NON-GRANULAR WOUND BASES. EDGES: DIFFUSE ATTACHED EXUDATE: Serosanguineous ALEXA WOUND SKIN: INTACT PINK MOIST WARM. WOUND ASSESSMENT: RIGHT LATERAL FOOT AND TOES,ULCERS OF SUSPECTED MIXED ETIOLOGY OF DIABETIC NEUROPATHY, VENOUS INSUFFICIENCY AND PERIPHERAL INSUFFICIENCY. CLASSIFICATION: FULL THICKNESS SIZE: VARIOUS WOUND BASE: WOUND BASES OF RIGHT LATERAL WOUNDS CONSIST OF 30% YELLOW ADHERENT SLOUGH AND 70% PINK MOIST NON-GRANULAR TISSUE. STABLE ESCHAR OVER SECOND TOE. UNSTABLE ESCHAR OVER THIRD AND 4TH TOES, REMOVED WITH FORECEPTS, REMAINING WOUND BEDS 40% ESCHAR AND 60% RED MOIST TISSUE. EDGES: DIFFUSE ATTACHED EXUDATE: Serosanguineous ALEXA WOUND SKIN: INTACT PINK MOIST WARM. WOUND ASSESSMENT: RIGHT LATERAL MALLEOLUS, RIGHT ANKLE AND CARRANZA ULCERS OF SUSPECTED MIXED ETIOLOGY OF DIABETIC NEUROPATHY, VENOUS INSUFFICIENCY AND PERIPHERAL INSUFFICIENCY. CLASSIFICATION: FULL THICKNESS SIZE: VARIOUS SIZES WOUND BASE: LATERAL MALLEOLUS AND SHINK WOUNDS ARE 100% PINK, MOIST GRANULATION TISSUE. EDGES: OPEN EXUDATE: Serosanguineous ALEXA WOUND SKIN: INTACT PURPLE AND PINK, MOIST WARM PICTURES OBTAINED, SEE PAPER CHART. PROCEDURE: STOOL AND DIRT CLEANSED FROM BLE WITH SOAP AND WATER. BLE WOUNDS CLEANSED WITH VASE AND VASE SOAK APPLIED AND ALLOWED TO DWELL X10 MINUTES. LOOSE DEBRIDES REMOVED WITH FORCEPTS. WOUND BASES CLEANSED AND PATTED DRY. STABLE ESCHAR ON TOES PAINTED WITH BETADINE. ALL OTHER WOUNDS OF THE FEET AND LOWER EXTREMITIES COVERED WITH CADEXOMER AND OPTIFOAM SILICONE FACED FOAM. DRESSINGS SECURED WITH KERLIX AND GUICHO BANDACE. PT TOLERATED WELL. TREATMENT RECOMMENDATIONS LEFT TOES AND RIGHT SECOND TOE: PAINT WITH BETADINE DAILY. LEFT LATERAL FOOT, LEFT LATERAL MALLEOLUS, LEFT CARRANZA, RIGHT PLANTAR FOOT AND RIGHT LATERAL MALLEOLUS AND RIGHT LATERAL LEG: APPLY CADEXOMER IODINE, COVER WITH FOAM DRESSING AND SECURE WITH GAUZE ROLL AND ELASTIC BANDAGE. CHANGE EVERY 3 DAYS AND NEEDED WHEN SOILED. RECOMMEND OUTPATIENT WOUND CARE FOLLOW UP. PT COULD BENEFIT FROM PODIATRY FOLLOW UP WELL. GOALS: HEAL. DECREASE TOPICAL BACTERIAL BURDEN AND PROTECT FROM ENVIRONMENT. WOUND CARE SIGNING OFF. PLEASE RE-CONSULT FOR ANY NEW CONCERNS.
[2024-10-15 14:57] VITALS: BP 107/90
== END 2024-10-15 14:57 | disposition home or self-care (01) ==
LOC: ED 09:41
DX: K94.03 Colostomy malfunction (principal); E11.9 Type 2 diabetes mellitus without complications; I10 Essential (primary) hypertension; F17.200 Nicotine dependence, unspecified, uncomplicated; Z88.8 Allergy status to other drugs, medicaments and biological substances; Z79.2 Long term (current) use of antibiotics
CPT/HCPCS: 51702; 99283

== ENCOUNTER 2024-10-18 00:27 | Emergency (ER) | payer OTHER ==
[~2024-10-18] VITALS: Ht 195.6 cm; Wt 100.0 kg
--- OUTSIDE RECORDS SUMMARY | 2024-10-18 00:33 | XMS ---
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 Assistant Statistician Events No recent Security Events currently on file CRITERIA MET - 6 ED Visits in 6 Mon[address] - [facility] [place] - 2 Visits in 30 Days CARE PROVIDERS Franc Wood Community Health Worker 06/08/2023-Current PHONE: [phone] -Emiliano Dental+ Dentist: Biomedical Engineering Supervisor Current [place] PHONE: [phone] -Chris- Dentist: Biomedical Engineering Supervisor [facility] Dental [facility] PHONE: [phone] -Kassy- Dentist: Biomedical Engineering Supervisor [facility] Dental [facility] PHONE: [phone] RODNEY KIM Physician City Library Director Current PHONE: [phone] [facility]: [facility] Current FAMILY PHONE: [phone] IRVING [facility] Current PHONE: [phone] Darleen Goins Technology Services Manager/Fish Peddler Current PHONE: [phone] Guidelines Source: [facility] Guidelines Date: [...] TO COPES. Corea VISIT COUNT (12 MO.) [facility] [address] [place], [place] [address]Elena (Cristin Amaral) TOTAL 30 NOTE: Visits indicate total known visits. ED/UCC VISIT TRACKING (12 MO.) 10/18/2024 00:27 [place] [place] TYPE: Emergency COMPLAINT: - LEG PAIN 10/17/2024 09:[address] [facility] [place] TYPE: Emergency COMPLAINT: - CATHETER PROBLEM 10/15/2024 09:41 [facility] [place] TYPE: Emergency COMPLAINT: - WOUND CHECK DIAGNOSES: - Allergy status to other drugs, medicaments and biological substances - Colostomy malfunction - Encounter for attention to colostomy - Essential (primary) hypertension - FPC (current) use of antibiotics - Nicotine dependence, unspecified, uncomplicated - Type 2 diabetes mellitus without complications 10/03/2024 22:42 [facility] [place] TYPE: Emergency COMPLAINT: - NEUROPATHY 09/27/2024 11:05 [facility] Gu[facility] [place] TYPE: Emergency DIAGNOSES: - Acute kidney failure, unspecified - Hyperglycemia, unspecified - Non-pressure chronic ulcer of other part of right foot with necrosis of bone - Retention of urine, unspecified - Type 2 diabetes mellitus with foot ulcer - 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 09/25/2024 17:44 [facility] [place] TYPE: Emergency COMPLAINT: - Needs new bag DIAGNOSES: - Needs new bag 09/24/2024 21:05 [facility] [place] TYPE: Emergency DIAGNOSES: - Encounter for fitting and adjustment of urinary device - Personal history of other specified conditions - Catheter issue 09/23/2024 20:04 [facility] [place] TYPE: Emergency DIAGNOSES: - Abrasion, left foot, initial encounter - Other specified problems related to psychosocial circumstances - CODE WHITE 09/22/2024 17:05 Alex Gu[place] TYPE: Emergency DIAGNOSES: - Elevated blood-pressure reading, without diagnosis of hypertension - Other specified counseling - Paraplegia, unspecified - nedds colostomy bag 09/09/2024 19:18 Alex [place] TYPE: Emergency DIAGNOSES: - 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 (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 - Non-pressure chronic [...] replacement therapy - Hypothermia, initial encounter - 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 bug 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 (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 - Nicotine dependence, unspecified, uncomplicated - Other emt intermediate (current) drug therapy - Pneumonia, unspecified organism - Type 2 diabetes mellitus without complications 08/06/2024 08:50 [facility] [place] TYPE: Emergency COMPLAINT: - ABD PAIN DIAGNOSES: - Allergy status to other drugs, medicaments and biological substances - Essential (primary) hypertension - Gastrostomy status - Intentional self-harm by other specified means, initial encounter - FPC (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 - Nicotine dependence, unspecified, uncomplicated - Non-pressure chronic ulcer of unspecified part of left lower leg limited to breakdown of skin - Non-pressure chronic ulcer of unspecified part of right lower leg limited to breakdown of skin - Other fci (current) drug therapy - Other psychoactive substance [...] Hormone replacement therapy - Hypothyroidism, unspecified - FPC (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 - Nicotine dependence, unspecified, uncomplicated - Other complications of colostomy - Other complications of colostomy - Other emt intermediate (current) drug therapy - Pain due [...] Hormone replacement therapy - Hypothyroidism, unspecified - FPC (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 - Nicotine dependence, unspecified, uncomplicated - Other emt intermediate (current) drug therapy - Paraplegia, unspecified - Presence of urogenital implants - Problems related to health literacy - Pure hypercholesterolemia, unspecified - Type 2 diabetes mellitus without complications - Unspecified visual loss 08/01/2024 03:49 [facility] [place] TYPE: Emergency COMPLAINT: - WOUND CHECK DIAGNOSES: - Allergy status to other drugs, medicaments and biological substances - Essential (primary) hypertension - Hypothyroidism, unspecified - bed bug 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 (current) use of oral hypoglycemic drugs - Nicotine dependence, unspecified, uncomplicated - Other emt intermediate (current) drug therapy - Pain in left hand - Patient's noncompliance with other medical treatment and regimen due to unspecified reason - Pure hypercholesterolemia, unspecified - Type 2 diabetes mellitus with hyperglycemia 07/18/2024 09:14 [facility] [place] TYPE: Emergency COMPLAINT: - WOUND CHECK [facility]in Am[facility]al[facility]: Emergency DIAGNOSES: [...] Hormone replacement therapy - Hypothyroidism, unspecified - bed bug 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 (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 - FPC (current) use of oral hypoglycemic drugs - Nicotine dependence, unspecified, uncomplicated - Other emt intermediate (current) drug therapy - Other mechanical [...] Hormone replacement therapy - Hypothyroidism, unspecified - bed bug 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 (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 - bed bug 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 (current) use of oral hypoglycemic drugs - Nicotine dependence, unspecified, uncomplicated - Other emt intermediate (current) drug therapy - Other mechanical complication of indwelling urethral catheter, initial encounter - Pure hypercholesterolemia, unspecified - Type 2 diabetes mellitus without complications - Unspecified visual loss Plus 10 More Visits INPATIENT VISIT TRACKING (12 MO.) 10/04/2024 04:16 [facility] [place] TYPE: Medical Surgical COMPLAINT: - OSTEOMYELITIS [...] nodes - Localized enlarged lymph nodes - FPC (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 - FPC (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 - Nicotine dependence, cigarettes, uncomplicated - Nicotine dependence, cigarettes, uncomplicated - Osteomyelitis, unspecified - Other chronic pain - Other chronic pain - Other fci (current) drug therapy - Other emt intermediate (current) drug therapy - Other osteomyelitis, other [...] loss - Unspecified visual loss 08/13/2024 13:06 [facility] TYPE: Internal Medicine DIAGNOSES: - Metabolic encephalopathy [...] the cause of diseases classified elsewhere - FPC (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 - FPC (current) use of oral hypoglycemic drugs - Methicillin resistant Staphylococcus aureus infection as the cause of diseases classified elsewhere - Nicotine dependence, cigarettes, uncomplicated - Osteomyelitis, unspecified - Other complications of colostomy - Other emt intermediate (current) drug therapy - Other specified [...] tract infection, site not specified 04/20/2024 11:54 [facility] TYPE: Internal [...] Hypo-osmolality and hyponatremia - Hypothyroidism, unspecified - bed bug 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 (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 - Obesity, unspecified - Other emt intermediate (current) drug therapy - Pure hypercholesterolemia, unspecified - Tubulo-interstitial nephritis, not specified as acute or chronic - Type 2 diabetes mellitus with hyperglycemia [email or web address]
[2024-10-18 01:30] LABS: BASOPHILS 1.3 % (0.2-1.2); EOSINOPHILS 2.3 % (0.8-7.0); HEMATOCRIT 29.4 % (40.1-51.0); HEMOGLOBIN 8.6 g/dL (13.7-17.5); MCH 22.2 PG (25.7-32.2); MCHC 29.3 g/dL (32.3-36.5); MONOCYTES 5.8 % (5.3-12.2); NEUTROPHILS 71.4 % (34.0-67.9); PLATELET COUNT 335 K/uL (163-337); RBC 3.87 M/uL (4.63-6.08)
[2024-10-18 01:45] LABS: ALBUMIN 1.7 g/dL (3.4-5.0); ALBUMIN/GLOBULIN RATIO 0.28 (1.1-2.4); ANION GAP 11.3 (7-21); BILIRUBIN, TOTAL 0.4 mg/dL (0.2-1.0); BUN/CREATININE RATIO 16.66 (6.0-28.6); CALCIUM 8.5 mg/dL (8.5-10.1); CREATININE, SERUM 1.62 mg/dL (0.70-1.30); POTASSIUM 4.3 mmol/L (3.5-5.1); PROTEIN, TOTAL 7.8 g/dL (6.4-8.2)
[2024-10-18 08:23] VITALS: BP 121/83
== END 2024-10-18 08:23 | disposition home or self-care (01) ==
LOC: ED 00:27
PROVIDERS: Family Medicine
DX: E11.621 Type 2 diabetes mellitus with foot ulcer (principal); L97.511 Non-pressure chronic ulcer of other part of right foot limited to breakdown of skin; L97.221 Non-pressure chronic ulcer of left calf limited to breakdown of skin; F15.10 Other stimulant abuse, uncomplicated; I10 Essential (primary) hypertension; E03.9 Hypothyroidism, unspecified; F17.200 Nicotine dependence, unspecified, uncomplicated; Z91.199 Patient's noncompliance with other medical treatment and regimen due to unspecified reason; Z79.4 Long term (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; Z79.899 Other long term (current) drug therapy; Z88.8 Allergy status to other drugs, medicaments and biological substances
CPT/HCPCS: 36415; 80053; 85025; 99283

== ENCOUNTER 2024-10-22 16:10 | Emergency (ER) | payer OTHER ==
[~2024-10-22] VITALS: Ht 195.6 cm; Wt 100.0 kg
--- OUTSIDE RECORDS SUMMARY | 2024-10-22 16:17 | XMS ---
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 Ancillary Specialist Events No recent Security Events currently on file CRITERIA MET - 6 ED Visits in 6 Months - [facility] - 2 Visits in 30 Days CARE PROVIDERS Franc Wood Community Health Worker 06/08/2023-Current PHONE: [phone] -Emiliano Dental+ Dentist: Patternmaker Apprentice Wood Current [place] PHONE: [phone] -Chris- Dentist: Patternmaker Apprentice Wood [facility] Dental [facility] PHONE: [phone] -Kassy- Dentist: Patternmaker Apprentice Wood Current [facility] PHONE: [phone] RODNEY KIM Physician Railway Signalling Engineer Current PHONE: [phone] [facility]: [facility] Current FAMILY PHONE: [phone] IRVING [facility] Current PHONE: [phone] Darleen Goins Hosiery Bagger/Retail Presentation Specialist Current PHONE: [phone] Guidelines Source: [facility] Guidelines Date: 03/17/2022 Care Recommendation: [...] TO COPES. Corea VISIT COUNT (12 MO.) [facility] [address] [place], [place] [address]Elena (Cristin Amaral) TOTAL 31 NOTE: Visits indicate total known visits. ED/UCC VISIT TRACKING (12 MO.) 10/22/2024 16:10 [facility] [place] TYPE: Emergency COMPLAINT: - COLOSTOMY ISSUE 10/18/2024 00:27 [facility] [place] TYPE: Emergency COMPLAINT: - LEG PAIN DIAGNOSES: - Allergy status to other drugs, medicaments and biological substances - Essential (primary) hypertension - Hypothyroidism, unspecified - terminologist (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 - Nicotine dependence, unspecified, uncomplicated - Non-pressure chronic ulcer of left calf limited to breakdown of skin - Non-pressure chronic ulcer of other part of right foot limited to breakdown of skin - Other computer terminal operator (current) drug therapy - Other stimulant abuse, uncomplicated - Patient's noncompliance with other medical treatment and regimen due to unspecified reason - Type 2 diabetes mellitus with foot ulcer - Unspecified open wound, right foot, initial encounter 10/17/2024 09:56 [facility] [place] TYPE: Emergency COMPLAINT: - CATHETER PROBLEM 10/15/2024 09:41 [facility] [place] TYPE: Emergency COMPLAINT: - WOUND CHECK DIAGNOSES: - Allergy status to other drugs, medicaments and biological substances - Colostomy malfunction - Encounter for attention to colostomy - Essential (primary) hypertension - shelter (current) use of antibiotics - Nicotine dependence, unspecified, uncomplicated - Type 2 diabetes mellitus without complications 10/03/2024 22:42 MILI Jackman TYPE: Emergency COMPLAINT: - NEUROPATHY 09/27/2024 11:05 Alex STROUD TYPE: Emergency DIAGNOSES: - Acute kidney failure, unspecified - Hyperglycemia, unspecified - Non-pressure chronic ulcer of other part of right foot with necrosis of bone - Retention of urine, unspecified - Type 2 diabetes mellitus with foot ulcer - surface plate finisher failure 09/25/2024 17:44 Alex STROUD TYPE: Emergency COMPLAINT: - Needs new bag DIAGNOSES: - Needs new bag 09/24/2024 21:05 [facility] [place] TYPE: Emergency DIAGNOSES: - Encounter for fitting and adjustment of urinary device - Personal history of other specified conditions - Catheter issue 09/23/2024 20:04 [facility] [place] TYPE: Emergency DIAGNOSES: - Abrasion, left foot, initial encounter - Other specified problems related to psychosocial circumstances - CODE WHITE 09/22/2024 17:05 [facility] Wyatt Gu[place] TYPE: Emergency DIAGNOSES: - Elevated blood-pressure reading, without diagnosis of hypertension - Other specified counseling - Paraplegia, unspecified - nedds colostomy bag 09/09/2024 19:18 [facility] Gu[place] TYPE: Emergency DIAGNOSES: - terminologist (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 - Non-pressure chronic [...] replacement therapy - Hypothermia, initial encounter - terminologist (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 - Nicotine dependence, unspecified, uncomplicated - Other computer terminal operator (current) drug therapy - Pneumonia, unspecified organism - Type 2 diabetes mellitus without complications 08/06/2024 08:50 [facility] [place] TYPE: Emergency COMPLAINT: - ABD PAIN DIAGNOSES: - Allergy status to other drugs, medicaments and biological substances - Essential (primary) hypertension - Gastrostomy status - Intentional self-harm by other specified means, initial encounter - terminologist (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 - Nicotine dependence, unspecified, uncomplicated - Non-pressure chronic ulcer of unspecified part of left lower leg limited to breakdown of skin - Non-pressure chronic ulcer of unspecified part of right lower leg limited to breakdown of skin - Other computer terminal operator (current) drug therapy - Other psychoactive substance [...] Hormone replacement therapy - Hypothyroidism, unspecified - shelter (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 - Nicotine dependence, unspecified, uncomplicated - Other complications of colostomy - Other complications of colostomy - Other computer terminal operator (current) drug therapy - Pain due to [...] - terminologist (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 - Nicotine dependence, unspecified, uncomplicated - Other computer terminal operator (current) drug therapy - Paraplegia, unspecified [...] - Nicotine dependence, unspecified, uncomplicated - Other skilled nursing (current) drug therapy - Pain in left hand - Patient's noncompliance with other medical treatment and regimen due to unspecified reason - Pure hypercholesterolemia, unspecified - Type 2 diabetes mellitus with hyperglycemia 07/18/2024 09:14 [facility] [place] TYPE: Emergency COMPLAINT: - WOUND CHECK 06/23/2024 19:17 [facility] [place] Pérez Amaral) TYPE: Emergency DIAGNOSES: - Unspecified complication [...] Hormone replacement therapy - Hypothyroidism, unspecified - shelter (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 - shelter (current) use of oral hypoglycemic drugs - Nicotine dependence, unspecified, uncomplicated - Other computer terminal operator (current) drug therapy - Other mechanical complication of indwelling urethral catheter, initial encounter - Type 2 diabetes mellitus without complications - Urinary catheterization as the cause of abnormal reaction of the patient, or of later complication, without mention of misadventure at the time of the procedure Plus 11 More Visits INPATIENT VISIT TRACKING (12 MO.) [...] nodes - Localized enlarged lymph nodes - terminologist (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 - terminologist (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 - Nicotine dependence, cigarettes, uncomplicated - Nicotine dependence, cigarettes, uncomplicated - Osteomyelitis, unspecified - Other chronic pain - Other chronic pain - Other computer terminal operator (current) drug therapy - Other computer terminal operator (current) drug therapy - Other osteomyelitis, other [...] loss - Unspecified visual loss 08/13/2024 13:06 [facility] TYPE: Internal Medicine DIAGNOSES: - [...] - terminologist (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 - shelter (current) use of oral hypoglycemic drugs - Methicillin resistant Staphylococcus aureus infection as the cause of diseases classified elsewhere - Nicotine dependence, cigarettes, uncomplicated - Osteomyelitis, unspecified - Other complications of colostomy - Other computer terminal operator (current) drug therapy - Other specified [...] tract infection, site not specified 04/20/2024 11:54 [facility] TYPE: Internal Medicine DIAGNOSES: - [...] Hypo-osmolality and hyponatremia - Hypothyroidism, unspecified - shelter (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 - Obesity, unspecified - Other skilled nursing (current) drug therapy - Pure hypercholesterolemia, unspecified - Tubulo-interstitial nephritis, not specified as acute or chronic - Type 2 diabetes mellitus with hyperglycemia [email or web address]
[2024-10-23 12:25] VITALS: BP 108/71
--- NOTE | 2024-10-23 13:28 | NUR ---
[facility] TRANSPORT TO PICK PATIENT UP AT 9:25 AM ON Wednesday10/26/24. CALLED AND UPDATED MONSE, PARTNER. SHE STATES SHE WILL NOTIFY JASMINA SINCE HE DOES NOT HAVE A PHONE.
--- NOTE | 2024-10-23 13:57 | NUR ---
RECEIVED CALL FROM KENNY BARONE THAT AFTER FURTHER REVIEW OF CHART, PATIENT HAS BEEN REFERRED BACK TO [facility] AND IS NOT A PATIENT IN THEIR CLINIC ANY LONGER. NOTES FAXED TO DR. RMOERO'S OFFICE. TRANSPORTATION CANCELLED WITH [facility].
[2024-10-25] MEDS ORDERED: GABAPENTIN300 MG PO (08:38)
== END 2024-10-23 12:20 | disposition home or self-care (01) ==
LOC: ED 16:10
DX: Z53.21 Procedure and treatment not carried out due to patient leaving prior to being seen by health care provider (principal)

== ENCOUNTER 2024-11-20 03:15 | Emergency (ER) | payer OTHER ==
[~2024-11-20] VITALS: Ht 195.6 cm; Wt 108.5 kg
--- OUTSIDE RECORDS SUMMARY | ~2024-11-20 | XMS | Continuity of Care Document ---
Demographics + + + | Address | [address] | | | [place] [address] | + + + | Preferred Language | Unknown | + + + | Marital Status | unknown | + + + | Gnosticist Affiliation | Unknown | + + + | Race | White | + + + | Ethnic Group | Unknown | + + + Author + + + | Author | [facility] | + + + | Organization | [facility] | + + + | Address | [address] | | | [place] [address] | + + + | Phone | | + + + Care Team Providers + + + + | Care Data Warehouse Architect Name | Role | Phone | + [...] West | | | specified devices | [facility] | + + + + | 2024-11-05 11:39:12 | Presence of other | Adithya [place] | | | specified devices | [facility] | + + + + | 2024-11-06 07:05:15 | Other iron deficiency | [facility] | | | anemias | [facility] | + + + + | 2024-11-06 07:05:15 | Type 2 diabetes mellitus | [facility] | | | with mild nonproliferative | [facility] | | | diabetic retinopathy | | | | without macular edema, | | | | bilateral (HCC) | | + + + + | 2024-11-06 07:05:15 | Osteomyelitis of vertebra, | Adithya [place] | | | sacral and sacrococcygeal | [facility] | | | region ([facility]) | | + + + + | 2024-11-06 07:05:15 | Other specified abnormal | Adithya [place] | | | findings of blood chemistry | [facility] | | | | | + + + + | 2024-11-06 07:05:15 | Encounter for attention to | Adithya [place] | | | colostomy ([facility]) | [facility] | + + + + | 2024-11-06 07:05:15 | Homelessness unspecified | Adithya [place] | | | | [facility] | + + + + | 2024-11-06 07:05:15 | Other specified health | [facility] | | | status | [facility] | + + + + | 2024-11-06 07:05:15 | 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) | [facility] | + + + + | 2024-11-06 11:09:59 | Other iron deficiency | [facility] | | | anemias | [facility] | + + + + | 2024-11-06 11:09:59 | Type 2 diabetes mellitus | [facility] | | | with mild nonproliferative | [facility] | | | diabetic retinopathy | | | | without macular edema, | | | | bilateral (HCC) | | + + + + | 2024-11-06 11:09:59 | Osteomyelitis of vertebra, | Adithya Lasalle | | | sacral and sacrococcygeal | [facility] | | | region ([facility]) | | + + + + | 2024-11-06 11:09:59 | Other specified abnormal | [facility] | | | findings of blood chemistry | [facility] | | | | | + + + + | 2024-11-06 11:09:59 | Encounter for attention to | Adithya Lasalle | | | colostomy ([facility]) | [facility] | + + + + | 2024-11-06 11:09:59 | Homelessness unspecified | [facility] | | | | [facility] | + + + + | 2024-11-06 11:09:59 | Other specified health | [facility] | | | status | [facility] | + + + + | 2024-11-06 11:09:59 | 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) | [facility] | + + + + | 2024-11-06 11:20:16 | Other iron deficiency | [facility] | | | anemias | [facility] | + + + + | 2024-11-06 11:20:16 | Type 2 diabetes mellitus | [facility] | | | with hyperosmolarity | [facility] | | | without nonketotic | | | | hyperglycemic-hyperosmolar | | | | coma ([facility]) ([facility]) | | + + + + | 2024-11-06 11:20:16 | Osteomyelitis of vertebra, | [facility] | | | sacral and sacrococcygeal | [facility] | | | region ([facility]) | | + + + + | 2024-11-06 11:20:16 | Other specified abnormal | Adithya Lasalle | | | findings of blood chemistry | [facility] | | | | | + + + + | 2024-11-06 11:20:16 | Encounter for attention to | Adithya Lasalle | | | colostomy (HCC) | [facility] | + + + + | 2024-11-06 11:20:16 | Homelessness unspecified | [place] [facility] | | | | [facility] | + + + + | 2024-11-06 11:20:16 | Other specified health | [facility] | | | status | [facility] | + + + + | 2024-11-06 11:32:44 | Other iron deficiency | [facility] | | | anemias | [facility] | + + + + | 2024-11-06 11:32:44 | Type 2 diabetes mellitus | [facility] | | | with hyperosmolarity | [facility] | | | without nonketotic | | | | hyperglycemic-hyperosmolar | | | | coma ([facility]) ([facility]) | | + + + + | 2024-11-06 11:32:44 | Osteomyelitis of vertebra, | [facility] | | | sacral and sacrococcygeal | [facility] | | | region ([facility]) | | + + + + | 2024-11-06 11:32:44 | Other specified abnormal | Adithya Lasalle | | | findings of blood chemistry | [facility] | | | | | + + + + | 2024-11-06 11:32:44 | Encounter for attention to | Adithya Lasalle | | | colostomy (HCC) | [facility] | + + + + | 2024-11-06 11:32:44 | Homelessness unspecified | [facility] | | | | [facility] | + + + + | 2024-11-06 11:32:44 | Other specified health | [facility] | | | status | [facility] | + + + + | 2024-11-06 22:05:28 | Other iron deficiency | [facility] | | | anemias | [facility] | + + + + | 2024-11-06 22:05:28 | Type 2 diabetes mellitus | [facility] | | | with hyperosmolarity | [facility] | | | without nonketotic | | | | hyperglycemic-hyperosmolar | | | | coma ([facility]) ([facility]) | | + + + + | 2024-11-06 22:05:28 | Cellulitis of unspecified | [facility] | | | part of limb | [facility] | + + + + | 2024-11-06 22:05:28 | Osteomyelitis of vertebra, | Adithya Lasalle | | | sacral and sacrococcygeal | [facility] | | | region ([facility]) | | + + + + | 2024-11-06 22:05:28 | Other specified abnormal | Adithya Lasalle | | | findings of blood chemistry | [facility] | | | | | + + + + | 2024-11-06 22:05:28 | Encounter for attention to | Adithya West | | | colostomy (HCC) | [facility] | + + + + | 2024-11-06 22:05:28 | Homelessness unspecified | [facility] | | | | [facility] | + + + + | 2024-11-06 22:05:28 | Other specified health | [facility] | | | status | [facility] | + + + + | 2024-11-06 22:05:59 | Methicillin resistant | [facility] | | | Staphylococcus aureus | [facility] | | | infection as the cause of | | | | diseases classified | | | | elsewhere | | + + + + | 2024-11-06 22:05:59 | Other iron deficiency | [facility] | | | anemias | [facility] | + + + + | 2024-11-06 22:05:59 | Type 2 diabetes mellitus | [facility] | | | with hyperosmolarity | [facility] | | | without nonketotic | | | | hyperglycemic-hyperosmolar | | | | coma ([facility]) ([facility]) | | + + + + | 2024-11-06 22:05:59 | Cellulitis of unspecified | [facility] | | | part of limb | [facility] | + + + + | 2024-11-06 22:05:59 | Osteomyelitis of vertebra, | [facility] | | | sacral and sacrococcygeal | [facility] | | | region ([facility]) | | + + + + | 2024-11-06 22:05:59 | Bacteremia | [facility] | | | | [facility] | + + + + | 2024-11-06 22:05:59 | Other specified abnormal | Adithya West | | | findings of blood chemistry | [facility] | | | | | + + + + | 2024-11-06 22:05:59 | Encounter for attention to | Adithya West | | | colostomy (HCC) | [facility] | + + + + | 2024-11-06 22:05:59 | Homelessness unspecified | [facility] | | | | [facility] | + + + + | 2024-11-06 22:05:59 | Other specified health | [facility] | | | status | [facility] | + + + + | 2024-11-08 03:56:20 | Methicillin resistant | [facility] | | | Staphylococcus aureus | [facility] | | | infection as the cause of | | | | diseases classified | | | | elsewhere | | + + + + | 2024-11-08 03:56:20 | Other iron deficiency | [facility] | | | anemias | [facility] | + + + + | 2024-11-08 03:56:20 | Type 2 diabetes mellitus | [facility] | | | with hyperosmolarity | [facility] | | | without nonketotic | | | | hyperglycemic-hyperosmolar | | | | coma ([facility]) ([facility]) | | + + + + | 2024-11-08 03:56:20 | Cellulitis of unspecified | [facility] | | | part of limb | [facility] | + + + + | 2024-11-08 03:56:20 | Osteomyelitis of vertebra, | Adithya Lasalle | | | sacral and sacrococcygeal | [facility] | | | region ([facility]) | | + + + + | 2024-11-08 03:56:20 | Bacteremia | [facility] | | | | [facility] | + + + + | 2024-11-08 03:56:20 | Other specified abnormal | [facility] | | | findings of blood chemistry | [facility] | | | | | + + + + | 2024-11-08 03:56:20 | Encounter for attention to | Adithya [place] | | | colostomy ([facility]) | [facility] | + + + + | 2024-11-08 03:56:20 | Homelessness unspecified | Adithya West | | | | [facility] | + + + + | 2024-11-08 03:56:20 | Other specified health | Adithya [place] | | | status | [facility] | + + + + | 2024-11-08 11:36:10 | Presence of other | Adithya [place] | | | specified devices | [facility] | + + + + | 2024-11-09 16:58:30 | Cellulitis of unspecified | Adithya [place] | | | part of limb | [facility] | + + + + | 2024-11-09 17:00:58 | Cellulitis of unspecified | Adithya Lasalle | | | part of limb | [facility] | + + + + | 2024-11-09 17:00:58 | Homelessness unspecified | Adithya West | | | | [facility] | + + + + | 2024-11-09 17:02:16 | Methicillin resistant | Adithya Lasalle | | | Staphylococcus aureus | [facility] | | | infection as the cause of | | | | diseases classified | | | | elsewhere | | + + + + | 2024-11-09 17:02:16 | Cellulitis of unspecified | [place] [facility] | | | part of limb | [facility] | + + + + | 2024-11-09 17:02:16 | Bacteremia | Adithya [place] | | | | [facility] | + + + + | 2024-11-09 17:02:16 | Homelessness unspecified | [facility] | | | | [facility] | + + + + | 2024-11-09 17:13:21 | Methicillin resistant | [facility] | | | Staphylococcus aureus | [facility] | | | infection as the cause of | | | | diseases classified | | | | elsewhere | | + + + + | 2024-11-09 17:13:21 | Type 2 diabetes mellitus | [facility] | | | with hyperosmolarity | [facility] | | | without nonketotic | | | | hyperglycemic-hyperosmolar | | | | coma ([facility]) ([facility]) | | + + + + | 2024-11-09 17:13:21 | Cellulitis of unspecified | [facility] | | | part of limb | [facility] | + + + + | 2024-11-09 17:13:21 | Bacteremia | [facility] | | | | [facility] | + + + + | 2024-11-09 17:13:21 | Homelessness unspecified | [facility] | | | | [facility] | + + + + | 2024-11-09 17:13:44 | Methicillin resistant | [facility] | | | Staphylococcus aureus | [facility] | | | infection as the cause of | | | | diseases classified | | | | elsewhere | | + + + + | 2024-11-09 17:13:44 | Type 2 diabetes mellitus | [facility] | | | with hyperosmolarity | [facility] | | | without nonketotic | | | | hyperglycemic-hyperosmolar | | | | coma ([facility]) ([facility]) | | + + + + | 2024-11-09 17:13:44 | Cellulitis of unspecified | [facility] | | | part of limb | [facility] | + + + + | 2024-11-09 17:13:44 | Bacteremia | [facility] | | | | [facility] | + + + + | 2024-11-09 17:13:44 | Homelessness unspecified | [facility] | | | | [facility] | + + + + | 2024-11-11 03:18:48 | Methicillin resistant | [facility] | | | Staphylococcus aureus | [facility] | | | infection as the cause of | | | | diseases classified | | | | elsewhere | | + + + + | 2024-11-11 03:18:48 | Type 2 diabetes mellitus | [facility] | | | with hyperosmolarity | [facility] | | | without nonketotic | | | | hyperglycemic-hyperosmolar | | | | coma ([facility]) ([facility]) | | + + + + | 2024-11-11 03:18:48 | Cellulitis of unspecified | [facility] | | | part of limb | [facility] | + + + + | 2024-11-11 03:18:48 | Bacteremia | Adithya Lasalle | | | | [facility] | + + + + | 2024-11-11 03:18:48 | Homelessness unspecified | Adithya [place] | | | | [facility] | + + + + | 2024-11-14 16:18:05 | Encounter for attention to | Adithya Lasalle | | | colostomy ([facility]) | [facility] | + + + + | 2024-11-14 16:19:35 | Osteomyelitis of vertebra, | Le [place] | | | sacral and sacrococcygeal | [facility] | | | region ([facility]) | | + + + + | 2024-11-14 16:19:35 | Encounter for attention to | Le [place]alle | | | colostomy ([facility]) | [facility] | + + + + | 2024-11-14 16:22:32 | Cellulitis of unspecified | Le [place] | | | part of limb | [facility] | + + + + | 2024-11-14 16:22:32 | Osteomyelitis of vertebra, | Le Mars Lasalle | | | sacral and sacrococcygeal | [facility] | | | region ([facility]) | | + + + + | 2024-11-14 16:22:32 | Encounter for attention to | Le Mars Lasalle | | | colostomy (HCC) | [facility] | + + + + | 2024-11-14 16:23:26 | Cellulitis of unspecified | Le Mars Lasalle | | | part of limb | [facility] | + + + + | 2024-11-14 16:23:26 | Osteomyelitis of vertebra, | Le Mars Lasalle | | | sacral and sacrococcygeal | [facility] | | | region ([facility]) | | + + + + | 2024-11-14 16:23:26 | Encounter for attention to | Le Mars Lasalle | | | colostomy (HCC) | [facility] | + + + + | 2024-11-14 16:23:26 | Other specified health | Adithya [place] | | | status | [facility] | + + + + | 2024-11-14 16:27:27 | Cellulitis of unspecified | [facility] | | | part of limb | [facility] | + + + + | 2024-11-14 16:27:27 | [facility]omyelitis of vertebra, | [facility] | | | sacral and sacrococcygeal | [facility] | | | region (HCC) | | + + + + | 2024-11-14 16:27:27 | Encounter for attention to | Adithya Lasalle | | | colostomy (HCC) | [facility] | + + + + | 2024-11-14 16:27:27 | Homelessness unspecified | [facility] | | | | [facility] | + + + + | 2024-11-14 16:27:27 | Other specified health | [facility] | | | status | [facility] | + + + + | 2024-11-14 16:28:09 | Methicillin resistant | [facility] | | | Staphylococcus aureus | [facility] | | | infection as the cause of | | | | diseases classified | | | | elsewhere | | + + + + | 2024-11-14 16:28:09 | Cellulitis of unspecified | [facility] | | | part of limb | [facility] | + + + + | 2024-11-14 16:28:09 | Osteomyelitis of vertebra, | [facility] | | | sacral and sacrococcygeal | [facility] | | | region (HCC) | | + + + + | 2024-11-14 16:28:09 | Bacteremia | Adithya [place] | | | | [facility] | + + + + | 2024-11-14 16:28:09 | Encounter for attention to | Adithya [place] | | | colostomy (HCC) | [facility] | + + + + | 2024-11-14 16:28:09 | Homelessness unspecified | Adithya [place] | | | | [facility] | + + + + | 2024-11-14 16:28:09 | Other specified health | [facility] | | | status | [facility] | + + + + | 2024-11-14 16:30:02 | Methicillin resistant | [facility] | | | Staphylococcus aureus | [facility] | | | infection as the cause of | | | | diseases classified | | | | elsewhere | | + + + + | 2024-11-14 16:30:02 | Other psychoactive | [facility] | | | substance use, unspecified, | [facility] | | | uncomplicated | | + + + + | 2024-11-14 16:30:02 | Cellulitis of unspecified | [facility] | | | part of limb | [facility] | + + + + | 2024-11-14 16:30:02 | Osteomyelitis of vertebra, | [facility] | | | sacral and sacrococcygeal | [facility] | | | region ([facility]) | | + + + + | 2024-11-14 16:30:02 | Bacteremia | [facility] | | | | [facility] | + + + + | 2024-11-14 16:30:02 | Encounter for attention to | [facility] | | | colostomy (HCC) | [facility] | + + + + | 2024-11-14 16:30:02 | Homelessness unspecified | [facility] | | | | [facility] | + + + + | 2024-11-14 16:30:02 | Other specified health | [facility] | | | status | [facility] | + + + + | 2024-11-14 16:43:46 | Methicillin resistant | [facility] | | | Staphylococcus aureus | [facility] | | | infection as the cause of | | | | diseases classified | | | | elsewhere | | + + + + | 2024-11-14 16:43:46 | Type 2 diabetes mellitus | [facility] | | | with hyperosmolarity | [facility] | | | without nonketotic | | | | hyperglycemic-hyperosmolar | | | | coma ([facility]) ([facility]) | | + + + + | 2024-11-14 16:43:46 | Other psychoactive | [facility] | | | substance use, unspecified, | [facility] | | | uncomplicated | | + + + + | 2024-11-14 16:43:46 | Cellulitis of unspecified | [facility] | | | part of limb | [facility] | + + + + | 2024-11-14 16:43:46 | Osteomyelitis of vertebra, | Adithya [place] | | | sacral and sacrococcygeal | [facility] | | | region ([facility]) | | + + + + | 2024-11-14 16:43:46 | Bacteremia | Adithya [place] | | | | [facility] | + + + + | 2024-11-14 16:43:46 | Encounter for attention to | Adithya [place] | | | colostomy (HCC) | [facility] | + + + + | 2024-11-14 16:43:46 | Homelessness unspecified | Adithya [place] | | | | [facility] | + + + + | 2024-11-14 16:43:46 | Other specified health | Adithya Lasalle | | | status | [facility] | + + + + | 2024-11-14 17:17:21 | Methicillin resistant | [facility] | | | Staphylococcus aureus | [facility] | | | infection as the cause of | | | | diseases classified | | | | elsewhere | | + + + + | 2024-11-14 17:17:21 | Type 2 diabetes mellitus | [facility] | | | with hyperosmolarity | [facility] | | | without nonketotic | | | | hyperglycemic-hyperosmolar | | | | coma ([facility]) ([facility]) | | + + + + | 2024-11-14 17:17:21 | Other psychoactive | [facility] | | | substance use, unspecified, | [facility] | | | uncomplicated | | + + + + | 2024-11-14 17:17:21 | Cellulitis of unspecified | [facility] | | | part of limb | [facility] | + + + + | 2024-11-14 17:17:21 | Osteomyelitis of vertebra, | Le [facility] | | | sacral and sacrococcygeal | [facility] | | | region ([facility]) | | + + + + | 2024-11-14 17:17:21 | Bacteremia | Le [facility]alle | | | | [facility] | + + + + | 2024-11-14 17:17:21 | Encounter for attention to | Le Mars Lasalle | | | colostomy (HCC) | [facility] | + + + + | 2024-11-14 17:17:21 | Homelessness unspecified | Le [facility] | | | | [facility] | + + + + | 2024-11-14 17:17:21 | Other specified health | [facility] | | | status | [facility] | + + + + | 2024-11-16 03:30:12 | Methicillin resistant | [facility] | | | Staphylococcus aureus | [facility] | | | infection as the cause of | | | | diseases classified | | | | elsewhere | | + + + + | 2024-11-16 03:30:12 | Type 2 diabetes mellitus | [facility] | | | with hyperosmolarity | [facility] | | | without nonketotic | | | | hyperglycemic-hyperosmolar | | | | coma ([facility]) ([facility]) | | + + + + | 2024-11-16 03:30:12 | Other psychoactive | [facility] | | | substance use, unspecified, | [facility] | | | uncomplicated | | + + + + | 2024-11-16 03:30:12 | Cellulitis of unspecified | Adithya [place] | | | part of limb | [facility] | + + + + | 2024-11-16 03:30:12 | Osteomyelitis of vertebra, | Le Mars [facility]alle | | | sacral and sacrococcygeal | [facility] | | | region ([facility]) | | + + + + | 2024-11-16 03:30:12 | Bacteremia | Adithya Lasalle | | | | [facility] | + + + + | 2024-11-16 03:30:12 | Encounter for attention to | Le Mars Lasalle | | | colostomy (HCC) | [facility] | + + + + | 2024-11-16 03:30:12 | Homelessness unspecified | [facility] | | | | [facility] | + + + + | 2024-11-16 03:30:12 | Other specified health | [facility] | | | status | [facility] | + + + + Procedures No information. Results/Labs No information. Social History +--------+ + + | date | description | facility | +--------+ + + Vital Signs No information."
--- OUTSIDE RECORDS SUMMARY | 2024-11-20 03:17 | XMS ---
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 Community Support Associate Events No recent Security Events currently on file CRITERIA MET - 6 ED Visits in 6 Months - [facility] - 2 Visits in 30 Days - [facility] - 3 Facilities in 90 Days CARE PROVIDERS Franc Wood Community Health Worker 06/08/2023-Current PHONE: [phone] -Emiliano Dental+ Dentist: Drug And Alcohol Counsellor [facility] PHONE: [phone] -Chris- Dentist: Drug And Alcohol Counsellor [facility] PHONE: [phone] -Kassy- Dentist: Drug And Alcohol Counsellor [facility] PHONE: [phone] RODNEY KIM Physician Burr Filer Current PHONE: [phone] [facility]: [facility] Current FAMILY PHONE: [phone] BRAYDON VILLATORO [facility] Current PHONE: [phone] SANTY MEJIA Physician Burr Filer Current PHONE: Unknown Darleen Goins Back Filler Operator/Digital Pre Press Operator Current PHONE: [phone] Guidelines Source: [facility] Guidelines Date: [...] TO COPES. [place] VISIT COUNT ([address] [facility] 6 Alex Schneider 3 [facility] 1 [facility] 1 [facility] Violet Ortez (Cristin Amaral) TOTAL 34 NOTE: Visits indicate total known visits. ED/UCC VISIT TRACKING (12 MO.) 11/20/2024 03:16 [facility] [place] TYPE: Emergency COMPLAINT: - COLOTOMY BAG ISSUE 11/19/2024 07:30 [facility] [place] TYPE: Emergency COMPLAINT: - WOUNDS 11/05/2024 10:59 [facility] TYPE: Emergency DIAGNOSES: - Presence of other specified devices - IV Placement 10/24/2024 15:23 [facility] [place] TYPE: Emergency COMPLAINT: - WOUND INFECTION 10/22/2024 16:10 [facility] [place] TYPE: Emergency COMPLAINT: - CATHETER ISSUE DIAGNOSES: - Gastrostomy malfunction - Procedure and treatment not carried out due to patient leaving prior to being seen by health care provider 10/18/2024 00:27 [facility] [place] TYPE: Emergency COMPLAINT: - LEG PAIN DIAGNOSES: - Allergy status to other drugs, medicaments and biological substances - Essential (primary) hypertension - Hypothyroidism, unspecified - rodent 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 (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 - Nicotine dependence, unspecified, uncomplicated - Non-pressure chronic ulcer of left calf limited to breakdown of skin - Non-pressure chronic ulcer of other part of right foot limited to breakdown of skin - Other petroleum terminal plant operator (current) drug therapy - Other stimulant [...] to colostomy - Essential (primary) hypertension - care home (current) use of antibiotics - Nicotine dependence, [...] 2 diabetes mellitus with foot ulcer - community service aide failure 09/25/2024 17:44 [facility] [place] TYPE: Emergency COMPLAINT: - Needs new bag DIAGNOSES: - Needs new bag 09/24/2024 21:05 [facility] [place] TYPE: Emergency DIAGNOSES: - Encounter for fitting and adjustment of urinary device - Personal history of other specified conditions - Catheter issue 09/23/2024 20:04 [facility] [place] TYPE: Emergency DIAGNOSES: - Abrasion, left foot, initial encounter - Other specified problems related to psychosocial circumstances - CODE WHITE 09/22/2024 17:05 [facility] [place] TYPE: Emergency DIAGNOSES: - Elevated blood-pressure reading, without diagnosis of hypertension - Other specified counseling - Paraplegia, unspecified - nedds colostomy bag 09/09/2024 19:18 [facility] [place] TYPE: Emergency DIAGNOSES: - rodent 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 (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 - Non-pressure [...] replacement therapy - Hypothermia, initial encounter - care home (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 - Nicotine dependence, unspecified, uncomplicated - Other petroleum terminal plant operator (current) drug therapy - Pneumonia, unspecified organism - Type 2 diabetes mellitus without complications 08/06/2024 08:50 [facility] [place] TYPE: Emergency COMPLAINT: - ABD PAIN DIAGNOSES: - Allergy status to other drugs, medicaments and biological substances - Essential (primary) hypertension - Gastrostomy status - Intentional self-harm by other specified means, initial encounter - care home (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 - Nicotine dependence, unspecified, uncomplicated - Non-pressure chronic ulcer of unspecified part of left lower leg limited to breakdown of skin - Non-pressure chronic ulcer of unspecified part of right lower leg limited to breakdown of skin - Other mcc (current) drug therapy - Other psychoactive substance [...] - Other complications of colostomy - Other petroleum terminal plant operator (current) drug therapy - Pain due [...] Hormone replacement therapy - Hypothyroidism, unspecified - rodent 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 (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 - Nicotine dependence, unspecified, uncomplicated - Other mcc (current) drug therapy - Paraplegia, unspecified - Presence of urogenital implants - Problems related to health literacy - Pure hypercholesterolemia, unspecified - Type 2 diabetes mellitus without complications - Unspecified visual loss 08/01/2024 03:49 [facility] [place] TYPE: Emergency COMPLAINT: - WOUND CHECK DIAGNOSES: - Allergy status to other drugs, medicaments and biological substances - Essential (primary) hypertension - Hypothyroidism, unspecified - rodent 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 (current) use of oral hypoglycemic drugs - Nicotine dependence, unspecified, uncomplicated - Other mcc (current) drug therapy - Pain in left hand - Patient's noncompliance with other medical treatment and regimen due to unspecified reason - Pure hypercholesterolemia, unspecified - Type 2 diabetes mellitus with hyperglycemia Plus 14 More Visits INPATIENT VISIT TRACKING (12 MO.) 10/24/2024 17:[address] [facility] [place] TYPE: Medical Surgical COMPLAINT: - LOWER EXTREMITY WOUNDS AND CELLULITIS DIAGNOSES: - Acquired absence of other left [...] Cannabis use, unspecified, uncomplicated - Cellulitis of left lower limb - Cellulitis of left lower limb - Cellulitis of left upper limb - Cellulitis of right lower limb - Chronic venous hypertension (idiopathic) with ulcer of bilateral lower extremity - Chronic venous hypertension (idiopathic) with ulcer of bilateral lower extremity - Colostomy status - Colostomy status - Dehydration - Dehydration - Dependence on wheelchair - Dependence on wheelchair - Do not resuscitate - Do not resuscitate - Essential (primary) hypertension - Essential (primary) hypertension - Homelessness unspecified - Homelessness unspecified - Hormone replacement therapy - Hormone replacement therapy - Hyperlipidemia, unspecified - Hyperlipidemia, unspecified - Hypothyroidism, unspecified - Hypothyroidism, unspecified - Insomnia, unspecified - Insomnia, unspecified - Iron deficiency anemia, unspecified - Iron deficiency anemia, unspecified - care home (current) use of antibiotics - care home (current) use of antibiotics - rodent 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 (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 - care home (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 - care home (current) use of opiate analgesic - care home (current) use of opiate analgesic - Low back pain, unspecified - Low back pain, unspecified - Methicillin resistant Staphylococcus aureus infection as the cause of diseases classified elsewhere - Methicillin resistant Staphylococcus aureus infection as the cause of diseases classified elsewhere - Nicotine dependence, cigarettes, uncomplicated - Nicotine dependence, cigarettes, uncomplicated - Non-pressure chronic ulcer of left ankle limited to breakdown of skin - Non-pressure chronic ulcer of left ankle limited to breakdown of skin - Non-pressure chronic ulcer of left heel and midfoot limited to breakdown of skin - Non-pressure chronic ulcer of left heel and midfoot limited to breakdown of skin - Non-pressure chronic ulcer of other part of right foot limited to breakdown of skin - Non-pressure chronic ulcer of other part of right foot limited to breakdown of skin - Non-pressure chronic ulcer of other part of right foot with bone involvement without evidence of necrosis - Non-pressure chronic ulcer of other part of right foot with bone involvement without evidence of necrosis - Non-pressure chronic ulcer of other part of right foot with necrosis of bone - Non-pressure chronic ulcer of right ankle limited to breakdown of skin - Non-pressure chronic ulcer of right ankle limited to breakdown of skin - Non-pressure chronic ulcer of right calf limited to breakdown of skin - Non-pressure chronic ulcer of right calf limited to breakdown of skin - Non-pressure chronic ulcer of right heel and midfoot limited to breakdown of skin - Non-pressure chronic ulcer of right heel and midfoot limited to breakdown of skin - Osteomyelitis of vertebra, sacral and sacrococcygeal region - Osteomyelitis of vertebra, sacral and sacrococcygeal region - Other chronic pain - Other chronic pain - Other mcc (current) drug therapy - Other petroleum terminal plant operator (current) drug therapy - Other stimulant use, unspecified, uncomplicated - Other stimulant use, unspecified, uncomplicated - Paraplegia, unspecified - Paraplegia, unspecified - Patient's other noncompliance with medication regimen for other reason - Patient's other noncompliance with medication regimen for other reason - Personal history of other (healed) physical injury and trauma - Personal history of other (healed) physical injury and trauma - Pressure ulcer of right buttock, unspecified stage - Pressure ulcer of right buttock, unspecified stage - Pressure ulcer of sacral region, unspecified stage - Pressure ulcer of sacral region, unspecified stage - Pure hypercholesterolemia, unspecified - Pure hypercholesterolemia, unspecified - Sepsis, unspecified organism - Sepsis, unspecified organism - Subacute osteomyelitis, right ankle and foot - Subacute osteomyelitis, right ankle and foot - Type 2 diabetes mellitus with diabetic polyneuropathy - Type 2 diabetes mellitus with diabetic polyneuropathy - Type 2 diabetes mellitus with foot ulcer - Type 2 diabetes mellitus with foot ulcer - Type 2 diabetes mellitus with hyperglycemia - Type 2 diabetes mellitus with hyperglycemia - Type 2 diabetes mellitus with other skin complications - Type 2 diabetes mellitus with other skin complications - Type 2 diabetes mellitus with other specified complication - Type 2 diabetes mellitus with other specified complication - Unspecified mood [affective] disorder - Unspecified mood [affective] disorder 10/04/2024 04:[address] [facility] [place] [...] nodes - Localized enlarged lymph nodes - care home (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 - rodent 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 (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 - Nicotine dependence, cigarettes, uncomplicated - Nicotine dependence, cigarettes, uncomplicated - Osteomyelitis, unspecified - Other chronic pain - Other chronic pain - Other petroleum terminal plant operator (current) drug therapy - Other mcc (current) drug therapy - Other osteomyelitis, other [...] loss - Unspecified visual loss 08/13/2024 13:06 [facility] TYPE: Internal Medicine DIAGNOSES: - Metabolic encephalopathy - Hypothermia 07/18/2024 16:[address] [facility] [place] [...] the cause of diseases classified elsewhere - care home (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 - rodent 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 (current) use of oral hypoglycemic drugs - Methicillin resistant Staphylococcus aureus infection as the cause of diseases classified elsewhere - Nicotine dependence, cigarettes, uncomplicated - Osteomyelitis, unspecified - Other complications of colostomy - Other petroleum terminal plant operator (current) drug therapy - Other specified [...] tract infection, site not specified 04/20/2024 11:54 [facility] TYPE: Internal Medicine DIAGNOSES: - Acute [...] TYPE: Critical Care COMPLAINT: - SEPSIS,PYELONEPHRITIS,PNEUMONIA,UNCONTROLLED DIABE [email or web address]
[2024-11-20 09:29] VITALS: BP 143/79
== END 2024-11-20 09:31 | disposition home or self-care (01) ==
LOC: ED 03:15
DX: S81.802D Unspecified open wound, left lower leg, subsequent encounter (principal); S81.801D Unspecified open wound, right lower leg, subsequent encounter; E11.9 Type 2 diabetes mellitus without complications; I10 Essential (primary) hypertension; E78.00 Pure hypercholesterolemia, unspecified; E03.9 Hypothyroidism, unspecified; F17.200 Nicotine dependence, unspecified, uncomplicated; X58.XXXD Exposure to other specified factors, subsequent encounter; Z46.6 Encounter for fitting and adjustment of urinary device; Z79.4 Long term (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; Z79.899 Other long term (current) drug therapy; Z88.8 Allergy status to other drugs, medicaments and biological substances
CPT/HCPCS: 99283; A4311

== ENCOUNTER 2024-11-22 01:48 | Emergency (ER) | payer OTHER ==
[~2024-11-22] VITALS: Ht 195.6 cm; Wt 111.0 kg
--- OUTSIDE RECORDS SUMMARY | ~2024-11-22 | XMS | Continuity of Care Document ---
Demographics + + + | Address | [address] | | | [place] [address] | + + + | Preferred Language | Unknown | + + + | Marital Status | unknown | + + + | Congregation Affiliation | Unknown | + + + | Race | White | + + + | Ethnic Group | Unknown | + + + Author + + + | Author | [facility] | + + + | Organization | [facility] | + + + | Address | [address] | | | [place] [address] | + + + | Phone | | + + + Care Team Providers + + + + | Care Candy Spreader Helper Name | Role | Phone | + [...] [place] | | | specified devices | [facility] | + + + + | 2024-11-05 11:39:12 | Presence of other | Adithya [place] | | | specified devices | [facility] | + + + + | 2024-11-06 07:05:15 | Other iron deficiency | [facility] | | | anemias | [facility] | + + + + | 2024-11-06 07:05:15 | Type 2 diabetes mellitus | [facility] | | | with mild nonproliferative | [facility] | | | diabetic retinopathy | | | | without macular edema, | | | | bilateral (HCC) | | + + + + | 2024-11-06 07:05:15 | Osteomyelitis of vertebra, | Adithya [place] | | | sacral and sacrococcygeal | [facility] | | | region ([facility]) | | + + + + | 2024-11-06 07:05:15 | Other specified abnormal | Adithya [place] | | | findings of blood chemistry | [facility] | | | | | + + + + | 2024-11-06 07:05:15 | Encounter for attention to | Adithya [place] | | | colostomy ([facility]) | [facility] | + + + + | 2024-11-06 07:05:15 | Homelessness unspecified | Adithya [place] | | | | [facility] | + + + + | 2024-11-06 07:05:15 | Other specified health | [facility] | | | status | [facility] | + + + + | 2024-11-06 07:05:15 | long term (current) use of | [facility] | | | insulin (HCC) | [facility] | + + + + | 2024-11-06 11:09:59 | Other iron deficiency | [facility] | | | anemias | [facility] | + + + + | 2024-11-06 11:09:59 | Type 2 diabetes mellitus | [facility] | | | with mild nonproliferative | [facility] | | | diabetic retinopathy | | | | without macular edema, | | | | bilateral (HCC) | | + + + + | 2024-11-06 11:09:59 | Osteomyelitis of vertebra, | Adithya [place] | | | sacral and sacrococcygeal | [facility] | | | region ([facility]) | | + + + + | 2024-11-06 11:09:59 | Other specified abnormal | [facility] | | | findings of blood chemistry | [facility] | | | | | + + + + | 2024-11-06 11:09:59 | Encounter for attention to | Adithya [place] | | | colostomy ([facility]) | [facility] | + + + + | 2024-11-06 11:09:59 | Homelessness unspecified | [facility] | | | | [facility] | + + + + | 2024-11-06 11:09:59 | Other specified health | [facility] | | | status | [facility] | + + + + | 2024-11-06 11:09:59 | long term (current) use of | [facility] | | | insulin (HCC) | [facility] | + + + + | 2024-11-06 11:20:16 | Other iron deficiency | [facility] | | | anemias | [facility] | + + + + | 2024-11-06 11:20:16 | Type 2 diabetes mellitus | [facility] | | | with hyperosmolarity | [facility] | | | without nonketotic | | | | hyperglycemic-hyperosmolar | | | | coma ([facility]) ([facility]) | | + + + + | 2024-11-06 11:20:16 | Osteomyelitis of vertebra, | [facility] | | | sacral and sacrococcygeal | [facility] | | | region ([facility]) | | + + + + | 2024-11-06 11:20:16 | Other specified abnormal | Adithya [place] | | | findings of blood chemistry | [facility] | | | | | + + + + | 2024-11-06 11:20:16 | Encounter for attention to | Adithya [place] | | | colostomy (HCC) | [facility] | + + + + | 2024-11-06 11:20:16 | Homelessness unspecified | [place] | | | | [facility] | + + + + | 2024-11-06 11:20:16 | Other specified health | [place] | | | status | [facility] | + + + + | 2024-11-06 11:32:44 | Other iron deficiency | [facility] | | | anemias | [facility] | + + + + | 2024-11-06 11:32:44 | Type 2 diabetes mellitus | [facility] | | | with hyperosmolarity | [facility] | | | without nonketotic | | | | hyperglycemic-hyperosmolar | | | | coma ([facility]) ([facility]) | | + + + + | 2024-11-06 11:32:44 | Osteomyelitis of vertebra, | [facility] | | | sacral and sacrococcygeal | [facility] | | | region ([facility]) | | + + + + | 2024-11-06 11:32:44 | Other specified abnormal | Ad[place] | | | findings of blood chemistry | [facility] | | | | | + + + + | 2024-11-06 11:32:44 | Encounter for attention to | Adithya [place] | | | colostomy (HCC) | [facility] | + + + + | 2024-11-06 11:32:44 | Homelessness unspecified | [facility] | | | | [facility] | + + + + | 2024-11-06 11:32:44 | Other specified health | [facility] | | | status | [facility] | + + + + | 2024-11-06 22:05:28 | Other iron deficiency | [facility] | | | anemias | [facility] | + + + + | 2024-11-06 22:05:28 | Type 2 diabetes mellitus | [facility] | | | with hyperosmolarity | [facility] | | | without nonketotic | | | | hyperglycemic-hyperosmolar | | | | coma ([facility]) ([facility]) | | + + + + | 2024-11-06 22:05:28 | Cellulitis of unspecified | [facility] | | | part of limb | [facility] | + + + + | 2024-11-06 22:05:28 | Osteomyelitis of vertebra, | Adithya [place] | | | sacral and sacrococcygeal | [facility] | | | region ([facility]) | | + + + + | 2024-11-06 22:05:28 | Other specified abnormal | Adith[place] | | | findings of blood chemistry | [facility] | | | | | + + + + | 2024-11-06 22:05:28 | Encounter for attention to | Adithya [place] | | | colostomy (HCC) | [facility] | + + + + | 2024-11-06 22:05:28 | Homelessness unspecified | [facility] | | | | [facility] | + + + + | 2024-11-06 22:05:28 | Other specified health | [facility] | | | status | [facility] | + + + + | 2024-11-06 22:05:59 | Methicillin resistant | [facility] | | | Staphylococcus aureus | [facility] | | | infection as the cause of | | | | diseases classified | | | | elsewhere | | + + + + | 2024-11-06 22:05:59 | Other iron deficiency | [facility] | | | anemias | [facility] | + + + + | 2024-11-06 22:05:59 | Type 2 diabetes mellitus | [facility] | | | with hyperosmolarity | [facility] | | | without nonketotic | | | | hyperglycemic-hyperosmolar | | | | coma ([facility]) ([facility]) | | + + + + | 2024-11-06 22:05:59 | Cellulitis of unspecified | [facility] | | | part of limb | [facility] | + + + + | 2024-11-06 22:05:59 | Osteomyelitis of vertebra, | [facility] | | | sacral and sacrococcygeal | [facility] | | | region ([facility]) | | + + + + | 2024-11-06 22:05:59 | Bacteremia | [facility] | | | | [facility] | + + + + | 2024-11-06 22:05:59 | Other specified abnormal | Adithya [place] | | | findings of blood chemistry | [facility] | | | | | + + + + | 2024-11-06 22:05:59 | Encounter for attention to | Adithya [place] | | | colostomy (HCC) | [facility] | + + + + | 2024-11-06 22:05:59 | Homelessness unspecified | [place] | | | | [facility] | + + + + | 2024-11-06 22:05:59 | Other specified health | [place] | | | status | [facility] | + + + + | 2024-11-08 03:56:20 | Methicillin resistant | [facility] | | | Staphylococcus aureus | [facility] | | | infection as the cause of | | | | diseases classified | | | | elsewhere | | + + + + | 2024-11-08 03:56:20 | Other iron deficiency | [facility] | | | anemias | [facility] | + + + + | 2024-11-08 03:56:20 | Type 2 diabetes mellitus | [facility] | | | with hyperosmolarity | [facility] | | | without nonketotic | | | | hyperglycemic-hyperosmolar | | | | coma ([facility]) ([facility]) | | + + + + | 2024-11-08 03:56:20 | Cellulitis of unspecified | [facility] | | | part of limb | [facility] | + + + + | 2024-11-08 03:56:20 | Osteomyelitis of vertebra, | Adith[place] | | | sacral and sacrococcygeal | [facility] | | | region ([facility]) | | + + + + | 2024-11-08 03:56:20 | Bacteremia | [facility] | | | | [facility] | + + + + | 2024-11-08 03:56:20 | Other specified abnormal | [facility] | | | findings of blood chemistry | [facility] | | | | | + + + + | 2024-11-08 03:56:20 | Encounter for attention to | Ad[place] | | | colostomy ([facility]) | [facility] | + + + + | 2024-11-08 03:56:20 | Homelessness unspecified | Adithya [place] | | | | [facility] | + + + + | 2024-11-08 03:56:20 | Other specified health | Ad[place] | | | status | [facility] | + + + + | 2024-11-08 11:36:10 | Presence of other | Adith[place] | | | specified devices | [facility] | + + + + | 2024-11-09 16:58:30 | Cellulitis of unspecified | Adith[place] | | | part of limb | [facility] | + + + + | 2024-11-09 17:00:58 | Cellulitis of unspecified | Adithya [place] | | | part of limb | [facility] | + + + + | 2024-11-09 17:00:58 | Homelessness unspecified | Adithya [place] | | | | [facility] | + + + + | 2024-11-09 17:02:16 | Methicillin resistant | Adith[place] | | | Staphylococcus aureus | [facility] | | | infection as the cause of | | | | diseases classified | | | | elsewhere | | + + + + | 2024-11-09 17:02:16 | Cellulitis of unspecified | [place] | | | part of limb | [facility] | + + + + | 2024-11-09 17:02:16 | Bacteremia | Ad[place] | | | | [facility] | + + + + | 2024-11-09 17:02:16 | Homelessness unspecified | [facility] | | | | [facility] | + + + + | 2024-11-09 17:13:21 | Methicillin resistant | [facility] | | | Staphylococcus aureus | [facility] | | | infection as the cause of | | | | diseases classified | | | | elsewhere | | + + + + | 2024-11-09 17:13:21 | Type 2 diabetes mellitus | [facility] | | | with hyperosmolarity | [facility] | | | without nonketotic | | | | hyperglycemic-hyperosmolar | | | | coma ([facility]) ([facility]) | | + + + + | 2024-11-09 17:13:21 | Cellulitis of unspecified | [facility] | | | part of limb | [facility] | + + + + | 2024-11-09 17:13:21 | Bacteremia | [facility] | | | | [facility] | + + + + | 2024-11-09 17:13:21 | Homelessness unspecified | [facility] | | | | [facility] | + + + + | 2024-11-09 17:13:44 | Methicillin resistant | [facility] | | | Staphylococcus aureus | [facility] | | | infection as the cause of | | | | diseases classified | | | | elsewhere | | + + + + | 2024-11-09 17:13:44 | Type 2 diabetes mellitus | [facility] | | | with hyperosmolarity | [facility] | | | without nonketotic | | | | hyperglycemic-hyperosmolar | | | | coma ([facility]) ([facility]) | | + + + + | 2024-11-09 17:13:44 | Cellulitis of unspecified | [facility] | | | part of limb | [facility] | + + + + | 2024-11-09 17:13:44 | Bacteremia | [facility] | | | | [facility] | + + + + | 2024-11-09 17:13:44 | Homelessness unspecified | [facility] | | | | [facility] | + + + + | 2024-11-11 03:18:48 | Methicillin resistant | [facility] | | | Staphylococcus aureus | [facility] | | | infection as the cause of | | | | diseases classified | | | | elsewhere | | + + + + | 2024-11-11 03:18:48 | Type 2 diabetes mellitus | [facility] | | | with hyperosmolarity | [facility] | | | without nonketotic | | | | hyperglycemic-hyperosmolar | | | | coma ([facility]) ([facility]) | | + + + + | 2024-11-11 03:18:48 | Cellulitis of unspecified | [facility] | | | part of limb | [facility] | + + + + | 2024-11-11 03:18:48 | Bacteremia | Adithya [place] | | | | [facility] | + + + + | 2024-11-11 03:18:48 | Homelessness unspecified | Ad[place] | | | | [facility] | + + + + | 2024-11-14 16:18:05 | Encounter for attention to | Adithya [place] | | | colostomy ([facility]) | [facility] | + + + + | 2024-11-14 16:19:35 | Osteomyelitis of vertebra, | [place] | | | sacral and sacrococcygeal | [facility] | | | region ([facility]) | | + + + + | 2024-11-14 16:19:35 | Encounter for attention to | [place] | | | colostomy ([facility]) | [facility] | + + + + | 2024-11-14 16:22:32 | Cellulitis of unspecified | [place] | | | part of limb | [facility] | + + + + | 2024-11-14 16:22:32 | Osteomyelitis of vertebra, | [place] | | | sacral and sacrococcygeal | [facility] | | | region ([facility]) | | + + + + | 2024-11-14 16:22:32 | Encounter for attention to | [place] | | | colostomy (HCC) | [facility] | + + + + | 2024-11-14 16:23:26 | Cellulitis of unspecified | [place] | | | part of limb | [facility] | + + + + | 2024-11-14 16:23:26 | Osteomyelitis of vertebra, | [place] | | | sacral and sacrococcygeal | [facility] | | | region ([facility]) | | + + + + | 2024-11-14 16:23:26 | Encounter for attention to | [place] | | | colostomy (HCC) | [facility] | + + + + | 2024-11-14 16:23:26 | Other specified health | Ad[place] | | | status | [facility] | + + + + | 2024-11-14 16:27:27 | Cellulitis of unspecified | [facility] | | | part of limb | [facility] | + + + + | 2024-11-14 16:27:27 | Osteomyelitis of vertebra, | [facility] | | | sacral and sacrococcygeal | [facility] | | | region (HCC) | | + + + + | 2024-11-14 16:27:27 | Encounter for attention to | Ad[place] | | | colostomy (HCC) | [facility] | + + + + | 2024-11-14 16:27:27 | Homelessness unspecified | [facility] | | | | [facility] | + + + + | 2024-11-14 16:27:27 | Other specified health | [facility] | | | status | [facility] | + + + + | 2024-11-14 16:28:09 | Methicillin resistant | [facility] | | | Staphylococcus aureus | [facility] | | | infection as the cause of | | | | diseases classified | | | | elsewhere | | + + + + | 2024-11-14 16:28:09 | Cellulitis of unspecified | [facility] | | | part of limb | [facility] | + + + + | 2024-11-14 16:28:09 | Osteomyelitis of vertebra, | [facility] | | | sacral and sacrococcygeal | [facility] | | | region (HCC) | | + + + + | 2024-11-14 16:28:09 | Bacteremia | [place] | | | | [facility] | + + + + | 2024-11-14 16:28:09 | Encounter for attention to | Ad[place] | | | colostomy (HCC) | [facility] | + + + + | 2024-11-14 16:28:09 | Homelessness unspecified | Ad[place] | | | | [facility] | + + + + | 2024-11-14 16:28:09 | Other specified health | [facility] | | | status | [facility] | + + + + | 2024-11-14 16:30:02 | Methicillin resistant | [facility] | | | Staphylococcus aureus | [facility] | | | infection as the cause of | | | | diseases classified | | | | elsewhere | | + + + + | 2024-11-14 16:30:02 | Other psychoactive | [facility] | | | substance use, unspecified, | [facility] | | | uncomplicated | | + + + + | 2024-11-14 16:30:02 | Cellulitis of unspecified | [facility] | | | part of limb | [facility] | + + + + | 2024-11-14 16:30:02 | Osteomyelitis of vertebra, | [place] | | | sacral and sacrococcygeal | [facility] | | | region ([facility]) | | + + + + | 2024-11-14 16:30:02 | Bacteremia | [place] | | | | [facility] | + + + + | 2024-11-14 16:30:02 | Encounter for attention to | [facility] | | | colostomy (HCC) | [facility] | + + + + | 2024-11-14 16:30:02 | Homelessness unspecified | [facility] | | | | [facility] | + + + + | 2024-11-14 16:30:02 | Other specified health | [facility] | | | status | [facility] | + + + + | 2024-11-14 16:43:46 | Methicillin resistant | [facility] | | | Staphylococcus aureus | [facility] | | | infection as the cause of | | | | diseases classified | | | | elsewhere | | + + + + | 2024-11-14 16:43:46 | Type 2 diabetes mellitus | [facility] | | | with hyperosmolarity | [facility] | | | without nonketotic | | | | hyperglycemic-hyperosmolar | | | | coma ([facility]) ([facility]) | | + + + + | 2024-11-14 16:43:46 | Other psychoactive | [facility] | | | substance use, unspecified, | [facility] | | | uncomplicated | | + + + + | 2024-11-14 16:43:46 | Cellulitis of unspecified | [facility] | | | part of limb | [facility] | + + + + | 2024-11-14 16:43:46 | Osteomyelitis of vertebra, | Adith[place] | | | sacral and sacrococcygeal | [facility] | | | region ([facility]) | | + + + + | 2024-11-14 16:43:46 | Bacteremia | Ad[place] | | | | [facility] | + + + + | 2024-11-14 16:43:46 | Encounter for attention to | Ad[place] | | | colostomy (HCC) | [facility] | + + + + | 2024-11-14 16:43:46 | Homelessness unspecified | Ad[place] | | | | [facility] | + + + + | 2024-11-14 16:43:46 | Other specified health | Adith[place] | | | status | [facility] | + + + + | 2024-11-14 17:17:21 | Methicillin resistant | [facility] | | | Staphylococcus aureus | [facility] | | | infection as the cause of | | | | diseases classified | | | | elsewhere | | + + + + | 2024-11-14 17:17:21 | Type 2 diabetes mellitus | [facility] | | | with hyperosmolarity | [facility] | | | without nonketotic | | | | hyperglycemic-hyperosmolar | | | | coma ([facility]) ([facility]) | | + + + + | 2024-11-14 17:17:21 | Other psychoactive | [facility] | | | substance use, unspecified, | [facility] | | | uncomplicated | | + + + + | 2024-11-14 17:17:21 | Cellulitis of unspecified | [facility] | | | part of limb | [facility] | + + + + | 2024-11-14 17:17:21 | Osteomyelitis of vertebra, | [place] | | | sacral and sacrococcygeal | [facility] | | | region ([facility]) | | + + + + | 2024-11-14 17:17:21 | Bacteremia | [place] | | | | [facility] | + + + + | 2024-11-14 17:17:21 | Encounter for attention to | [place] | | | colostomy (HCC) | [facility] | + + + + | 2024-11-14 17:17:21 | Homelessness unspecified | [place] | | | | [facility] | + + + + | 2024-11-14 17:17:21 | Other specified health | [facility] | | | status | [facility] | + + + + | 2024-11-16 03:30:12 | Methicillin resistant | [facility] | | | Staphylococcus aureus | [facility] | | | infection as the cause of | | | | diseases classified | | | | elsewhere | | + + + + | 2024-11-16 03:30:12 | Type 2 diabetes mellitus | [facility] | | | with hyperosmolarity | [facility] | | | without nonketotic | | | | hyperglycemic-hyperosmolar | | | | coma ([facility]) ([facility]) | | + + + + | 2024-11-16 03:30:12 | Other psychoactive | [facility] | | | substance use, unspecified, | [facility] | | | uncomplicated | | + + + + | 2024-11-16 03:30:12 | Cellulitis of unspecified | [place] | | | part of limb | [facility] | + + + + | 2024-11-16 03:30:12 | Osteomyelitis of vertebra, | [place] | | | sacral and sacrococcygeal | [facility] | | | region ([facility]) | | + + + + | 2024-11-16 03:30:12 | Bacteremia | [place] | | | | [facility] | + + + + | 2024-11-16 03:30:12 | Encounter for attention to | [place] | | | colostomy (HCC) | [facility] | + + + + | 2024-11-16 03:30:12 | Homelessness unspecified | [facility] | | | | [facility] | + + + + | 2024-11-16 03:30:12 | Other specified health | [facility] | | | status | [facility] | + + + + Procedures No information. Results/Labs No information. Social History +--------+ + + | date | description | facility | +--------+ + + Vital Signs No information."
--- OUTSIDE RECORDS SUMMARY | 2024-11-22 01:49 | XMS ---
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 Ict Help Desk Technician Events No recent Security Events currently on file CRITERIA MET - 6 ED Visits in 6 Months - [facility] - 2 Visits in 30 Days - [facility] - 3 Facilities in 90 Days CARE PROVIDERS Franc Wood Community Health Worker 06/08/2023-Current PHONE: [phone] -Emiliano Dental+ Dentist: Slitting Machine Operator [facility] PHONE: [phone] -Chris- Dentist: Slitting Machine Operator [facility] PHONE: [phone] -Kassy- Dentist: Slitting Machine Operator [facility] PHONE: [phone] RODNEY KIM Physician Instructional Coach Current PHONE: [phone] [facility] Current FAMILY PHONE: [phone] BRAYDON VILLATORO [facility] Current PHONE: [phone] SANTY MEJIA Physician Instructional Coach Current PHONE: Unknown Darleen Goins Dental Hygiene Instructor/Jockey Valet Current PHONE: [phone] Guidelines Source: [facility] Guidelines Date: 03/17/2022 Care Recommendation: PATIENT RECENTLY [...] TO COPES. Corea VISIT COUNT ([address] [facility] 6 Alex Schneider [address] 1 [facility] Violet Ortez (Cristin Amaral) TOTAL 35 NOTE: Visits indicate total known visits. 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 - Nicotine dependence, unspecified, uncomplicated - Other 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) drug therapy - Type 2 diabetes mellitus without complications - Unspecified open wound, left lower leg, initial encounter - Unspecified open wound, right lower leg, initial encounter 11/05/2024 10:59 [facility] TYPE: Emergency DIAGNOSES: - Presence of other specified devices - IV Placement 10/24/2024 15:23 [facility] TYPE: Emergency COMPLAINT: - WOUND INFECTION 10/22/2024 16:10 [facility] TYPE: Emergency COMPLAINT: - CATHETER ISSUE DIAGNOSES: - Gastrostomy malfunction - Procedure and treatment not carried out due to patient leaving prior to being seen by health care provider 10/18/2024 00:27 [facility] [place] TYPE: Emergency COMPLAINT: - LEG PAIN DIAGNOSES: - Allergy status to other drugs, medicaments and biological substances - Essential (primary) hypertension - Hypothyroidism, unspecified - 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 - Nicotine dependence, unspecified, uncomplicated - Non-pressure chronic ulcer of left calf limited to breakdown of skin - Non-pressure chronic ulcer of other part of right foot limited to breakdown of skin - Other half-way (current) drug therapy - Other stimulant abuse, [...] to colostomy - Essential (primary) hypertension - 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) use of antibiotics - Nicotine dependence, unspecified, uncomplicated - Type 2 diabetes mellitus without complications 10/03/2024 22:42 [facility] [place] TYPE: Emergency COMPLAINT: - NEUROPATHY 09/27/2024 11:05 [facility] [place] TYPE: Emergency DIAGNOSES: - Acute kidney failure, unspecified - Hyperglycemia, unspecified - Non-pressure chronic ulcer of other part of right foot with necrosis of bone - Retention of urine, unspecified - Type 2 diabetes mellitus with foot ulcer - traffic control technician failure 09/25/2024 17:44 [facility] [place] TYPE: Emergency COMPLAINT: - Needs new bag DIAGNOSES: - Needs new bag 09/24/2024 21:05 [facility] [place] TYPE: Emergency DIAGNOSES: - Encounter for fitting and adjustment of urinary device - Personal history of other specified conditions - Catheter issue 09/23/2024 20:04 Alex Guz[facility] [place] TYPE: Emergency DIAGNOSES: - Abrasion, left foot, initial encounter - Other specified problems related to psychosocial circumstances - CODE WHITE 09/22/2024 17:05 [facility] [place] TYPE: Emergency DIAGNOSES: - Elevated blood-pressure reading, without diagnosis of hypertension - Other specified counseling - Paraplegia, unspecified - nedds colostomy bag 09/09/2024 19:18 [facility] [place] TYPE: Emergency DIAGNOSES: - 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 - Non-pressure chronic [...] replacement therapy - Hypothermia, initial encounter - 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 - Nicotine dependence, unspecified, uncomplicated - Other half-way (current) drug therapy - Pneumonia, unspecified organism - Type 2 diabetes mellitus without complications 08/06/2024 08:50 [facility] [place] TYPE: Emergency COMPLAINT: - ABD PAIN DIAGNOSES: - Allergy status to other drugs, medicaments and biological substances - Essential (primary) hypertension - Gastrostomy status - Intentional self-harm by other specified means, initial encounter - 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 - Nicotine dependence, unspecified, uncomplicated - Non-pressure chronic ulcer of unspecified part of left lower leg limited to breakdown of skin - Non-pressure chronic ulcer of unspecified part of right lower leg limited to breakdown of skin - Other 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) drug therapy - Other psychoactive [...] replacement therapy - Hypothyroidism, unspecified - 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 - Nicotine dependence, unspecified, uncomplicated - Other complications of colostomy - Other complications of colostomy - Other half-way (current) drug therapy - Pain due to [...] replacement therapy - Hypothyroidism, unspecified - 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 - Nicotine dependence, unspecified, uncomplicated - Other half-way (current) drug therapy - Paraplegia, unspecified - Presence of urogenital implants - Problems related to health literacy - Pure hypercholesterolemia, unspecified - Type 2 diabetes mellitus without complications - Unspecified visual loss Plus 15 More Visits INPATIENT VISIT TRACKING (12 MO.) [...] unspecified - Iron deficiency anemia, unspecified - long-term (current) use of antibiotics - long-term (current) use of antibiotics - long-term (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 - 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 - 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) use of opiate analgesic - long-term (current) use of opiate analgesic - Low [...] pain - Other chronic pain - Other half-way (current) drug therapy - Other 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) drug therapy - Other stimulant [...] nodes - Localized enlarged lymph nodes - 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 - long-term (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 - Nicotine dependence, cigarettes, uncomplicated - Nicotine dependence, cigarettes, uncomplicated - Osteomyelitis, unspecified - Other chronic pain - Other chronic pain - Other half-way (current) drug therapy - Other 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) drug therapy - Other osteomyelitis, [...] loss - Unspecified visual loss 08/13/2024 13:06 [facility] TYPE: Internal Medicine DIAGNOSES: - Metabolic [...] the cause of diseases classified elsewhere - 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 - 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) use of oral hypoglycemic drugs - Methicillin resistant Staphylococcus aureus infection as the cause of diseases classified elsewhere - Nicotine dependence, cigarettes, uncomplicated - Osteomyelitis, unspecified - Other complications of colostomy - Other half-way (current) drug therapy - Other specified postprocedural [...] tract infection, site not specified 04/20/2024 11:54 [facility] TYPE: Internal Medicine DIAGNOSES: - [...] TYPE: Critical Care COMPLAINT: - SEPSIS,PYELONEPHRITIS,PNEUMONIA,UNCONTROLLED DIABE [id number]
[2024-11-22] MEDS ORDERED: TRAMADOL HCL 50 MG TAB PO ONE (02:00)
[2024-11-22] MEDS ORDERED: DOXYCYCLINE HYCLATE 100 MG CAP PO ONE (02:00)
[2024-11-22 02:16] LABS: BASOPHILS 1.3 % (0.2-1.2); EOSINOPHILS 5.2 % (0.8-7.0); LYMPHOCYTES 18.3 % (21.8-53.1); MCH 23.3 PG (25.7-32.2); MCHC 29.3 g/dL (32.3-36.5); MCV 79.3 fL (79.0-92.2); MONOCYTES 8.2 % (5.3-12.2); NEUTROPHILS 66.5 % (34.0-67.9); RBC 4.21 M/uL (4.63-6.08)
[2024-11-22] MEDS ORDERED: DOXYCYCLINE HYCLATE 100 MG HOME.PACK PO ONE (03:00)
[2024-11-22 06:44] VITALS: BP 123/91
== END 2024-11-22 07:40 | disposition home or self-care (01) ==
LOC: ED 01:48
PROVIDERS: Family Medicine
DX: E11.621 Type 2 diabetes mellitus with foot ulcer (principal); L97.529 Non-pressure chronic ulcer of other part of left foot with unspecified severity; L97.519 Non-pressure chronic ulcer of other part of right foot with unspecified severity; E11.69 Type 2 diabetes mellitus with other specified complication; E11.9 Type 2 diabetes mellitus without complications; M86.672 Other chronic osteomyelitis, left ankle and foot; M86.671 Other chronic osteomyelitis, right ankle and foot; E03.9 Hypothyroidism, unspecified; I10 Essential (primary) hypertension; F17.200 Nicotine dependence, unspecified, uncomplicated; Z79.899 Other long term (current) drug therapy
CPT/HCPCS: 36415; 85025; 99283; A9270

== ENCOUNTER 2024-11-25 02:51 | Emergency (ER) | payer OTHER ==
[~2024-11-25] VITALS: Ht 195.6 cm; Wt 107.3 kg
--- OUTSIDE RECORDS SUMMARY | ~2024-11-25 | XMS | Continuity of Care Document ---
Demographics + + + | Address | [address] | | | [place] [address] | + + + | Preferred Language | Unknown | + + + | Marital Status | unknown | + + + | Christianity Affiliation | Unknown | + + + | Race | White | + + + | Ethnic Group | Unknown | + + + Author + + + | Author | [facility] | + + + | Organization | [facility] | + + + | Address | [address] | | | [place] [address] | + + + | Phone | | + + + Care Team Providers + + + + | Care Verifier Operator Name | Role | Phone | + [...] [place] | | | specified devices | [facility] | + + + + | 2024-11-05 11:39:12 | Presence of other | Adithya [place] | | | specified devices | [facility] | + + + + | 2024-11-06 07:05:15 | Other iron deficiency | [facility] | | | anemias | [facility] | + + + + | 2024-11-06 07:05:15 | Type 2 diabetes mellitus | [facility] | | | with mild nonproliferative | [facility] | | | diabetic retinopathy | | | | without macular edema, | | | | bilateral (HCC) | | + + + + | 2024-11-06 07:05:15 | Osteomyelitis of vertebra, | Adithya [place] | | | sacral and sacrococcygeal | [facility] | | | region ([facility]) | | + + + + | 2024-11-06 07:05:15 | Other specified abnormal | Adithya [place] | | | findings of blood chemistry | [facility] | | | | | + + + + | 2024-11-06 07:05:15 | Encounter for attention to | Adithya [place] | | | colostomy ([facility]) | [facility] | + + + + | 2024-11-06 07:05:15 | Homelessness unspecified | Adithya [place] | | | | [facility] | + + + + | 2024-11-06 07:05:15 | Other specified health | [facility] | | | status | [facility] | + + + + | 2024-11-06 07:05:15 | 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) | [facility] | + + + + | 2024-11-06 11:09:59 | Other iron deficiency | [facility] | | | anemias | [facility] | + + + + | 2024-11-06 11:09:59 | Type 2 diabetes mellitus | [facility] | | | with mild nonproliferative | [facility] | | | diabetic retinopathy | | | | without macular edema, | | | | bilateral (HCC) | | + + + + | 2024-11-06 11:09:59 | Osteomyelitis of vertebra, | Adithya [place] | | | sacral and sacrococcygeal | [facility] | | | region ([facility]) | | + + + + | 2024-11-06 11:09:59 | Other specified abnormal | [facility] | | | findings of blood chemistry | [facility] | | | | | + + + + | 2024-11-06 11:09:59 | Encounter for attention to | Adithya [place] | | | colostomy ([facility]) | [facility] | + + + + | 2024-11-06 11:09:59 | [facility]ness unspecified | [facility] | | | | [facility] | + + + + | 2024-11-06 11:09:59 | Other specified health | [facility] | | | status | [facility] | + + + + | 2024-11-06 11:09:59 | 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) | [facility] | + + + + | 2024-11-06 11:20:16 | Other iron deficiency | [facility] | | | anemias | [facility] | + + + + | 2024-11-06 11:20:16 | Type 2 diabetes mellitus | [facility] | | | with hyperosmolarity | [facility] | | | without nonketotic | | | | hyperglycemic-hyperosmolar | | | | coma ([facility]) ([facility]) | | + + + + | 2024-11-06 11:20:16 | Osteomyelitis of vertebra, | [facility] | | | sacral and sacrococcygeal | [facility] | | | region ([facility]) | | + + + + | 2024-11-06 11:20:16 | Other specified abnormal | Adithya [place] | | | findings of blood chemistry | [facility] | | | | | + + + + | 2024-11-06 11:20:16 | Encounter for attention to | Adithya [place] | | | colostomy (HCC) | [facility] | + + + + | 2024-11-06 11:20:16 | Homelessness unspecified | Antonito [place] | | | | [facility] | + + + + | 2024-11-06 11:20:16 | Other specified health | [place] | | | status | [facility] | + + + + | 2024-11-06 11:32:44 | Other iron deficiency | [facility] | | | anemias | [facility] | + + + + | 2024-11-06 11:32:44 | Type 2 diabetes mellitus | [facility] | | | with hyperosmolarity | [facility] | | | without nonketotic | | | | hyperglycemic-hyperosmolar | | | | coma ([facility]) ([facility]) | | + + + + | 2024-11-06 11:32:44 | Osteomyelitis of vertebra, | [facility] | | | sacral and sacrococcygeal | [facility] | | | region ([facility]) | | + + + + | 2024-11-06 11:32:44 | Other specified abnormal | Adithya [place] | | | findings of blood chemistry | [facility] | | | | | + + + + | 2024-11-06 11:32:44 | Encounter for attention to | Adithya [place] | | | colostomy (HCC) | [facility] | + + + + | 2024-11-06 11:32:44 | Homelessness unspecified | [facility] | | | | [facility] | + + + + | 2024-11-06 11:32:44 | Other specified health | [facility] | | | status | [facility] | + + + + | 2024-11-06 22:05:28 | Other iron deficiency | [facility] | | | anemias | [facility] | + + + + | 2024-11-06 22:05:28 | Type 2 diabetes mellitus | [facility] | | | with hyperosmolarity | [facility] | | | without nonketotic | | | | hyperglycemic-hyperosmolar | | | | coma ([facility]) ([facility]) | | + + + + | 2024-11-06 22:05:28 | Cellulitis of unspecified | [facility] | | | part of limb | [facility] | + + + + | 2024-11-06 22:05:28 | Osteomyelitis of vertebra, | Adithya [place] | | | sacral and sacrococcygeal | [facility] | | | region ([facility]) | | + + + + | 2024-11-06 22:05:28 | Other specified abnormal | Adithya [place] | | | findings of blood chemistry | [facility] | | | | | + + + + | 2024-11-06 22:05:28 | Encounter for attention to | Adithya [place] | | | colostomy (HCC) | [facility] | + + + + | 2024-11-06 22:05:28 | Homelessness unspecified | [facility] | | | | [facility] | + + + + | 2024-11-06 22:05:28 | Other specified health | [facility] | | | status | [facility] | + + + + | 2024-11-06 22:05:59 | Methicillin resistant | [facility] | | | Staphylococcus aureus | [facility] | | | infection as the cause of | | | | diseases classified | | | | elsewhere | | + + + + | 2024-11-06 22:05:59 | Other iron deficiency | [facility] | | | anemias | [facility] | + + + + | 2024-11-06 22:05:59 | Type 2 diabetes mellitus | [facility] | | | with hyperosmolarity | [facility] | | | without nonketotic | | | | hyperglycemic-hyperosmolar | | | | coma ([facility]) ([facility]) | | + + + + | 2024-11-06 22:05:59 | Cellulitis of unspecified | [facility] | | | part of limb | [facility] | + + + + | 2024-11-06 22:05:59 | [facility]omyelitis of vertebra, | [facility] | | | sacral and sacrococcygeal | [facility] | | | region ([facility]) | | + + + + | 2024-11-06 22:05:59 | Bacteremia | [facility] | | | | [facility] | + + + + | 2024-11-06 22:05:59 | Other specified abnormal | Adithya [place] | | | findings of blood chemistry | [facility] | | | | | + + + + | 2024-11-06 22:05:59 | Encounter for attention to | Adithya [place] | | | colostomy (HCC) | [facility] | + + + + | 2024-11-06 22:05:59 | Homelessness unspecified | Anton[place] | | | | [facility] | + + + + | 2024-11-06 22:05:59 | Other specified health | [place] [place] | | | status | [facility] | + + + + | 2024-11-08 03:56:20 | Methicillin resistant | [facility] | | | Staphylococcus aureus | [facility] | | | infection as the cause of | | | | diseases classified | | | | elsewhere | | + + + + | 2024-11-08 03:56:20 | Other iron deficiency | [facility] | | | anemias | [facility] | + + + + | 2024-11-08 03:56:20 | Type 2 diabetes mellitus | [facility] | | | with hyperosmolarity | [facility] | | | without nonketotic | | | | hyperglycemic-hyperosmolar | | | | coma ([facility]) ([facility]) | | + + + + | 2024-11-08 03:56:20 | Cellulitis of unspecified | [facility] | | | part of limb | [facility] | + + + + | 2024-11-08 03:56:20 | Osteomyelitis of vertebra, | Adithya [place] | | | sacral and sacrococcygeal | [facility] | | | region ([facility]) | | + + + + | 2024-11-08 03:56:20 | Bacteremia | [facility] | | | | [facility] | + + + + | 2024-11-08 03:56:20 | Other specified abnormal | [facility] | | | findings of blood chemistry | [facility] | | | | | + + + + | 2024-11-08 03:56:20 | Encounter for attention to | Adith[place] | | | colostomy ([facility]) | [facility] | + + + + | 2024-11-08 03:56:20 | Homelessness unspecified | Adithya [place] | | | | [facility] | + + + + | 2024-11-08 03:56:20 | Other specified health | Adith[place] | | | status | [facility] | + + + + | 2024-11-08 11:36:10 | Presence of other | Adithya [place] | | | specified devices | [facility] | + + + + | 2024-11-09 16:58:30 | Cellulitis of unspecified | Adithya [place] | | | part of limb | [facility] | + + + + | 2024-11-09 17:00:58 | Cellulitis of unspecified | Adithya [place] | | | part of limb | [facility] | + + + + | 2024-11-09 17:00:58 | Homelessness unspecified | Adithya [place] | | | | [facility] | + + + + | 2024-11-09 17:02:16 | Methicillin resistant | Adithya [place] | | | Staphylococcus aureus | [facility] | | | infection as the cause of | | | | diseases classified | | | | elsewhere | | + + + + | 2024-11-09 17:02:16 | Cellulitis of unspecified | Antonito [place] | | | part of limb | [facility] | + + + + | 2024-11-09 17:02:16 | Bacteremia | Adithya [place] | | | | [facility] | + + + + | 2024-11-09 17:02:16 | [facility]ness unspecified | [facility] | | | | [facility] | + + + + | 2024-11-09 17:13:21 | Methicillin resistant | [facility] | | | Staphylococcus aureus | [facility] | | | infection as the cause of | | | | diseases classified | | | | elsewhere | | + + + + | 2024-11-09 17:13:21 | Type 2 diabetes mellitus | [facility] | | | with hyperosmolarity | [facility] | | | without nonketotic | | | | hyperglycemic-hyperosmolar | | | | coma ([facility]) ([facility]) | | + + + + | 2024-11-09 17:13:21 | Cellulitis of unspecified | [facility] | | | part of limb | [facility] | + + + + | 2024-11-09 17:13:21 | Bacteremia | [facility] | | | | [facility] | + + + + | 2024-11-09 17:13:21 | Homelessness unspecified | [facility] | | | | [facility] | + + + + | 2024-11-09 17:13:44 | Methicillin resistant | [facility] | | | Staphylococcus aureus | [facility] | | | infection as the cause of | | | | diseases classified | | | | elsewhere | | + + + + | 2024-11-09 17:13:44 | Type 2 diabetes mellitus | [facility] | | | with hyperosmolarity | [facility] | | | without nonketotic | | | | hyperglycemic-hyperosmolar | | | | coma ([facility]) ([facility]) | | + + + + | 2024-11-09 17:13:44 | Cellulitis of unspecified | [facility] | | | part of limb | [facility] | + + + + | 2024-11-09 17:13:44 | Bacteremia | [facility] | | | | [facility] | + + + + | 2024-11-09 17:13:44 | Homelessness unspecified | [facility] | | | | [facility] | + + + + | 2024-11-11 03:18:48 | Methicillin resistant | [facility] | | | Staphylococcus aureus | [facility] | | | infection as the cause of | | | | diseases classified | | | | elsewhere | | + + + + | 2024-11-11 03:18:48 | Type 2 diabetes mellitus | [facility] | | | with hyperosmolarity | [facility] | | | without nonketotic | | | | hyperglycemic-hyperosmolar | | | | coma ([facility]) ([facility]) | | + + + + | 2024-11-11 03:18:48 | Cellulitis of unspecified | [facility] | | | part of limb | [facility] | + + + + | 2024-11-11 03:18:48 | Bacteremia | Adithya [place] | | | | [facility] | + + + + | 2024-11-11 03:18:48 | Homelessness unspecified | Adithya [place] | | | | [facility] | + + + + | 2024-11-14 16:18:05 | Encounter for attention to | Adithya [place] | | | colostomy ([facility]) | [facility] | + + + + | 2024-11-14 16:19:35 | Osteomyelitis of vertebra, | Antonito [place] | | | sacral and sacrococcygeal | [facility] | | | region ([facility]) | | + + + + | 2024-11-14 16:19:35 | Encounter for attention to | Antonito [place] | | | colostomy ([facility]) | [facility] | + + + + | 2024-11-14 16:22:32 | Cellulitis of unspecified | Antonito [place] | | | part of limb | [facility] | + + + + | 2024-11-14 16:22:32 | Osteomyelitis of vertebra, | Antonito [place] | | | sacral and sacrococcygeal | [facility] | | | region ([facility]) | | + + + + | 2024-11-14 16:22:32 | Encounter for attention to | Antonito [place] | | | colostomy (HCC) | [facility] | + + + + | 2024-11-14 16:23:26 | Cellulitis of unspecified | Antonito [place] | | | part of limb | [facility] | + + + + | 2024-11-14 16:23:26 | Osteomyelitis of vertebra, | Antonito [place] | | | sacral and sacrococcygeal | [facility] | | | region ([facility]) | | + + + + | 2024-11-14 16:23:26 | Encounter for attention to | Antonito [place] | | | colostomy (HCC) | [facility] | + + + + | 2024-11-14 16:23:26 | Other specified health | Adithya [place] | | | status | [facility] | + + + + | 2024-11-14 16:27:27 | Cellulitis of unspecified | [facility] | | | part of limb | [facility] | + + + + | 2024-11-14 16:27:27 | [facility], | [facility] | | | sacral and sacrococcygeal | [facility] | | | region (HCC) | | + + + + | 2024-11-14 16:27:27 | Encounter for attention to | Adithya [place] | | | colostomy (HCC) | [facility] | + + + + | 2024-11-14 16:27:27 | Homelessness unspecified | [facility] | | | | [facility] | + + + + | 2024-11-14 16:27:27 | Other specified health | [facility] | | | status | [facility] | + + + + | 2024-11-14 16:28:09 | Methicillin resistant | [facility] | | | Staphylococcus aureus | [facility] | | | infection as the cause of | | | | diseases classified | | | | elsewhere | | + + + + | 2024-11-14 16:28:09 | Cellulitis of unspecified | [facility] | | | part of limb | [facility] | + + + + | 2024-11-14 16:28:09 | Osteomyelitis of vertebra, | [facility] | | | sacral and sacrococcygeal | [facility] | | | region (HCC) | | + + + + | 2024-11-14 16:28:09 | Bacteremia | Adithya [place] | | | | [facility] | + + + + | 2024-11-14 16:28:09 | Encounter for attention to | Adithya [place] | | | colostomy (HCC) | [facility] | + + + + | 2024-11-14 16:28:09 | Homelessness unspecified | Adithya [place] | | | | [facility] | + + + + | 2024-11-14 16:28:09 | Other specified health | [facility] | | | status | [facility] | + + + + | 2024-11-14 16:30:02 | Methicillin resistant | [facility] | | | Staphylococcus aureus | [facility] | | | infection as the cause of | | | | diseases classified | | | | elsewhere | | + + + + | 2024-11-14 16:30:02 | Other psychoactive | [facility] | | | substance use, unspecified, | [facility] | | | uncomplicated | | + + + + | 2024-11-14 16:30:02 | Cellulitis of unspecified | [facility] | | | part of limb | [facility] | + + + + | 2024-11-14 16:30:02 | Osteomyelitis of vertebra, | Antonito [place] | | | sacral and sacrococcygeal | [facility] | | | region ([facility]) | | + + + + | 2024-11-14 16:30:02 | Bacteremia | Antonito [place] | | | | [facility] | + + + + | 2024-11-14 16:30:02 | Encounter for attention to | [facility] | | | colostomy (HCC) | [facility] | + + + + | 2024-11-14 16:30:02 | Homelessness unspecified | [facility] | | | | [facility] | + + + + | 2024-11-14 16:30:02 | Other specified health | [facility] | | | status | [facility] | + + + + | 2024-11-14 16:43:46 | Methicillin resistant | [facility] | | | Staphylococcus aureus | [facility] | | | infection as the cause of | | | | diseases classified | | | | elsewhere | | + + + + | 2024-11-14 16:43:46 | Type 2 diabetes mellitus | [facility] | | | with hyperosmolarity | [facility] | | | without nonketotic | | | | hyperglycemic-hyperosmolar | | | | coma ([facility]) ([facility]) | | + + + + | 2024-11-14 16:43:46 | Other psychoactive | [facility] | | | substance use, unspecified, | [facility] | | | uncomplicated | | + + + + | 2024-11-14 16:43:46 | Cellulitis of unspecified | [facility] | | | part of limb | [facility] | + + + + | 2024-11-14 16:43:46 | Osteomyelitis of vertebra, | Adithya [place] | | | sacral and sacrococcygeal | [facility] | | | region ([facility]) | | + + + + | 2024-11-14 16:43:46 | Bacteremia | Adithya [place] | | | | [facility] | + + + + | 2024-11-14 16:43:46 | Encounter for attention to | Adithya [place] | | | colostomy (HCC) | [facility] | + + + + | 2024-11-14 16:43:46 | Homelessness unspecified | Adithya [place] | | | | [facility] | + + + + | 2024-11-14 16:43:46 | Other specified health | Adithya [place] | | | status | [facility] | + + + + | 2024-11-14 17:17:21 | Methicillin resistant | [facility] | | | Staphylococcus aureus | [facility] | | | infection as the cause of | | | | diseases classified | | | | elsewhere | | + + + + | 2024-11-14 17:17:21 | Type 2 diabetes mellitus | [facility] | | | with hyperosmolarity | [facility] | | | without nonketotic | | | | hyperglycemic-hyperosmolar | | | | coma ([facility]) ([facility]) | | + + + + | 2024-11-14 17:17:21 | Other psychoactive | [facility] | | | substance use, unspecified, | [facility] | | | uncomplicated | | + + + + | 2024-11-14 17:17:21 | Cellulitis of unspecified | [facility] | | | part of limb | [facility] | + + + + | 2024-11-14 17:17:21 | Osteomyelitis of vertebra, | Antonito [place] | | | sacral and sacrococcygeal | [facility] | | | region ([facility]) | | + + + + | 2024-11-14 17:17:21 | Bacteremia | Antonito [place] | | | | [facility] | + + + + | 2024-11-14 17:17:21 | Encounter for attention to | Antonito [place] | | | colostomy (HCC) | [facility] | + + + + | 2024-11-14 17:17:21 | Homelessness unspecified | Antonito [place] | | | | [facility] | + + + + | 2024-11-14 17:17:21 | Other specified health | [facility] | | | status | [facility] | + + + + | 2024-11-16 03:30:12 | Methicillin resistant | [facility] | | | Staphylococcus aureus | [facility] | | | infection as the cause of | | | | diseases classified | | | | elsewhere | | + + + + | 2024-11-16 03:30:12 | Type 2 diabetes mellitus | [facility] | | | with hyperosmolarity | [facility] | | | without nonketotic | | | | hyperglycemic-hyperosmolar | | | | coma ([facility]) ([facility]) | | + + + + | 2024-11-16 03:30:12 | Other psychoactive | [facility] | | | substance use, unspecified, | [facility] | | | uncomplicated | | + + + + | 2024-11-16 03:30:12 | Cellulitis of unspecified | Adith[place] | | | part of limb | [facility] | + + + + | 2024-11-16 03:30:12 | Osteomyelitis of vertebra, | Antonito [place] | | | sacral and sacrococcygeal | [facility] | | | region ([facility]) | | + + + + | 2024-11-16 03:30:12 | Bacteremia | Adithya [place] | | | | [facility] | + + + + | 2024-11-16 03:30:12 | Encounter for attention to | Antonito [place] | | | colostomy (HCC) | [facility] | + + + + | 2024-11-16 03:30:12 | Homelessness unspecified | [facility] | | | | [facility] | + + + + | 2024-11-16 03:30:12 | Other specified health | [facility] | | | status | [facility] | + + + + Procedures No information. Results/Labs No information. Social History +--------+ + + | date | description | facility | +--------+ + + Vital Signs No information."
--- OUTSIDE RECORDS SUMMARY | 2024-11-25 02:52 | XMS ---
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 Supervisor Partial Denture Department Events No recent Security Events currently on file CRITERIA MET - 6 ED Visits in 6 Months - [facility] - 2 Visits in 30 Days - [facility] - 3 Facilities in 90 Days CARE PROVIDERS Franc Wood Community Health Worker 06/08/2023-Current PHONE: [phone] -Emiliano Dental+ Dentist: Machinist Instructor [facility] PHONE: [phone] -Chris- Dentist: Machinist Instructor [facility] PHONE: [phone] -Kassy- Dentist: Machinist Instructor [facility] PHONE: [phone] RODNEY KIM Physician Tents Assembler Current PHONE: [phone] [facility]: [facility] Current FAMILY PHONE: [phone] BRAYDON HAIDER Family [facility] Current PHONE: [phone] BRAYDON VILLATORO Family [facility] Current PHONE: [phone] SANTY MEJIA Physician Tents Assembler Current PHONE: Unknown Darleen Goins Machine Deburrer/Corn Shucker Current PHONE: [phone] Guidelines Source: [facility] Guidelines Date: 03/17/2022 Care Recommendation: PATIENT RECENTLY DISCHARGED FROM [facility]- DIFFICULT PLACEMENT. PATIENT WAS NOT [...] TO COPES. [place] VISIT COUNT (12 MO.) 25 [facility] 6 Alex Schneider 3 [facility] 1 [facility] 1 [facility] (Cristin Amaral) TOTAL 36 NOTE: Visits indicate total known visits. ED/UCC VISIT TRACKING (12 MO.) 11/25/2024 02:51 [facility] [place] TYPE: Emergency COMPLAINT: - SWOLLEN EXTREMITY 11/22/2024 01:49 [facility] [place] TYPE: Emergency COMPLAINT: - WEAKNESS DIAGNOSES: - Essential (primary) hypertension - Hypothyroidism, unspecified - Low back pain, unspecified - Nicotine dependence, unspecified, uncomplicated - Non-pressure chronic ulcer of other part of left foot with unspecified severity - Non-pressure chronic ulcer of other part of right foot with unspecified severity - Other chronic osteomyelitis, left ankle and foot - Other chronic osteomyelitis, right ankle and foot - Other prison (current) drug therapy - Type 2 diabetes mellitus with foot ulcer - Type 2 diabetes mellitus with other specified complication - Type 2 diabetes mellitus without complications 11/20/2024 03:16 [facility] [place] TYPE: Emergency COMPLAINT: - COLOTOMY BAG ISSUE DIAGNOSES: - Encounter for change or removal of nonsurgical wound dressing - Encounter for change or removal of surgical wound dressing - Unspecified open wound, left lower leg, initial encounter - Unspecified open wound, right lower leg, initial encounter 11/19/2024 07:30 [facility] TYPE: Emergency COMPLAINT: - WOUNDS DIAGNOSES: - Allergy status to other drugs, medicaments and biological substances - Essential (primary) hypertension - Exposure to other specified factors, initial encounter - Homelessness unspecified - Hormone replacement therapy - snf (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 - Nicotine dependence, unspecified, uncomplicated - Other prison (current) drug therapy - Type 2 diabetes mellitus without complications - Unspecified open wound, left lower leg, initial encounter - Unspecified open wound, right lower leg, initial encounter 11/05/2024 10:59 [facility] TYPE: Emergency DIAGNOSES: - Presence of other [...] Essential (primary) hypertension - Hypothyroidism, unspecified - 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 - Nicotine dependence, unspecified, uncomplicated - Non-pressure chronic ulcer of left calf limited to breakdown of skin - Non-pressure chronic ulcer of other part of right foot limited to breakdown of skin - Other prison (current) drug therapy - Other stimulant abuse, [...] to colostomy - Essential (primary) hypertension - 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 - Nicotine dependence, [...] 2 diabetes mellitus with foot ulcer - public records officer failure 09/25/2024 17:44 [facility] [place] TYPE: Emergency COMPLAINT: - Needs [...] unspecified - nedds colostomy bag 09/09/2024 19:18 [facility] [place] TYPE: Emergency DIAGNOSES: - 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 - Non-pressure chronic [...] replacement therapy - Hypothermia, initial encounter - 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 - Nicotine dependence, unspecified, uncomplicated - Other long term care pharmacist (current) drug therapy - Pneumonia, unspecified organism - Type 2 diabetes mellitus without complications 08/06/2024 08:50 [facility] [place] TYPE: Emergency COMPLAINT: - ABD PAIN DIAGNOSES: - Allergy status to other drugs, medicaments and biological substances - Essential (primary) hypertension - Gastrostomy status - Intentional self-harm by other specified means, initial encounter - snf (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 - Nicotine dependence, unspecified, uncomplicated - Non-pressure chronic ulcer of unspecified part of left lower leg limited to breakdown of skin - Non-pressure chronic ulcer of unspecified part of right lower leg limited to breakdown of skin - Other long term care pharmacist (current) drug therapy - Other psychoactive substance abuse, uncomplicated - Paraplegia, unspecified - Presence of urogenital implants - Pressure ulcer of sacral region, unspecified stage - Pure hypercholesterolemia, unspecified - Suicidal ideations - Suicide attempt, initial encounter - Type 2 diabetes mellitus without complications 08/05/2024 05:[address] [facility] [place] TYPE: Emergency COMPLAINT: - MEDICAL DIAGNOSES: - Allergy status to other drugs, medicaments and biological substances - Essential (primary) hypertension - Homelessness unspecified - Hormone replacement therapy - Hypothyroidism, unspecified - snf (current) use of insulin - Nicotine dependence, unspecified, uncomplicated - Other complications of colostomy - Other complications of colostomy - Other long term care pharmacist (current) drug therapy - Pain due to other internal prosthetic devices, implants and grafts, initial encounter - Paraplegia, unspecified - Pressure ulcer of other site, unspecified stage - Pressure ulcer of right heel, unspecified stage - Pressure ulcer of sacral region, unspecified stage - Pure hypercholesterolemia, unspecified - Type 2 diabetes mellitus without complications - Unspecified visual loss Plus 16 More Visits INPATIENT VISIT TRACKING (12 MO.) [...] unspecified - Iron deficiency anemia, unspecified - 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 - snf (current) use of antibiotics - 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 - 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 - snf (current) use of opiate analgesic - snf (current) use of opiate analgesic - Low [...] pain - Other chronic pain - Other prison (current) drug therapy - Other long term care pharmacist (current) drug therapy - Other stimulant use, [...] nodes - Localized enlarged lymph nodes - 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 - snf (current) use of insulin - Nicotine dependence, cigarettes, uncomplicated - Nicotine dependence, cigarettes, uncomplicated - Osteomyelitis, unspecified - Other chronic pain - Other chronic pain - Other prison (current) drug therapy - Other prison (current) drug therapy - Other osteomyelitis, other [...] loss - Unspecified visual loss 08/13/2024 13:06 [facility] TYPE: Internal Medicine DIAGNOSES: - Metabolic [...] the cause of diseases classified elsewhere - snf (current) use of insulin - snf (current) use of oral hypoglycemic drugs - Methicillin resistant Staphylococcus aureus infection as the cause of diseases classified elsewhere - Nicotine dependence, cigarettes, uncomplicated - Osteomyelitis, unspecified - Other complications of colostomy - Other prison (current) drug therapy - Other specified postprocedural [...] tract infection, site not specified 04/20/2024 11:54 [facility] TYPE: Internal Medicine DIAGNOSES: - Acute [...] TYPE: Critical Care COMPLAINT: - SEPSIS,PYELONEPHRITIS,PNEUMONIA,UNCONTROLLED DIABE [email or web address]
[2024-11-25 03:41] LABS: BASOPHILS 0.7 % (0.2-1.2); EOSINOPHILS 4.6 % (0.8-7.0); LYMPHOCYTES 11.5 % (21.8-53.1); MCH 23.3 PG (25.7-32.2); MCHC 29.5 g/dL (32.3-36.5); MCV 79.2 fL (79.0-92.2); MONOCYTES 8.0 % (5.3-12.2); NEUTROPHILS 75.0 % (34.0-67.9); RBC 4.37 M/uL (4.63-6.08)
[2024-11-25 03:56] LABS: ALT (SGPT) 16.0 U/L (14-59); AST (SGOT) 16.0 U/L (15-37); GLOMERULAR FILTRATION RATE,EST 46.0 mL/min (>60); PROTEIN, TOTAL 7.8 g/dL (6.4-8.2); UREA NITROGEN 26.0 mg/dL (7-18)
[2024-11-25] MEDS ORDERED: TRAMADOL HCL 50 MG TAB PO ONE (04:30)
[2024-11-25 08:33] VITALS: BP 112/84
== END 2024-11-25 08:35 | disposition home or self-care (01) ==
LOC: ED 02:51
PROVIDERS: Family Medicine
DX: M87.9 Osteonecrosis, unspecified (principal); E08.621 Diabetes mellitus due to underlying condition with foot ulcer; M86.60 Other chronic osteomyelitis, unspecified site; I10 Essential (primary) hypertension; E78.00 Pure hypercholesterolemia, unspecified; E03.9 Hypothyroidism, unspecified; F17.200 Nicotine dependence, unspecified, uncomplicated; Z91.199 Patient's noncompliance with other medical treatment and regimen due to unspecified reason; Z88.8 Allergy status to other drugs, medicaments and biological substances
CPT/HCPCS: 36415; 70450; 80053; 85025; 99284-25; A4311

== ENCOUNTER 2024-11-28 10:20 | Emergency (ER) | payer OTHER ==
[~2024-11-28] VITALS: Ht 195.6 cm; Wt 100.0 kg
--- OUTSIDE RECORDS SUMMARY | ~2024-11-28 | XMS | Continuity of Care Document ---
Demographics + + + | Address | [address] | | | [place] [address] | + + + | Preferred Language | Unknown | + + + | Marital Status | unknown | + + + | Buddhism Affiliation | Unknown | + + + | Race | White | + + + | Ethnic Group | Unknown | + + + Author + + + | Author | [facility] | + + + | Organization | [facility] | + + + | Address | [address] | | | [place] [address] | + + + | Phone | | + + + Care Team Providers + + + + | Care Pharm Spec Name | Role | Phone | + [...] [place] | | | specified devices | [facility] | + + + + | 2024-11-05 11:39:12 | Presence of other | [facility] [place] | | | specified devices | [facility] | + + + + | 2024-11-06 07:05:15 | Other iron deficiency | [facility] | | | anemias | [facility] | + + + + | 2024-11-06 07:05:15 | Type 2 diabetes mellitus | [facility] | | | with mild nonproliferative | [facility] | | | diabetic retinopathy | | | | without macular edema, | | | | bilateral (HCC) | | + + + + | 2024-11-06 07:05:15 | Osteomyelitis of vertebra, | [place] | | | sacral and sacrococcygeal | [facility] | | | region ([facility]) | | + + + + | 2024-11-06 07:05:15 | Other specified abnormal | Adithya [place] | | | findings of blood chemistry | [facility] | | | | | + + + + | 2024-11-06 07:05:15 | Encounter for attention to | Adithya [place] | | | colostomy ([facility]) | [facility] | + + + + | 2024-11-06 07:05:15 | Homelessness unspecified | [place] | | | | [facility] | + + + + | 2024-11-06 07:05:15 | Other specified health | [facility] | | | status | [facility] | + + + + | 2024-11-06 07:05:15 | acidizer (current) use of | [facility] | | | insulin (HCC) | [facility] | + + + + | 2024-11-06 11:09:59 | Other iron deficiency | [facility] | | | anemias | [facility] | + + + + | 2024-11-06 11:09:59 | Type 2 diabetes mellitus | [facility] | | | with mild nonproliferative | [facility] | | | diabetic retinopathy | | | | without macular edema, | | | | bilateral (HCC) | | + + + + | 2024-11-06 11:09:59 | Osteomyelitis of vertebra, | Adithya [place] | | | sacral and sacrococcygeal | [facility] | | | region ([facility]) | | + + + + | 2024-11-06 11:09:59 | Other specified abnormal | [facility] | | | findings of blood chemistry | [facility] | | | | | + + + + | 2024-11-06 11:09:59 | Encounter for attention to | Adithya [place] | | | colostomy ([facility]) | [facility] | + + + + | 2024-11-06 11:09:59 | Homelessness unspecified | [facility] | | | | [facility] | + + + + | 2024-11-06 11:09:59 | Other specified health | [facility] | | | status | [facility] | + + + + | 2024-11-06 11:09:59 | acidizer (current) use of | [facility] | | | insulin (HCC) | [facility] | + + + + | 2024-11-06 11:20:16 | Other iron deficiency | [facility] | | | anemias | [facility] | + + + + | 2024-11-06 11:20:16 | Type 2 diabetes mellitus | [facility] | | | with hyperosmolarity | [facility] | | | without nonketotic | | | | hyperglycemic-hyperosmolar | | | | coma ([facility]) ([facility]) | | + + + + | 2024-11-06 11:20:16 | Osteomyelitis of vertebra, | [facility] | | | sacral and sacrococcygeal | [facility] | | | region ([facility]) | | + + + + | 2024-11-06 11:20:16 | Other specified abnormal | Ad[facility] [place] | | | findings of blood chemistry | [facility] | | | | | + + + + | 2024-11-06 11:20:16 | Encounter for attention to | Adithya [place] | | | colostomy (HCC) | [facility] | + + + + | 2024-11-06 11:20:16 | Homelessness unspecified | [place] [facility] | | | | [facility] | + + + + | 2024-11-06 11:20:16 | Other specified health | [place] [facility] | | | status | [facility] | + + + + | 2024-11-06 11:32:44 | Other iron deficiency | [facility] | | | anemias | [facility] | + + + + | 2024-11-06 11:32:44 | Type 2 diabetes mellitus | [facility] | | | with hyperosmolarity | [facility] | | | without nonketotic | | | | hyperglycemic-hyperosmolar | | | | coma ([facility]) ([facility]) | | + + + + | 2024-11-06 11:32:44 | Osteomyelitis of vertebra, | [facility] | | | sacral and sacrococcygeal | [facility] | | | region ([facility]) | | + + + + | 2024-11-06 11:32:44 | Other specified abnormal | Ad[facility] [place] | | | findings of blood chemistry | [facility] | | | | | + + + + | 2024-11-06 11:32:44 | Encounter for attention to | Adithya [place] | | | colostomy (HCC) | [facility] | + + + + | 2024-11-06 11:32:44 | Homelessness unspecified | [facility] | | | | [facility] | + + + + | 2024-11-06 11:32:44 | Other specified health | [facility] | | | status | [facility] | + + + + | 2024-11-06 22:05:28 | Other iron deficiency | [facility] | | | anemias | [facility] | + + + + | 2024-11-06 22:05:28 | Type 2 diabetes mellitus | [facility] | | | with hyperosmolarity | [facility] | | | without nonketotic | | | | hyperglycemic-hyperosmolar | | | | coma ([facility]) ([facility]) | | + + + + | 2024-11-06 22:05:28 | Cellulitis of unspecified | [facility] | | | part of limb | [facility] | + + + + | 2024-11-06 22:05:28 | Osteomyelitis of vertebra, | Adithya [place] | | | sacral and sacrococcygeal | [facility] | | | region ([facility]) | | + + + + | 2024-11-06 22:05:28 | Other specified abnormal | Ad[facility] [place] | | | findings of blood chemistry | [facility] | | | | | + + + + | 2024-11-06 22:05:28 | Encounter for attention to | Adithya [place] | | | colostomy (HCC) | [facility] | + + + + | 2024-11-06 22:05:28 | Homelessness unspecified | [facility] | | | | [facility] | + + + + | 2024-11-06 22:05:28 | Other specified health | [facility] | | | status | [facility] | + + + + | 2024-11-06 22:05:59 | Methicillin resistant | [facility] | | | Staphylococcus aureus | [facility] | | | infection as the cause of | | | | diseases classified | | | | elsewhere | | + + + + | 2024-11-06 22:05:59 | Other iron deficiency | [facility] | | | anemias | [facility] | + + + + | 2024-11-06 22:05:59 | Type 2 diabetes mellitus | [facility] | | | with hyperosmolarity | [facility] | | | without nonketotic | | | | hyperglycemic-hyperosmolar | | | | coma ([facility]) ([facility]) | | + + + + | 2024-11-06 22:05:59 | Cellulitis of unspecified | [facility] | | | part of limb | [facility] | + + + + | 2024-11-06 22:05:59 | Osteomyelitis of vertebra, | [facility] | | | sacral and sacrococcygeal | [facility] | | | region ([facility]) | | + + + + | 2024-11-06 22:05:59 | Bacteremia | [facility] | | | | [facility] | + + + + | 2024-11-06 22:05:59 | Other specified abnormal | Adithya [place] | | | findings of blood chemistry | [facility] | | | | | + + + + | 2024-11-06 22:05:59 | Encounter for attention to | Adithya [place] | | | colostomy (HCC) | [facility] | + + + + | 2024-11-06 22:05:59 | Homelessness unspecified | [place] | | | | [facility] | + + + + | 2024-11-06 22:05:59 | Other specified health | [place] [facility] | | | status | [facility] | + + + + | 2024-11-08 03:56:20 | Methicillin resistant | [facility] | | | Staphylococcus aureus | [facility] | | | infection as the cause of | | | | diseases classified | | | | elsewhere | | + + + + | 2024-11-08 03:56:20 | Other iron deficiency | [facility] | | | anemias | [facility] | + + + + | 2024-11-08 03:56:20 | Type 2 diabetes mellitus | [facility] | | | with hyperosmolarity | [facility] | | | without nonketotic | | | | hyperglycemic-hyperosmolar | | | | coma ([facility]) ([facility]) | | + + + + | 2024-11-08 03:56:20 | Cellulitis of unspecified | [facility] | | | part of limb | [facility] | + + + + | 2024-11-08 03:56:20 | Osteomyelitis of vertebra, | Adithya [place] | | | sacral and sacrococcygeal | [facility] | | | region ([facility]) | | + + + + | 2024-11-08 03:56:20 | Bacteremia | [facility] | | | | [facility] | + + + + | 2024-11-08 03:56:20 | Other specified abnormal | [facility] | | | findings of blood chemistry | [facility] | | | | | + + + + | 2024-11-08 03:56:20 | Encounter for attention to | [place] | | | colostomy ([facility]) | [facility] | + + + + | 2024-11-08 03:56:20 | Homelessness unspecified | Adithya [place] | | | | [facility] | + + + + | 2024-11-08 03:56:20 | Other specified health | [facility] | | | status | [facility] | + + + + | 2024-11-08 11:36:10 | Presence of other | [place] | | | specified devices | [facility] | + + + + | 2024-11-09 16:58:30 | Cellulitis of unspecified | [place] | | | part of limb | [facility] | + + + + | 2024-11-09 17:00:58 | Cellulitis of unspecified | Adithya [place] | | | part of limb | [facility] | + + + + | 2024-11-09 17:00:58 | Homelessness unspecified | Adithya [place] | | | | [facility] | + + + + | 2024-11-09 17:02:16 | Methicillin resistant | Adithya [place] | | | Staphylococcus aureus | [facility] | | | infection as the cause of | | | | diseases classified | | | | elsewhere | | + + + + | 2024-11-09 17:02:16 | Cellulitis of unspecified | [place] | | | part of limb | [facility] | + + + + | 2024-11-09 17:02:16 | Bacteremia | [place] | | | | [facility] | + + + + | 2024-11-09 17:02:16 | Homelessness unspecified | [facility] | | | | [facility] | + + + + | 2024-11-09 17:13:21 | Methicillin resistant | [facility] | | | Staphylococcus aureus | [facility] | | | infection as the cause of | | | | diseases classified | | | | elsewhere | | + + + + | 2024-11-09 17:13:21 | Type 2 diabetes mellitus | [facility] | | | with hyperosmolarity | [facility] | | | without nonketotic | | | | hyperglycemic-hyperosmolar | | | | coma ([facility]) ([facility]) | | + + + + | 2024-11-09 17:13:21 | Cellulitis of unspecified | [facility] | | | part of limb | [facility] | + + + + | 2024-11-09 17:13:21 | Bacteremia | [facility] | | | | [facility] | + + + + | 2024-11-09 17:13:21 | Homelessness unspecified | [facility] | | | | [facility] | + + + + | 2024-11-09 17:13:44 | Methicillin resistant | [facility] | | | Staphylococcus aureus | [facility] | | | infection as the cause of | | | | diseases classified | | | | elsewhere | | + + + + | 2024-11-09 17:13:44 | Type 2 diabetes mellitus | [facility] | | | with hyperosmolarity | [facility] | | | without nonketotic | | | | hyperglycemic-hyperosmolar | | | | coma ([facility]) ([facility]) | | + + + + | 2024-11-09 17:13:44 | Cellulitis of unspecified | [facility] | | | part of limb | [facility] | + + + + | 2024-11-09 17:13:44 | Bacteremia | [facility] | | | | [facility] | + + + + | 2024-11-09 17:13:44 | Homelessness unspecified | [facility] | | | | [facility] | + + + + | 2024-11-11 03:18:48 | Methicillin resistant | [facility] | | | Staphylococcus aureus | [facility] | | | infection as the cause of | | | | diseases classified | | | | elsewhere | | + + + + | 2024-11-11 03:18:48 | Type 2 diabetes mellitus | [facility] | | | with hyperosmolarity | [facility] | | | without nonketotic | | | | hyperglycemic-hyperosmolar | | | | coma ([facility]) ([facility]) | | + + + + | 2024-11-11 03:18:48 | Cellulitis of unspecified | [facility] | | | part of limb | [facility] | + + + + | 2024-11-11 03:18:48 | Bacteremia | Adithya [facility] | | | | [facility] | + + + + | 2024-11-11 03:18:48 | Homelessness unspecified | [place] | | | | [facility] | + + + + | 2024-11-14 16:18:05 | Encounter for attention to | Adithya [place] | | | colostomy ([facility]) | [facility] | + + + + | 2024-11-14 16:19:35 | Osteomyelitis of vertebra, | [place] | | | sacral and sacrococcygeal | [facility] | | | region ([facility]) | | + + + + | 2024-11-14 16:19:35 | Encounter for attention to | [place] | | | colostomy ([facility]) | [facility] | + + + + | 2024-11-14 16:22:32 | Cellulitis of unspecified | [place] | | | part of limb | [facility] | + + + + | 2024-11-14 16:22:32 | Osteomyelitis of vertebra, | [place] | | | sacral and sacrococcygeal | [facility] | | | region ([facility]) | | + + + + | 2024-11-14 16:22:32 | Encounter for attention to | [place] | | | colostomy (HCC) | [facility] | + + + + | 2024-11-14 16:23:26 | Cellulitis of unspecified | [place] [facility] | | | part of limb | [facility] | + + + + | 2024-11-14 16:23:26 | Osteomyelitis of vertebra, | [place] | | | sacral and sacrococcygeal | [facility] | | | region ([facility]) | | + + + + | 2024-11-14 16:23:26 | Encounter for attention to | [place] | | | colostomy (HCC) | [facility] | + + + + | 2024-11-14 16:23:26 | Other specified health | [facility] [place] | | | status | [facility] | + + + + | 2024-11-14 16:27:27 | Cellulitis of unspecified | [facility] | | | part of limb | [facility] | + + + + | 2024-11-14 16:27:27 | Osteomyelitis of vertebra, | [facility] | | | sacral and sacrococcygeal | [facility] | | | region (HCC) | | + + + + | 2024-11-14 16:27:27 | Encounter for attention to | Adithya [place] | | | colostomy (HCC) | [facility] | + + + + | 2024-11-14 16:27:27 | Homelessness unspecified | [facility] | | | | [facility] | + + + + | 2024-11-14 16:27:27 | Other specified health | [facility] | | | status | [facility] | + + + + | 2024-11-14 16:28:09 | Methicillin resistant | [facility] | | | Staphylococcus aureus | [facility] | | | infection as the cause of | | | | diseases classified | | | | elsewhere | | + + + + | 2024-11-14 16:28:09 | Cellulitis of unspecified | [facility] | | | part of limb | [facility] | + + + + | 2024-11-14 16:28:09 | Osteomyelitis of vertebra, | [facility] | | | sacral and sacrococcygeal | [facility] | | | region (HCC) | | + + + + | 2024-11-14 16:28:09 | Bacteremia | [facility] [place] | | | | [facility] | + + + + | 2024-11-14 16:28:09 | Encounter for attention to | [place] | | | colostomy (HCC) | [facility] | + + + + | 2024-11-14 16:28:09 | Homelessness unspecified | [facility] [place] | | | | [facility] | + + + + | 2024-11-14 16:28:09 | Other specified health | [facility] | | | status | [facility] | + + + + | 2024-11-14 16:30:02 | Methicillin resistant | [facility] | | | Staphylococcus aureus | [facility] | | | infection as the cause of | | | | diseases classified | | | | elsewhere | | + + + + | 2024-11-14 16:30:02 | Other psychoactive | [facility] | | | substance use, unspecified, | [facility] | | | uncomplicated | | + + + + | 2024-11-14 16:30:02 | Cellulitis of unspecified | [facility] | | | part of limb | [facility] | + + + + | 2024-11-14 16:30:02 | Osteomyelitis of vertebra, | [place] | | | sacral and sacrococcygeal | [facility] | | | region ([facility]) | | + + + + | 2024-11-14 16:30:02 | Bacteremia | [place] | | | | [facility] | + + + + | 2024-11-14 16:30:02 | Encounter for attention to | [facility] | | | colostomy (HCC) | [facility] | + + + + | 2024-11-14 16:30:02 | Homelessness unspecified | [facility] | | | | [facility] | + + + + | 2024-11-14 16:30:02 | Other specified health | [facility] | | | status | [facility] | + + + + | 2024-11-14 16:43:46 | Methicillin resistant | [facility] | | | Staphylococcus aureus | [facility] | | | infection as the cause of | | | | diseases classified | | | | elsewhere | | + + + + | 2024-11-14 16:43:46 | Type 2 diabetes mellitus | [facility] | | | with hyperosmolarity | [facility] | | | without nonketotic | | | | hyperglycemic-hyperosmolar | | | | coma ([facility]) ([facility]) | | + + + + | 2024-11-14 16:43:46 | Other psychoactive | [facility] | | | substance use, unspecified, | [facility] | | | uncomplicated | | + + + + | 2024-11-14 16:43:46 | Cellulitis of unspecified | [facility] | | | part of limb | [facility] | + + + + | 2024-11-14 16:43:46 | Osteomyelitis of vertebra, | [facility] [place] | | | sacral and sacrococcygeal | [facility] | | | region ([facility]) | | + + + + | 2024-11-14 16:43:46 | Bacteremia | [facility] | | | | [facility] | + + + + | 2024-11-14 16:43:46 | Encounter for attention to | [place] | | | colostomy (HCC) | [facility] | + + + + | 2024-11-14 16:43:46 | Homelessness unspecified | Ad[place] | | | | [facility] | + + + + | 2024-11-14 16:43:46 | Other specified health | Adithya [facility] | | | status | [facility] | + + + + | 2024-11-14 17:17:21 | Methicillin resistant | [facility] | | | Staphylococcus aureus | [facility] | | | infection as the cause of | | | | diseases classified | | | | elsewhere | | + + + + | 2024-11-14 17:17:21 | Type 2 diabetes mellitus | [facility] | | | with hyperosmolarity | [facility] | | | without nonketotic | | | | hyperglycemic-hyperosmolar | | | | coma ([facility]) ([facility]) | | + + + + | 2024-11-14 17:17:21 | Other psychoactive | [facility] | | | substance use, unspecified, | [facility] | | | uncomplicated | | + + + + | 2024-11-14 17:17:21 | Cellulitis of unspecified | [facility] | | | part of limb | [facility] | + + + + | 2024-11-14 17:17:21 | Osteomyelitis of vertebra, | [place] | | | sacral and sacrococcygeal | [facility] | | | region ([facility]) | | + + + + | 2024-11-14 17:17:21 | Bacteremia | [place] | | | | [facility] | + + + + | 2024-11-14 17:17:21 | Encounter for attention to | [place] | | | colostomy (HCC) | [facility] | + + + + | 2024-11-14 17:17:21 | Homelessness unspecified | [place] | | | | [facility] | + + + + | 2024-11-14 17:17:21 | Other specified health | [facility] | | | status | [facility] | + + + + | 2024-11-16 03:30:12 | Methicillin resistant | [facility] | | | Staphylococcus aureus | [facility] | | | infection as the cause of | | | | diseases classified | | | | elsewhere | | + + + + | 2024-11-16 03:30:12 | Type 2 diabetes mellitus | [facility] | | | with hyperosmolarity | [facility] | | | without nonketotic | | | | hyperglycemic-hyperosmolar | | | | coma ([facility]) ([facility]) | | + + + + | 2024-11-16 03:30:12 | Other psychoactive | [facility] | | | substance use, unspecified, | [facility] | | | uncomplicated | | + + + + | 2024-11-16 03:30:12 | Cellulitis of unspecified | [facility] [place] | | | part of limb | [facility] | + + + + | 2024-11-16 03:30:12 | Osteomyelitis of vertebra, | [place] | | | sacral and sacrococcygeal | [facility] | | | region ([facility]) | | + + + + | 2024-11-16 03:30:12 | Bacteremia | Ad[facility] | | | | [facility] | + + + + | 2024-11-16 03:30:12 | Encounter for attention to | [place] | | | colostomy (HCC) | [facility] | + + + + | 2024-11-16 03:30:12 | Homelessness unspecified | [facility] | | | | [facility] | + + + + | 2024-11-16 03:30:12 | Other specified health | [facility] | | | status | [facility] | + + + + Procedures No information. Results/Labs No information. Social History +--------+ + + | date | description | facility | +--------+ + + Vital Signs No information."
[~2024-11-28 10:20] MED LIST changes: -ATORVASTATIN CA20 MG PO; -SEMGLEE (Y100 UNIT/2 SUB-Q
--- OUTSIDE RECORDS SUMMARY | 2024-11-28 10:22 | XMS ---
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 Sample Card Maker Events No recent Security Events currently on file CRITERIA MET - 6 ED Visits in 6 Months - [facility] - 2 Visits in 30 Days - [facility] - 3 Facilities in 90 Days CARE PROVIDERS Franc Wood Community Health Worker 06/08/2023-Current PHONE: [phone] -Emil[facility]+ Dentist: Pipe Finishing Supervisor [facility] [place] PHONE: [phone] -Chris- Dentist: Pipe Finishing Supervisor [facility], [facility] PHONE: [phone] -Kassy- Dentist: Pipe Finishing Supervisor [facility], [facility] PHONE: [phone] RODNEY KIM Physician Manager Community Development Current PHONE: [phone] [facility] Current FAMILY PHONE: [phone] BRAYDON HAIDER Family Medicine Current PHONE: [phone] BRAYDON VILLATORO Family [facility] Current PHONE: [phone] SANTY MEJIA Physician Manager Community Development Current PHONE: Unknown Darleen Goins Medical Reception Specialist/Delivery Supervisor Current PHONE: [phone] Guidelines Source: [facility] Guidelines Date: 03/17/2022 Care Recommendation: PATIENT RECENTLY DISCHARGED FROM [facility]- DIFFICULT PLACEMENT. PATIENT WAS NOT COOPERATIVE WITH [...] TO COPES. [facility] VISIT COUNT (12 MO.) 26 [facility] 6 Alex Schneider 3 [facility] 1 [facility] 1 [facility] P[facility]rez (Cristin Amaral) TOTAL 37 NOTE: Visits indicate total known visits. ED/UCC VISIT TRACKING (12 MO.) 11/28/2024 10:21 [facility] TYPE: Emergency COMPLAINT: - WOUND CHECK 11/25/2024 02:51 [facility] [place] TYPE: Emergency COMPLAINT: - SWOLLEN EXTREMITY DIAGNOSES: - Allergy status to other drugs, medicaments and biological substances - Diabetes mellitus due to underlying condition with foot ulcer - Essential (primary) hypertension - Hypothyroidism, unspecified - Nicotine dependence, unspecified, uncomplicated - Osteonecrosis, unspecified - Other chronic osteomyelitis, unspecified site - Pain in left leg - Patient's noncompliance with other medical treatment and regimen due to unspecified reason - Pure hypercholesterolemia, unspecified 11/22/2024 01:49 [facility] [place] TYPE: Emergency [...] osteomyelitis, right ankle and foot - Other termite technician (current) drug therapy - Type 2 diabetes mellitus with foot ulcer - Type 2 diabetes mellitus with other specified complication - Type 2 diabetes mellitus without complications 11/20/2024 03:16 [facility] TYPE: Emergency COMPLAINT: - COLOTOMY BAG ISSUE DIAGNOSES: - Allergy status to other drugs, medicaments and biological substances - Encounter for change or removal of nonsurgical wound dressing - Encounter for change or removal of surgical wound dressing - Encounter for fitting and adjustment of urinary device - Essential (primary) hypertension - Exposure to other specified factors, subsequent encounter - Hypothyroidism, unspecified - half-way (current) use of insulin - Nicotine dependence, unspecified, uncomplicated - Other termite technician (current) drug therapy - Pure hypercholesterolemia, unspecified - Type 2 diabetes mellitus without complications - Unspecified open wound, left lower leg, initial encounter - Unspecified open wound, left lower leg, subsequent encounter - Unspecified open wound, left lower leg, subsequent encounter - Unspecified open wound, right lower leg, initial encounter - Unspecified open wound, right lower leg, subsequent encounter 11/19/2024 07:30 [facility] TYPE: Emergency COMPLAINT: - WOUNDS DIAGNOSES: - Allergy status to other drugs, medicaments and biological substances - Essential (primary) hypertension - Exposure to other specified factors, initial encounter - Homelessness unspecified - Hormone replacement therapy - half-way (current) use of insulin - Nicotine dependence, unspecified, uncomplicated - Other shelter (current) drug therapy - Type 2 diabetes mellitus without complications - Unspecified open wound, left lower leg, initial encounter - Unspecified open wound, right lower leg, initial encounter 11/05/2024 10:59 [facility] TYPE: Emergency DIAGNOSES: - Presence of [...] Essential (primary) hypertension - Hypothyroidism, unspecified - termite helper (current) use of insulin - Nicotine dependence, unspecified, uncomplicated - Non-pressure chronic ulcer of left calf limited to breakdown of skin - Non-pressure chronic ulcer of other part of right foot limited to breakdown of skin - Other shelter (current) drug therapy - Other stimulant abuse, [...] to colostomy - Essential (primary) hypertension - half-way (current) use of antibiotics - Nicotine dependence, [...] 2 diabetes mellitus with foot ulcer - diabetes clinical manager failure 09/25/2024 17:44 [facility] TYPE: Emergency [...] nedds colostomy bag 09/09/2024 19:18 [facility] [place] TYPE: Emergency DIAGNOSES: - termite helper (current) use of insulin - Non-pressure chronic [...] replacement therapy - Hypothermia, initial encounter - half-way (current) use of insulin - Nicotine dependence, unspecified, uncomplicated - Other termite technician (current) drug therapy - Pneumonia, unspecified organism - Type 2 diabetes mellitus without complications 08/06/2024 08:50 [facility] [place] TYPE: Emergency COMPLAINT: - ABD PAIN DIAGNOSES: - Allergy status to other drugs, medicaments and biological substances - Essential (primary) hypertension - Gastrostomy status - Intentional self-harm by other specified means, initial encounter - half-way (current) use of insulin - Nicotine dependence, unspecified, uncomplicated - Non-pressure chronic ulcer of unspecified part of left lower leg limited to breakdown of skin - Non-pressure chronic ulcer of unspecified part of right lower leg limited to breakdown of skin - Other shelter (current) drug therapy - Other psychoactive substance abuse, uncomplicated - Paraplegia, unspecified - Presence of urogenital implants - Pressure ulcer of sacral region, unspecified stage - Pure hypercholesterolemia, unspecified - Suicidal ideations - Suicide attempt, initial encounter - Type 2 diabetes mellitus without complications Plus 17 More Visits INPATIENT VISIT TRACKING (12 MO.) [...] unspecified - Iron deficiency anemia, unspecified - half-way (current) use of antibiotics - half-way (current) use of antibiotics - half-way (current) use of insulin - termite helper (current) use of insulin - half-way (current) use of opiate analgesic - termite helper (current) use of opiate analgesic - Low [...] pain - Other chronic pain - Other termite technician (current) drug therapy - Other shelter (current) drug therapy - Other stimulant use, [...] nodes - Localized enlarged lymph nodes - termite helper (current) use of insulin - half-way (current) use of insulin - Nicotine dependence, cigarettes, uncomplicated - Nicotine dependence, cigarettes, uncomplicated - Osteomyelitis, unspecified - Other chronic pain - Other chronic pain - Other termite technician (current) drug therapy - Other shelter (current) drug therapy - Other osteomyelitis, other [...] loss - Unspecified visual loss 08/13/2024 13:06 [facility] TYPE: Internal Medicine DIAGNOSES: - [...] cause of diseases classified elsewhere - termite helper (current) use of insulin - half-way (current) use of oral hypoglycemic drugs - Methicillin resistant Staphylococcus aureus infection as the cause of diseases classified elsewhere - Nicotine dependence, cigarettes, uncomplicated - Osteomyelitis, unspecified - Other complications of colostomy - Other shelter (current) drug therapy - Other specified postprocedural [...] infection, site not specified 04/20/2024 11:54 [facility] TYPE: Internal Medicine DIAGNOSES: - [...] TYPE: Critical Care COMPLAINT: - SEPSIS,PYELONEPHRITIS,PNEUMONIA,UNCONTROLLED DIABE [email or web address]
--- NOTE | 2024-11-29 09:00 | NUR ---
0810 JUVENCIO Garcia RN AND JULIAN Cabrera RN IN ROOM FOR DRESSING CHANGE. REMOVED DRESSING ON BILAT LOWER EXTREMITIES. DRESSING CHANGE DONE PER DR ORDER. ALL WOUNDS CLEANED WITH WOUND CLEANSER AND DRY GAUZE. ALGINATE APPLIED TO ALL WOUNDS, ALONG WITH ABD WITH ADHEASIVE FOAM APPLIED. FULL GROWN MAGGOTS NOTED UNDER BANDAGE OF RLE BOTTOM OF THE FOOT. 3 WOUNDS ON LLE PLANTAR. SUPERIOR PLANTAR NECROTIC TISSUE, AND MACERATION ON WOUND EDGES. MEDIAL PLANTAR: NECROTIC TISSUE, AND MACERATION AROUND WOUND EDGES. HEEL PLANTAR WOUND: CLEAN NON-GRANULATING AND MACERATION NOTED AROUND THE WOUND EDGES. SEVERAL SMALL WOUNDS NOTED ACROSS THE SHINS AND CALVES OF BOTH LOWER EXTREMITIES. ALL NOTED WITH SLOUGH TISSUE AND CLEAN NONGRANULATING AROUND THE EDGES. COVERED WITH ALGINATE AND AG WTIH ADHEASIVE FOAM. ONE LARGE WOUND NOTED ON PLANTAR OF RLE. NECROTIC TISSUE, WOUND EDGES MACERATED AND MANY FULL GROWN MAGGOTS REMOVED FROM WOUND WITH WOUND CLENSER AND DRY GAUZE. SEVERAL SCATTERED WOUNDS ACROSS TIPS OF PT TOES, COVERED WITH ALGINATE, GAUZE AND COBAN. BOTH LOWER EXTREMITIES THEN WRAPPED WITH GAUZE AND COBAN TO COVER ALL WOUNDS. BED IS LOW AND LOCKED. BED RAILS UP. CALL LIGHT WITHIN REACH. PT AWARE THAT PT HAS AN APPOINTMENT WITH DAY SURGERY AT 11AM ON WEDNESDAY THE . PT VERBALLY STATES UNDERSTANDING THAT IF PT MISSES TWO MORE APPOINTMENTS WITH DAY SURGERY HE WILL BE DISCHARGED FROM DAY SURGERY WOUND CARE FOR GOOD, DUE TO NON COMPLIENCE. 0853 BILATERAL SQUARE SHOES GIVEN TO PT [id number], TO GIVE TO PT WHEN LEAVING ED.
[2024-11-29] MEDS ORDERED: ACETAMINOPHEN 500 MG TAB PO ONE (21:15)
[2024-11-29] MEDS ORDERED: ZOLPIDEM TARTRATE 5 MG TAB PO ONE (23:45)
[2024-11-30] MEDS ORDERED: QUETIAPINE FUMARATE 100 MG TAB PO ONE (02:00)
[2024-11-30] MEDS ORDERED: SEMGLEE (Y100 UNIT/2 SUB-Q (09:51)
[2024-11-30] MEDS ORDERED: ATORVASTATIN CA20 MG PO (09:52)
[2024-11-30] MEDS ORDERED: HUMALOG100 UNIT/2 SUB-Q (09:52)
[2024-11-30] MEDS ORDERED: HYDROXYZINE HCL25 MG PO (09:52)
[2024-11-30] MEDS ORDERED: LEVOTHYROXINE175 MCG PO (09:53)
[2024-11-30] MEDS ORDERED: LORazepam 1 MG TAB PO PRN (15:00)
[2024-11-30 18:34] VITALS: BP 124/79
== END 2024-11-30 18:34 | disposition home or self-care (01) ==
LOC: ED 10:20
DX: K94.00 Colostomy complication, unspecified (principal); F17.200 Nicotine dependence, unspecified, uncomplicated; Z88.8 Allergy status to other drugs, medicaments and biological substances
CPT/HCPCS: 51702; 99283-25; A9270; A9270-GY; Q0163

== ENCOUNTER 2024-12-26 14:16 | Emergency (ER) | payer OTHER ==
[~2024-12-26] VITALS: Ht 195.6 cm; Wt 113.1 kg
--- OUTSIDE RECORDS SUMMARY | ~2024-12-26 | XMS | Continuity of Care Document ---
Demographics + + + | Address | [address] | | | [place] [address] | + + + | Preferred Language | Unknown | + + + | Marital Status | unknown | + + + | Episcopalian Affiliation | Unknown | + + + | Race | White | + + + | Ethnic Group | Unknown | + + + Author + + + | Author | [place] | + + + | Organization | [facility] | + + + | Address | [address] | | | [place] [address] | + + + | Phone | | + + + Care Team Providers + + + + | Care Furnace Mechanic Name | Role | Phone | + [...] West | | | specified devices | [facility] | + + + + | 2024-11-05 11:39:12 | Presence of other | Adithya [place] | | | specified devices | [facility] | + + + + | 2024-11-06 07:05:15 | Other iron deficiency | [facility] | | | anemias | [facility] | + + + + | 2024-11-06 07:05:15 | Type 2 diabetes mellitus | [facility] | | | with mild nonproliferative | [facility] | | | diabetic retinopathy | | | | without macular edema, | | | | bilateral (HCC) | | + + + + | 2024-11-06 07:05:15 | Osteomyelitis of vertebra, | Adithya [place] | | | sacral and sacrococcygeal | [facility] | | | region ([facility]) | | + + + + | 2024-11-06 07:05:15 | Other specified abnormal | Adithya [place] | | | findings of blood chemistry | [facility] | | | | | + + + + | 2024-11-06 07:05:15 | Encounter for attention to | Adithya West | | | colostomy ([facility]) | [facility] | + + + + | 2024-11-06 07:05:15 | Homelessness unspecified | Adithya [place] | | | | [facility] | + + + + | 2024-11-06 07:05:15 | Other specified health | [facility] | | | status | [facility] | + + + + | 2024-11-06 07:05:15 | long term (current) use of | [facility] | | | insulin (HCC) | [facility] | + + + + | 2024-11-06 11:09:59 | Other iron deficiency | [facility] | | | anemias | [facility] | + + + + | 2024-11-06 11:09:59 | Type 2 diabetes mellitus | [facility] | | | with mild nonproliferative | [facility] | | | diabetic retinopathy | | | | without macular edema, | | | | bilateral (HCC) | | + + + + | 2024-11-06 11:09:59 | Osteomyelitis of vertebra, | Adithya [place] | | | sacral and sacrococcygeal | [facility] | | | region ([facility]) | | + + + + | 2024-11-06 11:09:59 | Other specified abnormal | [facility] | | | findings of blood chemistry | [facility] | | | | | + + + + | 2024-11-06 11:09:59 | Encounter for attention to | Adithya [place] | | | colostomy ([facility]) | [facility] | + + + + | 2024-11-06 11:09:59 | Homelessness unspecified | [facility] | | | | [facility] | + + + + | 2024-11-06 11:09:59 | Other specified health | [facility] | | | status | [facility] | + + + + | 2024-11-06 11:09:59 | long term (current) use of | [facility] | | | insulin (HCC) | [facility] | + + + + | 2024-11-06 11:20:16 | Other iron deficiency | [facility] | | | anemias | [facility] | + + + + | 2024-11-06 11:20:16 | Type 2 diabetes mellitus | [facility] | | | with hyperosmolarity | [facility] | | | without nonketotic | | | | hyperglycemic-hyperosmolar | | | | coma ([facility]) ([facility]) | | + + + + | 2024-11-06 11:20:16 | Osteomyelitis of vertebra, | [facility] | | | sacral and sacrococcygeal | [facility] | | | region ([facility]) | | + + + + | 2024-11-06 11:20:16 | Other specified abnormal | Adithya [place] | | | findings of blood chemistry | [facility] | | | | | + + + + | 2024-11-06 11:20:16 | Encounter for attention to | Adithya Bound[place] | | | colostomy (HCC) | [facility] | + + + + | 2024-11-06 11:20:16 | Homelessness unspecified | [place] | | | | [facility] | + + + + | 2024-11-06 11:20:16 | Other specified health | [place] [facility] | | | status | [facility] | + + + + | 2024-11-06 11:32:44 | Other iron deficiency | [facility] | | | anemias | [facility] | + + + + | 2024-11-06 11:32:44 | Type 2 diabetes mellitus | [facility] | | | with hyperosmolarity | [facility] | | | without nonketotic | | | | hyperglycemic-hyperosmolar | | | | coma ([facility]) ([facility]) | | + + + + | 2024-11-06 11:32:44 | Osteomyelitis of vertebra, | [facility] | | | sacral and sacrococcygeal | [facility] | | | region ([facility]) | | + + + + | 2024-11-06 11:32:44 | Other specified abnormal | Adithya [place] | | | findings of blood chemistry | [facility] | | | | | + + + + | 2024-11-06 11:32:44 | Encounter for attention to | Adithya Bound[place] | | | colostomy (HCC) | [facility] | + + + + | 2024-11-06 11:32:44 | Homelessness unspecified | [facility] | | | | [facility] | + + + + | 2024-11-06 11:32:44 | Other specified health | [facility] | | | status | [facility] | + + + + | 2024-11-06 22:05:28 | Other iron deficiency | [facility] | | | anemias | [facility] | + + + + | 2024-11-06 22:05:28 | Type 2 diabetes mellitus | [facility] | | | with hyperosmolarity | [facility] | | | without nonketotic | | | | hyperglycemic-hyperosmolar | | | | coma ([facility]) ([facility]) | | + + + + | 2024-11-06 22:05:28 | Cellulitis of unspecified | [facility] | | | part of limb | [facility] | + + + + | 2024-11-06 22:05:28 | Osteomyelitis of vertebra, | Adithya Bound[place] | | | sacral and sacrococcygeal | [facility] | | | region ([facility]) | | + + + + | 2024-11-06 22:05:28 | Other specified abnormal | Adithya [place] | | | findings of blood chemistry | [facility] | | | | | + + + + | 2024-11-06 22:05:28 | Encounter for attention to | Adithya West | | | colostomy (HCC) | [facility] | + + + + | 2024-11-06 22:05:28 | Homelessness unspecified | [facility] | | | | [facility] | + + + + | 2024-11-06 22:05:28 | Other specified health | [facility] | | | status | [facility] | + + + + | 2024-11-06 22:05:59 | Methicillin resistant | [facility] | | | Staphylococcus aureus | [facility] | | | infection as the cause of | | | | diseases classified | | | | elsewhere | | + + + + | 2024-11-06 22:05:59 | Other iron deficiency | [facility] | | | anemias | [facility] | + + + + | 2024-11-06 22:05:59 | Type 2 diabetes mellitus | [facility] | | | with hyperosmolarity | [facility] | | | without nonketotic | | | | hyperglycemic-hyperosmolar | | | | coma ([facility]) ([facility]) | | + + + + | 2024-11-06 22:05:59 | Cellulitis of unspecified | [facility] | | | part of limb | [facility] | + + + + | 2024-11-06 22:05:59 | Osteomyelitis of vertebra, | [facility] | | | sacral and sacrococcygeal | [facility] | | | region ([facility]) | | + + + + | 2024-11-06 22:05:59 | Bacteremia | [facility] | | | | [facility] | + + + + | 2024-11-06 22:05:59 | Other specified abnormal | Adithya West | | | findings of blood chemistry | [facility] | | | | | + + + + | 2024-11-06 22:05:59 | Encounter for attention to | Adithya West | | | colostomy (HCC) | [facility] | + + + + | 2024-11-06 22:05:59 | Homelessness unspecified | [place] [facility] | | | | [facility] | + + + + | 2024-11-06 22:05:59 | Other specified health | [facility] | | | status | [facility] | + + + + | 2024-11-08 03:56:20 | Methicillin resistant | [facility] | | | Staphylococcus aureus | [facility] | | | infection as the cause of | | | | diseases classified | | | | elsewhere | | + + + + | 2024-11-08 03:56:20 | Other iron deficiency | [facility] | | | anemias | [facility] | + + + + | 2024-11-08 03:56:20 | Type 2 diabetes mellitus | [facility] | | | with hyperosmolarity | [facility] | | | without nonketotic | | | | hyperglycemic-hyperosmolar | | | | coma ([facility]) ([facility]) | | + + + + | 2024-11-08 03:56:20 | Cellulitis of unspecified | [facility] | | | part of limb | [facility] | + + + + | 2024-11-08 03:56:20 | Osteomyelitis of vertebra, | Adithya Bound[place] | | | sacral and sacrococcygeal | [facility] | | | region ([facility]) | | + + + + | 2024-11-08 03:56:20 | Bacteremia | [facility] | | | | [facility] | + + + + | 2024-11-08 03:56:20 | Other specified abnormal | [facility] | | | findings of blood chemistry | [facility] | | | | | + + + + | 2024-11-08 03:56:20 | Encounter for attention to | Adithya [place] | | | colostomy ([facility]) | [facility] | + + + + | 2024-11-08 03:56:20 | Homelessness unspecified | Adithya [place] | | | | [facility] | + + + + | 2024-11-08 03:56:20 | Other specified health | Ad[place] | | | status | [facility] | + + + + | 2024-11-08 11:36:10 | Presence of other | Adithya [place] | | | specified devices | [facility] | + + + + | 2024-11-09 16:58:30 | Cellulitis of unspecified | Adithya [place] | | | part of limb | [facility] | + + + + | 2024-11-09 17:00:58 | Cellulitis of unspecified | Adithya Bound[place] | | | part of limb | [facility] | + + + + | 2024-11-09 17:00:58 | Homelessness unspecified | Adithya West | | | | [facility] | + + + + | 2024-11-09 17:02:16 | Methicillin resistant | Adithya [place] | | | Staphylococcus aureus | [facility] | | | infection as the cause of | | | | diseases classified | | | | elsewhere | | + + + + | 2024-11-09 17:02:16 | Cellulitis of unspecified | [place] | | | part of limb | [facility] | + + + + | 2024-11-09 17:02:16 | Bacteremia | Adithya [place] | | | | [facility] | + + + + | 2024-11-09 17:02:16 | [facility]elessness unspecified | [facility] | | | | [facility] | + + + + | 2024-11-09 17:13:21 | Methicillin resistant | [facility] | | | Staphylococcus aureus | [facility] | | | infection as the cause of | | | | diseases classified | | | | elsewhere | | + + + + | 2024-11-09 17:13:21 | Type 2 diabetes mellitus | [facility] | | | with hyperosmolarity | [facility] | | | without nonketotic | | | | hyperglycemic-hyperosmolar | | | | coma ([facility]) ([facility]) | | + + + + | 2024-11-09 17:13:21 | Cellulitis of unspecified | [facility] | | | part of limb | [facility] | + + + + | 2024-11-09 17:13:21 | Bacteremia | [facility] | | | | [facility] | + + + + | 2024-11-09 17:13:21 | Homelessness unspecified | [facility] | | | | [facility] | + + + + | 2024-11-09 17:13:44 | Methicillin resistant | [facility] | | | Staphylococcus aureus | [facility] | | | infection as the cause of | | | | diseases classified | | | | elsewhere | | + + + + | 2024-11-09 17:13:44 | Type 2 diabetes mellitus | [facility] | | | with hyperosmolarity | [facility] | | | without nonketotic | | | | hyperglycemic-hyperosmolar | | | | coma ([facility]) ([facility]) | | + + + + | 2024-11-09 17:13:44 | Cellulitis of unspecified | [facility] | | | part of limb | [facility] | + + + + | 2024-11-09 17:13:44 | Bacteremia | [facility] | | | | [facility] | + + + + | 2024-11-09 17:13:44 | Homelessness unspecified | [facility] | | | | [facility] | + + + + | 2024-11-11 03:18:48 | Methicillin resistant | [facility] | | | Staphylococcus aureus | [facility] | | | infection as the cause of | | | | diseases classified | | | | elsewhere | | + + + + | 2024-11-11 03:18:48 | Type 2 diabetes mellitus | [facility] | | | with hyperosmolarity | [facility] | | | without nonketotic | | | | hyperglycemic-hyperosmolar | | | | coma ([facility]) ([facility]) | | + + + + | 2024-11-11 03:18:48 | Cellulitis of unspecified | [facility] | | | part of limb | [facility] | + + + + | 2024-11-11 03:18:48 | Bacteremia | Adithya Boundary | | | | [facility] | + + + + | 2024-11-11 03:18:48 | Homelessness unspecified | Adithya [place] | | | | [facility] | + + + + | 2024-11-14 16:18:05 | Encounter for attention to | Adithya Boundary | | | colostomy ([facility]) | [facility] | + + + + | 2024-11-14 16:19:35 | Osteomyelitis of vertebra, | [place] | | | sacral and sacrococcygeal | [facility] | | | region ([facility]) | | + + + + | 2024-11-14 16:19:35 | Encounter for attention to | [place] | | | colostomy ([facility]) | [facility] | + + + + | 2024-11-14 16:22:32 | Cellulitis of unspecified | [place] | | | part of limb | [facility] | + + + + | 2024-11-14 16:22:32 | Osteomyelitis of vertebra, | [place] | | | sacral and sacrococcygeal | [facility] | | | region ([facility]) | | + + + + | 2024-11-14 16:22:32 | Encounter for attention to | [place] | | | colostomy (HCC) | [facility] | + + + + | 2024-11-14 16:23:26 | Cellulitis of unspecified | [place] | | | part of limb | [facility] | + + + + | 2024-11-14 16:23:26 | Osteomyelitis of vertebra, | [place] | | | sacral and sacrococcygeal | [facility] | | | region ([facility]) | | + + + + | 2024-11-14 16:23:26 | Encounter for attention to | [place] | | | colostomy (HCC) | [facility] | + + + + | 2024-11-14 16:23:26 | Other specified health | Adithya [place] | | | status | [facility] | + + + + | 2024-11-14 16:27:27 | Cellulitis of unspecified | [facility] | | | part of limb | [facility] | + + + + | 2024-11-14 16:27:27 | [facility]omyelitis [facility], | [facility] | | | sacral and sacrococcygeal | [facility] | | | region (HCC) | | + + + + | 2024-11-14 16:27:27 | Encounter for attention to | Adithya Boundary | | | colostomy (HCC) | [facility] | + + + + | 2024-11-14 16:27:27 | Homelessness unspecified | [facility] | | | | [facility] | + + + + | 2024-11-14 16:27:27 | Other specified health | [facility] | | | status | [facility] | + + + + | 2024-11-14 16:28:09 | Methicillin resistant | [facility] | | | Staphylococcus aureus | [facility] | | | infection as the cause of | | | | diseases classified | | | | elsewhere | | + + + + | 2024-11-14 16:28:09 | Cellulitis of unspecified | [facility] | | | part of limb | [facility] | + + + + | 2024-11-14 16:28:09 | Osteomyelitis of vertebra, | [facility] | | | sacral and sacrococcygeal | [facility] | | | region (HCC) | | + + + + | 2024-11-14 16:28:09 | Bacteremia | Adithya [place] | | | | [facility] | + + + + | 2024-11-14 16:28:09 | Encounter for attention to | Adithya [place] | | | colostomy (HCC) | [facility] | + + + + | 2024-11-14 16:28:09 | Homelessness unspecified | Adithya [place] | | | | [facility] | + + + + | 2024-11-14 16:28:09 | Other specified health | [facility] | | | status | [facility] | + + + + | 2024-11-14 16:30:02 | Methicillin resistant | [facility] | | | Staphylococcus aureus | [facility] | | | infection as the cause of | | | | diseases classified | | | | elsewhere | | + + + + | 2024-11-14 16:30:02 | Other psychoactive | [facility] | | | substance use, unspecified, | [facility] | | | uncomplicated | | + + + + | 2024-11-14 16:30:02 | Cellulitis of unspecified | [facility] | | | part of limb | [facility] | + + + + | 2024-11-14 16:30:02 | Osteomyelitis of vertebra, | [place] | | | sacral and sacrococcygeal | [facility] | | | region ([facility]) | | + + + + | 2024-11-14 16:30:02 | Bacteremia | [place] | | | | [facility] | + + + + | 2024-11-14 16:30:02 | Encounter for attention to | [facility] | | | colostomy (HCC) | [facility] | + + + + | 2024-11-14 16:30:02 | Homelessness unspecified | [facility] | | | | [facility] | + + + + | 2024-11-14 16:30:02 | Other specified health | [facility] | | | status | [facility] | + + + + | 2024-11-14 16:43:46 | Methicillin resistant | [facility] | | | Staphylococcus aureus | [facility] | | | infection as the cause of | | | | diseases classified | | | | elsewhere | | + + + + | 2024-11-14 16:43:46 | Type 2 diabetes mellitus | [facility] | | | with hyperosmolarity | [facility] | | | without nonketotic | | | | hyperglycemic-hyperosmolar | | | | coma ([facility]) ([facility]) | | + + + + | 2024-11-14 16:43:46 | Other psychoactive | [facility] | | | substance use, unspecified, | [facility] | | | uncomplicated | | + + + + | 2024-11-14 16:43:46 | Cellulitis of unspecified | [facility] | | | part of limb | [facility] | + + + + | 2024-11-14 16:43:46 | Osteomyelitis of vertebra, | Adithya [place] | | | sacral and sacrococcygeal | [facility] | | | region ([facility]) | | + + + + | 2024-11-14 16:43:46 | Bacteremia | Adithya [place] | | | | [facility] | + + + + | 2024-11-14 16:43:46 | Encounter for attention to | Adithya [place] | | | colostomy (HCC) | [facility] | + + + + | 2024-11-14 16:43:46 | Homelessness unspecified | Adithya [place] | | | | [facility] | + + + + | 2024-11-14 16:43:46 | Other specified health | Adithya [place] | | | status | [facility] | + + + + | 2024-11-14 17:17:21 | Methicillin resistant | [facility] | | | Staphylococcus aureus | [facility] | | | infection as the cause of | | | | diseases classified | | | | elsewhere | | + + + + | 2024-11-14 17:17:21 | Type 2 diabetes mellitus | [facility] | | | with hyperosmolarity | [facility] | | | without nonketotic | | | | hyperglycemic-hyperosmolar | | | | coma ([facility]) ([facility]) | | + + + + | 2024-11-14 17:17:21 | Other psychoactive | [facility] | | | substance use, unspecified, | [facility] | | | uncomplicated | | + + + + | 2024-11-14 17:17:21 | Cellulitis of unspecified | [facility] | | | part of limb | [facility] | + + + + | 2024-11-14 17:17:21 | Osteomyelitis of vertebra, | [facility] | | | sacral and sacrococcygeal | [facility] | | | region ([facility]) | | + + + + | 2024-11-14 17:17:21 | Bacteremia | [place] | | | | [facility] | + + + + | 2024-11-14 17:17:21 | Encounter for attention to | [place] | | | colostomy (HCC) | [facility] | + + + + | 2024-11-14 17:17:21 | Homelessness unspecified | [facility] | | | | [facility] | + + + + | 2024-11-14 17:17:21 | Other specified health | [facility] | | | status | [facility] | + + + + | 2024-11-16 03:30:12 | Methicillin resistant | [facility] | | | Staphylococcus aureus | [facility] | | | infection as the cause of | | | | diseases classified | | | | elsewhere | | + + + + | 2024-11-16 03:30:12 | Type 2 diabetes mellitus | [facility] | | | with hyperosmolarity | [facility] | | | without nonketotic | | | | hyperglycemic-hyperosmolar | | | | coma ([facility]) ([facility]) | | + + + + | 2024-11-16 03:30:12 | Other psychoactive | [facility] | | | substance use, unspecified, | [facility] | | | uncomplicated | | + + + + | 2024-11-16 03:30:12 | Cellulitis of unspecified | [place] | | | part of limb | [facility] | + + + + | 2024-11-16 03:30:12 | Osteomyelitis of vertebra, | [facility] | | | sacral and sacrococcygeal | [facility] | | | region ([facility]) | | + + + + | 2024-11-16 03:30:12 | Bacteremia | Adithya [place] | | | | [facility] | + + + + | 2024-11-16 03:30:12 | Encounter for attention to | [place] | | | colostomy (HCC) | [facility] | + + + + | 2024-11-16 03:30:12 | Homelessness unspecified | [facility] | | | | [facility] | + + + + | 2024-11-16 03:30:12 | Other specified health | [facility] | | | status | [facility] | + + + + Procedures No information. Results/Labs No information. Social History +--------+ + + | date | description | facility | +--------+ + + Vital Signs No information."
[~2024-12-26 14:16] MED LIST changes: +ATORVASTATIN CA20 MG PO; +SEMGLEE (Y100 UNIT/2 SUB-Q
--- OUTSIDE RECORDS SUMMARY | 2024-12-26 14:17 | XMS ---
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 Photograph Tinter Events No recent Security Events currently on file CRITERIA MET - 6 ED Visits in 6 Months - [facility] - 2 Visits in 30 Days - [facility] - 3 Facilities in 90 Days CARE PROVIDERS Franc Wood Community Health Worker 06/08/2023-Current PHONE: [phone] -Emil[facility]+ Dentist: Heel Varnisher [facility] PHONE: [phone] -Chris- Dentist: Heel Varn[facility] PHONE: [phone] -Kassy- Dentist: Heel Varnisher [facility] PHONE: [phone] RODNEY KIM Physician Cosmetology Educator Current PHONE: [phone] LIDYA SIDDIQUI Practitioner: Family Current PHONE: [phone] [facility]: [facility] Current FAMILY PHONE: [phone] VALENTIN LUNA Physician Cosmetology Educator Guido LOVING PHONE: [phone] GOBBO, BRAYDON W. Family Medicine Current PHONE: [phone] BRAYDON VILLATORO [facility] Current PHONE: [phone] VANESSA DESIR Nurse Practitioner: [facility] PHONE: [phone] SANTY MEJIA Physician Cosmetology Educator Current PHONE: Unknown Darleen Goins Granulizing Machine Operator/Criminal Legal Assistant Current PHONE: [phone] Guidelines Source: [facility] Guidelines Date: 03/17/2022 Care Recommendation: PATIENT [...] TO COPES. [place] VISIT COUNT (12 MO.) 27 [facility] 3 [facility] ([facility]ristin Amaral) 1 [facility]. TOTAL 40 NOTE: Visits indicate total known visits. ED/UCC VISIT TRACKING (12 MO.) 12/26/2024 14:16 [facility] [place] TYPE: Emergency COMPLAINT: - WEAKNESS [facility] DIAGNOSES: - Gangrene, not elsewhere classified - Osteomyelitis, unspecified - Foot Pain 12/01/2024 13[facility] DIAGNOSES: - Hyperglycemia, unspecified - Patient's noncompliance with other medical treatment and regimen due to unspecified reason - High Blood Sugar (Symptomatic) - Urinary Catheter Problem 11/28/2024 10:21 [facility] [place] TYPE: Emergency COMPLAINT: - WOUND CHECK DIAGNOSES: - Allergy status to other drugs, medicaments and biological substances - Colostomy complication, unspecified - Nicotine dependence, unspecified, uncomplicated 11/25/2024 02:51 [facility] [place] TYPE: Emergency [...] osteomyelitis, right ankle and foot - Other detention (current) drug therapy - Type 2 diabetes [...] factors, subsequent encounter - Hypothyroidism, unspecified - correction (current) use of insulin - Nicotine dependence, unspecified, uncomplicated - Other long term care administrator (current) drug therapy - Pure hypercholesterolemia, unspecified [...] Homelessness unspecified - Hormone replacement therapy - correction (current) use of insulin - Nicotine dependence, unspecified, uncomplicated - Other detention (current) drug therapy - Type 2 diabetes mellitus without complications - Unspecified open wound, left lower leg, initial encounter - Unspecified open wound, right lower leg, initial encounter 11/05/2024 10:59 [facility] TYPE: Emergency DIAGNOSES: - Presence [...] (primary) hypertension - Hypothyroidism, unspecified - terminal operator (current) use of insulin - Nicotine dependence, unspecified, uncomplicated - Non-pressure chronic ulcer of left calf limited to breakdown of skin - Non-pressure chronic ulcer of other part of right foot limited to breakdown of skin - Other long term care administrator (current) drug therapy - Other stimulant abuse, [...] to colostomy - Essential (primary) hypertension - correction (current) use of antibiotics - Nicotine dependence, [...] 2 diabetes mellitus with foot ulcer - container maker failure 09/25/2024 17:44 [facility] [place] TYPE: Emergency COMPLAINT: - Needs new bag DIAGNOSES: - Needs new bag 09/24/2024 21:05 [facility] [place] TYPE: Emergency DIAGNOSES: - Encounter for fitting and adjustment of urinary device - Personal history of other specified conditions - Catheter issue 09/23/2024 20:04 [facility] [place] TYPE: Emergency DIAGNOSES: - Abrasion, left foot, initial encounter - Other specified problems related to psychosocial circumstances - CODE WHITE 09/22/2024 17:05 Alex Guzman LUANNE TYPE: Emergency DIAGNOSES: - Elevated blood-pressure reading, without diagnosis of hypertension - Other specified counseling - Paraplegia, unspecified - nedds colostomy bag Plus 20 More Visits INPATIENT VISIT TRACKING (12 MO.) 12/04/2024 18[facility] TYPE: Surgical Services DIAGNOSES: - Acute kidney failure, unspecified - Bacteremia - Cellulitis of other sites - Chronic kidney disease, stage 3 unspecified - Chronic systolic (congestive) heart failure - Gangrene, not elsewhere classified - Hypothyroidism, unspecified - terminal operator (current) use of insulin - Osteomyelitis, unspecified - Other complications of colostomy - Type 2 diabetes mellitus with diabetic neuropathic arthropathy 10/24/2024 17:[address] [facility] [place] [...] unspecified - Iron deficiency anemia, unspecified - terminal operator (current) use of antibiotics - terminal operator (current) use of antibiotics - correction (current) use of insulin - correction (current) use of insulin - correction (current) use of opiate analgesic - terminal operator (current) use of opiate analgesic - Low [...] pain - Other chronic pain - Other long term care administrator (current) drug therapy - Other detention (current) drug therapy - Other stimulant use, [...] mood [affective] disorder 10/04/2024 04:[address] [facility] [place] TYPE: Medical Surgical COMPLAINT: - [...] nodes - Localized enlarged lymph nodes - correction (current) use of insulin - terminal operator (current) use of insulin - Nicotine dependence, cigarettes, uncomplicated - Nicotine dependence, cigarettes, uncomplicated - Osteomyelitis, unspecified - Other chronic pain - Other chronic pain - Other detention (current) drug therapy - Other long term care administrator (current) drug therapy - Other osteomyelitis, other [...] loss - Unspecified visual loss 08/13/2024 13:06 [facility] TYPE: Internal Medicine DIAGNOSES: - Metabolic [...] cause of diseases classified elsewhere - terminal operator (current) use of insulin - terminal operator (current) use of oral hypoglycemic drugs - Methicillin resistant Staphylococcus aureus infection as the cause of diseases classified elsewhere - Nicotine dependence, cigarettes, uncomplicated - Osteomyelitis, unspecified - Other complications of colostomy - Other long term care administrator (current) drug therapy - Other specified postprocedural [...] tract infection, site not specified 04/20/2024 11:54 [facility] TYPE: Internal Medicine DIAGNOSES: - Acute [...] TYPE: Critical Care COMPLAINT: - SEPSIS,PYELONEPHRITIS,PNEUMONIA,UNCONTROLLED DIABE [email or web address]
[2024-12-26] MEDS ORDERED: ALL DAY ALLERGY10 M3 PO (14:40)
[2024-12-26] MEDS ORDERED: DILAUDID4 MG PO (14:41)
[2024-12-26] MEDS ORDERED: ALLERGY MEDICAT25 MG PO (14:55)
[2024-12-26] MEDS ORDERED: COLACE100 MG PO (14:56)
[2024-12-26 14:58] LABS: BASOPHILS 1.8 % (0.2-1.2); EOSINOPHILS 8.3 % (0.8-7.0); LYMPHOCYTES 19.9 % (21.8-53.1); MCH 22.1 PG (25.7-32.2); MCHC 27.7 g/dL (32.3-36.5); MCV 80.0 fL (79.0-92.2); MONOCYTES 8.9 % (5.3-12.2); NEUTROPHILS 61.0 % (34.0-67.9); RBC 4.11 M/uL (4.63-6.08)
[2024-12-26 15:14] LABS: ALT (SGPT) 41.0 U/L (14-59); AST (SGOT) 29.0 U/L (15-37); GLOMERULAR FILTRATION RATE,EST 75.0 mL/min (>60); PROTEIN, TOTAL 8.0 g/dL (6.4-8.2); UREA NITROGEN 23.0 mg/dL (7-18)
[2024-12-26] MEDS ORDERED: LIDOCAINE 2% VISCOUS 6 ML SYR TOP ONE (15:15)
[2024-12-26] MEDS ORDERED: METFORMIN HCL1000 MG PO (15:48)
[2024-12-26] MEDS ORDERED: METOPROLOL SUCC25 MG PO (15:48)
[2024-12-26] MEDS ORDERED: PANTOPRAZOLE SO20 MG PO (15:49)
[2024-12-26 16:02] LABS: BLOOD/HGB, URINE LARGE (Negative); KETONE, URINE NEGATIVE (Negative); LEUK ESTERASE, URINE MODERATE (negative); NITRITE, URINE NEGATIVE (negative)
[2024-12-26 16:09] LABS: BACTERIA, URINE RARE /hpf (negative); CASTS, URINE NONE SEEN \\lpf; CRYSTALS, URINE NONE SEEN (0-1+); REFLEX CULTURE, URINE Yes (No)
[2024-12-26 16:18] LABS: AMPHETAMINES, URINE NEGATIVE (NEGATIVE); BARBITURATES, URINE NEGATIVE (NEGATIVE); BENZODIAZEPINE, URINE NEGATIVE (NEGATIVE); CANNABINOID, URINE POSITIVE (NEGATIVE); COCAINE, URINE NEGATIVE (NEGATIVE); ECSTASY, URINE NEGATIVE (NEGATIVE); FENTANYL, URINE NEGATIVE (NEGATIVE); METHADONE, URINE NEGATIVE (NEGATIVE); OPIATES, URINE POSITIVE (NEGATIVE); OXYCODONE, URINE NEGATIVE (NEGATIVE); PHENCYCLIDINE, URINE NEGATIVE (NEGATIVE)
[2024-12-26] MEDS ORDERED: FUROSEMIDE 40 MG/4 ML VIAL IV ONE (17:00)
[2024-12-26] MEDS ORDERED: HYDROmorphone HCL 1 MG/ML SYR IV ONE (17:00)
[2024-12-26] MEDS ORDERED: CEFAZOLIN SODIUM 2 GM/20 ML SYR IV ONE (17:00)
--- NOTE | 2024-12-26 17:34 | NUR ---
LE 1715: THIS RN IS DOWN IN ER FOR A WOUND CONSULT OF BLE BELOW THE KNEE STUMPS. THE RIGHT STUMP LOOKS VERY GOOD, WELL APPROXIMATED INCISION SITE, PARTHA INTACT, NO SIGNS. THE LLE STUMP HAS 2 AREAS THAT ARE RATHER OOZY OF SEROSANGUINOUS, MOSTLY SANGUINOUS FLUID. THERE IS NO ODER TO THE DRAINAGE. THE BOTTOM PORTION OF THE STUMP IS SQUISHY AND OOZES MORE SANGUINOUS DRAINAGE WHEN SQUISHED/PALPATED. THE AREA IS CLEANSED WITH SALINE AND GAUZE. CULTURES ARE TAKEN FROM THE LATERAL AND MEDIAL SITES THAT ARE OOZING. READING THROUGH [facility] ORDERS THEY ARE CURRENTLY DRESSING BOTH STUMPS WITH SALINE, ABD PADS, KERLEX, AND GUICHO BANDAGES. THE RIGHT STUMP PROBABLY DOES NOT NEED THIS ANYMORE WITH HOW WELL IT LOOKS, HOWEVER THE LEFT SIDE COULD POTENTIALLY BENEFIT FROM QUIK CLOT ON THE OOZING AREAS AND FOLLOWING [facility] CURRENT DRESSING PLANS. LE 1734: WOUND CONSULT IS COMPLETE, WITH RECOMMENDATIONS VERBALIZED TO ER DOCTOR AND PT'S PRIMARY RN.
[2024-12-26] MEDS ORDERED: POTASSIUM CHLO20 ME2 PO (18:30)
[2024-12-26] MEDS ORDERED: LASIX40 MG PO (18:30)
[2024-12-26 18:48] VITALS: BP 130/98
--- NOTE | 2024-12-27 15:14 | EKG ---
[facility] [address] [place] [address] Signed Normal sinus rhythm Low voltage QRS Borderline ECG When compared with ECG of 20-APR-2024 01:54, Criteria for Inferior infarct are no longer present Nonspecific T wave abnormality no longer evident in Lateral leads Confirmed by Parrish Fu MD ([id number]) on 12/27/2024 3:14:20 PM Electronically Signed By: PARRISH FU MD 12/27/24 1514 PATIENT NAME: JASMINA SANON Electrocardiogram DATE OF : 76 PHYSICIAN: PARRISH FU MD REPORT #: [id number] REPORT IS CONFIDENTIAL AND NOT TO BE RELEASED WITHOUT AUTHORIZATION
== END 2024-12-26 19:32 | disposition home or self-care (01) ==
LOC: ED 14:16
PROVIDERS: Emergency Medicine
DX: M96.830 Postprocedural hemorrhage of a musculoskeletal structure following a musculoskeletal system procedure (principal); R60.0 Localized edema; I10 Essential (primary) hypertension; E11.9 Type 2 diabetes mellitus without complications; F17.200 Nicotine dependence, unspecified, uncomplicated; Z88.8 Allergy status to other drugs, medicaments and biological substances; Z79.84 Long term (current) use of oral hypoglycemic drugs; Z79.899 Other long term (current) drug therapy; Z79.4 Long term (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
CPT/HCPCS: 36415; 51702; 71045; 80053; 80307; 81001; 84484; 85025; 87070; 87077; 87088; 87186; 87205; 93005; 93010; 96374; 96375; 99285-25; A4311; J0690; J1171; J1938; J2405

== ENCOUNTER 2025-01-13 06:18 | Emergency (ER) | payer OTHER ==
[~2025-01-13] VITALS: Ht 195.6 cm; Wt 113.1 kg
--- OUTSIDE RECORDS SUMMARY | ~2025-01-13 | XMS | Continuity of Care Document ---
Demographics + + + | Address | [address] | | | [place] [address] | + + + | Preferred Language | Unknown | + + + | Marital Status | unknown | + + + | Gnosticist Affiliation | Unknown | + + + | Race | White | + + + | Ethnic Group | Unknown | + + + Author + + + | Author | [facility] | + + + | Organization | [facility] | + + + | Address | [address] | | | [place] [address] | + + + | Phone | | + + + Care Team Providers + + + + | Care Irs Agent Name | Role | Phone | + + + + Unavailable | Unavailable | + + + + Allergies No information. Encounters No information. Functional Status No information. Immunizations No information. Medications No information. Problems + + + + | date | description | facility | + + + + | 2024-11-05 11:38:36 | Presence of other | [facility] | | | specified devices | [facility] | + + + + | 2024-11-05 11:39:12 | Presence of other | [facility] | | | specified devices | [facility] | + + + + | 2024-11-06 07:05:15 | Other iron deficiency | [facility] | | | anemias | [facility] | + + + + | 2024-11-06 07:05:15 | Type 2 diabetes mellitus | [facility] | | | with mild nonproliferative | [facility] | | | diabetic retinopathy | | | | without macular edema, | | | | bilateral (HCC) | | + + + + | 2024-11-06 07:05:15 | Osteomyelitis of vertebra, | [facility] [place] | | | sacral and sacrococcygeal | [facility] | | | region ([facility]) | | + + + + | 2024-11-06 07:05:15 | Other specified abnormal | [facility] [place] | | | findings of blood chemistry | [facility] | | | | | + + + + | 2024-11-06 07:05:15 | Encounter for attention to | [facility] | | | colostomy ([facility]) | [facility] | + + + + | 2024-11-06 07:05:15 | Homelessness unspecified | [facility] [place] | | | | [facility] | + + + + | 2024-11-06 07:05:15 | Other specified health | 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 | | | anemias | [facility] | + + + + | 2024-11-06 11:09:59 | Type 2 diabetes mellitus | [facility] | | | with mild nonproliferative | [facility] | | | diabetic retinopathy | | | | without macular edema, | | | | bilateral (HCC) | | + + + + | 2024-11-06 11:09:59 | Osteomyelitis of vertebra, | [facility] | | | sacral and sacrococcygeal | [facility] | | | region ([facility]) | | + + + + | 2024-11-06 11:09:59 | Other specified abnormal | [facility] | | | findings of blood chemistry | [facility] | | | | | + + + + | 2024-11-06 11:09:59 | Encounter for attention to | [facility] | | | colostomy ([facility]) | [facility] | + + + + | 2024-11-06 11:09:59 | Homelessness unspecified | [facility] | | | | [facility] | + + + + | 2024-11-06 11:09:59 | Other specified health | 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 | | | anemias | [facility] | + + + + | 2024-11-06 11:20:16 | Type 2 diabetes mellitus | [facility] | | | with hyperosmolarity | [facility] | | | without nonketotic | | | | hyperglycemic-hyperosmolar | | | | coma ([facility]) ([facility]) | | + + + + | 2024-11-06 11:20:16 | Osteomyelitis of vertebra, | [facility] | | | sacral and sacrococcygeal | [facility] | | | region ([facility]) | | + + + + | 2024-11-06 11:20:16 | Other specified abnormal | [facility] | | | findings of blood chemistry | [facility] | | | | | + + + + | 2024-11-06 11:20:16 | Encounter for attention to | [facility] [place] | | | colostomy (HCC) | [facility] | + + + + | 2024-11-06 11:20:16 | Homelessness unspecified | [facility] | | | | [facility] | + + + + | 2024-11-06 11:20:16 | Other specified health | [facility] | | | status | [facility] | + + + + | 2024-11-06 11:32:44 | Other iron deficiency | [facility] [place] | | | anemias | [facility] | + + + + | 2024-11-06 11:32:44 | Type 2 diabetes mellitus | [facility] | | | with hyperosmolarity | [facility] | | | without nonketotic | | | | hyperglycemic-hyperosmolar | | | | coma ([facility]) ([facility]) | | + + + + | 2024-11-06 11:32:44 | Osteomyelitis of vertebra, | [facility] [place] | | | sacral and sacrococcygeal | [facility] | | | region ([facility]) | | + + + + | 2024-11-06 11:32:44 | Other specified abnormal | [facility] [place] | | | findings of blood chemistry | [facility] | | | | | + + + + | 2024-11-06 11:32:44 | Encounter for attention to | [facility] [place] | | | colostomy (HCC) | [facility] | + + + + | 2024-11-06 11:32:44 | Homelessness unspecified | [facility] | | | | [facility] | + + + + | 2024-11-06 11:32:44 | Other specified health | [facility] | | | status | [facility] | + + + + | 2024-11-06 22:05:28 | Other iron deficiency | [facility] | | | anemias | [facility] | + + + + | 2024-11-06 22:05:28 | Type 2 diabetes mellitus | [facility] | | | with hyperosmolarity | [facility] | | | without nonketotic | | | | hyperglycemic-hyperosmolar | | | | coma ([facility]) ([facility]) | | + + + + | 2024-11-06 22:05:28 | Cellulitis of unspecified | [facility] | | | part of limb | [facility] | + + + + | 2024-11-06 22:05:28 | Osteomyelitis of vertebra, | [facility] | | | sacral and sacrococcygeal | [facility] | | | region ([facility]) | | + + + + | 2024-11-06 22:05:28 | Other specified abnormal | [facility] | | | findings of blood chemistry | [facility] | | | | | + + + + | 2024-11-06 22::28 | Encounter for attention to | [facility] [place] | | | colostomy (HCC) | [facility] | + + + + | 2024-11-06 22:05:28 | Homelessness unspecified | [facility] | | | | [facility] | + + + + | 2024-11-06 22:05:28 | Other specified health | [facility] | | | status | [facility] | + + + + | 2024-11-06 22:05:59 | Methicillin resistant | [facility] | | | Staphylococcus aureus | [facility] | | | infection as the cause of | | | | diseases classified | | | | elsewhere | | + + + + | 2024-11-06 22:05:59 | Other iron deficiency | [facility] | | | anemias | [facility] | + + + + | 2024-11-06 22:05:59 | Type 2 diabetes mellitus | [facility] | | | with hyperosmolarity | [facility] | | | without nonketotic | | | | hyperglycemic-hyperosmolar | | | | coma ([facility]) ([facility]) | | + + + + | 2024-11-06 22:05:59 | Cellulitis of unspecified | [facility] | | | part of limb | [facility] | + + + + | 2024-11-06 22:05:59 | Osteomyelitis of vertebra, | [facility] | | | sacral and sacrococcygeal | [facility] | | | region ([facility]) | | + + + + | 2024-11-06 22:05:59 | Bacteremia | [facility] | | | | [facility] | + + + + | 2024-11-06 22:05:59 | Other specified abnormal | [facility] | | | findings of blood chemistry | [facility] | | | | | + + + + | 2024-11-06 22:05:59 | Encounter for attention to | [facility] [place] | | | colostomy (HCC) | [facility] | + + + + | 2024-11-06 22:05:59 | Homelessness unspecified | [facility] [place] | | | | [facility] | + + + + | 2024-11-06 22:05:59 | Other specified health | [facility] | | | status | [facility] | + + + + | 2024-11-08 03:56:20 | Methicillin resistant | [facility] | | | Staphylococcus aureus | [facility] | | | infection as the cause of | | | | diseases classified | | | | elsewhere | | + + + + | 2024-11-08 03:56:20 | Other iron deficiency | [facility] | | | anemias | [facility] | + + + + | 2024-11-08 03:56:20 | Type 2 diabetes mellitus | [facility] | | | with hyperosmolarity | [facility] | | | without nonketotic | | | | hyperglycemic-hyperosmolar | | | | coma ([facility]) ([facility]) | | + + + + | 2024-11-08 03:56:20 | Cellulitis of unspecified | [facility] | | | part of limb | [facility] | + + + + | 2024-11-08 03:56:20 | Osteomyelitis of vertebra, | [facility] [place] | | | sacral and sacrococcygeal | [facility] | | | region ([facility]) | | + + + + | 2024-11-08 03:56:20 | Bacteremia | [facility] [place] | | | | [facility] | + + + + | 2024-11-08 03:56:20 | Other specified abnormal | [facility] [place] | | | findings of blood chemistry | [facility] | | | | | + + + + | 2024-11-08 03:56:20 | Encounter for attention to | [facility] [place] | | | colostomy ([facility]) | [facility] | + + + + | 2024-11-08 03:56:20 | Homelessness unspecified | [facility] | | | | [facility] | + + + + | 2024-11-08 03:56:20 | Other specified health | [facility] [place] | | | status | [facility] | + + + + | 2024-11-08 11:36:10 | Presence of other | [facility] [place] | | | specified devices | [facility] | + + + + | 2024-11-09 16:58:30 | Cellulitis of unspecified | [facility] [place] | | | part of limb | [facility] | + + + + | 2024-11-09 17:00:58 | Cellulitis of unspecified | [facility] [place] | | | part of limb | [facility] | + + + + | 2024-11-09 17:00:58 | Homelessness unspecified | [facility] [place] | | | | [facility] | + + + + | 2024-11-09 17:02:16 | Methicillin resistant | [facility] | | | Staphylococcus aureus | [facility] | | | infection as the cause of | | | | diseases classified | | | | elsewhere | | + + + + | 2024-11-09 17:02:16 | Cellulitis of unspecified | [facility] | | | part of limb | [facility] | + + + + | 2024-11-09 17:02:16 | Bacteremia | [facility] [place] | | | | [facility] | + + + + | 2024-11-09 17:02:16 | [facility]ness unspecified | [facility] | | | | [facility] | + + + + | 2024-11-09 17:13:21 | Methicillin resistant | [facility] | | | Staphylococcus aureus | [facility] | | | infection as the cause of | | | | diseases classified | | | | elsewhere | | + + + + | 2024-11-09 17:13:21 | Type 2 diabetes mellitus | [facility] | | | with hyperosmolarity | [facility] | | | without nonketotic | | | | hyperglycemic-hyperosmolar | | | | coma ([facility]) ([facility]) | | + + + + | 2024-11-09 17:13:21 | Cellulitis of unspecified | [facility] | | | part of limb | [facility] | + + + + | 2024-11-09 17:13:21 | Bacteremia | [facility] | | | | [facility] | + + + + | 2024-11-09 17:13:21 | Homelessness unspecified | [facility] | | | | [facility] | + + + + | 2024-11-09 17:13:44 | Methicillin resistant | [facility] | | | Staphylococcus aureus | [facility] | | | infection as the cause of | | | | diseases classified | | | | elsewhere | | + + + + | 2024-11-09 17:13:44 | Type 2 diabetes mellitus | [facility] | | | with hyperosmolarity | [facility] | | | without nonketotic | | | | hyperglycemic-hyperosmolar | | | | coma ([facility]) ([facility]) | | + + + + | 2024-11-09 17:13:44 | Cellulitis of unspecified | [facility] | | | part of limb | [facility] | + + + + | 2024-11-09 17:13:44 | Bacteremia | [facility] | | | | [facility] | + + + + | 2024-11-09 17:13:44 | Homelessness unspecified | [facility] | | | | [facility] | + + + + | 2024-11-11 03:18:48 | Methicillin resistant | [facility] | | | Staphylococcus aureus | [facility] | | | infection as the cause of | | | | diseases classified | | | | elsewhere | | + + + + | 2024-11-11 03:18:48 | Type 2 diabetes mellitus | [facility] | | | with hyperosmolarity | [facility] | | | without nonketotic | | | | hyperglycemic-hyperosmolar | | | | coma ([facility]) ([facility]) | | + + + + | 2024-11-11 03:18:48 | Cellulitis of unspecified | [facility] | | | part of limb | [facility] | + + + + | 2024-11-11 03:18:48 | Bacteremia | [facility] | | | | [facility] | + + + + | 2024-11-11 03:18:48 | Homelessness unspecified | [facility] [place] | | | | [facility] | + + + + | 2024-11-14 16:18:05 | Encounter for attention to | [facility] [place] | | | colostomy ([facility]) | [facility] | + + + + | 2024-11-14 16:19:35 | Osteomyelitis of vertebra, | [facility] [place] | | | sacral and sacrococcygeal | [facility] | | | region ([facility]) | | + + + + | 2024-11-14 16:19:35 | Encounter for attention to | [facility] [place] | | | colostomy ([facility]) | [facility] | + + + + | 2024-11-14 16:22:32 | Cellulitis of unspecified | [facility] [place] | | | part of limb | [facility] | + + + + | 2024-11-14 16:22:32 | Osteomyelitis of vertebra, | [facility] [place] | | | sacral and sacrococcygeal | [facility] | | | region ([facility]) | | + + + + | 2024-11-14 16:22:32 | Encounter for attention to | [facility] [place] | | | colostomy (HCC) | [facility] | + + + + | 2024-11-14 16:23:26 | Cellulitis of unspecified | [facility] [place] | | | part of limb | [facility] | + + + + | 2024-11-14 16:23:26 | Osteomyelitis of vertebra, | [facility] [place] | | | sacral and sacrococcygeal | [facility] | | | region (HCC) | | + + + + | 2024-11-14 16:23:26 | Encounter for attention to | [facility] [place] | | | colostomy (HCC) | [facility] | + + + + | 2024-11-14 16:23:26 | Other specified health | [facility] [place] | | | status | [facility] | + + + + | 2024-11-14 16:27:27 | Cellulitis of unspecified | [facility] | | | part of limb | [facility] | + + + + | 2024-11-14 16:27:27 | Osteomyelitis of vertebra, | [facility] | | | sacral and sacrococcygeal | [facility] | | | region (HCC) | | + + + + | 2024-11-14 16:27:27 | Encounter for attention to | [facility] [place] | | | colostomy (HCC) | [facility] | + + + + | 2024-11-14 16:27:27 | Homelessness unspecified | [facility] | | | | [facility] | + + + + | 2024-11-14 16:27:27 | Other specified health | [facility] | | | status | [facility] | + + + + | 2024-11-14 16:28:09 | Methicillin resistant | [facility] | | | Staphylococcus aureus | [facility] | | | infection as the cause of | | | | diseases classified | | | | elsewhere | | + + + + | 2024-11-14 16:28:09 | Cellulitis of unspecified | [facility] | | | part of limb | [facility] | + + + + | 2024-11-14 16:28:09 | Osteomyelitis of vertebra, | [facility] | | | sacral and sacrococcygeal | [facility] | | | region (HCC) | | + + + + | 2024-11-14 16:28:09 | Bacteremia | [facility] [place] | | | | [facility] | + + + + | 2024-11-14 16:28:09 | Encounter for attention to | [facility] [place] | | | colostomy (HCC) | [facility] | + + + + | 2024-11-14 16:28:09 | Homelessness unspecified | [facility] [place] | | | | [facility] | + + + + | 2024-11-14 16:28:09 | Other specified health | [facility] [place] | | | status | [facility] | + + + + | 2024-11-14 16:30:02 | Methicillin resistant | [facility] [place] | | | Staphylococcus aureus | [facility] | | | infection as the cause of | | | | diseases classified | | | | elsewhere | | + + + + | 2024-11-14 16:30:02 | Other psychoactive | [facility] | | | substance use, unspecified, | [facility] | | | uncomplicated | | + + + + | 2024-11-14 16:30:02 | Cellulitis of unspecified | [facility] | | | part of limb | [facility] | + + + + | 2024-11-14 16:30:02 | Osteomyelitis of vertebra, | [facility] [place] | | | sacral and sacrococcygeal | [facility] | | | region (HCC) | | + + + + | 2024-11-14 16:30:02 | Bacteremia | [facility] | | | | [facility] | + + + + | 2024-11-14 16:30:02 | Encounter for attention to | [facility] | | | colostomy (HCC) | [facility] | + + + + | 2024-11-14 16:30:02 | Homelessness unspecified | [facility] | | | | [facility] | + + + + | 2024-11-14 16:30:02 | Other specified health | [facility] | | | status | [facility] | + + + + | 2024-11-14 16:43:46 | Methicillin resistant | [facility] | | | Staphylococcus aureus | [facility] | | | infection as the cause of | | | | diseases classified | | | | elsewhere | | + + + + | 2024-11-14 16:43:46 | Type 2 diabetes mellitus | [facility] | | | with hyperosmolarity | [facility] | | | without nonketotic | | | | hyperglycemic-hyperosmolar | | | | coma ([facility]) ([facility]) | | + + + + | 2024-11-14 16:43:46 | Other psychoactive | [facility] | | | substance use, unspecified, | [facility] | | | uncomplicated | | + + + + | 2024-11-14 16:43:46 | Cellulitis of unspecified | [facility] | | | part of limb | [facility] | + + + + | 2024-11-14 16:43:46 | Osteomyelitis of vertebra, | [facility] [place] | | | sacral and sacrococcygeal | [facility] | | | region ([facility]) | | + + + + | 2024-11-14 16:43:46 | Bacteremia | [facility] [place] | | | | [facility] | + + + + | 2024-11-14 16:43:46 | Encounter for attention to | [facility] [place] | | | colostomy (HCC) | [facility] | + + + + | 2024-11-14 16:43:46 | Homelessness unspecified | [facility] [place] | | | | [facility] | + + + + | 2024-11-14 16:43:46 | Other specified health | [facility] [place] | | | status | [facility] | + + + + | 2024-11-14 17:17:21 | Methicillin resistant | [facility] | | | Staphylococcus aureus | [facility] | | | infection as the cause of | | | | diseases classified | | | | elsewhere | | + + + + | 2024-11-14 17:17:21 | Type 2 diabetes mellitus | [facility] | | | with hyperosmolarity | [facility] | | | without nonketotic | | | | hyperglycemic-hyperosmolar | | | | coma ([facility]) ([facility]) | | + + + + | 2024-11-14 17:17:21 | Other psychoactive | [facility] | | | substance use, unspecified, | [facility] | | | uncomplicated | | + + + + | 2024-11-14 17:17:21 | Cellulitis of unspecified | [facility] | | | part of limb | [facility] | + + + + | 2024-11-14 17:17:21 | Osteomyelitis of vertebra, | [facility] [place] | | | sacral and sacrococcygeal | [facility] | | | region ([facility]) | | + + + + | 2024-11-14 17:17:21 | Bacteremia | [facility] [place] | | | | [facility] | + + + + | 2024-11-14 17:17:21 | Encounter for attention to | [facility] [place] | | | colostomy (HCC) | [facility] | + + + + | 2024-11-14 17:17:21 | Homelessness unspecified | [facility] [place] | | | | [facility] | + + + + | 2024-11-14 17:17:21 | Other specified health | [facility] | | | status | [facility] | + + + + | 2024-11-16 03:30:12 | Methicillin resistant | [facility] | | | Staphylococcus aureus | [facility] | | | infection as the cause of | | | | diseases classified | | | | elsewhere | | + + + + | 2024-11-16 03:30:12 | Type 2 diabetes mellitus | [facility] | | | with hyperosmolarity | [facility] | | | without nonketotic | | | | hyperglycemic-hyperosmolar | | | | coma ([facility]) ([facility]) | | + + + + | 2024-11-16 03:30:12 | Other psychoactive | [facility] | | | substance use, unspecified, | [facility] | | | uncomplicated | | + + + + | 2024-11-16 03:30:12 | Cellulitis of unspecified | [facility] [place] | | | part of limb | [facility] | + + + + | 2024-11-16 03:30:12 | Osteomyelitis of vertebra, | [facility] [place] | | | sacral and sacrococcygeal | [facility] | | | region (HCC) | | + + + + | 2024-11-16 03:30:12 | Bacteremia | [facility] [place] | | | | [facility] | + + + + | 2024-11-16 03:30:12 | Encounter for attention to | [facility] [place] | | | colostomy (HCC) | [facility] | + + + + | 2024-11-16 03:30:12 | Homelessness unspecified | [facility] | | | | [facility] | + + + + | 2024-11-16 03:30:12 | Other specified health | [facility] | | | status | [facility] | + + + + Procedures No information. Results/Labs No information. Social History +--------+ + + | date | description | facility | +--------+ + + Vital Signs No information."
[~2025-01-13 06:18] MED LIST changes: +ALL DAY ALLERGY10 M3 PO; +ALLERGY MEDICAT25 MG PO; +COLACE100 MG PO; +DILAUDID4 MG PO; +LASIX40 MG PO; +METOPROLOL SUCC25 MG PO; +PANTOPRAZOLE SO20 MG PO; +POTASSIUM CHLO20 ME2 PO
--- OUTSIDE RECORDS SUMMARY | 2025-01-13 06:22 | XMS ---
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 Events No recent Security Events currently on file CRITERIA MET - 6 ED Visits in 6 Months - [facility] - 2 Visits in 30 Days - [facility] - 3 Facilities in 90 Days CARE PROVIDERS Franc Wood Community Health Worker 06/08/2023-Current PHONE: [phone] -Emiliano [facility]+ Dentist: [facility] PHONE: [phone] -Chris- Dentist: [facility] PHONE: [phone] -Kassy- Dentist: [facility] [facility] PHONE: [phone] RODNEY KIM Physician Metal Engraver Current PHONE: [phone] LIDYA SIDDIQUI Practitioner: Family Current PHONE: [phone] [facility]/Gray: [facility] Current FAMILY PHONE: [phone] VALENTIN LUNA Physician Metal Engraver Guido LOVING PHONE: [phone] GOBBO, BRAYDON W. 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 Corea VISIT COUNT (12 MO.) 28 [facility] 6 Alex Horneuel 3 [facility] 3 [facility] (Cristin Amaral) 1 [facility]. TOTAL 41 NOTE: Visits indicate total known visits. ED/UCC VISIT TRACKING (12 MO.) 01/13/2025 06:18 [facility] [place] TYPE: Emergency COMPLAINT: - ABDOMINAL PAIN 12/26/2024 14:16 [facility] [place] TYPE: Emergency COMPLAINT: - WEAKNESS DIAGNOSES: - Allergy status to other drugs, medicaments and biological substances - Essential (primary) hypertension - Localized edema - senior care (current) use of insulin - manager terminal (current) use of oral hypoglycemic drugs - Nicotine dependence, unspecified, uncomplicated - Other senior living (current) drug therapy - Postprocedural hemorrhage of a musculoskeletal structure following a musculoskeletal system procedure - Shortness of breath - Type 2 diabetes mellitus without complications 12/04/2024 18:55 [facility] Cristin HILLIARD (Cristin Amaral) TYPE: Emergency DIAGNOSES: - Gangrene, not elsewhere classified - Osteomyelitis, unspecified - Foot Pain 12/01/2024 13:49 [facility] Cristin Alfonsoa) TYPE: Emergency DIAGNOSES: - Hyperglycemia, unspecified - [...] osteomyelitis, right ankle and foot - Other supervisor intermediates (current) drug therapy - Type 2 diabetes [...] factors, subsequent encounter - Hypothyroidism, unspecified - senior care (current) use of insulin - Nicotine dependence, unspecified, uncomplicated - Other senior living (current) drug therapy - Pure hypercholesterolemia, unspecified [...] Homelessness unspecified - Hormone replacement therapy - manager terminal (current) use of insulin - Nicotine dependence, unspecified, uncomplicated - Other supervisor intermediates (current) drug therapy - Type 2 diabetes mellitus without complications - Unspecified open wound, left lower leg, initial encounter - Unspecified open wound, right lower leg, initial encounter 11/05/2024 10:59 [facility] DIAGNOSES: - Presence of other [...] senior care (current) use of insulin - Nicotine dependence, unspecified, uncomplicated - Non-pressure chronic ulcer of left calf limited to breakdown of skin - Non-pressure chronic ulcer of other part of right foot limited to breakdown of skin - Other supervisor intermediates (current) drug therapy - Other stimulant abuse, [...] to colostomy - Essential (primary) hypertension - manager terminal (current) use of antibiotics - Nicotine dependence, [...] 2 diabetes mellitus with foot ulcer - appliance servicer failure 09/25/2024 17:44 [facility] [place] TYPE: Emergency COMPLAINT: - Needs new bag DIAGNOSES: - Needs new bag 09/24/2024 21:05 [facility] Guz[facility] [place] TYPE: Emergency DIAGNOSES: - Encounter for fitting and adjustment of urinary device - Personal history of other specified conditions - Catheter issue 09/23/2024 20:04 [facility] Megan STROUD TYPE: Emergency DIAGNOSES: - Abrasion, left foot, initial encounter - Other specified problems related to psychosocial circumstances - CODE WHITE Plus 21 More Visits INPATIENT VISIT TRACKING (12 MO.) [facility]: Surgical Services DIAGNOSES: - Acute kidney failure, unspecified - Bacteremia - Cellulitis of other sites - Chronic kidney disease, stage 3 unspecified - Chronic systolic (congestive) heart failure - Gangrene, not elsewhere classified - Hypothyroidism, unspecified - manager terminal (current) use of insulin - Osteomyelitis, unspecified [...] unspecified - Iron deficiency anemia, unspecified - senior care (current) use of antibiotics - manager terminal (current) use of antibiotics - senior care (current) use of insulin - senior care (current) use of insulin - manager terminal (current) use of opiate analgesic - senior care (current) use of opiate analgesic - Low [...] pain - Other chronic pain - Other supervisor intermediates (current) drug therapy - Other senior living (current) drug therapy - Other stimulant use, [...] - Unspecified mood [affective] disorder 10/04/2024 04:[address] [facility] [place] TYPE: Medical Surgical [...] nodes - Localized enlarged lymph nodes - senior care (current) use of insulin - senior care (current) use of insulin - Nicotine dependence, cigarettes, uncomplicated - Nicotine dependence, cigarettes, uncomplicated - Osteomyelitis, unspecified - Other chronic pain - Other chronic pain - Other senior living (current) drug therapy - Other supervisor intermediates (current) drug therapy - Other osteomyelitis, other [...] loss - Unspecified visual loss 08/13/2024 13:06 [facility] TYPE: Internal Medicine DIAGNOSES: - [...] the cause of diseases classified elsewhere - manager terminal (current) use of insulin - senior care (current) use of oral hypoglycemic drugs - Methicillin resistant Staphylococcus aureus infection as the cause of diseases classified elsewhere - Nicotine dependence, cigarettes, uncomplicated - Osteomyelitis, unspecified - Other complications of colostomy - Other senior living (current) drug therapy - Other specified postprocedural [...] tract infection, site not specified 04/20/2024 11:54 [facility] TYPE: Internal Medicine DIAGNOSES: - [...] TYPE: Critical Care COMPLAINT: - SEPSIS,PYELONEPHRITIS,PNEUMONIA,UNCONTROLLED DIABE [email or web address]
[2025-01-13 06:52] LABS: BASOPHILS 2.1 % (0.2-1.2); EOSINOPHILS 8.1 % (0.8-7.0); LYMPHOCYTES 28.8 % (21.8-53.1); MCH 22.6 PG (25.7-32.2); MCHC 28.4 g/dL (32.3-36.5); MCV 79.8 fL (79.0-92.2); MONOCYTES 7.7 % (5.3-12.2); NEUTROPHILS 52.8 % (34.0-67.9); RBC 4.46 M/uL (4.63-6.08)
[2025-01-13 06:59] LABS: ALT (SGPT) 7.0 U/L (14-59); AST (SGOT) 24.0 U/L (15-37); GLOMERULAR FILTRATION RATE,EST 65.0 mL/min (>60); PROTEIN, TOTAL 8.2 g/dL (6.4-8.2); UREA NITROGEN 37.0 mg/dL (7-18)
[2025-01-13 08:23] VITALS: BP 119/93
== END 2025-01-13 08:23 | disposition home or self-care (01) ==
LOC: ED 06:18
PROVIDERS: Family Medicine
DX: K94.09 Other complications of colostomy (principal); L89.154 Pressure ulcer of sacral region, stage 4; E11.9 Type 2 diabetes mellitus without complications; I10 Essential (primary) hypertension; E78.00 Pure hypercholesterolemia, unspecified; E03.9 Hypothyroidism, unspecified; F17.200 Nicotine dependence, unspecified, uncomplicated; Z96.0 Presence of urogenital implants; Z89.512 Acquired absence of left leg below knee; Z89.511 Acquired absence of right leg below knee; Z88.8 Allergy status to other drugs, medicaments and biological substances; Z79.84 Long term (current) use of oral hypoglycemic drugs; Z79.85 Long-term (current) use of injectable non-insulin antidiabetic drugs; Z79.4 Long term (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; Z79.890 Hormone replacement therapy; Z79.899 Other long term (current) drug therapy
CPT/HCPCS: 36415; 74176; 80053; 85025; 99284-25

== ENCOUNTER 2025-02-19 07:19 | Emergency (ER) | payer OTHER ==
[~2025-02-19] VITALS: Ht 195.6 cm; Wt 93.5 kg
[~2025-02-19 07:19] MED LIST changes: +LANTUS SOL100 UNIT/1 SUB-Q; -SEMGLEE (Y100 UNIT/2 SUB-Q
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
[2025-02-19] MEDS ORDERED: ONDANSETRON 4 MG TAB ODT SL ONE (09:15)
[2025-02-19] MEDS ORDERED: HYDROCODONE/ACETA 5/325 TAB PO ONE (09:15)
[2025-02-19] MEDS ORDERED: TYLENOL EXTRA500 MG PO (12:51)
[2025-02-19] MEDS ORDERED: ASPIRIN81 MG PO (12:54)
[2025-02-19] MEDS ORDERED: BENADRYL ALLERG25 MG PO (12:56)
[2025-02-19] MEDS ORDERED: HYDROXYZINE HCL50 MG PO (12:59)
[2025-02-19] MEDS ORDERED: GLUCAGON EMERGEN1 M1 IM (12:59)
[2025-02-19] MEDS ORDERED: NARCAN4 MG NAS (13:05)
[2025-02-19] MEDS ORDERED: NICODERM CQ1 EAC2 TD (13:06)
[2025-02-19] MEDS ORDERED: MIRALAX17 GM PO (13:07)
[2025-02-19] MEDS ORDERED: KLOR-CON M2020 MEQ PO (13:08)
[2025-02-19] MEDS ORDERED: VITAMIN C500 M1 PO (13:09)
[2025-02-19] MEDS ORDERED: VITAMIN D325 MCG PO (13:10)
[2025-02-19] MEDS ORDERED: VENTOLIN HFA18 GM (13:11)
[2025-02-19] MEDS ORDERED: ZINC50 M3 PO (13:11)
[2025-02-19 14:08] VITALS: BP 117/79
== END 2025-02-19 14:00 ==
LOC: ED 07:19
DX: S70.311A Abrasion, right thigh, initial encounter (principal); S79.922A Unspecified injury of left thigh, initial encounter; E11.9 Type 2 diabetes mellitus without complications; I10 Essential (primary) hypertension; E78.00 Pure hypercholesterolemia, unspecified; E03.9 Hypothyroidism, unspecified; F17.200 Nicotine dependence, unspecified, uncomplicated; H54.7 Unspecified visual loss; Z89.512 Acquired absence of left leg below knee; Z89.511 Acquired absence of right leg below knee; Z93.3 Colostomy status; Z88.8 Allergy status to other drugs, medicaments and biological substances; Z79.84 Long term (current) use of oral hypoglycemic drugs; Z79.85 Long-term (current) use of injectable non-insulin antidiabetic drugs; Z79.4 Long term (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; Z79.890 Hormone replacement therapy; Z79.899 Other long term (current) drug therapy; W05.0XXA Fall from non-moving wheelchair, initial encounter
CPT/HCPCS: 73552; 99284; A9270